=== PATIENT | female | born 1970 | race Caucasian/White ===

== ENCOUNTER 2023-05-14 11:10 | Outpatient (OUT) | payer OTHER, SELFPAY | END 2023-05-14 11:11 | disposition home or self-care (01) | LOC: MN 11:15 | PROVIDERS: PCP Family Medicine | DX: R73.03 Prediabetes (principal) | CPT/HCPCS: G0108 ==

== ENCOUNTER 2023-10-09 07:08 | Outpatient (OUT) | payer OTHER, SELFPAY ==
[2023-10-09 08:24] LABS: Albumin Level 3.2 g/dL (3.4-5.0); Anion Gap 13.3; BUN Creatinine Ratio 11.9; Calcium 8.8 mg/dL (8.5-10.1); Carbon Dioxide 26.7 mmol/L (21.0-32.0); Chloride 101 mmol/L (98-107); Estimated GFR (African America >60 (>=60); Estimated GFR (Non-African Ame 58 (>=60); Glucose 132 mg/dL (74-106); Phosphorus 2.9 mg/dL (2.6-4.7); Sodium 137 mmol/L (136-145)
[2023-10-09 12:52] LABS: Hematocrit 42.4 % (36.0-48.0); Hemoglobin 13.7 g/dL (12.0-16.0); Mean Corpuscular HGB Conc 32.3 g/dL (29.9-35.2); Mean Corpuscular Hemoglobin 31.2 pg (26.7-34.0); Mean Corpuscular Volume 96.6 fL (81.0-99.0); Mean Platelet Volume 9.2 fL (9.5-13.5); Platelet Count 250 10^3/uL (150-450); Red Blood Count 4.39 10^6/uL (4.20-5.40); Red Cell Distribution Width 13.4 % (11.0-15.0); White Blood Count 5.1 10^3/uL (4.0-11.0)
== END 2023-10-09 07:09 | disposition home or self-care (01) ==
LOC: LAB 07:10
PROVIDERS: PCP Family Medicine; Visit Provider Internal Medicine
DX: K21.9 Gastro-esophageal reflux disease without esophagitis (principal); N28.1 Cyst of kidney, acquired; E87.3 Alkalosis; E87.6 Hypokalemia; E61.1 Iron deficiency
CPT/HCPCS: 36415; 80069; 81001; 83735; 85027

== ENCOUNTER 2023-10-10 09:12 | Outpatient (REF) | payer OTHER, SELFPAY ==
--- OUTSIDE RECORDS SUMMARY | 2023-10-10 09:15 | XMS_ITS | CCD ---
Author Organization [facility] Care Team Providers Care Home Care Consultant Name Role Phone Ledy Swartz Unavailable RAFAEL, DR REYES Admitting Unavailable HOY, DR REYES Primary Care Unavailable HOY, DR REYES Consulting Unavailable HOY, DR REYES Attending Unavailable WEST, DR ANNALISA Zayas Consulting Unavailable JOSE LUISY, DR REYES Primary Care Unavailable HOY, DR REYES Consulting Unavailable JOSE LUISY, DR REYES Attending Unavailable HOY, DR REYES Admitting Unavailable WEST, DR ANNALISA Zayas Consulting Unavailable JOSE LUISY, DR REYES Primary Care Unavailable HOY, DR REYES Consulting Unavailable HOY, DR REYES Attending Unavailable HOY, DR REYES Admitting Unavailable HOY, DR REYES Primary Care Unavailable HOY, DR REYES Consulting Unavailable HOY, DR REYES Attending Unavailable HOY, DR REYES Admitting Unavailable BROWNANNALISA Unavailable NATAPRAWIRA, CLAYTON Referring Unavailable ERIC JOHNSTON Primary Care Unavailable LEDY SWARTZ Referring Unavailable ERIC JOHNSTON Primary Care Unavailable ERIC JOHNSTON Referring Unavailable ERIC JOHNSTON Primary Care Unavailable Medications Current Medications Medication Drug Class(es) Dates Sig (Normalized) Sig (Original) aMILoride hydrochloride 5 mg oral tablet (10 sources) Potassium-sparin g Diuretic Start: 04-01-2023 End: 04-01-2023 take 5 mg by mouth once daily Amiloride Active 5 MG PO Daily April 01, 2023 9:44am take 1 tablet by elva th every twenty-four hours aMILoride HCl 5 mg 1 tablet Orally Once a day for 90 day(s) Active diclofenac sodium 75 mg delayed release oral tablet (2 sources) Nonsteroidal Anti-inflammatory Drug take 1 tablet by mouth every twelve hours Diclofenac Sodium 75 MG 1 tablet Orally Twice a day Active estradiol 0.5 mg oral tablet (3 sources) Estrogen Start: 04-01-19 take 1 tablet by mouth once daily Estradiol Active 0.5 MG PO Daily April 01, 2023 12:00am FreeTextSi tablet Orally Once a day; Note: Source Status: Taking; Provider: Sheridan Villafana ( ) take 1 tablet by elva th every twenty-four hours Estradiol 0.5 MG 1 tablet Orally Once a day Active etodolac 500 mg oral tablet (3 sources) Nonsteroidal Anti-inflammatory Drug Start: 04-01-2023 take 1 tablet by mouth twice daily at mealtime Etodolac Active 500 MG PO Once April 01, 2023 12:00am FreeTextSi tablet with food Orally Twice a day; Note: Source Status: Taking; Provider: Sheridan Villafana ( ) take 1 tablet by mouth every twe lve hours Etodolac 500 MG 1 tablet with food Orally Twice a day Active ferrous sulfate 325 mg oral tablet (4 sources) Start: 04-01-2023 End: 04-01-2023 take 1 tablet by mouth once daily Ferrous Sulfate Active 325 MG PO Daily April 01, 2023 9:43am FreeTextSi tablet Orally Once a day; Note: Source Status: Taking; Provider: Sheridan Villafana ( ) take 1 tablet by mouth once bryce y Ferrous Sulfate 325 (65 Fe) MG 1 tablet Orally Once a day Active pantoprazole 40 mg delayed release oral tablet (5 sources) Proton Pump Inhibitor Start: 04-01-2023 take 2 tablets by mouth once daily Pantoprazole Active 80 MG PO Daily April 01, 2023 12:00am FreeTextSi TABLETS Orally Once a day; Note: Source Status: Taking; Provider: Sheridan Villafana ( ) take 2 tablets by mo ut every twenty-four hours Pantoprazole Sodium 40 MG 2 TABLETS Oral ly Once a day Active take 1 tablet by elva th every twenty-four hours Pantoprazole Sodium 40 MG 1 tablet Orall y Once a day Active potassium chloride 20 meq extended release oral tablet (6 sources) Start: 04-01-2023 End: 04-01-2023 take 1 tablet by mouth twice daily Potassium Chloride Active 20 MEQ PO Twice daily 180 April 01, 2023 9:44am FreeTextSi Tablet Orally bid; Note: Source Status: Taking; Refills: 1; Qty: 180 Tablet; Provider: Sheridan Villafana ( ) take 1 tablet by elva th every twelve hours Potassium Chloride ER 20 mEq 1 Tablet Orally bid for 90 day(s) Active Problems Active Problems Problem Classification Problem Date Documented Da te Episodic/Chronic Abdominal pain (4 sources) Right upper quadrant pain; Translations: [RIGHT UPPER QUADRANT PAIN] Onset: 3 Episodic Deficiency and other anemia (1 source) Anemia, unspecified Episodic Diabetes mellitus without complication (2 sources) Hyperglycemia, unspecified; Translations: [Other abnormal glucose] Onset: 4 Episodic Esophageal disorders (5 sources) Gastroesophageal reflux disease; Translations: [Gastro-esophageal reflux disease without esophagitis] Chronic Fluid and electrolyte disorders (20 sources) Metabolic alkalosis; Translations: [Alkalosis] Onset: 2 Resolved: 2 Episodic Genitourinary congenital anomalies (8 sources) Cyst of kidney; Translations: [Congenital renal cyst, unspecified] Onset: 2 Resolved: 2 Chronic Malaise and fatigue (1 source) Other fatigue; Translations: [OTHER FATIGUE] Onset: 3 Episodic Nutritional deficiencies (4 sources) Iron deficiency; Translations: [Iron deficiency] Onset: 4 Episodic Other diseases of kidney and ureters (1 source) Cyst of kidney; Translations: [Cyst of kidney, acquired] 03-30-2023 Episodic Other diseases of kidney and ureters (1 source) Cyst of kidney, acquired; Translations: [Cystic kidney disease, unspecified] 04-01-2023 Episodic Other gastrointestinal disorders (1 source) Abdominal distension (gaseous); Translations: [ABDOMINAL DISTENSION GASEOUS] Onset: 3 Episodic Other liver diseases (1 source) Fatty (change of) liver, not elsewhere classified; Translations: [FATTY CHANGE LIVER NEC] Onset: 3 Chronic Other screening for suspected conditions (not mental disorders or infectious disease) (1 source) Encounter for screening mammogram for malignant neoplasm of breast; Translations: [Encounter for screening mammogram for malignant neoplasm of breast] Onset: 4 Episodic Past or Other Problems Problem Classification Problem Date Documented Da te Episodic/Chronic Nonspecific chest pain (4 sources) Chest pain, unspecified; Translations: [CHEST PAIN UNSPECIFIED] Onset: 11-03-2021 Episodic Results Test Name Value Interpretation Reference Range 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 COMPARISON: Mammograms dating back to 07/30/2018 TECHNIQUE: Bilateral digital tomosynthesis MLO and CC views of the breasts were obtained, with creation of synthetic 2D views. Computer aided detection was utilized. FINDINGS: The breasts are almost entirely fatty. There are no suspicious masses, calcifications, or areas of architectural distortions. IMPRESSION: No mammographic evidence of malignancy. BI-RADS: BI-RADS 1 - Negative Recommendation: Routine screening mammogram in 1 year. 1 Finalized by Kimi Del Rosario MD on 04/29/2023 2:39 PM 1 a MAMM 1 YR Normal [facility] COMPREHENSIVE METABOLIC PANE Rl 04-06-2023 Albumin [Mass/Vol] 3.7 g/dL Normal 3.2-5.3 [facility] Comment on above: Performed By: #### C ABUNDIO, 23912-3, THYR, 3051-0 #### [facility] ([id number]) [address], [facility] [address] [place] [address] ALP [Catalytic activity/Vol] 62 U/L Normal 39-130 [facility] Comment on above: Performed By: #### C ABUNDIO, 11975-8, THYR, 3051-0 #### [facility] ([id number]) [address], [facility] [address] [place] [address] ALT [Catalytic activity/Vol] 20 U/L Normal 0-31 [facility] Comment on above: Performed By: #### C ABUNDIO, 33876-5, THYR, 3051-0 #### [facility] ([id number]) [address], [address] [place] [address] Anion gap [Moles/Vol] 6 mmol/L Normal 5-15 [facility] Comment on above: Performed By: #### C ABUNDIO, 77081-2, THYR, 3051-0 #### [facility] ([id number]) [address], [address] [place] [address] AST [Catalytic activity/Vol] 15 U/L Normal 0-41 [facility] Comment on above: Performed By: #### C ABUNDIO, 08569-0, THYR, 305-0 #### [facility] ([id number]) [address], [address] [place] [address] Bilirubin [Mass/Vol] 0.6 mg/dL Normal 0.3-1.2 [facility] Comment on above: Performed By: #### C ABUNDIO, 17718-7, THYR, 305-0 #### [facility] ([id number]) [address], [address] [place] [address] Calcium [Mass/Vol] 8.9 mg/dL Normal 8.5-10.5 [facility] Comment on above: Performed By: #### C ABUNDIO, 47073-1, THYR, 305-0 #### [facility] ([id number]) [address], [address] [place] [address] Chloride [Moles/Vol] 105 mmol/L Normal 98-109 [facility] Comment on above: Performed By: #### C ABUNDIO, 17028-2, THYR, 305-0 #### [facility] ([id number]) [address], [address] [place] [address] CO2 [Moles/Vol] 29 mmol/L Normal 22-32 [facility] Comment on above: Performed By: #### C ABUNDIO, 36863-1, THYR, 3051-0 #### [facility] ([id number]) [address] [place] [address] Creatinine [Mass/Vol] 0.91 mg/dL Normal 0.40-1.00 [facility] Comment on above: Result Comment: METH OD TRACEABLE TO IDMS STANDARD Performed By: #### C ABUNDIO, 72261-2, THYR, 305-0 #### [facility] ([id number]) [address] [facility] [address] [place] [address] GFR/1.73 sq M.predicted among non-blacks MDRD (S/P/Bld) [Vol rate/Area] 76 mL/min/{1.73_m2} Normal >59 [facility] Comment on above: Result Comment: Reported eGFR is based on the CKD-EPI 2020 equation that does not use a race coefficient. Performed By: #### C ABUNDIO, 84199-9, THYR, 305-0 #### [facility] ([id number]) [address] [facility] [address] [place] [address] Glucose [Mass/Vol] 120 mg/dL High 65-99 [facility] Comment on above: Performed By: #### C ABUNDIO, 33191-2, THYR, 3050-0 #### [facility] ([id number]) [address] [facility] [address] [place] [address] Potassium [Moles/Vol] 4.2 mmol/L Normal 3.5-5.0 [facility] Comment on above: Performed By: #### C ABUNDIO, 09344-6, THYR, 305-0 #### [facility] ([id number]) [address] [facility] [address] [place] [address] Protein [Mass/Vol] 6.4 g/dL Normal 6.0-8.0 [facility] Comment on above: Performed By: #### C ABUNDIO, 78857-9, THYR, 305-0 #### [facility] ([id number]) [address] [facility] [address] [place] [address] Sodium [Moles/Vol] 140 mmol/L Normal 134-146 [facility] Comment on above: Performed By: #### C ABUNDIO, 71211-0, THYR, 305-0 #### [facility] ([id number]) [address], [address] [place] [address] Urea nitrogen [Mass/Vol] 18 mg/dL Normal 5-23 [facility] Comment on above: Performed By: #### C ABUNDIO, 41784-1, THYR, 305-0 #### [facility] ([id number]) [address], [facility] [address] [place] [address] FREE T3on 04-06-2023 Free T3 [Mass/Vol] 3.00 pg/mL Normal 2.50-3.90 [facility] Comment on above: Performed By: #### C BC, FEPR, 34233-4, RENAL, UPCR, 2276-4 #### [facility] ([id number]) [address], [address] [place] [address] HGB A1C (GLYCO-HGB)on 2023 Glucose [Mass/Vol] 146 mg/dL Normal [facility] Comment on above: Performed By: #### C ABUNDIO, 74637-1, THYR, 305-0 #### [facility] ([id number]) [address], [facility] [address] [place] [address] HbA1c (Bld) [Mass fraction] 6.7 % High 4.4-5.6 [facility] Comment on above: Result Comment: NOTE ADA Guidelines Result HgbA1c Normal : less than 5.7 % Prediabetes : 5.7 % to 6.4 % Diabetes : > 6.4 % Use with caution in patients with abnormal hemoglobin variants as the half-life of red blood cells and in vivo glycation rates are affected. Performed By: #### C ABUNDIO, 24557-4, THYR, 305-0 #### [facility] ([id number]) [address], [address] [place] [address] Insulin Qnon 04-06-2023 INSULIN 9.51 uIU/mL Normal 1.00-23.00 [facility] Comment on above: Result Comment: Ref. range is for FASTING NON-DIABETIC POPULATION. Performed By: #### C BC, FEPR, 81777-5, RENAL, UPCR, 2276-4 #### [facility] ([id number]) [address], [address] [place] [address] Lipid 1996 panelon Cholesterol [Mass/Vol] 103 mg/dL Low 150-200 [facility] Comment on above: Performed By: #### Jeannette DEL CASTILLO, 26970-9, THYR, 3051-0 #### [facility] ([id number]) [address], [address] [place] [address] Cholesterol in HDL [Mass/Vol] 32 mg/dL Low >39 [facility] Comment on above: Result Comment: HDL <40 mg/dL - High Risk HDL > or = 40mg/dL- Desirable HDL >60 mg/dL - Negative Risk Performed By: #### Jeannette DEL CASTILLO, 98791-8, THYR, 3051-0 #### [facility] ([id number]) [address], [address] [place] [address] Cholesterol in LDL [Mass/Vol] 52 mg/dL Normal <130 [facility] Comment on above: Result Comment: LDL <100 mg/dL - Desirable LDL >160 mg/dL - High Risk Performed By: #### Jeannette DEL CASTILLO, 78240-7, THYR, 3051-0 #### [facility] ([id number]) [address], [address] [place] [address] Cholesterol in VLDL [Mass/Vol] 19 mg/dL Normal 0-30 [facility] Comment on above: Performed By: #### C MP, 66300-8, THYR, 3051-0 #### [facility] ([id number]) [address], [address] [place] [address] CHOLESTEROL:HDL 3.2 Normal 1.0-5.0 [facility] Comment on above: Performed By: #### C MP, 95277-1, THYR, 3051-0 #### [facility] ([id number]) [address], [address] [place] [address] Triglyceride [Mass/Vol] 95 mg/dL Normal 27-150 [facility] Comment on above: Performed By: #### C MP, 44643-1, THYR, 3051-0 #### [facility] ([id number]) [address], [address] [place] [address] THYROID PROFILEon 04-06-2023 Free T4 [Mass/Vol] 0.82 ng/dL Normal 0.61-1.60 [facility] Comment on above: Performed By: #### C BC, FEPR, 44859-7, RENAL, UPCR, 6-4 #### [facility] ([id number]) [address], [address] [place] [address] TSH 1.95 uIU/mL Normal 0.49-4.67 [facility] Comment on above: Performed By: #### C BC, FEPR, 36139-9, RENAL, UPCR, 2276-4 #### [facility] ([id number]) [address], [address] [place] [address] COMPLETE BLOOD COUNTon 03-22 Erythrocyte distribution width (RBC) [Ratio] 12.1 % Normal 11.5-15.0 [facility] Comment on above: Performed By: #### C BC, FEPR, , RENAL, UPCR, 4 #### [facility] ([id number]) [address], [address] [place] [address] Hematocrit (Bld) [Volume fraction] 40.3 % Normal 35-47 [facility] Comment on above: Performed By: #### C BC, FEPR, 43619-9, RENAL, UPCR, 2275- #### [facility] ([id number]) [address], [facility] [address] [place] [address] Hemoglobin (Bld) [Mass/Vol] 13.6 g/dL Normal 11.7-15.5 [facility] Comment on above: Performed By: #### C BC, FEPR, , RENAL, UPCR, 2275- #### [facility] ([id number]) [address], [address] [place] [address] MCH (RBC) [Entitic mass] 31.1 pg Normal 27-34 [facility] Comment on above: Performed By: #### C BC, FEPR, , RENAL, UPCR, 2275- #### [facility] ([id number]) [address], [address] [place] [address] MCHC (RBC) [Mass/Vol] 33.7 g/dL Normal 32-36 [facility] Comment on above: Performed By: #### C BC, FEPR, 74977-6, RENAL, UPCR, 2275- #### [facility] ([id number]) [address], [address] [place] [address] MCV (RBC) [Entitic vol] 93 fL Normal 80-100 [facility] Comment on above: Performed By: #### C BC, FEPR, 77669-8, RENAL, UPCR, 2275-05 #### [facility] ([id number]) [address], [address] [place] [address] Platelet mean volume (Bld) [Entitic vol] 7.4 fL Normal 7-12 [facility] Comment on above: Performed By: #### C BC, FEPR, 86380-1, RENAL, UPCR, 6-4 #### [facility] ([id number]) [address], [address] [place] [address] Platelets (Bld) [#/Vol] 318 10*3/uL Normal 150-450 [facility] Comment on above: Performed By: #### C BC, FEPR, 42871-4, RENAL, UPCR, 2275- #### [facility] ([id number]) [address] [facility] [facility] [address] [place] [address] RBC COUNT 4.35 X10E12/L Normal 3.80-5.20 [facility] Comment on above: Performed By: #### C BC, FEPR, 90124-1, RENAL, UPCR, 2275-4 #### [facility] ([id number]) [address] [facility] [facility] [address] [place] [address] WBC (Bld) [#/Vol] 8.8 10*3/uL Normal 4.0-11.0 [facility] Comment on above: Performed By: #### C BC, FEPR, 62321-1, RENAL, UPCR, 2275- #### [facility] ([id number]) [address] [facility] [address] [place] [address] FERRITINon 03-22-2023 Ferritin [Mass/Vol] 40 ng/mL Normal 11-307 [facility] Comment on above: Performed By: #### C BC, FEPR, 85005-9, RENAL, UPCR, 6-4 #### [facility] ([id number]) [address] [place] [address] IRON PROFILEon 03-22-2023 Iron [Mass/Vol] 147 ug/dL Normal 50-170 [facility] Comment on above: Performed By: #### C BC, FEPR, 90607-1, RENAL, UPCR, 2276-4 #### [facility] ([id number]) [address], [facility] [address] [place] [address] IRON BINDING 402 ug/dL Normal 250-425 [facility] Comment on above: Performed By: #### C BC, FEPR, 03070-8, RENAL, UPCR, 2276-4 #### [facility] ([id number]) [address], [facility] [address] [place] [address] IRON SATURATION 37 % SATURATION Normal 15-50 [facility] Comment on above: Performed By: #### C BC, FEPR, , RENAL, UPCR, 2276-4 #### [facility] ([id number]) [address], [address] [place] [address] MAGNESIUMon 03-22-2023 Magnesium [Mass/Vol] 2.1 mg/dL Normal 1.8-2.6 [facility] Comment on above: Performed By: #### C BC, FEPR, , RENAL, UPCR, 2276-4 #### [facility] ([id number]) [address], [address] [place] [address] PROTEIN CREAT RATIOon 2023 RANDOM URINE PROTEIN 200 mg/L High <120 [facility] Comment on above: Performed By: #### C BC, FEPR, 71290-3, RENAL, UPCR, 2276-4 #### [facility] ([id number]) [address] [place] [address] U/PRO/INTERIOR DECORATOR RATIO CALC 0.07 Normal <0.2 [facility] Comment on above: Result Comment: Neph rotic Syndrome is associated with ratios >3.5 Performed By: #### C BC, FEPR, 04323-3, RENAL, UPCR, 2276-4 #### [facility] ([id number]) [address] [place] [address] URINE CREATININE,RDM 295.21 mg/dL Normal Pr [facility] [place] [place] Comment on above: Performed By: #### C BC, FEPR, 92765-3, RENAL, UPCR, 2276-4 #### [facility] ([id number]) [address], [address] [place] [address] RENAL PANELon 03-22-2023 Albumin [Mass/Vol] 3.8 g/dL Normal 3.2-5.3 [facility] Comment on above: Performed By: #### C BC, FEPR, 48744-1, RENAL, UPCR, 2276-4 #### [facility] ([id number]) [address], [address] [place] [address] Anion gap [Moles/Vol] 9 mmol/L Normal 5-15 [facility] Comment on above: Performed By: #### C BC, FEPR, 96252-3, RENAL, UPCR, 2276-4 #### [facility] ([id number]) [address], [address] [place] [address] Calcium [Mass/Vol] 9.1 mg/dL Normal 8.5-10.5 [facility] Comment on above: Performed By: #### C BC, FEPR, 80930-1, RENAL, UPCR, 2276-4 #### [facility] ([id number]) [address] [place] [address] Chloride [Moles/Vol] 104 mmol/L Normal 98-109 [facility] Comment on above: Performed By: #### C BC, FEPR, 04806-2, RENAL, UPCR, 2276-4 #### [facility] ([id number]) [address], [address] [place] [address] CO2 [Moles/Vol] 26 mmol/L Normal 22-32 [facility] Comment on above: Performed By: #### C BC, FEPR, 77870-7, RENAL, UPCR, 6-4 #### [facility] ([id number]) [address], [address] [place] [address] Creatinine [Mass/Vol] 0.98 mg/dL Normal 0.40-1.00 [facility] Comment on above: Result Comment: METH OD TRACEABLE TO IDMS STANDARD Performed By: #### C BC, FEPR, 87684-3, RENAL, UPCR, 6-4 #### [facility] ([id number]) [address], [facility] [address] [place] [address] GFR/1.73 sq M.predicted among non-blacks MDRD (S/P/Bld) [Vol rate/Area] 69 mL/min/{1.73_m2} Normal >59 [facility] Comment on above: Result Comment: Reported eGFR is based on the CKD-EPI 2020 equation that does not use a race coefficient. Performed By: #### C BC, FEPR, 83469-0, RENAL, UPCR, 6-4 #### [facility] ([id number]) [address] [place] [address] Glucose [Mass/Vol] 143 mg/dL High 65-99 [facility] Comment on above: Performed By: #### C BC, FEPR, 36034-3, RENAL, UPCR, 6-4 #### [facility] ([id number]) [address] [facility] [address] [place] [address] Phosphate [Mass/Vol] 3.8 mg/dL Normal 2.4-4.9 [facility] Comment on above: Performed By: #### C BC, FEPR, 06565-0, RENAL, UPCR, 2276-4 #### [facility] ([id number]) [address] [place] [address] Potassium [Moles/Vol] 4.1 mmol/L Normal 3.5-5.0 [facility] Comment on above: Performed By: #### C BC, FEPR, 50694-9, RENAL, UPCR, 2276-4 #### [facility] ([id number]) [address] [place] [address] Sodium [Moles/Vol] 139 mmol/L Normal 134-146 [facility] Comment on above: Performed By: #### C BC, FEPR, 14590-3, RENAL, UPCR, 2276-4 #### [facility] ([id number]) [address] [place] [address] Urea nitrogen [Mass/Vol] 16 mg/dL Normal 5-23 [facility] Comment on above: Performed By: #### C BC, FEPR, 89308-0, RENAL, UPCR, 2276-4 #### [facility] ([id number]) [address], [address] [place] [address] URINALYSISon 03-22-2023 Bilirubin Ql (U) Large Abnormal NEG [place] Comment on above: Result Comment: Not confirmed, interpret positive results with caution. BLOOD/HGB Negative Normal NEG [facility] Color (U) YELLOW Normal YELLOW [facility] Glucose Ql (U) Negative Normal NEG [facility] Hyaline casts LM Ql (Urine sed) 2 /lpf Normal 0-2 [facility] Ketones Ql (U) Negative Normal NEG [facility] Leukocyte esterase Test strip Ql (U) Negative Normal NEG [facility] MUCOUS PRESENT Abnormal NONE [facility] Nitrite Ql (U) Negative Normal NEG [facility] pH (U) 6.5 [pH] Normal 5.0-8.5 [facility] Protein Ql (U) 70 mg/dL Abnormal NEG [facility] R.B.CELLS 0 /hpf Normal 0-5 [facility] Specific gravity (U) [Rel density] 1.025 Normal 1.003-1.035 [facility] [place] SQUAMOUS EPITHELIUM 11 /hpf High 0-5 [facility] TURBIDITY HAZY Abnormal CLEAR [facility] Urobilinogen Qn (U) 4 {Earnest'U}/dL High <1.1 [facility] W.B.CELLS 2 /hpf Normal 0-5 [facility] Hemogram CBC Without Diffon 04-21-2022 Erythrocyte distribution width (RBC) [Ratio] 13.1 % [facility] [place] Other Hematocrit (Bld) [Volume fraction] 39.6 % [facility] [place] [place] Other Hemoglobin (Bld) [Mass/Vol] 13.5 g/dL [facility] [place] [place] Other MCH (RBC) [Entitic mass] 31.4 pg [facility] [place] Other MCH (RBC) [Entitic mass] 34.1 pg [facility] [place] Other MCV (RBC) [Entitic vol] 92 fL [facility] [place] [place] Other Platelet mean volume (Bld) [Entitic vol] 7.4 fL [facility] [place] Other Platelets (Bld) [#/Vol] 324 10*3/uL [facility] [place] Other RBC (Bld) [#/Vol] 4.30 10*6/uL [facility] [place] Other WBC (Bld) [#/Vol] 7.9 10*3/uL [facility] [place] [place] Other Hemogram CBC Without Diff [facility] [place] [place] Other Iron and TIBC Profileon Iron [Mass/Vol] 61 ug/dL [facility] [place] Other Iron and TIBC Profile [address] [employer] [facility] [employer] Other Iron and TIBC Profile 16 [facility] [place] Other Magnesiumon 04-21-2022 Magnesium 2,2 [facility] [place] [place] Other Protein Creat Ratio Ur Rando mon 04-21-2022 Albumin Test strip detection limit <= 20 mg/L (U) [Mass/Vol] 80 [facility] [place] [place] Other Protein Creat Ratio Ur Random 101.82 [facility] [place] [place] Other Protein Creat Ratio Ur Random 0.08 [facility] [place] Other Ferritinon 04-17-2022 Ferritin [Mass/Vol] 26 ng/mL [facility] [place] [place] Other Renal Function Panelon 04-17 Albumin [Mass/Vol] 4.0 g/dL [facility] [place] [place] Other Calcium [Mass/Vol] 8.9 mg/dL [facility] [place] [place] Other Chloride [Moles/Vol] 108 mmol/L [facility] [place] Other CO2 [Moles/Vol] 26 mmol/L [facility] [place] Other Creatinine [Mass/Vol] 0.93 mg/dL [facility] [place] Other Glucose [Mass/Vol] 115 mg/dL [facility] [place] [place] Other Potassium [Moles/Vol] 4.2 mmol/L [facility] [place] Other Sodium [Moles/Vol] 143 mmol/L [facility] [place] Other Urea nitrogen [Mass/Vol] 11 mg/dL [facility] [place] [place] Other Renal Function Panel [facility] [place] [place] Other Renal Function Panel 74 [facility] [place] Other CT ABD/PELV W CONon 03-24-[address] ABD/PELV W CON EXAMINATION: CT ABD/PELV W CON, 03/24/2022 6:48 AM EST HISTORY: Right upper quadrant pain , elevated liver phalanx, epigastric pain COMPARISON: 03/13/2022 ultrasound TECHNIQUE: CT scan of the abdomen and pelvis was performed with IV contrast. CT dose reduction technique was used, including Automated Exposure Control. FINDINGS: LUNG BASES: No visible pulmonary or pleural disease. LIVER: Diffuse hypoattenuation of the liver BILIARY: No dilatation or calcification. PANCREAS: No lesion, fluid collection, ductal dilatation, or atrophy. SPLEEN: No enlargement or focal lesion. ADRENALS: No mass or enlargement. KIDNEYS: No mass, obstruction, or calcification. BOWEL/MESENTERY: Mild sliding hiatal hernia. Nonobstructive bowel gas pattern. Mild to moderate stranding in the central mesenteric fat with associated increased number of normal sized lymph nodes AORTA/VASCULAR: No aneurysm or dissection. RETROPERITONEUM: No mass or adenopathy. LYMPH NODES: No adenopathy. URINARY BLADDER: No visible focal wall thickening, lesion, or calculus. PELVIC ORGANS: Hysterectomy ABDOMINAL WALL: No mass or hernia. BONES: No bony lesion or fracture. OTHER: Negative. IMPRESSION: Diffuse hepatic steatosis Stranding of the central mesenteric fat with increased number of lymph nodes. Consider mesenteric adenitis or mesenteritis Electronically authenticated by: ANNALISA MASTERS Date: 2022-03-24 08:27 Normal [facility] AMYLASEon 03-19-2022 Amylase [Catalytic activity/Vol] 48 U/L Normal 25-115 [facility] Comment on above: Performed By: #### L IPA, BEBA, CMP #### [facility] [address] [place] [address] Dr. Cecilio Guerrero CBC AUTO DIFFon 03-19-2022 BASO # 0.0 103/ul Normal 0.0-0.1 [facility] Comment on above: Performed By: #### C BC #### [facility] [address] [place] [address] Dr. Cecilio Guerrero Basophils/100 WBC (Bld) 0.5 % Normal 0.2-2.0 [facility] Comment on above: Performed By: #### C BC #### [facility] [address] [place] [address] Dr. Cecilio Guerrero EO # 0.3 103/ul Normal 0.0-0.7 [facility] Comment on above: Performed By: #### C BC #### [facility] [address] [place] [address] Dr. Cecilio Guerrero Eosinophils/100 WBC (Bld) 2.9 % Normal 0.9-7.0 [facility] Comment on above: Performed By: #### C BC #### [facility] [address] [place] [address] Dr. Cecilio Guerrero Erythrocyte distribution width (RBC) [Ratio] 12.0 % Normal 11.0-15.0 [facility] Comment on above: Performed By: #### C BC #### [facility] [address] [place] [address] Dr. Cecilio Guerrero Hematocrit (Bld) [Volume fraction] 45.8 % Normal 36.0-48.0 [facility] Comment on above: Performed By: #### C BC #### [facility] [address] [place] [address] Dr. Cecilio Guerrero Hemoglobin (Bld) [Mass/Vol] 14.3 g/dL Normal 12.0-16.0 [facility] Comment on above: Performed By: #### C BC #### [facility] [address] [place] [address] Dr. Cecilio Guerrero IG # 0.03 10e3/ul Normal 0.00-0.03 [facility] Comment on above: Performed By: #### C BC #### [facility] [address] [place] [address] Dr. Cecilio Guerrero IG % 0.3 % Normal 0.0-0.5 [facility] Comment on above: Performed By: #### C BC #### [facility] [address] [place] [address] Dr. Cecilio Guerrero LYMPH # 3.4 103/ul Normal 1.2-3.8 [facility] Comment on above: Performed By: #### C BC #### [facility] [address] [place] [address] Dr. Cecilio Guerrero Lymphocytes/100 WBC (Bld) 37.9 % Normal 20.5-60.0 [facility] Comment on above: Performed By: #### C BC #### [facility] [address] [place] [address] Dr. Cecilio Guerrero MANUAL DIFF REQ NO Normal [facility] Comment on above: Performed By: #### C BC #### [facility] [address] [place] [address] Dr. Cecilio Guerrero MCH (RBC) [Entitic mass] 30.1 pg Normal 26.7-34.0 [facility] Comment on above: Performed By: #### C BC #### [facility] [address] [place] [address] Dr. Cecilio Guerrero MCHC (RBC) [Mass/Vol] 31.2 g/dL Normal 29.9-35.2 [facility] Comment on above: Performed By: #### C BC #### [facility] [address] [place] [address] Dr. Cecilio Guerrero MCV (RBC) [Entitic vol] 96.4 fL Normal 81.0-99.0 [facility] Comment on above: Performed By: #### C BC #### [facility] [address] [place] [address] Dr. Cecilio Guerrero MONO # 0.9 103/ul Critically high 0.3-0.8 [facility] Comment on above: Performed By: #### C BC #### [facility] [address] [place] [address] Dr. Cecilio Guerrero Monocytes/100 WBC (Bld) 10.0 % Normal 1.7-12.0 [facility] Comment on above: Performed By: #### C BC #### [facility] [address] [place] [address] Dr. Cecilio Guerrero NEUT # 4.3 103/ul Normal 1.4-6.5 [facility] Comment on above: Performed By: #### C BC #### [facility] [address] [place] [address] Dr. Cecilio Guerrero Neutrophils/100 WBC (Bld) 48.4 % Normal 43.0-75.0 [facility] Comment on above: Performed By: #### C BC #### [facility] [address] [place] [address] Dr. Cecilio Guerrero Platelet mean volume (Bld) [Entitic vol] 9.2 fL Critically low 9.5-13.5 [facility] Comment on above: Performed By: #### C BC #### [facility] [address] [place] [address] Dr. Cecilio Guerrero PLT 319 103/ul Normal 150-450 [facility] Comment on above: Performed By: #### C BC #### [facility] [address] [place] [address] Dr. Cecilio Guerrero RBC 4.75 106/ul Normal 4.20-5.40 [facility] Comment on above: Performed By: #### C BC #### [facility] [address] [place] [address] Dr. Cecilio Guerrero WBC 8.9 103/ul Normal 4.0-11.0 [facility] Comment on above: Performed By: #### C BC #### [facility] [address] [place] [address] Dr. Cecilio Guerrero LIPASEon 03-19-2022 Lipase [Catalytic activity/Vol] 379.0 U/L Normal 73.0-393.0 [facility] Comment on above: Performed By: #### L BEBA RUSH CMP #### [facility] [address] [place] [address] Dr. Cecilio Guerrero PROF 14(COMP METB)on 023 Albumin [Mass/Vol] 3.3 g/dL Critically low 3.4-5.0 [facility] Comment on above: Performed By: #### L BEBA RUSH CMP #### [facility] [address] [place] [address] Dr. Cecilio Guerrero Albumin/Globulin [Mass ratio] 0.8 {ratio} Normal [facility] Comment on above: Performed By: #### L BEBA RUSH CMP #### [facility] [address] [place] [address] Dr. Cecilio Guerrero ALP [Catalytic activity/Vol] 85 U/L Normal 46-116 [facility] Comment on above: Performed By: #### L BEBA RUSH, CMP #### [facility] [address] [address] [address] Cecilio Guerrero ALT [Catalytic activity/Vol] 103 U/L Critically high 14-59 [facility] Comment on above: Performed By: #### L BEBA RUSH, CMP #### [facility] [address] [address] [address] Cecilio Guerrero Anion gap [Moles/Vol] 10.8 mmol/L Normal [facility] Comment on above: Performed By: #### L BEBA RUSH, CMP #### [facility] [address] [place] [address] Dr. Cecilio Guerrero AST [Catalytic activity/Vol] 30 U/L Normal 15-37 [facility] Comment on above: Performed By: #### L BEBA RUSH, CMP #### [facility] [address] [place] [address] Dr. Cecilio Guerrero Bilirubin [Mass/Vol] 0.6 mg/dL Normal 0.2-1.0 [facility] Comment on above: Performed By: #### L BEBA RUSH, CMP #### [facility] [address] [place] [address] Dr. Cecilio Guerrero Calcium [Mass/Vol] 9.5 mg/dL Normal 8.5-10.1 [facility] Comment on above: Performed By: #### L BEBA RUSH, CMP #### [facility] [address] [place] [address] Dr. Cecilio Guerrero Chloride [Moles/Vol] 104 mmol/L Normal 98-107 [facility] Comment on above: Performed By: #### L BBEA RUSH, CMP #### [facility] [address] [place] [address] Dr. Cecilio Guerrero CO2 [Moles/Vol] 30.5 mmol/L Normal 21.0-32.0 [facility] Comment on above: Performed By: #### L BEBA RUSH, CMP #### [facility] [address] [address] [address] Cecilio Guerrero Creatinine [Mass/Vol] 0.99 mg/dL Normal 0.55-1.02 [facility] Comment on above: Performed By: #### L VICTOR MANUEL BEBA, CMP #### [facility] [address] [address] [address] Cecilio Guerrero EGFR-AF FAROESE >60 Normal >=60 [facility] Comment on above: Performed By: #### L VICTOR MANUEL BEBA, CMP #### [facility] [address] [address] [address] Cecilio Guerrero EGFR-NON AF FAROESE 59 mL/min/1.73m2 Critically low >=60 [facility] Comment on above: Performed By: #### L BEBA RUSH, CMP #### [facility] [address] [address] [address] Cecilio Guerrero Globulin (S) [Mass/Vol] 4.0 g/dL Normal [facility] Comment on above: Performed By: #### L BEBA RUSH, CMP #### [facility] [address] [address] [address] Cecilio Guerrero Glucose [Mass/Vol] 130 mg/dL Critically high 74-106 [facility] Comment on above: Performed By: #### L BEBA RUSH, CMP #### [facility] [address] [address] [address] Cecilio Guerrero Potassium [Moles/Vol] 4.3 mmol/L Normal 3.5-5.1 [facility] Comment on above: Performed By: #### L BEBA RSUH, CMP #### [facility] [address] [address] [address] Cecilio Guerrero Protein [Mass/Vol] 7.3 g/dL Normal 6.4-8.2 [facility] Comment on above: Performed By: #### L VICTOR MANUEL BEBA, CMP #### [facility] [address] [address] [address] Cecilio Guerrero Sodium [Moles/Vol] 141 mmol/L Normal 136-145 [facility] Comment on above: Performed By: #### L IPA, BEBA, CMP #### [facility] [address] [place], [place] [address] Dr. Cecilio Guerrero Urea nitrogen [Mass/Vol] 12.0 mg/dL Normal 7.0-18.0 [facility] Comment on above: Performed By: #### L IPA, BEBA, CMP #### [facility] [address] [place], [place] [address] Dr. Cecilio Guerrero Urea nitrogen/Creatinine [Mass ratio] 12.1 mg/mg Normal [facility] Comment on above: Performed By: #### L IPA, BEBA, CMP #### [facility] [address] [place], [place] [address] Dr. Cecilio Guerrero US SINGLE QUAD RT UPPERon US SINGLE QUAD RT UPPER EXAM: US SINGLE QUAD RT UPPER HISTORY: . Right upper quadrant pain . COMPARISON: 11/26/2018 TECHNIQUE: Grayscale and color imaging was performed FINDINGS: The pancreas appears normal. Scanning of the liver demonstrates diffuse increased echogenicity of liver consistent with fatty infiltration of liver. Color-flow is noted in the portal and hepatic veins. Liver is normal in size. The gallbladder appears normal with no stones or sludge identified. No gallbladder wall thickening is noted. Common bile duct measures 4 mm. Right kidney measures 10.3 x 5.6 x 4.9 cm. No solid renal cortical masses or hydronephrosis is noted. No fluid is noted in the right upper quadrant. IMPRESSION: 1. Increased echogenicity of liver consistent with fatty infiltration of liver. This is unchanged. 2. The remainder the right upper quadrant is unremarkable. Electronically authenticated by: ANNALISA DE Date: 2022-03-13 12:13 Normal [facility] NM STRESS/REST MULTIon 11-03 NM STRESS/REST MULTI Patient: NORMA LOUGage Exam Date: 11/03/2021 : 1970 Gender:F Ordering : DR ERIC JOHNSTON . Admission #: [id number] Family : Order #: [id number] CLICK HERE TO VIEW EXAM RADIOLOGY REPORT PROCEDURE: RADIONUCLIDE IMAGING STRESS/REST MULTI COMPARISON: None. INDICATIONS: Chest pain TECHNIQUE: Exam Description: Stress/Rest one day protocol gated SPECT Rest Imagin.7 mCi Tc-99m Cardiolite IV on 11/03/2021 Stress Imaging 31.2 mCi Tc-99m Cardiolite IV on 11/03/2021 Exercise Protocol: [place] Heart Rate (bpm): Rest: 88 Max: 162 PMHR: 95 Blood Pressure: Rest: 130/84 Max: 180/92 Exercise Time: Minutes: 6 Seconds: 00 Stage Reached: Stage: 2 Mets 7.0 Symptoms: Rest and peak stress ECG findings were normal and the exercise portion of the study was normal per attending physician Dr. Penn . For more details please see separate cardiac stress test report. FINDINGS: QUALITY OF STUDY: Good. PERFUSION DEFECT: None. LOCATION: N/A SIZE: N/A. SEVERITY: N/A. TYPE: N/A. WALL MOTION: Normal. LV SIZE: Normal. 47 mL. TID / TCD: None; 0.6 LVEF: Normal. Calculated EF 83%. SUMMARY: Myocardial perfusion imaging study is NORMAL. CONCLUSION: 1. No reversible ischemia 2. Normal exercise test Dictated by: Annalisa Masters MD on 11/04/2021 at 07:31 Approved by: Annalisa Masters MD on 11/04/2021 at 07:34 Normal [facility] Antithyroglobulin Abon 07-08 Antithyroglobulin Ab <1.0 Normal 0.0-0.9 [facility] Comment on above: Result Comment: Thyr oglobulin Antibody measured by [employer] Performed at: [facility] [employer] [id number] Coal Passer: Fabrizio Herrera PhD, Phone: [phone] Performed By: #### C HROMATIN, TPO, THYGLOB AB #### [facility] , #### ADDONUAPLUS #### [facility] [address] Chromatin Antibodyon 022 Chromatin Antibody <0.2 Normal 0.0-0.9 [facility] Comment on above: Result Comment: Perf ormed at: [facility] [id number] Coal Passer: Fabrizio Herrera PhD, Phone: [phone] PERFORMED BY: [place] [address] PATHOLOGIST TIE INSPECTOR PAULA WILL M.D. Performed By: #### C HROMATIN, TPO, THYGLOB AB #### [facility] , #### ADDONUAPLUS #### [facility] [address] [place] [address] [place] Dipstick and Microscopicon 0 07-08-2021 Appearance (U) Clear Normal Clear [facility] Comment on above: Order Comment: Name Collection Type:: Clean-Voided Midstream Performed By: #### C HROMATIN, TPO, THYGLOB AB #### [facility] , #### ADDONUAPLUS #### [address] Bacteria,Urine None Seen Normal None Seen [facility] Comment on above: Order Comment: Name Collection Type:: Clean-Voided Midstream Performed By: #### C HROMATIN, TPO, THYGLOB AB #### [facility] , #### ADDONUAPLUS #### [facility] [address] [place] [address] Bilirubin,Urine Negative Normal Negative [facility] Comment on above: Order Comment: Name Collection Type:: Clean-Voided Midstream Performed By: #### C HROMATIN, TPO, THYGLOB AB #### [facility] , #### ADDONUAPLUS #### [facility] [address] [place] [address] Color (U) Yellow Normal Yellow [facility] Comment on above: Order Comment: Name Collection Type:: Clean-Voided Midstream Performed By: #### C HROMATIN, TPO, THYGLOB AB #### [facility] , #### ADDONUAPLUS #### [facility] [address] [place] [address] Glucose Ql (U) Normal Normal Normal [facility] Comment on above: Order Comment: Name Collection Type:: Clean-Voided Midstream Performed By: #### C HROMATIN, TPO, THYGLOB AB #### [facility] , #### ADDONUAPLUS #### [facility] [address] [place] [address] [place] Hyaline Casts,Urine 0-8 Normal 0-8 [facility] Comment on above: Order Comment: Name Collection Type:: Clean-Voided Midstream Result Comment: PERF ORMED BY: [place] [address] PATHOLOGIST TIE INSPECTOR PAULA WILL M.D. Performed By: #### C HROMATIN, TPO, THYGLOB AB #### [facility] , #### ADDONUAPLUS #### [address] Ketones Ql (U) Trace High Negative [facility] Comment on above: Order Comment: Name Collection Type:: Clean-Voided Midstream Performed By: #### C HROMATIN, TPO, THYGLOB AB #### [facility] , #### ADDONUAPLUS #### [facility] [address] [place] [address] Leukocyte esterase Test strip Ql (U) Negative Normal Negative [facility] Comment on above: Order Comment: Name Collection Type:: Clean-Voided Midstream Performed By: #### C HROMATIN, TPO, THYGLOB AB #### [facility] , #### ADDONUAPLUS #### [facility] [address] [place] [address] [place] Nitrite,Urine Negative Normal Negative [facility] Comment on above: Order Comment: Name Collection Type:: Clean-Voided Midstream Performed By: #### C HROMATIN, TPO, THYGLOB AB #### [facility] , #### ADDONUAPLUS #### [facility] [address] [place] [address] Occult Blood,Urine Negative Normal Negative [facility] Comment on above: Order Comment: Name Collection Type:: Clean-Voided Midstream Performed By: #### C HROMATIN, TPO, THYGLOB AB #### [facility] , #### ADDONUAPLUS #### [address] pH (U) 6.5 [pH] Normal 5.0-9.0 [facility] Comment on above: Order Comment: Name Collection Type:: Clean-Voided Midstream Performed By: #### C HROMATIN, TPO, THYGLOB AB #### [facility] , #### ADDONUAPLUS #### [address] Protein,Urine Negative Normal Negative [facility] Comment on above: Order Comment: Name Collection Type:: Clean-Voided Midstream Performed By: #### C HROMATIN, TPO, THYGLOB AB #### [facility] , #### ADDONUAPLUS #### [address] RBC LM.HPF (Urine sed) [#/Area] 0 /[HPF] Normal 0-4 [facility] Comment on above: Order Comment: Name Collection Type:: Clean-Voided Midstream Performed By: #### C HROMATIN, TPO, THYGLOB AB #### [facility] , #### ADDONUAPLUS #### [address] Specificy [place],Urine 1.026 Normal 1.001-1.030 [facility] Comment on above: Order Comment: Name Collection Type:: Clean-Voided Midstream Performed By: #### C HROMATIN, TPO, THYGLOB AB #### [facility] , #### ADDONUAPLUS #### [address] Squamous Epithelial Cell,Urine 0-1 Normal 0-2 [facility] Comment on above: Order Comment: Name Collection Type:: Clean-Voided Midstream Performed By: #### C HROMATIN, TPO, THYGLOB AB #### [facility] , #### ADDONUAPLUS #### [facility] [address] [place] [address] Urobilinogen,Urine Normal Normal Normal [facility] Comment on above: Order Comment: Name Collection Type:: Clean-Voided Midstream Performed By: #### C HROMATIN, TPO, THYGLOB AB #### [facility] , #### ADDONUAPLUS #### [address] WBC LM.HPF (Urine sed) [#/Area] 0 /[HPF] Normal 0-4 [facility] Comment on above: Order Comment: Name Collection Type:: Clean-Voided Midstream Performed By: #### C HROMATIN, TPO, THYGLOB AB #### [facility] , #### ADDONUAPLUS #### [address] Thyroid Peroxidase Antibodie son 07-08-2021 Thyroid Peroxidase Antibodies <8 Normal 0-34 [facility] Comment on above: Result Comment: Perf ormed at: CB - [facility] [address] [id number] Coal Passer: Fabrizio Herrera PhD, Phone: [phone] Performed By: #### C HROMATIN, TPO, THYGLOB AB #### [facility] , #### ADDONUAPLUS #### [address] SHIV Antinuclear Antibodieson 05-27-2021 Antinuclear Abs, IFA Positive Critically abnormal . [facility] Comment on above: Result Comment: Nega tive <1:80 Borderline 1:80 Positive >1:80 Performed By: #### C HROMATIN, TPO, THYGLOB AB #### [facility] , #### ADDONUAPLUS #### [place] [address] Homogeneous Pattern 1:160 High . [facility] Comment on above: Result Comment: ICAP nomenclature: [id number] Performed By: #### C HROMATIN, TPO, THYGLOB AB #### [facility] , #### ADDONUAPLUS #### [facility] [address] Note 1 Normal . [facility] Comment on above: Result Comment: For more information about Hep-2 cell patterns use ANApatterns.org, the official website for the International Consensus on Antinuclear Antibody (SHIV) Patterns (ICAP). A positive SHIV result may occur in healthy individuals (low titer) or be associated with a variety of diseases. See interpretation chart which is not all inclusive: Pattern Antigen Detected Suggested Disease Association Homogeneous DNA(ds,ss), SLE - High titers Nucleosomes, Histones Drug-induced SLE Speckled Sm, MOTION PICTURE DIRECTOR, SCL-70, SLE,MCTD,PSS (diffuse form), SS-A/SS-B Sjogrens Nucleolar SCL-70, PM-1/SCL High titers Scleroderma, PM/DM Centromere Centromere PSS (limited form) w/Crest syndrome variable Nuclear Dot [id number] Primary Biliary Cirrhosis Nuclear GP210, Primary Biliary Cirrhosis Membrane souleymane A,B,C Performed at: - [facility] [address] [id number] Coal Passer: Fabrizio Herrera PhD, Phone: [phone] Performed By: #### C HROMATIN, TPO, THYGLOB AB #### [facility] , #### ADDONUAPLUS #### [facility] [address] [place] [address] [place] C-Reactive Proteinon 022 C-Reactive Protein 0.7 mg/dL Normal 0.0-1.0 [facility] Comment on above: Performed By: #### R OH W RFX, SADE,URINE, SPE, UPE RAND, SADE SERUM, SHIV #### [facility] , #### CMP, TSH3, CRP, T4F, CK, ADDONUAPLUS #### [facility] [address] Complement C3on 05-27-2021 Complement C3 147 mg/dL Normal 82-167 [facility] Comment on above: Result Comment: Perf ormed at: - [facility] [address] [id number] Coal Passer: Fabrizio Herrera PhD, Phone: [phone] Performed By: #### C HROMATIN, TPO, THYGLOB AB #### [facility] , #### ADDONUAPLUS #### [address] Complement C4on 05-27-2021 Complement C4 25 mg/dL Normal 12-38 [facility] Comment on above: Performed By: #### C HROMATIN, TPO, THYGLOB AB #### [facility] , #### ADDONUAPLUS #### [address] Complement Total (CH50)on Complement Total (CH50) >60 Normal >41 [facility] Comment on above: Result Comment: Age Male Female 1 - 30 days Not Estab. Not Estab. 31 days - 6 months >32 >20 7 months - 17 years >39 >39 >17 years >41 >41 NOTE: The adult ( >17 years ) reference interval range is used to flag abnormals on this report. If the patient is 17 years old or younger, use the table above to determine out of range values. Performed at: - [facility] [address] [id number] Coal Passer: Fabrizio Herrera PhD, Phone: [phone] PERFORMED BY: [place] [address] PATHOLOGIST TIE INSPECTOR PAULA WILL M.D. Performed By: #### C HROMATIN, TPO, THYGLOB AB #### [facility] , #### ADDONUAPLUS #### [address] Complete Blood Count Auto Di ffon 05-27-2021 Basophils (Bld) [#/Vol] 0.1 10*3/uL Normal 0.0-0.2 [facility] Comment on above: Performed By: #### C HROMATIN, TPO, THYGLOB AB #### [facility] , #### ADDONUAPLUS #### [place] [address] [place] Basophils/100 WBC (Bld) 1.1 % Normal . [facility] Comment on above: Performed By: #### C HROMATIN, TPO, THYGLOB AB #### [facility] , #### ADDONUAPLUS #### [address] Eosinophils (Bld) [#/Vol] 0.3 10*3/uL Normal 0.0-0.45 [facility] Comment on above: Performed By: #### C HROMATIN, TPO, THYGLOB AB #### [facility] , #### ADDONUAPLUS #### [address] Eosinophils/100 WBC (Bld) 3.7 % Normal . [facility] Comment on above: Performed By: #### C HROMATIN, TPO, THYGLOB AB #### [facility] , #### ADDONUAPLUS #### [address] Erythrocyte distribution width (RBC) [Ratio] 12.5 % Normal 11.9-15.3 [facility] Comment on above: Performed By: #### C HROMATIN, TPO, THYGLOB AB #### [facility] , #### ADDONUAPLUS #### [address] Hematocrit (Bld) [Volume fraction] 40.3 % Normal 34.0-46.4 [facility] Comment on above: Performed By: #### C HROMATIN, TPO, THYGLOB AB #### [facility] , #### ADDONUAPLUS #### [address] Hemoglobin (Bld) [Mass/Vol] 13.5 g/dL Normal 11.8-15.4 [facility] Comment on above: Performed By: #### C HROMATIN, TPO, THYGLOB AB #### [facility] , #### ADDONUAPLUS #### [address] Lymphocytes (Bld) [#/Vol] 2.4 10*3/uL Normal 1.00-4.8 [facility] Comment on above: Performed By: #### C HROMATIN, TPO, THYGLOB AB #### [facility] , #### ADDONUAPLUS #### [address] Lymphocytes/100 WBC (Bld) 33.7 % Normal . [facility] Comment on above: Performed By: #### C HROMATIN, TPO, THYGLOB AB #### [facility] , #### ADDONUAPLUS #### [address] MCH (RBC) [Entitic mass] 31.3 pg Normal 24.7-34.3 [facility] Comment on above: Performed By: #### C HROMATIN, TPO, THYGLOB AB #### [facility] , #### ADDONUAPLUS #### [address] MCV (RBC) [Entitic vol] 93.6 fL Normal 80-100 [facility] Comment on above: Performed By: #### C HROMATIN, TPO, THYGLOB AB #### [facility] , #### ADDONUAPLUS #### [address] Mean Corpuscular HGB Conc 33.5 g/dL Normal 32.0-35.0 [facility] Comment on above: Performed By: #### C HROMATIN, TPO, THYGLOB AB #### [facility] , #### ADDONUAPLUS #### [address] Monocytes (Bld) [#/Vol] 0.5 10*3/uL Normal 0.0-0.8 [facility] Comment on above: Performed By: #### C HROMATIN, TPO, THYGLOB AB #### [facility] , #### ADDONUAPLUS #### [place] [address] [place] Monocytes/100 WBC (Bld) 7.1 % Normal . [facility] Comment on above: Performed By: #### C HROMATIN, TPO, THYGLOB AB #### [facility] , #### ADDONUAPLUS #### [place] [address] [place] Neutrophils (Bld) [#/Vol] 3.9 10*3/uL Normal 1.8-7.7 [facility] Comment on above: Performed By: #### C HROMATIN, TPO, THYGLOB AB #### [facility] , #### ADDONUAPLUS #### [place] [address] [place] Neutrophils/100 WBC (Bld) 54.4 % Normal . [facility] Comment on above: Performed By: #### C HROMATIN, TPO, THYGLOB AB #### [facility] , #### ADDONUAPLUS #### [place] [address] [place] Nucleated RBC/100 WBC (Bld) [Ratio] 0.1 % Normal 0-0.5 [facility] Comment on above: Performed By: #### C HROMATIN, TPO, THYGLOB AB #### [facility] , #### ADDONUAPLUS #### [address] Platelet mean volume (Bld) [Entitic vol] 7.3 fL Normal 6.3-10.7 [facility] Comment on above: Performed By: #### C HROMATIN, TPO, THYGLOB AB #### [facility] , #### ADDONUAPLUS #### [address] Platelets (Bld) [#/Vol] 397 10*3/uL Normal 150-450 [facility] Comment on above: Performed By: #### C HROMATIN, TPO, THYGLOB AB #### [facility] , #### ADDONUAPLUS #### [address] RBC (Bld) [#/Vol] 4.31 10*6/uL Normal 3.60-5.00 [facility] Comment on above: Performed By: #### C HROMATIN, TPO, THYGLOB AB #### [facility] , #### ADDONUAPLUS #### [address] WBC (Bld) [#/Vol] 7.1 10*3/uL Normal 4.5-11.0 [facility] Comment on above: Performed By: #### C HROMATIN, TPO, THYGLOB AB #### [facility] , #### ADDONUAPLUS #### [address] Comprehensive Metabolic Pane rl 05-27-2021 Albumin [Mass/Vol] 3.7 g/dL Normal 3.2-5.5 [facility] Comment on above: Performed By: #### R OH W RFX, SADE,URINE, SPE, UPE RAND, SADE SERUM, SHIV #### [facility] , #### CMP, TSH3, CRP, T4F, CK, ADDONUAPLUS #### [address] Albumin/Globulin [Mass ratio] 1.1 {ratio} Normal [facility] Comment on above: Performed By: #### R OH W RFX, SADE,URINE, SPE, UPE RAND, SADE SERUM, SHIV #### [facility] , #### CMP, TSH3, CRP, T4F, CK, ADDONUAPLUS #### [address] ALP [Catalytic activity/Vol] 73 U/L Normal 32-92 [facility] Comment on above: Performed By: #### R OH W RFX, SADE,URINE, SPE, UPE RAND, SADE SERUM, SHIV #### [facility] , #### CMP, TSH3, CRP, T4F, CK, ADDONUAPLUS #### [address] ALT [Catalytic activity/Vol] 38 U/L Normal 10-60 [facility] Comment on above: Performed By: #### R OH W RFX, SADE,URINE, SPE, UPE RAND, SADE SERUM, SHIV #### [facility] , #### CMP, TSH3, CRP, T4F, CK, ADDONUAPLUS #### [address] AST [Catalytic activity/Vol] 26 U/L Normal 10-42 [facility] Comment on above: Performed By: #### R OH W RFX, SADE,URINE, SPE, UPE RAND, SADE SERUM, SHIV #### [facility] , #### CMP, TSH3, CRP, T4F, CK, ADDONUAPLUS #### [address] Bilirubin [Mass/Vol] 0.5 mg/dL Normal 0.3-1.2 [facility] Comment on above: Performed By: #### R OH W RFX, SADE,URINE, SPE, UPE RAND, SADE SERUM, SHIV #### [facility] , #### CMP, TSH3, CRP, T4F, CK, ADDONUAPLUS #### [facility] [address] Calcium [Mass/Vol] 10.1 mg/dL Normal 8.2-10.2 [facility] Comment on above: Performed By: #### R OH W RFX, SADE,URINE, SPE, UPE RAND, SADE SERUM, SHIV #### [facility] , #### CMP, TSH3, CRP, T4F, CK, ADDONUAPLUS #### [facility] [address] Chloride [Moles/Vol] 101 mmol/L Normal 95-114 [facility] Comment on above: Performed By: #### R OH W RFX, SADE,URINE, SPE, UPE RAND, SADE SERUM, SHIV #### [facility] , #### CMP, TSH3, CRP, T4F, CK, ADDONUAPLUS #### [facility] [address] [place] [address] CO2 [Moles/Vol] 29.4 mmol/L Normal 22.0-30.[address] [facility] Comment on above: Performed By: #### R OH W RFX, SADE,URINE, SPE, UPE RAND, SADE SERUM, SHIV #### [facility] , #### CMP, TSH3, CRP, T4F, CK, ADDONUAPLUS #### [facility] [address] Creatinine [Mass/Vol] 0.99 mg/dL Normal 0.44-1.03 [facility] Comment on above: Performed By: #### R OH W RFX, SADE,URINE, SPE, UPE RAND, SADE SERUM, SHIV #### [facility] , #### CMP, TSH3, CRP, T4F, CK, ADDONUAPLUS #### [address] Estimated GFR ( Patricia > 60 [facility] Comment on above: Result Comment: GFR estimated reference range: According to KDOQI guidelines, <60 ml/min/1.73m2 is sufficient to diagnose a patient with chronic kidney disease. Performed By: #### R OH W RFX, SADE,URINE, SPE, UPE RAND, SADE SERUM, SHIV #### [facility] , #### CMP, TSH3, CRP, T4F, CK, ADDONUAPLUS #### [address] Estimated GFR (Non- Am 59 [facility] Comment on above: Performed By: #### R OH W RFX, SADE,URINE, SPE, UPE RAND, SADE SERUM, SHIV #### [facility] , #### CMP, TSH3, CRP, T4F, CK, ADDONUAPLUS #### [address] Globulin (S) [Mass/Vol] 3.3 g/dL [facility] Comment on above: Performed By: #### R OH W RFX, SADE,URINE, SPE, UPE RAND, SADE SERUM, SHIV #### [facility] , #### CMP, TSH3, CRP, T4F, CK, ADDONUAPLUS #### [address] Glucose [Mass/Vol] 111 mg/dL High 70-100 [facility] Comment on above: Result Comment: [place] om Glucose Reference Range is dependent on time and content of last meal. Glucose of more than 200 mg/dL in a nonstressed, ambulatory subject supports the diagnosis of Diabetes Mellitus. ADA recommended reference range Performed By: #### R OH W RFX, SADE,URINE, SPE, UPE RAND, SADE SERUM, SHIV #### [facility] , #### CMP, TSH3, CRP, T4F, CK, ADDONUAPLUS #### [address] Potassium [Moles/Vol] 4.7 mmol/L Normal 3.5-5.1 [facility] Comment on above: Performed By: #### R OH W RFX, SADE,URINE, SPE, UPE RAND, SADE SERUM, SHIV #### [facility] , #### CMP, TSH3, CRP, T4F, CK, ADDONUAPLUS #### [address] Protein [Mass/Vol] 7.0 g/dL Normal 6.1-7.9 [facility] Comment on above: Performed By: #### R OH W RFX, SADE,URINE, SPE, UPE RAND, SADE SERUM, SHIV #### [facility] , #### CMP, TSH3, CRP, T4F, CK, ADDONUAPLUS #### [address] Sodium [Moles/Vol] 140 mmol/L Normal 136-146 [facility] Comment on above: Performed By: #### R OH W RFX, SADE,URINE, SPE, UPE RAND, SADE SERUM, SHIV #### [facility] , #### CMP, TSH3, CRP, T4F, CK, ADDONUAPLUS #### [address] Urea nitrogen [Mass/Vol] 10 mg/dL Normal 9-23 [facility] Comment on above: Performed By: #### R OH W RFX, SADE,URINE, SPE, UPE RAND, SADE SERUM, SHIV #### [facility] , #### CMP, TSH3, CRP, T4F, CK, ADDONUAPLUS #### [address] Creatine Kinaseon 05-27-2021 CK [Catalytic activity/Vol] 47 U/L Normal 22-269 [facility] Comment on above: Result Comment: PERF ORMED BY: [place] [address] PATHOLOGIST TIE INSPECTOR PAULA WILL M.D. Performed By: #### R OH W RFX, SADE,URINE, SPE, UPE RAND, SADE SERUM, SHIV #### [facility] , #### CMP, TSH3, CRP, T4F, CK, ADDONUAPLUS #### [facility] [address] [place] [address] [place] Dipstick and Microscopicon 0 05-27-2021 Appearance (U) Cloudy Critically abnormal Clear [facility] Comment on above: Order Comment: Name Collection Type:: Clean-Voided Midstream Performed By: #### R OH W RFX, SADE,URINE, SPE, UPE RAND, SADE SERUM, SHIV #### [facility] , #### CMP, TSH3, CRP, T4F, CK, ADDONUAPLUS #### [facility] [address] [place] [address] Bacteria,Urine None Seen Normal None Seen [facility] Comment on above: Order Comment: Name Collection Type:: Clean-Voided Midstream Performed By: #### R OH W RFX, SADE,URINE, SPE, UPE RAND, SADE SERUM, SHIV #### [facility] , #### CMP, TSH3, CRP, T4F, CK, ADDONUAPLUS #### [facility] [address] [place] [address] [place] Bilirubin,Urine Negative Normal Negative [facility] Comment on above: Order Comment: Name Collection Type:: Clean-Voided Midstream Performed By: #### R OH W RFX, SADE,URINE, SPE, UPE RAND, SADE SERUM, SHIV #### [facility] , #### CMP, TSH3, CRP, T4F, CK, ADDONUAPLUS #### [facility] [address] [place] [address] Color (U) Dark Yellow Critically abnormal Yellow [facility] Comment on above: Order Comment: Name Collection Type:: Clean-Voided Midstream Performed By: #### R OH W RFX, SADE,URINE, SPE, UPE RAND, SADE SERUM, SHIV #### [facility] , #### CMP, TSH3, CRP, T4F, CK, ADDONUAPLUS #### [address] Glucose Ql (U) Normal Normal Normal [facility] Comment on above: Order Comment: Name Collection Type:: Clean-Voided Midstream Performed By: #### R OH W RFX, SADE,URINE, SPE, UPE RAND, SADE SERUM, SHIV #### [facility] , #### CMP, TSH3, CRP, T4F, CK, ADDONUAPLUS #### [address] Hyaline Casts,Urine 0-8 Normal 0-8 [facility] Comment on above: Order Comment: Name Collection Type:: Clean-Voided Midstream Result Comment: PERF ORMED BY: [place] [address] PATHOLOGIST TIE INSPECTOR PAULA WILL M.D. Performed By: #### R OH W RFX, SADE,URINE, SPE, UPE RAND, SADE SERUM, SHIV #### [facility] , #### CMP, TSH3, CRP, T4F, CK, ADDONUAPLUS #### [address] Ketones Ql (U) Trace High Negative [facility] Comment on above: Order Comment: Name Collection Type:: Clean-Voided Midstream Performed By: #### R OH W RFX, SADE,URINE, SPE, UPE RAND, SADE SERUM, SHIV #### [facility] , #### CMP, TSH3, CRP, T4F, CK, ADDONUAPLUS #### [address] Leukocyte esterase Test strip Ql (U) 1+ High Negative [facility] Comment on above: Order Comment: Name Collection Type:: Clean-Voided Midstream Performed By: #### R OH W RFX, SADE,URINE, SPE, UPE RAND, SADE SERUM, SHIV #### [facility] , #### CMP, TSH3, CRP, T4F, CK, ADDONUAPLUS #### [address] Nitrite,Urine Negative Normal Negative [facility] Comment on above: Order Comment: Name Collection Type:: Clean-Voided Midstream Performed By: #### R OH W RFX, SADE,URINE, SPE, UPE RAND, SADE SERUM, SHIV #### [facility] , #### CMP, TSH3, CRP, T4F, CK, ADDONUAPLUS #### [address] Occult Blood,Urine Negative Normal Negative [facility] Comment on above: Order Comment: Name Collection Type:: Clean-Voided Midstream Performed By: #### R OH W RFX, SADE,URINE, SPE, UPE RAND, SADE SERUM, SHIV #### [facility] , #### CMP, TSH3, CRP, T4F, CK, ADDONUAPLUS #### [address] pH (U) 8.5 [pH] Normal 5.0-9.0 [facility] Comment on above: Order Comment: Name Collection Type:: Clean-Voided Midstream Performed By: #### R OH W RFX, SADE,URINE, SPE, UPE RAND, SADE SERUM, SHIV #### [facility] , #### CMP, TSH3, CRP, T4F, CK, ADDONUAPLUS #### [address] Protein,Urine Trace High Negative [facility] Comment on above: Order Comment: Name Collection Type:: Clean-Voided Midstream Performed By: #### R OH W RFX, SADE,URINE, SPE, UPE RAND, SADE SERUM, SHIV #### [facility] , #### CMP, TSH3, CRP, T4F, CK, ADDONUAPLUS #### [facility] [address] [place] [address] RBC,Urine 3-4 Normal 0-4 [facility] Comment on above: Order Comment: Name Collection Type:: Clean-Voided Midstream Performed By: #### R OH W RFX, SADE,URINE, SPE, UPE RAND, SADE SERUM, SHIV #### [facility] , #### CMP, TSH3, CRP, T4F, CK, ADDONUAPLUS #### [address] Specificy [place],Urine 1.020 Normal 1.001-1.030 [facility] Comment on above: Order Comment: Name Collection Type:: Clean-Voided Midstream Performed By: #### R OH W RFX, SADE,URINE, SPE, UPE RAND, SADE SERUM, SHIV #### [facility] , #### CMP, TSH3, CRP, T4F, CK, ADDONUAPLUS #### [address] Squamous Epithelial Cell,Urine 1-2 Normal 0-2 [facility] Comment on above: Order Comment: Name Collection Type:: Clean-Voided Midstream Performed By: #### R OH W RFX, SADE,URINE, SPE, UPE RAND, SADE SERUM, SHIV #### [facility] , #### CMP, TSH3, CRP, T4F, CK, ADDONUAPLUS #### [facility] [address] [place] [address] Urobilinogen,Urine Normal Normal Normal [facility] Comment on above: Order Comment: Name Collection Type:: Clean-Voided Midstream Performed By: #### R OH W RFX, SADE,URINE, SPE, UPE RAND, SADE SERUM, SHIV #### [facility] , #### CMP, TSH3, CRP, T4F, CK, ADDONUAPLUS #### [address] WBC,Urine 1-2 Normal 0-4 [facility] Comment on above: Order Comment: Name Collection Type:: Clean-Voided Midstream Performed By: #### R OH W RFX, SADE,URINE, SPE, UPE RAND, SADE SERUM, SHIV #### [facility] , #### CMP, TSH3, CRP, T4F, CK, ADDONUAPLUS #### [address] Erythrocyte Sedimentation Ra madeleine 05-27-2021 ESR (Bld) [Velocity] 27 mm/h Normal 0-29 [facility] Comment on above: Result Comment: PERF ORMED BY: [place] [address] PATHOLOGIST TIE INSPECTOR PAULA WILL M.D. Performed By: #### C HROMATIN, TPO, THYGLOB AB #### [facility] , #### ADDONUAPLUS #### [address] Free T4 (Free Thyroxine)on 0 05-27-2021 Free T4 [Mass/Vol] 0.95 ng/dL Normal 0.61-1.12 [facility] Comment on above: Performed By: #### R OH W RFX, SADE,URINE, SPE, UPE RAND, SADE SERUM, SHIV #### [facility] , #### CMP, TSH3, CRP, T4F, CK, ADDONUAPLUS #### [address] Immunofixation, (SADE), Urine on 05-27-2021 Immunofixation, (SADE), Urine Normal . [facility] Comment on above: Result Comment: No m onoclonality detected. Performed at: [facility] [address] [id number] Coal Passer: Fabrizio Herrera PhD, Phone: [phone] Performed By: #### C HROMATIN, TPO, THYGLOB AB #### [facility] , #### ADDONUAPLUS #### [place] [address] [place] Immunofixation,Serumon 05-27 Immunofixation, Serum Normal . [facility] Comment on above: Result Comment: No m onoclonality detected. Performed By: #### C HROMATIN, TPO, THYGLOB AB #### [facility] , #### ADDONUAPLUS #### [address] Immunoglobulin A, Serum 460 mg/dL High 87-352 [facility] Comment on above: Performed By: #### C HROMATIN, TPO, THYGLOB AB #### [facility] , #### ADDONUAPLUS #### [address] Immunoglobulin G 1486 mg/dL Normal 586-[address] [facility] Comment on above: Performed By: #### C HROMATIN, TPO, THYGLOB AB #### [facility] , #### ADDONUAPLUS #### [place] [address] [place] Immunoglobulin M, Serum 66 mg/dL Normal 26-217 [facility] Comment on above: Result Comment: Perf ormed at: [facility] [address] [id number] Coal Passer: Fabrizio Herrera PhD, Phone: [phone] Performed By: #### C HROMATIN, TPO, THYGLOB AB #### [facility] , #### ADDONUAPLUS #### [address] Lupus Anticoagulant Compon 0 - Dilute Prothrombin Time (dPt) 37.4 Normal 0.0-47.6 [facility] Comment on above: Performed By: #### C HROMATIN, TPO, THYGLOB AB #### [facility] , #### ADDONUAPLUS #### [facility] [address] [place] [address] dPT Confirm Ratio 1.04 Normal 0.00-1.34 [facility] Comment on above: Performed By: #### C HROMATIN, TPO, THYGLOB AB #### [facility] , #### ADDONUAPLUS #### [address] DRVVT Lupus 35.3 Normal 0.0-47.0 [facility] Comment on above: Performed By: #### C HROMATIN, TPO, THYGLOB AB #### [facility] , #### ADDONUAPLUS #### [address] Interpretation Comment: Normal . [facility] Comment on above: Result Comment: No l upus anticoagulant was detected. Performed at: - [address] [id number] Coal Passer: Rainer Bennett MD, Phone: [phone] PERFORMED BY: [place] [address] PATHOLOGIST TIE INSPECTOR PAULA WILL M.D. Performed By: #### C HROMATIN, TPO, THYGLOB AB #### [facility] , #### ADDONUAPLUS #### [facility] [address] [place] [address] PTT-LA 29.7 Normal 0.0-51.9 [facility] Comment on above: Performed By: #### C HROMATIN, TPO, THYGLOB AB #### [facility] , #### ADDONUAPLUS #### [address] Thrombin Time 17.5 Normal 0.0-23.0 [facility] Comment on above: Performed By: #### C HROMATIN, TPO, THYGLOB AB #### [facility] , #### ADDONUAPLUS #### [address] Partial Thromboplastin Timeo n 05-27-2021 aPTT Coag (Bld) [Time] 33.6 s Normal 25.1-36.5 [facility] Comment on above: Order Comment: List the anticoagulant: NONE Result Comment: PERF ORMED BY: [place] [address] PATHOLOGIST TIE INSPECTOR PAULA WILL M.D. Performed By: #### C HROMATIN, TPO, THYGLOB AB #### [facility] , #### ADDONUAPLUS #### [address] Protein Electro, Random Urin ryan 05-27-2021 Albumin, Urine 30.6 % Normal . [facility] Comment on above: Performed By: #### C HROMATIN, TPO, THYGLOB AB #### [facility] , #### ADDONUAPLUS #### [address] Tpmrz-5-Xeinutdo, Urine 7.3 % Normal . [facility] Comment on above: Performed By: #### C HROMATIN, TPO, THYGLOB AB #### [facility] , #### ADDONUAPLUS #### [place] [address] [place] Wunst-5-Dgzrdaoq, Urine 25.1 % Normal . [facility] Comment on above: Performed By: #### C HROMATIN, TPO, THYGLOB AB #### [facility] , #### ADDONUAPLUS #### [facility] [address] Beta Globulin, Urine 29.0 % Normal . [facility] Comment on above: Performed By: #### C HROMATIN, TPO, THYGLOB AB #### [facility] , #### ADDONUAPLUS #### [facility] [address] Gamma Globulin, Urine 8.0 % Normal . [facility] Comment on above: Performed By: #### C HROMATIN, TPO, THYGLOB AB #### [facility] , #### ADDONUAPLUS #### [facility] [address] M-Ahsan % Not Observed Normal Not Observed [facility] Comment on above: Performed By: #### C HROMATIN, TPO, THYGLOB AB #### [facility] , #### ADDONUAPLUS #### [facility] [address] [place] [address] Please Note: Normal . [facility] Comment on above: Result Comment: Prot ein electrophoresis scan will follow via computer, mail, or animal damage control agent delivery. Protein electrophoresis scan will follow via computer, mail, or animal damage control agent delivery. Performed at: [address] [id number] Coal Passer: Fabrizio Herrera PhD, Phone: [phone] --- 05/29/21 1308 --- Please Note: previously reported as: Protein electrophoresis scan will follow via computer, mail, or animal damage control agent delivery. Protein electrophoresis scan will follow via computer, mail, or animal damage control agent delivery. Performed at: [employer] [id number] Coal Passer: Fabrizio Herrera PhD, Phone: [phone] --- 06/04/21 1109 --- Please Note: previously reported as: Protein electrophoresis scan will follow via computer, mail, or animal damage control agent delivery. Protein electrophoresis scan will follow via computer, mail, or animal damage control agent delivery. Performed at: - [facility] [address] [place], [place] [id number] Coal Passer: Fabrizio Herrera PhD, Phone: [phone] --- 05/29/21 3654 --- Please Note: previously reported as: Protein electrophoresis scan will follow via computer, mail, or animal damage control agent delivery. PERFORMED BY: [place] [address] PATHOLOGIST TIE INSPECTOR PAULA WILL M.D. Performed By: #### C HROMATIN, TPO, THYGLOB AB #### [facility] , #### ADDONUAPLUS #### [address] Protein (U) [Mass/Vol] 18.9 mg/dL Normal Not Estab. [facility] Comment on above: Performed By: #### C HROMATIN, TPO, THYGLOB AB #### [facility] , #### ADDONUAPLUS #### [address] Protein Electrophoresis, Ser umon 05-27-2021 Albumin [Mass/Vol] 3.6 g/dL Normal 2.9-4.4 [facility] Comment on above: Performed By: #### C HROMATIN, TPO, THYGLOB AB #### [facility] , #### ADDONUAPLUS #### [address] Albumin/Globulin [Mass ratio] 1.0 {ratio} Normal 0.7-1.7 [facility] Comment on above: Performed By: #### C HROMATIN, TPO, THYGLOB AB #### [facility] , #### ADDONUAPLUS #### [address] Tqyjp-1-Yyzuqfai 0.2 g/dL Normal 0.0-0.[address] [facility] Comment on above: Performed By: #### C HROMATIN, TPO, THYGLOB AB #### [facility] , #### ADDONUAPLUS #### [address] Vqgvb-4-Wlokaufg 0.8 g/dL Normal 0.4-1.[address] [facility] Comment on above: Performed By: #### C HROMATIN, TPO, THYGLOB AB #### [facility] , #### ADDONUAPLUS #### [address] Beta Globulin 1.4 g/dL High 0.7-1.3 [facility] Comment on above: Performed By: #### C HROMATIN, TPO, THYGLOB AB #### [facility] , #### ADDONUAPLUS #### [address] Gamma Globulin 1.3 g/dL Normal 0.4-1.8 [facility] Comment on above: Performed By: #### C HROMATIN, TPO, THYGLOB AB #### [facility] , #### ADDONUAPLUS #### [address] Globulin (S) [Mass/Vol] 3.7 g/dL Normal 2.2-3.9 [facility] Comment on above: Performed By: #### C HROMATIN, TPO, THYGLOB AB #### [facility] , #### ADDONUAPLUS #### [address] M-Ahsan Not Observed Normal Not Observed [facility] Comment on above: Performed By: #### C HROMATIN, TPO, THYGLOB AB #### [facility] , #### ADDONUAPLUS #### [address] Protein [Mass/Vol] 7.3 g/dL Normal 6.0-8.5 [facility] Comment on above: Performed By: #### C HROMATIN, TPO, THYGLOB AB #### [facility] , #### ADDONUAPLUS #### [facility] [address] [place] [address] SPE-Note Normal . [facility] Comment on above: Result Comment: Prot ein electrophoresis scan will follow via computer, mail, or animal damage control agent delivery. Performed By: #### C HROMATIN, TPO, THYGLOB AB #### [facility] , #### ADDONUAPLUS #### [address] Prothrombin Time INRon 05-27 INR Coag (PPP) [Relative time] 1.1 {INR} Normal [facility] Comment on above: Order Comment: List the anticoagulant: NONE Result Comment: INR Therapeutic Range A) Pre- and Peroperative OAT started two weeks before surgery. NOT HIP SURGERY: 1.5 - 2.5 HIP SURGERY: 2 - 3 B) Primary and secondary prevention of venous THROMBOSIS: 2 - 3 C) Active venous thrombosis, pulmonary embolism and prevention of recurrent venous thrombosis: 2 - 3 D) Prevention of arterial thromboembolism including patients with mechanical heart valves: 3 - 4.5 Performed By: #### C HROMATIN, TPO, THYGLOB AB #### [facility] , #### ADDONUAPLUS #### [address] PT Coag (PPP) [Time] 11.8 s Normal 9.0-12.9 [facility] Comment on above: Order Comment: List the anticoagulant: NONE Performed By: #### C HROMATIN, TPO, THYGLOB AB #### [facility] , #### ADDONUAPLUS #### [address] RPR w/rfx to Quant TP Abson 05-27-2021 RPR, Rfx Quant RPR Non-Reactive Normal Non Reactive [facility] Comment on above: Result Comment: Perf ormed at: CB - [facility] [address] [id number] Coal Passer: Fabrizio Herrera PhD, Phone: [phone] PERFORMED BY: [place] [address] PATHOLOGIST TIE INSPECTOR PAULA WILL M.D. Performed By: #### C HROMATIN, TPO, THYGLOB AB #### [facility] , #### ADDONUAPLUS #### [address] Thyroid Stimulating Hormoneo n 05-27-2021 TSH Qn 1.14 m[IU]/L Normal 0.45-5.33 [facility] Comment on above: Result Comment: PERF ORMED BY: [place] [address] PATHOLOGIST TIE INSPECTOR PAULA WILL M.D. Performed By: #### R OH W RFX, SADE,URINE, SPE, UPE RAND, SADE SERUM, SHIV #### [facility] , #### CMP, TSH3, CRP, T4F, CK, ADDONUAPLUS #### [address] Consent Formson 04-14-2019 Consent Forms [id number] [facility] 12-02-2018 Provider Orders [id number] [facility] Coding Summaryon 11-28-2018 Coding Summary CODING DATE: 11/28/2018 [facility] STATUS: Home PAYOR: Commercial Insurance APC DESCRIPTION 5522 Level 2 Imaging without Contrast ADMIT DX: REASON FOR VISIT DX: R10.11 Right upper quadrant pain FINAL DX: PRINCIPAL: R10.11 Right upper quadrant pain SECONDARY: PYMT PROC APC STAT DESCRIPTION DOCTOR NAME DATE NOTE: The code number assigned matches the documented diagnosis and / or procedure in the patient's chart. However, the narrative phrase printed from the coding software may appear abbreviated, or result in slightly different terminology. Coded By: Lorrie Bunn Date Saved: 11/28/2018 12:31 pm [facility] US Gallbladderon 11-26-2018 US Gallbladder ULTRASOUND RIGHT UPPER QUADRANT HISTORY: Right upper quadrant pain. COMPARISON: None. FINDINGS: The liver is diffusely echogenic which limits the sensitivity for intrahepatic masses. There is no intrahepatic biliary ductal dilatation. The gallbladder appears unremarkable with no evidence for gallbladder wall thickening or pericholecystic fluid. The common bile duct measures 6 mm. Negative Bunn's sign. The visualized portions of the pancreas appear unremarkable. The right kidney is normal appearing with no evidence of hydronephrosis or masses. IMPRESSION: Echogenic liver consistent with hepatocellular disease such as fatty infiltration. Final Dictated by: Alan Da Silva Dictated DT/TM: 11/26/18 12:50 Signed (Electronic Signature): Alan Da Silva 11/26/18 12:51 p Technologist: [facility] Standardon 11-09-2018 eGFR Non AA >60 [facility] Comment on above: Performed By: #### 2 [id number], [id number] #### [facility] (DEFAULT) [address] [place] [address] eGFR AA >60 [facility] Comment on above: Result Comment: Employee Relations Director abiodun Kidney disease could be indicated at eGFRs of less than 60 ml/min/1.73m2. Kidney Failure is indicated at less than 15 ml/min/1.73m2 Performed By: #### 2 033490, [id number] #### [facility] (DEFAULT) [address] [place] [address]5427 Albumin [Mass/Vol] 3.8 g/dL Normal 3.5-5.0 [facility] Comment on above: Performed By: #### 2 303668, [id number] #### [facility] (DEFAULT) [address] [place] [address] 52915 Albumin/Globulin [Mass ratio] 1.1 {ratio} Low 1.4-2.6 [facility] Comment on above: Performed By: #### 2 923866, [id number] #### [facility] (DEFAULT) [address] [place] [address] 90359 Alk Phos 60 IU/L Normal 32-91 [facility] Comment on above: Performed By: #### 2 976700, [id number] #### [facility] (DEFAULT) [address] [place] [address] 68901 ALT/SGPT 36.0 IU/L Normal 14.0-54.0 [facility] Comment on above: Performed By: #### 2 550717, [id number] #### [facility] (DEFAULT) [address] [place] [address] 65562 Anion gap [Moles/Vol] 16.0 mmol/L Normal 5.0-19.0 [facility] Comment on above: Performed By: #### 2 560911, [id number] #### [facility] (DEFAULT) [address] [place] [address] 97434 AST/SGOT 27 IU/L Normal 15-41 [facility] Comment on above: Performed By: #### 2 687510, [id number] #### [facility] (DEFAULT) [address] [place] [address] 97670 Bili Total 0.6 mg/dL Normal 0.3-1.2 [facility] Comment on above: Performed By: #### 2 757356, [id number] #### [facility] (DEFAULT) [address] [place] [address] 23577 Calcium [Mass/Vol] 9.1 mg/dL Normal 8.9-10.3 [facility] Comment on above: Performed By: #### 2 552437, [id number] #### [facility] (DEFAULT) [address] [place] [address] 67279 Chloride [Moles/Vol] 98 mmol/L Low 101-111 [facility] Comment on above: Performed By: #### 2 875928, [id number] #### [facility] (DEFAULT) [address] [place] [address] 71941 CO2 [Moles/Vol] 31 mmol/L Normal 21-32 [facility] Comment on above: Performed By: #### 2 314277, [id number] #### [facility] (DEFAULT) [address] [place] [address] 43018 Creatinine [Mass/Vol] 0.90 mg/dL Normal 0.60-1.30 [facility] Comment on above: Performed By: #### 2 971610, [id number] #### [facility] (DEFAULT) [address] [place] [address] 72921 Globulin (S) [Mass/Vol] 3.6 g/dL Normal 1.5-4.3 [facility] Comment on above: Performed By: #### 2 469985, [id number] #### [facility] (DEFAULT) [address] [place] [address] 01238 Glucose [Mass/Vol] 111.0 mg/dL Normal 74.0-118.0 [facility] Comment on above: Performed By: #### 2 729795, [id number] #### [facility] (DEFAULT) [address] [place] [address] 05457 Osmolality [Osmolality] 284 mOsm/L [facility] Comment on above: Performed By: #### 2 750556, [id number] #### [facility] (DEFAULT) [address] [place] [address] 96448 Potassium [Moles/Vol] 3.5 mmol/L Low 3.6-5.1 [facility] Comment on above: Performed By: #### 2 219936, [id number] #### [facility] (DEFAULT) [address] [place] [address] 83646 Protein [Mass/Vol] 7.4 g/dL Normal 6.5-8.1 [facility] Comment on above: Performed By: #### 2 248550, [id number] #### [facility] (DEFAULT) [address] [place] [address] 81596 Sodium [Moles/Vol] 141.0 mmol/L Normal 136.0-144.0 [facility] Comment on above: Performed By: #### 2 035905, [id number] #### [facility] (DEFAULT) [address] [place] [address] 07137 Urea nitrogen [Mass/Vol] 18 mg/dL Normal 8-26 [facility] Comment on above: Performed By: #### 2 825224, [id number] #### [facility] (DEFAULT) [address] [place] [address] 85646 Urea nitrogen/Creatinine [Mass ratio] 20.0 mg/mg High 4.6-16.2 [facility] Comment on above: Performed By: #### 2 967294, [id number] #### [facility] (DEFAULT) [address] [place] [address] 30267 GGTon 11-09-2018 Gamma glutamyl transferase [Catalytic activity/Vol] 27.0 U/L Normal 7.0-50.0 [facility] Comment on above: Performed By: #### 2 782569, 4347448, 5343037, [id number], 6790702, 3775569, [id number] #### [facility] (DEFAULT) [address] [place] [address] 99917 Iron Levelon 11-09-2018 Iron [Mass/Vol] 68.0 ug/dL Normal 28.0-170.0 [facility] Comment on above: Performed By: #### 2 078194, [id number] #### [facility] (DEFAULT) [address] [place] [address] 13522 LDHon 11-09-2018 LDH 171.0 IU/L Normal 98.0-192.0 [facility] Comment on above: Performed By: #### 2 372537, 0170930, 2664236, [id number], 9775972, 7884608, [id number] #### [facility] (DEFAULT) [address] [place] [address] 24303 Lipid Panel Standardon 11-09 Cholesterol [Mass/Vol] 136.0 mg/dL Normal 66.0-200.0 [facility] Comment on above: Result Comment: Juani rable - Less than 200 mg/dL Borderline high risk - 200-239 mg/dL High risk - 240 mg/dL and over. Performed By: #### 2 108356, [id number] #### [facility] (DEFAULT) [address] [place] [address] 49061 Cholesterol in HDL [Mass/Vol] 32 mg/dL Low 40-71 [facility] Comment on above: Result Comment: High risk - <40 mg/dL. Performed By: #### 2 321295, [id number] #### [facility] (DEFAULT) [address] [place] [address] 84442 Cholesterol in LDL [Mass/Vol] 68 mg/dL Normal 1-100 [facility] Comment on above: Result Comment: Opti mal - Less than 100 mg/dL Borderline high risk - 130-159 mg/dL High risk - 160-189 mg/dL. Performed By: #### 2 552629, [id number] #### [facility] (DEFAULT) [address] [place] [address] 24561 Cholesterol.total/Cho lesterol in HDL [Mass ratio] 4.3 {ratio} Normal 0.0-4.5 [facility] Comment on above: Performed By: #### 2 418138, [id number] #### [facility] (DEFAULT) [address] [place] [address] 88482 Triglyceride [Mass/Vol] 179.0 mg/dL High 0.0-150.0 [facility] Comment on above: Performed By: #### 2 066009, [id number] #### [facility] (DEFAULT) [address] [place] [address] 43335 VLDL. 36 mg/dL Normal 5-40 [facility] Comment on above: Performed By: #### 2 414919, [id number] #### [facility] (DEFAULT) [address] [place] [address] 44794 Phoson 11-09-2018 Phosphate [Mass/Vol] 2.7 mg/dL Normal 2.5-4.6 [facility] Comment on above: Performed By: #### 2 418241, [id number] #### [facility] (DEFAULT) [address] [place] [address] 02077 Uric Acidon 11-09-2018 Urate [Mass/Vol] 5.5 mg/dL Normal 2.6-8.0 [facility] Comment on above: Performed By: #### 2 296409, [id number] #### [facility] (DEFAULT) [address] [place] [address] 63101 Coding Summaryon 06-23-2018 Coding Summary CODING DATE: 06/23/2018 [facility] STATUS: Home PAYOR: Commercial Insurance ADMIT DX: REASON FOR VISIT DX: E87.6 Hypokalemia E87.1 Hypo-osmolality and hyponatremia 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 However, the narrative phrase printed from the coding software may appear abbreviated, or result in slightly different terminology. Coded By: Purnima Felix Date Saved: 06/23/2018 12:21 pm Normal [facility] Provider Orderson 06-23-2018 Provider Orders [id number] 0#1.00OTGTIFF [facility] Renal Function Panel Standar don 06-22-2018 eGFR Non AA >60 [facility] Comment on above: Performed By: #### 1 [id number] #### [facility] (DEFAULT) [address] [place] [address] 72964 eGFR AA >60 [facility] Comment on above: Result Comment: Employee Relations Director abiodun Kidney disease could be indicated at eGFRs of less than 60 ml/min/1.73m2. Kidney Failure is indicated at less than 15 ml/min/1.73m2 Performed By: #### 1 [id number] #### [facility] (DEFAULT) [address] [place] [address] 73589 Albumin [Mass/Vol] 3.7 g/dL Normal 3.5-5.0 [facility] Comment on above: Performed By: #### 1 [id number] #### [facility] (DEFAULT) [address] [place] [address] 78703 Anion gap [Moles/Vol] 12.0 mmol/L Normal 5.0-19.0 [facility] Comment on above: Performed By: #### 1 [id number] #### [facility] (DEFAULT) [address] [place] [address] 23534 Calcium [Mass/Vol] 8.9 mg/dL Normal 8.9-10.3 [facility] Comment on above: Performed By: #### 1 [id number] #### [facility] (DEFAULT) [address] [place] [address] 22128 Chloride [Moles/Vol] 100 mmol/L Low 101-111 [facility] Comment on above: Performed By: #### 1 [id number] #### [facility] (DEFAULT) [address] [place] [address] 17761 CO2 [Moles/Vol] 30 mmol/L Normal 21-32 [facility] Comment on above: Performed By: #### 1 [id number] #### [facility] (DEFAULT) [address] [place] [address] 00334 Creatinine [Mass/Vol] 0.92 mg/dL Normal 0.60-1.30 [facility] Comment on above: Performed By: #### 1 [id number] #### [facility] (DEFAULT) [address] [place] [address] 71167 Glucose [Mass/Vol] 115.0 mg/dL Normal 74.0-118.0 [facility] Comment on above: Performed By: #### 1 [id number] #### [facility] (DEFAULT) [address] [place] [address] 77502 Osmolality [Osmolality] 277 mOsm/L [facility] Comment on above: Performed By: #### 1 [id number] #### [facility] (DEFAULT) [address] [place] [address] 30934 Phosphate [Mass/Vol] 3.8 mg/dL Normal 2.5-4.6 [facility] Comment on above: Performed By: #### 1 [id number] #### [facility] (DEFAULT) [address] [place] [address] 31981 Potassium [Moles/Vol] 3.7 mmol/L Normal 3.6-5.1 [facility] Comment on above: Performed By: #### 1 [id number] #### [facility] (DEFAULT) [address] [place] [address] 09992 Sodium [Moles/Vol] 138.0 mmol/L Normal 136.0-144.0 [facility] Comment on above: Performed By: #### 1 [id number] #### [facility] (DEFAULT) [address] [place] [address] 99368 Urea nitrogen [Mass/Vol] 14 mg/dL Normal 8-26 [facility] Comment on above: Performed By: #### 1 [id number] #### [facility] (DEFAULT) [address] [place] [address] 54282 Urea nitrogen/Creatinine [Mass ratio] 15.0 mg/mg Normal 4.6-16.2 [facility] Comment on above: Performed By: #### 1 [id number] #### [facility] (DEFAULT) [address] [place] [address] 57822 Coding Summaryon 06-15-2018 Coding Summary CODING DATE: 06/15/2018 [facility] STATUS: Home PAYOR: Commercial Insurance ADMIT DX: REASON FOR VISIT DX: E87.6 Hypokalemia FINAL DX: PRINCIPAL: E87.6 Hypokalemia SECONDARY: PROCEDURES DOCTOR NAME DATE NOTE: The code number assigned matches the documented diagnosis and / or procedure in the patient's chart. However, the narrative phrase printed from the coding software may appear abbreviated, or result in slightly different terminology. Coded By: Purnima Felix Date Saved: 06/15/2018 02:13 pm [facility] Provider Orderson 06-15-2018 Provider Orders [id number] 8#1.00OTGTIFF Normal [facility] Extra [place] 06-14-2018 Tube Collected Yes [facility] Comment on above: Performed By: #### 1 [id number] #### [facility] (DEFAULT) [address] [place] [address] 58248 Magnesiumon 06-14-2018 Magnesium [Mass/Vol] 2.06 mg/dL Normal 1.80-2.50 [facility] Comment on above: Result Comment: The reference range for magnesium has changed from 0.40-2.10 mg/dl to 1.80-2.50 mg/dl as of 06/03/15. Performed By: #### 2 286951, [id number] #### [facility] (DEFAULT) [address] [place] [address] 08959 Renal Function Panel Standar don 06-14-2018 eGFR Non AA >60 [facility] Comment on above: Performed By: #### 2 773147, [id number] #### [facility] (DEFAULT) [address] [place] [address] 95439 eGFR AA >60 [facility] Comment on above: Result Comment: Employee Relations Director abiodun Kidney disease could be indicated at eGFRs of less than 60 ml/min/1.73m2. Kidney Failure is indicated at less than 15 ml/min/1.73m2 Performed By: #### 2 423890, [id number] #### [facility] (DEFAULT) [address] [place] [address] 63408 Albumin [Mass/Vol] 3.5 g/dL Normal 3.5-5.0 [facility] Comment on above: Performed By: #### 2 908947, [id number] #### [facility] (DEFAULT) [address] [place] [address] 17143 Anion gap [Moles/Vol] 14.0 mmol/L Normal 5.0-19.0 [facility] Comment on above: Performed By: #### 2 880729, [id number] #### [facility] (DEFAULT) [address] [place] [address] 44510 Calcium [Mass/Vol] 8.7 mg/dL Low 8.9-10.3 [facility] Comment on above: Performed By: #### 2 547103, [id number] #### [facility] (DEFAULT) [address] [place] [address] 99499 Chloride [Moles/Vol] 97 mmol/L Low 101-111 [facility] Comment on above: Performed By: #### 2 861114, [id number] #### [facility] (DEFAULT) [address] [place] [address] 25841 CO2 [Moles/Vol] 31 mmol/L Normal 21-32 [facility] Comment on above: Performed By: #### 2 661845, [id number] #### [facility] (DEFAULT) [address] [place] [address] 04934 Creatinine [Mass/Vol] 0.92 mg/dL Normal 0.60-1.30 [facility] Comment on above: Performed By: #### 2 950048, [id number] #### [facility] (DEFAULT) [address] [place] [address] 30834 Glucose [Mass/Vol] 121.0 mg/dL High 74.0-118.0 [facility] Comment on above: Performed By: #### 2 470591, [id number] #### [facility] (DEFAULT) [address] [place] [address] 40370 Osmolality [Osmolality] 280 mOsm/L [facility] Comment on above: Performed By: #### 2 090363, [id number] #### [facility] (DEFAULT) [address] [place] [address] 26678 Phosphate [Mass/Vol] 2.8 mg/dL Normal 2.5-4.6 [facility] Comment on above: Performed By: #### 2 426773, [id number] #### [facility] (DEFAULT) [address] [place] [address] 15566 Potassium [Moles/Vol] 3.0 mmol/L Low 3.6-5.1 [facility] Comment on above: Performed By: #### [id number], [id number] #### [facility] (DEFAULT) [address] [place] [address] [id number] Sodium [Moles/Vol] 139.0 mmol/L Normal 136.0-144.0 [facility] Comment on above: Performed By: #### [id number], [id number] #### [facility] (DEFAULT) [address] [place] [address] [id number] Urea nitrogen [Mass/Vol] 17 mg/dL Normal 8-26 [facility] Comment on above: Performed By: #### [id number], [id number] #### [facility] (DEFAULT) [address] [place] [address] 07190 Urea nitrogen/Creatinine [Mass ratio] 18.0 mg/mg High 4.6-16.2 [facility] Comment on above: Performed By: #### 2 [id number], [id number] #### [facility] (DEFAULT) [address] [place] [address] [id number] Vital Signs Date Time Vital Sign Value Performing Clinician Facility 04-01-2023 09:14-0500 Body height 167.64 cm [facility] 04-01-2023 09:14-0500 Body mass index (BMI) [Ratio] 27.2 kg/m2 [facility] 04-01-2023 09:14-0500 Body temperature 98.5 [degF] [facility] 04-01-2023 09:14-0500 Body weight 76.65 kg [facility] 04-01-2023 09:14-0500 Diastolic blood pressure 74 mm[Hg] [facility] 04-01-2023 09:14-0500 Heart rate 74 /min [facility] 04-01-2023 09:14-0500 Respiratory rate 16 /min [facility] 04-01-2023 09:14-0500 SaO2% (BldA) [Mass fraction] 93 % [facility] 04-01-2023 09:14-0500 Systolic blood pressure 122 mm[Hg] [facility] 04-30-2022 10:00-0400 Body height 167.64 cm Ledy Sheridan Other [facility] Other 04-30-2022 10:00-0400 Body mass index (BMI) [Ratio] 27.15 kg/m2 Ledy Sheridan Other [facility] Other 04-30-2022 10:00-0400 Body temperature 96.7 [degF] Ledy Sheridan Other [facility] Other 04-30-2022 10:00-0400 Body weight 76.3 kg Ledy Sheridan Other [facility] Other 04-30-2022 10:00-0400 Diastolic blood pressure 70 mm[Hg] Ledy Sheridan Other [facility] Other 04-30-2022 10:00-0400 Respiratory rate 18 /min Ledy Sheridan Other [facility] Other 04-30-2022 10:00-0400 SaO2% (BldA) [Mass fraction] 99 % Ledy Sheridan Other [facility] Other 04-30-2022 10:00-0400 Systolic blood pressure 120 mm[Hg] Ledy Sheridan Other [facility] Other 04-17-2021 10:00-0500 Body height Ledy Sheridan Other [facility] Other 04-17-2021 10:00-0500 Body mass index (BMI) [Ratio] 27.11 kg/m2 Ledy Sheridan Other [facility] Other 04-17-2021 10:00-0500 Body weight 76.2 kg Ledy Sheridan Other [facility] Other 04-17-2021 10:00-0500 Diastolic blood pressure 66 mm[Hg] Ledy Sheridan Other [facility] Other 04-17-2021 10:00-0500 Respiratory rate 18 /min Ledy Sheridan Other [facility] Other 04-17-2021 10:00-0500 SaO2% (BldA) [Mass fraction] 97 % Ledy Sheridan Other [facility] Other 04-17-2021 10:00-0500 Systolic blood pressure 104 mm[Hg] Ledy Sheridan Other [facility] Other Encounters Encounter Date Encounter Type Care Provider Facility Start: 04-29-2023 End: 04-30-2023 ambulatory C[facility]TON [facility] Start: 04-06-2023 End: 04-07-2023 ambulatory ERIC Cleary Alee [facility] Start: 04-01-2023 End: 04-01-2023 ambulatory [facility] Work Phone: Start: 04-01-2023 End: 04-01-2023 Patient encounter procedure [facility] Work Phone: Start: 03-22-2023 End: 03-23-2023 ambulatory LEDY SHERIDAN [facility] Start: 04-30-2022 End: 04-30-2022 ambulatory Ledy Sheridan Other [facility] Other Start: 04-30-2022 Office outpatient visit 15 minutes Ledy Sheridan [facility] Start: 04-20-2022 End: 04-20-2022 ambulatory Ledy Sheridan Other [facility] Other Start: 04-20-2022 Telephone encounter Ledy Sheridan [facility] Start: 03-24-2022 End: 03-25-[address] ERIC JOHNSTON Facility:[facility] Start: 03-19-2022 End: 03-20-[address] ERIC JOHNSTON Facility:[facility] Start: 03-13-2022 End: 03-14-[address] ERIC JOHNSTON Facility:[facility] Start: 11-03-2021 End: 11-04-[address] ERIC JOHNSTON Facility:[facility] Start: 04-17-2021 End: 04-17-2021 ambulatory Ledy Sheridan Other [facility] Other Start: 04-17-2021 Office outpatient visit 15 minutes Ledy Swartz [facility] Start: 04-17-2021 Telephone encounter Ledy Swartz [facility] Plan of Treatment Date Care Activity Detail Author Renal function 2000 panel - Serum or Plasma [facility] enter [facility] Immunizations Immunization Date Immunization Notes Care Provider Fa dollyty NEGATED: Highlighted row has not occurred!05-28-2015 influenza, seasonal, injectable Ledy Sheridan Other [facility] Other NEGATED: Highlighted row has not occurred!05-28-2015 pneumococcal polysaccharide vaccine, 23 valent Ledy Sheridan Other [facility] Other Payers Date Payer Category Payer Unknown [id number] 2.16.84 [id number] 1970 Unknown [id number] 2.16.84 [id number] 1971 Unknown [id number] 2.16.84 [id number] 1971 Unknown [id number] 2.16.84 [id number] 1971 Unknown [id number] 2.16.8 [id number] 1971 Unknown [id number] 2.16.8 [id number] 1971 Unknown [id number] 2.16.8 [id number] 1959 Unknown [id number] Self-pay Self Pay [id number] [place] [facility] [id number] Social History Date Type Detail Facility Unknown if ever smoked [facility] Other Sex Assigned At Sex Assigned At Bir th [facility] Other Start: 04-01-2023 Tobacco smoking status NHIS Never smoked tobacco (finding) [facility] Start: 1970 Sex Assigned At Female F [facility] Evaluation note 04-30-2022 Note Date & Type Note Facility 04-30-2022 Evaluation note Encounter Date Diagnosis Assessment Notes Apr, Hypokalemia (ICD-10 - E87.6) 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 She has negative w/u for Hyperaldosteronism and Piper. Her potassium is within the normal limit. Continue current dose of the potassium chloride and amiloride. Apr, Metabolic alkalosis (ICD-10 - E87.3) Her bicarbonate is within the acceptable range. No need for any intervention Apr, Renal cyst (ICD-10 - Q61.00) She has likely simple cyst on renal US. No more w/u needed Apr, Iron deficiency (ICD-10 - E61.1) She has iron deficiency but hemoglobin within normal. Continue oral iron. Apr, GERD (gastroesopha geal reflux disease) (ICD-10 - K21.9) Continue pantoprazole. Explained to her potential risk of worsening renal function due to its prolonged use. She she understood and verbalized information and would like to continue with close monitoring of renal function. 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 She has negative w/u for Hyperaldosteronism and Piper. Her potassium is within the normal limit. Continue current dose of the potassium chloride and amiloride. Apr, Metabolic alkalosis (ICD-10 - E87.3) Her bicarbonate is within the acceptable range. No need for any intervention Apr, Renal cyst (ICD-10 - Q61.00) She has likely simple cyst on renal US. No more w/u needed [facility] Other History general Narrative - Reported 08-15-2014 Note Date & Type Note Facility 08-15-2014 History general N arrative - Reported Type Medical History low potassium Surgical History hysterectomy 08/2014 Surgical History appendectomy Surgical History Right hand 5 th finger cyst [place] 04/2017 Hospitalization History see above Hospitalization History 4 child births [facility] Other History general Narrative - Reported 08-15-2014 Note Date & Type Note Facility 08-15-2014 History general N arrative - Reported Type Medical History low potassium Medical History METABOLIC ALKALOSIS Medical History HYPOKALEMIA DUE TO LOSS OF POTAS [facility] Medical History RENAL CYST Surgical History hysterectomy 08/2014 Surgical History appendectomy Surgical History Right hand 5 th finger cyst [place] 04/2017 Hospitalization History see above Hospitalization History 4 child births [facility] Other Evaluation note Note Date & Type Note Facility Evaluation note No Information [facility] Other Evaluation note Note Date & Type Note Facility Evaluation note Diagnosis Onset Date GERD (gastroesophageal reflux disease) acute Hypokalemia acute Iron deficiency acute Metabolic alkalosis acute Renal cyst acute [place] Work Phone: Summary Purpose Family History No Family History Records Found Relationship Condition Age at Onset Recorded Date/T taz brother Unknown Malignant neoplasm Unknown father Heart disease Unknown Diabetes mellitus Unknown family member Unknown sister Diabetes mellitus Unknown Advance Directives No Advanced Directives Records Found Advance Directive Response Recorded Date/ Time Advance Directives No May 29 12:41pm Chief Complaint and Reason for Visit Chief Complaint renal 1 year f/u Reason for Visit GERD (gastroesophage al reflux disease) Hypokalemia Iron deficiency Metabolic alkalosis Renal cyst Additional Source Comments INFORMATION SOURCE (unrecogn ized section and content) DATE CREATED AUTHOR 04/14/2019 [facility] DATE CREATED AUTHOR AUTHOR'S ORGANIZ ATION 07/23/2021 [facility] DATE CREATED AUTHOR AUTHOR'S ORGANIZ ATION 04/03/2022 [facility] DATE CREATED AUTHOR AUTHOR'S ORGANIZ ATION 05/01/2023 [facility] REASON FOR VISIT (unrecogniz ed section and content) HypokalemiaREFERRAL TO RHEUM ATOLOGYLAB ORDERSHypokalemia and Hypomagnesemia Care Teams (unrecognized sec tion and content) Team Status: Active Member Role Status Dates Eric Johnston MD Primary Care Provider Active Team Status: Inactive Member Role Status Dates Eric Johnston MD Primary Care Provider Active Start: April 01, 2023 End: April 01, 2023 Ledy Swartz MD Attending Provider Active Start : April 01, 2023 End: April 01, 2023 Goals (unrecognized section and content) Goals may be documented in a n alternate section FOR RECORDS PERTAINING TO PATIENTS WHO ARE OR HAVE BEEN ENROLLED IN A CHEMICAL DEPENDENCY/SUBSTANCEABUSE PROGRAM, SOME INFORMATION MAY BE OMITTED. This clinical summary was aggregated from multiple sources. Caution should be exercised in using it in the provision of clinical care. This summary normalizes information from multiple sources, and as a consequence, information in this document may materially change the coding, format and clinical context of patient data. In addition, data may be omitted in some cases. CLINICAL DECISIONS SHOULD BE BASED ON THE PRIMARY CLINICAL RECORDS. [facility] provides no warranty or guarantee of the accuracy or completeness of information in this document.
[2023-10-10 09:28] LABS: Bilirubin Urine NEGATIVE (NEGATIVE); Blood Urine NEGATIVE (NEGATIVE); Clarity Urine CLEAR (CLEAR); Color Urine YELLOW (YELLOW); Glucose Urine UA NEGATIVE (NEGATIVE); Ketones Urine TRACE mg/dL (NEGATIVE); Leukocyte Esterase Urine NEGATIVE (NEGATIVE); Nitrite Urine NEGATIVE (NEGATIVE); Protein Urine NEGATIVE (NEG/TRACE); Specific Gravity Urine >=1.030 (1.005-1.025)
[2023-10-10 11:08] LABS: Bacteria Urine MODERATE #/HPF (NONE SEEN); Crystals Seen? Seen #/HPF (None Seen); Mucus Urine NONE SEEN (NONE SEEN); RBC Urine NONE SEEN #/HPF (0-2); Squamous Epithelial Cell Urine MANY #/LPF (NONE/RARE); WBC Urine 0-2 #/HPF (NONE SEEN)
[2023-10-10 11:09] LABS: Calcium Oxalate Crystals Urine RARE; Cast Seen? NONE SEEN #/LPF (NONE SEEN)
== END 2023-10-10 09:13 | disposition home or self-care (01) ==
LOC: LAB 09:12
PROVIDERS: PCP Family Medicine; Visit Provider Family Medicine
DX: K21.9 Gastro-esophageal reflux disease without esophagitis (principal); E61.1 Iron deficiency; N28.1 Cyst of kidney, acquired; E87.3 Alkalosis; E87.6 Hypokalemia
CPT/HCPCS: 81001

== ENCOUNTER 2024-04-01 07:02 | Outpatient (OUT) | payer OTHER, SELFPAY ==
--- OUTSIDE RECORDS SUMMARY | 2024-04-01 07:04 | XMS_ITS | CCD ---
Author Organization [facility] Care Team Providers Care Business Unit Manager Name Role Phone Ledy Rivero Unavailable RAFAEL, DR REYES Admitting Unavailable RAFAEL, DR REYES Primary Care Unavailable RAFAEL, DR REYES Consulting Unavailable RAFAEL, DR REYES Attending Unavailable WEST, DR ANNALISA Zayas Consulting Unavailable RAFAEL, DR REYES Primary Care Unavailable RAFAEL, DR REYES Consulting Unavailable RAFAEL, DR REYES Attending Unavailable RAFAEL, DR REYES Admitting Unavailable GUERRERO, DR ANNALISA Zayas Consulting Unavailable RAFAEL, DR REYES Primary Care Unavailable RAFAEL, DR REYES Consulting Unavailable RAFAEL, DR REYES Attending Unavailable RAFAEL, DR REYES Admitting Unavailable RAFAEL, DR REYES Primary Care Unavailable RAFAEL, DR REYES Consulting Unavailable ARFAEL, DR REYES Attending Unavailable RAFAEL, DR REYES Admitting Unavailable ANNALISA DE Consulting Unavailable Eric Johnston MD Primary Care Provider [phone] Eric Johnston Primary Care Physician [phone] DO Sherry Velasquez. Admitting Unavaila DO Sherry Merino. Attending Unavaila ble DO Sherry Velasquez. Referring Unavaila ble SHERRY VELASQUEZ Attending Unavailable SHERRY VELASQUEZ Attending Unavailable Sherry Velasquez. Referring Unavailable Sherry Velasquez. Admitting Unavailable Sherry Velasquez. Attending Unavailable Sherry Velasquez. Referring Unavailable Sherry Velasquez. Admitting Unavailable Sherry Velasquez. Attending Unavailable Sherry Velasquez. Admitting Unavailable Sherry Velasquez. Attending Unavailable Sherry Velasquez. Referring Unavailable SHERRY VELASQUEZ Referring Unavailable ERIC JOHNSTON Primary Care Unavailable DAVIDSHERRY Referring Unavailable ERIC JOHNSTON Primary Care Unavailable ERIC JOHNSTON Referring Unavailable ERIC JOHNSTON Primary Care Unavailable ERIC JOHNSTON Primary Care Unavailable BAM BRIGHT Attending Unavailable Medications Current Medications Medication Drug Class(es) Dates Sig (Normalized) Sig (Original) acetaminophen 500 mg oral tablet (3 sources) Start: 03-09-2024 take 2 tablets by mouth every six hours acetaminophen 500 mg Tab 1,000 mg = 2 tab(s), Oral, q6hr, # 50 tab(s), Refills(s) 1, Pharmacy: [facility]/pharmacy #[id number], 171.2, cm, 02/29/24 12:35:00 EST, Height/Length Dosing, 73.6, kg, 02/29/24 12:35:00 EST, Weight Dosing Start Date: 03/09/24 Status: Ordered take 1 tablet by elva th every eight hours as needed for pain acetaminophen (Tylenol 8 Hour) 650 MG ER tablet Take 650 mg by mouth every 8 (eight) hours if needed for mild pain Do not crush, chew, or split. Active aMILoride hydrochloride 5 mg oral tablet (20 sources) Potassium-sparing Diuretic Start: 02-21-2024 aMILoride (Midamor) 5 MG tablet 02/21/2024 Active Start: 04-01-2023 End: 12-29-2023 take 5 mg by mouth once daily Amiloride Active 5 MG PO Daily September 08, 2023 7:39am amoxicillin 875 mg / clavulanate 125 mg oral tablet (1 source) Penicillin-class Antibacterial Start: 10-13-2023 take 1 tablet by mouth twice daily Amoxicillin-Pot Clavulanate Active 1 TAB PO Twice daily October 13, 2023 12:00am diclofenac sodium 75 mg delayed release oral tablet (2 sources) Nonsteroidal Anti-inflammatory Drug take 1 tablet by mouth every twelve hours Diclofenac Sodium 75 MG 1 tablet Orally Twice a day Active docusate sodium 100 mg oral capsule (3 sources) Start: 03-09-2024 take 1 capsule by mouth twice daily as needed for constipation Doculase 100 mg oral capsule 100 mg = 1 cap(s), Oral, BID, PRN for constipation, # 20 cap(s), Refills(s) 1, Pharmacy: [facility]/pharmacy #[id number], 171.2, cm, 02/29/24 12:35:00 EST, Height/Length Dosing, 73.6, kg, 02/29/24 12:35:00 EST, Weight Dosing Start Date: 03/09/24 Status: Ordered take 1 capsule by mouth in the m orning docusate sodium (Colace) 50 MG capsule Take 50 mg by mouth in the morning and 50 mg before bedtime. Active estradiol 0.5 mg oral tablet (16 sources) Estrogen Start: 11-16-2022 End: 12-28-2024 take 1 tablet by mouth once daily estradiol (Estrace) 0.5 MG tablet Indications: Postmenopausal HRT (hormone replacement therapy) , Hot flashes Take 1 tablet (0.5 mg) by mouth Daily 90 tablet 3 12/29/2023 12/28/2024 Active take 1 tablet by elva th every twenty-four hours Estradiol 0.5 MG 1 tablet Orally Once a day Active etodolac 500 mg oral tablet (12 sources) Nonsteroidal Anti-inflammatory Drug Start: 04-01-2023 take 1 tablet by mouth twice daily at mealtime Etodolac Active 500 MG PO Once April 01, 2023 1:00am FreeTextSi tablet with food Orally Twice a day; Note: Source Status: Taking; Provider: Mat Villafana ( ) ferrous sulfate 325 mg oral tablet (17 sources) Start: 02-29-2024 take 1 tablet by mouth twice daily ferrous sulfate 325 mg Tab 325 mg = 1 tab(s), Oral, BID Start Date: 02/29/24 Status: Ordered Start: 09-07-2023 Ferrous Sulfat e Active 0 .ROUTE .COMPLEX September 07, 2023 6:00pm TAKE 1 TABLET ONCE A DAY Start: 04-01-2023 End: 09-07-2023 take 1 tablet by mouth once daily Ferrous Sulfate Discontinued 325 MG PO Daily April 01, 2023 10:43am September 07, 2023 6:01pm FreeTextSi tablet Orally Once a day; Note: Source Status: Taking; Provider: Mat Villafana ( ) take 1 tablet by elva th once daily Ferrous Sulfate 325 (65 Fe) MG 1 tablet Orally Once a day Active ibuprofen 600 mg oral tablet (1 source) Nonsteroidal Anti-inflammatory Drug Start: 03-09-2024 take 1 tablet by mouth every six hours ibuprofen 600 mg Tab 600 mg = 1 tab(s), Oral, q6hr, # 60 tab(s), Refills(s) 1, Pharmacy: [facility]/pharmacy #[id number], 171.2, cm, 02/29/24 12:35:00 EST, Height/Length Dosing, 73.6, kg, 02/29/24 12:35:00 EST, Weight Dosing Start Date: 03/09/24 Status: Ordered 24 hr oxybutynin chloride 5 mg extended release oral tablet (9 sources) Cholinergic Muscarinic Antagonist Start: 12-30-2023 End: 01-23-2025 take 1 tablet by mouth once daily oxybutynin XL (Ditropan-XL) 5 MG 24 hr tablet Indications: Urge incontinence TAKE 1 TABLET (5 MG) BY MOUTH DAILY DO NOT CRUSH, CHEW, OR SPLIT. 90 tablet 01/24/2024 01/23/2025 Active pantoprazole 40 mg delayed release oral tablet (16 sources) Proton Pump Inhibitor Start: 02-29-2024 take 1 tablet by mouth twice daily Pantoprazole [address] Tab 40 mg = 1 tab(s), Oral, BID Start Date: 02/29/24 Status: Ordered Start: 04-01-2023 take 2 tablets by [facility] once daily Pantoprazole Active 80 MG PO Daily April 01, 2023 1:00am FreeTextSi TABLETS Orally Once a day; Note: Source Status: Taking; Provider: Mat Villafana ( ) take 1 tablet by elva in the morning pantoprazole (ProtoNix) 40 MG EC tablet Take 40 mg by mouth in the morning and 40 mg before bedtime. Active take 2 tablets by mo [facility] every twenty-four hours Pantoprazole Sodium 40 MG 2 TABLETS Orally Once a day Active triamcinolone acetonide 1 mg/ml topical cream (8 sources) Corticosteroid Start: 10-19-2023 triamcinolone (Kenalog) 0.1 % cream APPLY TO AFFECTED AREA EXTERNALLY TWICE DAILY FOR 30 DAYS 10/19/2023 Active Completed/Discontinued Medications Medication Drug Class(es) Dates Sig (Normalized) Sig (Original) 24 hr mirabegron 25 mg extended release oral tablet (2 sources) beta3-Adrenergic Agonist Start: 12-29-2023 End: 12-30-2023 take 1 tablet by mouth every twenty-four hours at bedtime mirabegron ER (Myrbetriq) 25 MG 24 hr tablet Indications: Urge incontinence Take 1 tablet (25 mg) by mouth at bedtime Do not crush, chew, or split. 30 tablet 2 12/29/2023 12/30/2023 Discontinued (Cost of medication) potassium chloride 20 meq oral tablet (19 sources) Start: 02-29-2024 take 2 tablets by mouth once daily Potassium Chloride (Eqv-K-Tab) 20 mEq oral tablet, extended release 40 mEq = 2 tab(s), Oral, Daily Start Date: 02/29/24 Status: Ordered Start: 09-07-2023 take 1 tablet by elva twice daily Potassium Chloride Active 0 .ROUTE .COMPLEX 180 September 07, 2023 6:00pm TAKE 1 TABLET BY MOUTH TWICE DAILY Start: 04-01-2023 End: 09-07-2023 take 1 tablet by mouth twice daily Potassium Chloride Discontinued 20 MEQ PO Twice daily 180 April 01, 2023 10:44am September 07, 2023 6:01pm FreeTextSi Tablet Orally bid; Note: Source Status: Taking; Refills: 1; Qty: 180 Tablet; Provider: Mat Villafana ( ) take 2 tablets by mo [facility] in the morning KLOR-CON 20 MEQ ER tablet Take 40 mEq by mouth in the morning and 40 mEq before bedtime. Active take 1 tablet by elva th every twelve hours Potassium Chloride ER 20 mEq 1 Tablet Orally bid for 90 day(s) Active Problems Active Problems Problem Classification Problem Date Documented Da te Episodic/Chronic Abdominal pain (4 sources) Right upper quadrant pain; Translations: [RIGHT UPPER QUADRANT PAIN] Onset: 3 Episodic Deficiency and other anemia (1 source) Anemia, unspecified Episodic Esophageal disorders (6 sources) Gastroesophageal reflux disease; Translations: [Gastro-esophageal reflux disease without esophagitis] Chronic Fluid and electrolyte disorders (20 sources) Metabolic alkalosis; Translations: [Alkalosis] Onset: 2 Resolved: 2 Episodic Genitourinary congenital anomalies (7 sources) Cyst of kidney; Translations: [Congenital renal cyst, unspecified] Onset: 2 Resolved: 2 Chronic Genitourinary symptoms and ill-defined conditions (6 sources) Urge incontinence of urine; Translations: [Urge incontinence] Onset: 5 12-29-2023 Chronic Malaise and fatigue (1 source) Other fatigue; Translations: [OTHER FATIGUE] Onset: 3 Episodic Menopausal disorders (4 sources) Postmenopausal state; Translations: [Hormone replacement therapy] 12-28-2023 Episodic Mood disorders (3 sources) Mood swings; Translations: [Emotional lability] Onset: 4 12-29-2023 Episodic Nonspecific chest pain (7 sources) Chest pain, unspecified; Translations: [Chest pain] Onset: 2 Episodic Nutritional deficiencies (4 sources) Iron deficiency; Translations: [Iron deficiency] Episodic Osteoarthritis (2 sources) Arthritis 02-29-2024 Chronic Other aftercare (2 sources) Patient encounter status; Translations: [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] 02-25-2024 Episodic Other aftercare (2 sources) Surgical follow-up; Translations: [Encounter for follow-up examination after completed treatment for conditions other than malignant neoplasm] 03-28-2024 Episodic Other circulatory disease (2 sources) Raynaud's disease 02-29-2024 Chronic Other diseases of kidney and ureters (2 sources) Cyst of kidney; Translations: [Cyst of kidney, [...] conditions (not mental disorders or infectious disease) (6 sources) Breast neoplasm screening status; Translations: [Encounter for screening mammogram for malignant neoplasm of breast] Onset: 4 12-28-2023 Episodic Prolapse of female genital organs (7 sources) Midline cystocele; Translations: [Cystocele, midline] Onset: 5 12-28-2023 Chronic Residual codes; unclassified (2 sources) Flushing; Translations: [Flushing] 12-29-2023 Episodic Residual codes; unclassified (2 sources) History of hysterectomy for benign disease; Translations: [Acquired absence of both cervix and uterus] 12-28-2023 Episodic Residual codes; unclassified (2 sources) Menopause present 02-29-2024 Episodic Residual codes; unclassified (1 source) Pelvic organ finding; Translations: [Acquired absence of both cervix and uterus] Onset: 5 Episodic Residual codes; unclassified (1 source) Flushing; Translations: [Flushing] Onset: 4 Episodic Past or Other Problems Problem Classification Problem Date Documented Da te Episodic/Chronic Diabetes mellitus without complication (2 sources) Hyperglycemia, unspecified; Translations: [Other abnormal glucose] Onset: 04-06-2023 Episodic Results Test Name Value Interpretation Reference Range Facility BASIC METABOLIC PANLon 03-28 Anion gap [Moles/Vol] 7 mmol/L Normal 5-15 [facility] Comment on above: Performed By: #### C ABUNDIO, 28464-8, THYR, 305-0 #### [facility] ([id number]) [address], [address] [place] [address] Calcium [Mass/Vol] 9.1 mg/dL Normal 8.5-10.5 [facility] Comment on above: Performed By: #### C ABUNDIO, 62624-1, THYR, 305-0 #### [facility] ([id number]) [address], [address] [place] [address] Chloride [Moles/Vol] 106 mmol/L Normal 98-109 [facility] Comment on above: Performed By: #### C ABUNDIO, 15114-4, THYR, 305-0 #### [facility] ([id number]) [address], [address] [place] [address] CO2 [Moles/Vol] 26 mmol/L Normal 22-32 [facility] Comment on above: Performed By: #### C ABUNDIO, 59588-0, THYR, 305-0 #### [facility] ([id number]) [address], [address] [place] [address] Creatinine [Mass/Vol] 0.88 mg/dL Normal 0.40-1.00 [facility] Comment on above: Result Comment: METH OD TRACEABLE TO IDMS STANDARD Performed By: #### C ABUNDIO, 25405-9, THYR, 3050-0 #### [facility] ([id number]) [address], [email or web address] [address] [place] [address] GFR/1.73 sq M.predicted among non-blacks MDRD (S/P/Bld) [Vol rate/Area] 79 mL/min/{1.73_m2} Normal >59 [facility] Comment on above: Result Comment: Reported eGFR is based on the CKD-EPI 2020 equation that does not use a race coefficient. Performed By: #### C ABUNDIO, 65781-9, THYR, 3050-0 #### [facility] ([id number]) [address], [address] [place] [address] Glucose [Mass/Vol] 103 mg/dL High 65-99 [facility] Comment on above: Performed By: #### C ABUNDIO, 70845-2, THYR, 3050-0 #### [facility] ([id number]) [address], [address] [place] [address] Potassium [Moles/Vol] 4.0 mmol/L Normal 3.5-5.0 [facility] Comment on above: Performed By: #### C ABUNDIO, 21519-9, THYR, 305-0 #### [facility] ([id number]) [address], [address] [place] [address] Sodium [Moles/Vol] 139 mmol/L Normal 134-146 [facility] Comment on above: Performed By: #### C ABUNDIO, 39466-9, THYR, 305-0 #### [facility] ([id number]) [address] [address] [place] [address] Urea nitrogen [Mass/Vol] 15 mg/dL Normal 5-23 [facility] Comment on above: Performed By: #### C ABUNDIO, 50143-9, THYR, 305-0 #### [facility] ([id number]) [address] [address] [place] [address] CBC AND AUTO DIFFon 03-28-19 25 ABSOLUTE BASOPHIL 0.1 X10E9/L Normal 0.0-0.2 [facility] Comment on above: Performed By: #### C ABUNDIO, 69168-4, THYR, 3050-0 #### [facility] ([id number]) [address] [address] [place] [address] ABSOLUTE NEUTROPHIL 4.0 X10E9/L Normal 1.5-6.6 [facility] Comment on above: Performed By: #### C ABUNDIO, 94901-2, THYR, 3050-0 #### [facility] ([id number]) [address] [address] [place] [address] Basophils/100 WBC (Bld) 0.7 % Normal [facility] Comment on above: Performed By: #### C ABUNDIO, 93727-4, THYR, 3050-0 #### [facility] ([id number]) [address] [address] [place] [address] Eosinophils (Bld) [#/Vol] 0.3 10*3/uL Normal 0.0-0.4 [facility] Comment on above: Performed By: #### C ABUNDIO, 50744-0, THYR, 305-0 #### [facility] ([id number]) [address] [address] [place] [address] Eosinophils/100 WBC (Bld) 3.5 % Normal [facility] Comment on above: Performed By: #### C ABUNDIO, 80874-1, THYR, 305-0 #### [facility] ([id number]) [address] [address] [place] [address] Erythrocyte distribution width (RBC) [Ratio] 13.2 % Normal 11.5-15.0 [facility] Comment on above: Performed By: #### C ABUNDIO, 72658-7, THYR, 305-0 #### [facility] ([id number]) [address] [address] [place] [address] Hematocrit (Bld) [Volume fraction] 40.3 % Normal 35-47 [facility] Comment on above: Performed By: #### C ABUNDIO, 32959-6, THYR, 305-0 #### [facility] ([id number]) [address] [address] [place] [address] Hemoglobin (Bld) [Mass/Vol] 13.8 g/dL Normal 11.7-15.5 [facility] Comment on above: Performed By: #### C ABUNDIO, 09157-9, THYR, 305-0 #### [facility] ([id number]) [address] [address] [place] [address] Lymphocytes (Bld) [#/Vol] 2.9 10*3/uL Normal 1.0-3.5 [facility] Comment on above: Performed By: #### C MP, 55433-6, THYR, 305-0 #### [facility] ([id number]) [address] [address] [place] [address] Lymphocytes/100 WBC (Bld) 37.3 % Normal [facility] Comment on above: Performed By: #### C MP, 23438-5, THYR, 3051-0 #### [facility] ([id number]) [address] [address] [place] [address] MCH (RBC) [Entitic mass] 31.2 pg Normal 27-34 [facility] Comment on above: Performed By: #### C ABUNDIO, 85211-3, THYR, 3051-0 #### [facility] ([id number]) [address], [facility] [[email or web address]] [address] [place] [address] MCHC (RBC) [Mass/Vol] 34.2 g/dL Normal 32-36 [facility] Comment on above: Performed By: #### C ABUNDIO, 28509-6, THYR, 3051-0 #### [facility] ([id number]) [address], [facility] [[email or web address]] [address] [place] [address] MCV (RBC) [Entitic vol] 91 fL Normal 80-100 [facility] Comment on above: Performed By: #### Jeannette DEL CASTILLO, 24529-8, THYR, 305-0 #### [facility] ([id number]) [address], [address] [place] [address] Monocytes (Bld) [#/Vol] 0.6 10*3/uL Normal 0-0.9 [facility] Comment on above: Performed By: #### C MP, 78923-2, THYR, 305-0 #### [facility] ([id number]) [address], [address] [place] [address] Monocytes/100 WBC (Bld) 7.2 % Normal [facility] Comment on above: Performed By: #### C MP, 37659-5, THYR, 3051-0 #### [facility] ([id number]) [address] [address] [place] [address] Neutrophils/100 WBC (Bld) 51.3 % Normal [facility] Comment on above: Performed By: #### C ABUNDIO, 72700-7, THYR, 3051-0 #### [facility] ([id number]) [address], [address] [place] [address] Platelet mean volume (Bld) [Entitic vol] 7.2 fL Normal 7-12 [facility] Comment on above: Performed By: #### C ABUNDIO, 87009-7, THYR, 3051-0 #### [facility] ([id number]) [address], [facility] [[email or web address]] [address] [place] [address] Platelets (Bld) [#/Vol] 337 10*3/uL Normal 150-450 [facility] Comment on above: Performed By: #### C ABUNDIO, 26539-4, THYR, 3051-0 #### [facility] ([id number]) [address], [facility] [[email or web address]] [address] [place] [address] RBC COUNT 4.42 X10E12/L Normal 3.80-5.20 [facility] Comment on above: Performed By: #### C ABUNDIO, 86723-3, THYR, 3051-0 #### [facility] ([id number]) [address], [facility] [[email or web address]] [address] [place] [address] WBC (Bld) [#/Vol] 7.8 10*3/uL Normal 4.0-11.0 [facility] Comment on above: Performed By: #### C ABUNDIO, 95974-3, THYR, 3051-0 #### [facility] ([id number]) [address], [email or web address]] [address] [place] [address] Fibrin D-dimer DDU (PPP) [Ma ss/Vol]on 03-28-2024 D DIMER <150 Normal <255 [facility] Comment on above: Result Comment: Results <255 ng/mL DDU: The presence of a VTE can safely be excluded with a negative D-Dimer result and Wells score. A negative result doesn't exclude the possibility of DIC. The test be repeated along with other diagnostic tests if the patient's symptoms persist or worsen. [email or web address] Performed By: #### C , 09515-5, THYR, 3051-0 #### [facility] ([id number]) [address], [address] [place] [address] Troponin I.cardiac High sens itivity method [Mass/Vol]on 03-28-2024 1 HOUR TROP I, HIGH SENSITIVITY <2 Normal <16 [facility] Comment on above: Performed By: #### C MP, 30192-0, THYR, 3051-0 #### [facility] ([id number]) [address], [address] [place] [address] TROPONIN I, HIGH SENSITIVITY <2 Normal <16 [facility] Comment on above: Performed By: #### C , 17382-3, THYR, 3051-0 #### [facility] ([id number]) [address], [address] [place] [address] XR CHEST 1 VWon 03-28-2024 XR CHEST 1 VW XR CHEST 1 VW Single view chest History:chest pain Difficulty breathing, shortness of breath Comparison: 04/14/2013 Findings: Single portable view of the chest. Stable cardiac mediastinal silhouette. No focal opacity, effusion or pneumothorax. Impression: No evidence of acute cardiopulmonary process. Finalized by Luis Antonio Caldwell MD on 03/28/2024 10:56 AM Normal [facility] Surgical Pathology Reporton 03-13-2024 Surgical Pathology Report [address] [address]- Surgical Pathology Report Collected Date/Time: 03/09/2024 11:33 EST Pathologist: Cesar DELGADO PhD, Cecilio Swann Received Date/Time: 03/09/2024 12:51 EST Sherry Velasquez DO, DO, Mona J. 07 Surgical Pathology Report - 03/13/2024 11:04 EST - Auth (Verified) Final Diagnosis VAGINAL MUCOSA, EXCISION: - VAGINAL SKIN WITH HYPERKERATOSIS, COMPATIBLE WITH CYSTOCELE. (Electronic Signature) Cecilio Guerrero MD PhD 03/13/2024 11:04 Clinical Information Urge incontinence, cystocele Pre-Op Diagnosis: Urge incontinence, cystocele Procedure: Anterior vaginal repair Post-Op Diagnosis: Urge incontinence, cystocele Specimen(s) Received Vaginal mucosa Gross Description Received in formalin labeled with patient name, number, and vaginal mucosa are three irregularly shaped fragments of simms/pink wrinkled rubbery tissue measuring in aggregate 5 x 3.3 x 1.3 cm. One surface has a simms/pink wrinkled slightly glistening appearance. The opposite surface has a simms/red/pink rough dull-shined appearance. No discrete lesions are grossly identified. A labor representative portion is submitted in 2 cassettes. (DC) DC:[facility] Microscopic Description Microscopic examination performed unless gross only specified. This report was transcribed using voice recognition technology and might contain unintended computerized weigher and crusher errors. Normal [facility] Comment on above: Performed By: #### [id number] #### [facility] [address] [place] [address] Main OR Intraoperative Recor don 03-10-2024 Main OR Intraoperative Record Main OR Intraoperative Record IntraOp Document Type FT Summary Primary Physician: Sherry Velasquez DO Finalized Date/Time: 03/10/24 10:52:58 Pt. Name: TAMY SAL/Sex: 1970 Female Med Rec #: [id number] Physician: Sherry Velasquez DO Financial #: [id number] Pt. Type: A Room/Bed: 06/15 Admit/Disch: 03/09/24 09:22:26 - 03/09/24 13:30:00 Institution: Case Times FT Entry 1 Patient Times In Room 03/09/24 10:43:00 Out Room 03/09/24 11:53:00 Procedure Times Start 03/09/24 11:01:00 Stop 03/09/24 11:49:00 Anesthesia Times Start 03/09/24 10:43:00 Stop 03/09/24 11:53:00 Last Modified By: Lit STONE, Va Sprague 03/09/24 11:53:32 General Comments: 03/10/24 Chart opened to review and send charges [facility] Case Attendance FT Entry 1 Entry 2 Entry 3 Case Attendee Foreign DIXON, PRE KINDERGARTEN TEACHER, [facility] DO, Sherry Murrieta RN, Va Luz Role Performed PRE KINDERGARTEN TEACHER Surgeon - Primary Branch Banker - Primary Time In 03/09/24 10:43:00 03/09/24 10:56:00 03/09/24 10:43:00 Time Out 03/09/24 11:53:00 03/09/24 11:48:00 03/09/24 11:53:00 Procedure ANTERIOR/POSTERIOR ANTERIOR/POSTERIOR ANTERIOR/POSTERIOR COLPORRHAPHY(.) COLPORRHAPHY(.) COLPORRHAPHY(.) Comments DR. TALBERT SUPERVISING Last Modified By: Lit RN, Va Murrieta RN, Va Murrieta RN, Va Sprague 03/09/24 11:53:34 03/09/24 11:53:34 03/09/24 11:53:34 Entry 4 Entry 5 Entry 6 Case Attendee Velma Francois RIVERBOAT MASTER, Anneliese Ann RN, Joseph Swann Role Performed SUPERVISOR PROPERTIES Scrub - Primary Branch Banker - Primary Time In 03/09/24 10:43:00 03/09/24 10:43:00 03/09/24 10:43:00 Time Out 03/09/24 11:53:00 03/09/24 11:53:00 03/09/24 11:53:00 Procedure ANTERIOR/POSTERIOR ANTERIOR/POSTERIOR ANTERIOR/POSTERIOR COLPORRHAPHY(.) COLPORRHAPHY(.) COLPORRHAPHY(.) Comments ROOM ASSIST, OUT OF ROOM FOR LUNCH 7109-0024 Last Modified By: Lit RN, Va Murrieta RN, Va Murrieta RN, Va Sprague 03/09/24 11:53:34 03/09/24 11:53:34 03/09/24 11:53:34 General Comments: [facility] 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 BERTHA ARRIAGA911 telecommunicator Protocols FT Pre-Care Text: Implements protective measures prior to operative or invasive procedure, confirms identity before the operative or invasive procedure, verifies operative procedure, surgical site, and laterality Entry 1 Procedure(s) ANTERIOR/POSTERIOR Patient Identity Birthday, ID Band COLPORRHAPHY(.) Verified (select at Check, Patient least 2): Participation Consents / H and P Anesthesia Consent, Operative Site N/A Verified H&P, Surgery/Procedure Marking Verified Consent, Transfusion Consent Surgical Site Yes Laterality Verified n/a Verified Procedure Verified Yes Correct Patient Yes Position Verified Availability Equipment, Medication Prep Dry n/a Verified (If Applicable) PreOp Antibiotic No Time Out Foreign DIXON, SHAKIR, Queen Siva Luz, Sherry Velasquez DO, Lit STONE, Alessandro Sahni Amber M, Roth CST, Marissa Ramirez RN, Joseph Swann Time Out Complete 03/09/24 11:00:00 Outcomes Met? Yes Last Modified By: Va Murreita RN 03/09/24 11:06:43 Post-Care Text: The patient is free from signs and symptoms of injury caused by extraneous objects Allergy Information FT Pre-Care Text: Verifies allergies Entry 1 Allergies Reviewed? Yes Allergies Reviewed Self/Patient With Outcomes Met? Yes Last Modified By: Va Murrieta RN 03/09/24 11:06:54 Post-Care Text: The patient received appropriate medication(s) safely administered during the perioperative period Surgical Procedures FT Entry 1 Procedure Description Procedure ANTERIOR/POSTERIOR Modifiers . COLPORRHAPHY Surgeon Description ANTERIOR VAGINAL REPAIR Primary Procedure Yes Primary Surgeon Sherry Velasquez DO Start 03/09/24 11:01:00 Stop 03/09/24 11:49:00 Anesthesia Type General Surgical Service Obstetric Gynecology Wound Class 2 - Clean-Contaminated Last Modified By: Va Murrieta RN 03/09/24 11:49:10 General Case Data FT Pre-Care Text: Classifies surgical wound, implements aseptic technique, initiates traffic control Entry 1 Case Information OR OR 5 FT Case Level Level 4 Wound Class 2 - Clean-Contaminated Specialty Obstetric Gynecology ASA Class 2 Preop Diagnosis URGE INCONTINENCE, Postop Same As Preop Yes CYSTOCELE Postop Diagnosis URGE INCONTINENCE, Outcomes Met? Yes CYSTOCELE Last Modified By: Va Murrieta RN 03/09/24 11:07:13 Post-Care Text: The patient is free from signs and symptoms of infection Skin Assessment (Pre Procedure) FT Pre-Care Text: Implements protective measures to prevent skin/ tissue injury due to thermal or mechanical sources Evaluates for signs and symptoms of physical injury to skin and tissue Entry 1 Skin Integrity Intact, [place], Warm, & Skin Abnormality No Dry Outcomes Met? Yes Last Modified By: Va Murrieta RN 03/09/24 11:07:23 Post-Care Text: The patient is free from signs and symptoms of injury caused by extraneous objec (more content not included)... [facility] Discharge Instructionson Discharge Instructions Discharge Instructions TAMY SAL :1970 Visit Date:03/09/2024 Inpatient Discharge Instructions Your Care Team Admitting Physician - Sherry Velasquez DO Referring Physician - Sherry Velasquze DO Reason for Your Visit URGE INCONTINENCE, CYSTOCELE Your Diagnosis Cystocele, midline History of hysterectomy for benign disease Urge incontinence Procedure History Appendectomy, Endometrial ablation, Partial hysterectomy. What to do next Instructions From Your Doctor Event Name Event Result Discharge Instructions Freetext No strenuous activities and pelvic rest until your post-op follow up appointment Discharge Activity Expect minimal amount of drainage and/or bleeding, Activity as tolerated Discharge Diet(s) Regular Call Your Doctor For Persistent or heavy bleeding, Temperature above 101.5 degrees, Persistent vomiting Discharge Instructions Discharge Instructions New Follow Up Appointments after Discharge Follow Up with Sherry Velasquez When: Where: [facility] [place] [address] [address]- Business (1) Medications What How Much When Instructions Next Dose New acetaminophen (acetaminophen 500 mg Tab) 2 Tablets By Mouth Every 6 hours Refills: 1 Pickup at [facility]/pharmacy #[id number] New docusate (Doculase 100 mg oral capsule) 1 Capsules By Mouth 2 times a day as needed for for constipation Refills: 1 Pickup at [facility]/pharmacy #[id number] New ibuprofen (ibuprofen 600 mg Tab) 1 Tablets By Mouth Every 6 hours Refills: 1 Pickup at [facility]/pharmacy #[id number] Unchanged amiloride (amiloride 5 mg oral tablet) 1 Tablets By Mouth Every day Unchanged estradiol (estradiol 0.5 mg Tab) 1 Tablets By Mouth Every day Unchanged ferrous sulfate (ferrous sulfate 325 mg Tab) 1 Tablets By Mouth 2 times a day Unchanged oxybutynin (oxybutynin 5 mg ER Tab) 1 Tablets By Mouth Every day Unchanged pantoprazole (Pantoprazole [address] Tab) 1 Tablets By Mouth 2 times a day Unchanged potassium chloride (Potassium Chloride (Eqv-K-Tab) 20 mEq oral tablet, extended release) 2 Tablets By Mouth Every day Pharmacy Information [facility]/pharmacy #[id number]: [address] [place], [place] [phone] Education Materials Anterior and Posterior Colporrhaphy, Care After The following information offers guidance on how to care for yourself after your procedure. Your health care provider may also give you more specific instructions. If you have problems or questions, contact your health care provider. What can I expect after the procedure? After the procedure, it is common to have: ??? Pain in the surgical area. ??? Vaginal spotting and discharge. You will need to use a sanitary pad during this time. ??? Tiredness (fatigue). Follow these instructions at home: Medicines ??? Take oakr-kta-slhjwoc and prescription medicines only as told by your health care provider. ??? Ask your health care provider if the medicine prescribed to you: ? Requires you to avoid driving or using machinery. ? Can cause constipation. You may need to take these actions to prevent or treat constipation: ? Drink enough fluid to keep your urine pale yellow. ? Take ocub-cgj-qhorwnu or prescription medicines. ? Eat foods that are high in fiber, such as beans, whole grains, and fresh fruits and vegetables. ? Limit foods that are high in fat and processed sugars, such as fried or sweet foods. Incision care ??? Check your incision area every day for signs of infection. Check for: ? More fluid or blood coming from your vagina. ? Pus or a bad-smelling discharge from your vagina. ??? Do not take baths, swim, or use a hot tub until your health care provider approves. You may take showers. ??? Keep the area between your vagina and rectum (perineal area) clean and dry. Make sure you clean the area after every bowel movement and each time you urinate. ??? Ask your health care provider if you can take a sitz bath or sit in a tub of clean, warm water. Activity ??? Rest as told by your health care provider. ??? Avoid sitting for a long time without moving. Get up to take short walks every 1???2 hours. This is important to improve blood flow and breathing. Ask for help if you feel weak or unsteady. ??? Avoid activities that take a lot of effort. ??? Limit stair climbing to once or twice a day in the first week, then slowly increase this activity. ??? Do not lift anything that is heavier than 5 lb (2.3 kg), or the limit that you are told, until your health care provider says that it is safe. Avoid pushing or pulling motions. ??? Avoid standing for long periods of time. ??? Do not drive until your health care provider says that it is safe. ??? Return to your normal activities as told by your health care provider. Ask your health care provider what activities are safe for you. General (more content not included)... [facility] Comment on above: Result Comment: Elec tronically Signed By: Domi STONE, Dami Irwin\.br\Date and Time Signed: 03/09/24 13:23 EST Inpatient Patient Summaryon 03-09-2024 Inpatient Patient Summary Inpatient Patient Summary [place] [id number] [facility] Clinical Discharge Instructions PERSON INFORMATION Name: TAMY SAL [facility] Admitting Physician: Sherry Velasquez DO Attending Physician: Sherry Velasquez DO PCP: Rafael DELGADO, Eric Discharge Diagnosis: Cystocele, midline; History of hysterectomy for benign disease; Urge incontinence Comment: PATIENT EDUCATION INFORMATION Instructions: Anterior and Posterior Colporrhaphy, Care After Medication Leaflets: Follow up: With: Address: When: Sherry Velasquez [address] [place] [address] Business (1) MEDICATION LIST New Medications [facility]/pharmacy #[id number], [address] [place], [place] [phone], [phone] acetaminophen (acetaminophen 500 mg Tab) 2 Tablets By Mouth every 6 hours. Refills: 1. docusate (Doculase 100 mg oral capsule) 1 Capsules By Mouth 2 times a day as needed for constipation. Refills: 1. ibuprofen (ibuprofen 600 mg Tab) 1 Tablets By Mouth every 6 hours. Refills: 1. Medications to Continue with No Changes Other Medications amiloride (amiloride 5 mg oral tablet) 1 Tablets By Mouth every day. estradiol (estradiol 0.5 mg Tab) 1 Tablets By Mouth every day. ferrous sulfate (ferrous sulfate 325 mg Tab) 1 Tablets By Mouth 2 times a day. oxybutynin (oxybutynin 5 mg ER Tab) 1 Tablets By Mouth every day. pantoprazole (Pantoprazole [address] Tab) 1 Tablets By Mouth 2 times a day. potassium chloride (Potassium Chloride (Eqv-K-Tab) 20 mEq oral tablet, extended release) 2 Tablets By Mouth every day. Comment: [facility] Main OR Intraoperative Recor don 03-09-2024 Main OR Intraoperative Record Main OR Intraoperative Record IntraOp Document Type FT Summary Primary Physician: Sherry Velasquez DO Finalized Date/Time: 03/09/24 11:53:41 Pt. Name: TAMY SAL/Sex: 1970 Female Med Rec #: [id number] Physician: Sherry Velasquez DO Financial #: [id number] Pt. Type: A Room/Bed: [facility] Admit/Disch: 03/09/24 09:22:26 - Institution: Case Times FT Entry 1 Patient Times In Room 03/09/24 10:43:00 Out Room 03/09/24 11:53:00 Procedure Times Start 03/09/24 11:01:00 Stop 03/09/24 11:49:00 Anesthesia Times Start 03/09/24 10:43:00 Stop 03/09/24 11:53:00 Last Modified By: Va Murrieta RN 03/09/24 11:53:32 Case Attendance FT Entry 1 Entry 2 Entry 3 Case Attendee Foreign DIXON, SHAKIR, Fernandes Sherry Velasquez DO, RN, Leann E N. Role Performed PRE KINDERGARTEN TEACHER Surgeon - Primary Branch Banker - Primary Time In 03/09/24 10:43:00 03/09/24 10:56:00 03/09/24 10:43:00 Time Out 03/09/24 11:53:00 03/09/24 11:48:00 03/09/24 11:53:00 Procedure ANTERIOR/POSTERIOR ANTERIOR/POSTERIOR ANTERIOR/POSTERIOR COLPORRHAPHY(.) COLPORRHAPHY(.) COLPORRHAPHY(.) Comments DR. TALBERT SUPERVISING Last Modified By: Lit RN, Va Murrieta RN, Va Murrieta RN, Va Sprague 03/09/24 11:53:34 03/09/24 11:53:34 03/09/24 11:53:34 Entry 4 Entry 5 Entry 6 Case Attendee Velma Francois RIVERBOAT MASTER, Anneliese Ann RN, Joseph Swann Role Performed SUPERVISOR PROPERTIES Scrub - Primary Branch Banker - Primary Time In 03/09/24 10:43:00 03/09/24 10:43:00 03/09/24 10:43:00 Time Out 03/09/24 11:53:00 03/09/24 11:53:00 03/09/24 11:53:00 Procedure ANTERIOR/POSTERIOR ANTERIOR/POSTERIOR ANTERIOR/POSTERIOR COLPORRHAPHY(.) COLPORRHAPHY(.) COLPORRHAPHY(.) Comments ROOM ASSIST, OUT OF ROOM FOR LUNCH [id number] Last Modified By: Lit RN, Va Murrieta RN, Va Murrieta RN, Va Sprague 03/09/24 11:53:34 03/09/24 11:53:34 03/09/24 11:53:34 General Comments: [facility] [employer] 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 BERTHA ARRIAGA911 telecommunicator Protocols FT Pre-Care Text: Implements protective measures prior to operative or invasive procedure, confirms identity before the operative or invasive procedure, verifies operative procedure, surgical site, and laterality Entry 1 Procedure(s) ANTERIOR/POSTERIOR Patient Identity Birthday, ID Band COLPORRHAPHY(.) Verified (select at Check, Patient least 2): Participation Consents / H and P Anesthesia Consent, Operative Site N/A Verified H&P, Surgery/Procedure Marking Verified Consent, Transfusion Consent Surgical Site Yes Laterality Verified n/a Verified Procedure Verified Yes Correct Patient Yes Position Verified Availability Equipment, Medication Prep Dry n/a Verified (If Applicable) PreOp Antibiotic No Time Out Foreign DIXON, SHAKIR, Given Participants N., Sherry Velasquez DO, Lit STONE, Alessandro Sahni Amber M, Levon GAN, Marisas Ramirez RN, Joseph Swann Time Out Complete 03/09/24 11:00:00 Outcomes Met? Yes Last Modified By: Va Murrieta RN 03/09/24 11:06:43 Post-Care Text: The patient is free from signs and symptoms of injury caused by extraneous objects Allergy Information FT Pre-Care Text: Verifies allergies Entry 1 Allergies Reviewed? Yes Allergies Reviewed Self/Patient With Outcomes Met? Yes Last Modified By: Va Murrieta RN 03/09/24 11:06:54 Post-Care Text: The patient received appropriate medication(s) safely administered during the perioperative period Surgical Procedures FT Entry 1 Procedure Description Procedure ANTERIOR/POSTERIOR Modifiers . COLPORRHAPHY Surgeon Description ANTERIOR VAGINAL REPAIR Primary Procedure Yes Primary Surgeon Sherry Velasquez DO Start 03/09/24 11:01:00 Stop 03/09/24 11:49:00 Anesthesia Type General Surgical Service Obstetric Gynecology Wound Class 2 - Clean-Contaminated Last Modified By: Va Murrieta RN 03/09/24 11:49:10 General Case Data FT Pre-Care Text: Classifies surgical wound, implements aseptic technique, initiates traffic control Entry 1 Case Information OR OR 5 FT Case Level Level 4 Wound Class 2 - Clean-Contaminated Specialty Obstetric Gynecology ASA Class 2 Preop Diagnosis URGE INCONTINENCE, Postop Same As Preop Yes CYSTOCELE Postop Diagnosis URGE INCONTINENCE, Outcomes Met? Yes CYSTOCELE Last Modified By: Va Murrieta RN 03/09/24 11:07:13 Post-Care Text: The patient is free from signs and symptoms of infection Skin Assessment (Pre Procedure) FT Pre-Care Text: Implements protective measures to prevent skin/ tissue injury due to thermal or mechanical sources Evaluates for signs and symptoms of physical injury to skin and tissue Entry 1 Skin Integrity Intact, [place], Warm, & Skin Abnormality No Dry Outcomes Met? Yes Last Modified By: Va Murrieta RN 03/09/24 11:07:23 Post-Care Text: The patient is free from signs and symptoms of injury caused by extraneous objects Patient Positioning FT Pre-Care Text: Identifies physical alterations that require additiona (more content not included)... [facility] Main OR PACU I Recordon 02-16 Main OR PACU I Record Main OR PACU I Record PACU Phase I Document Type FT Summary Primary Physician: Sherry Velasquez DO Finalized Date/Time: 03/09/24 12:58:45 Pt. Name: TAMY SAL Maribell/Sex: 1970 Female Med Rec #: [id number] Physician: Sherry Velasquez DO Financial #: [id number] Pt. Type: A Room/Bed: Admit/Disch: 03/09/24 09:22:26 - Institution: Case Times PACU I FT Pre-Care Text: Identifies barriers to communication and implements measures to provide psychological support Develops individualized plan of care, and ensures continuity of care Maintains patient's dignity and privacy, and maintains patient confidentiality Identifies and reports philosophical, cultural, and spiritual beliefs and values Identifies individual values and wishes concerning care Implements aseptic technique, and administers prescribed antibiotic therapy and immunizing agents as ordered Evaluates postoperative tissue perfusion Implements thermoregulation measures, and monitors body temperature Evaluates postoperative respiratory status Evaluates postoperative cardiac status Evaluates postoperative neurological status Assesses pain control, collaborated in initiating patient-controlled analgesia and implements alternative methods of pain control Verifies allergies, administers prescribed medications and solutions, evaluates response to medications Entry 1 In PACU I 03/09/24 11:55:00 Discharge from PACU 03/09/24 12:25:00 I Outcomes Met? Yes Last Modified By: Purnima Henriquez RN 03/09/24 12:46:24 Post-Care Text: The patient demonstrates knowledge of the expected response to the operative or invasive procedure The patient's care is consistent with the individualized perioperative plan of care The patient's right to privacy is maintained The patient's value system, lifestyle, ethnicity, and culture are considered, respected, and incorporated into the perioperative plan of care The patient participates in decisions affecting his or her perioperative plan of care The patient is free from signs and symptoms of infection The patient has wound/tissue perfusion consistent with or improved from baseline levels established preoperatively The patient is at or returning to normothermia at the conclusion of the immediate postoperative period The patient's respiratory function is consistent with or improved from baseline levels established preoperatively The patient's cardiovascular status is consistent with or improved from baseline levels established preoperatively The patient's cardiovascular status is consistent with or improved from baseline levels established preoperatively The patient demonstrates and/or reports adequate pain control throughout the perioperative period The patient received appropriate medication(s), safely administered during the perioperative period Acuity Level PACU I FT Entry 1 Start Time 03/09/24 11:55:00 Stop Time 03/09/24 12:25:00 Acuity Level Acuity Level I Last Modified By: Purnima Henriquez RN 03/09/24 12:46:37 Finalized By: Purnima Henriquez RN Document Signatures Signed By: Purnima Henriquez RN 03/09/24 12:46 Purnima Henriquez RN 03/09/24 12:58 [facility] Main OR PACU II Recordon Main OR PACU II Record Main OR PACU II Record PACU Phase II Document Type FT Summary Primary Physician: Sherry Velasquez DO Finalized Date/Time: 03/09/24 13:42:04 Pt. Name: TAMY SAL/Sex: 1970 Female Med Rec #: [id number] Physician: Sherry Velasquez DO Financial #: [id number] Pt. Type: A Room/Bed: Admit/Disch: 03/09/24 09:22:26 - Institution: Case Times PACU II FT Pre-Care Text: Identifies barriers to communication and implements measures to provide psychological support and determines knowledge level Develops individualized plan of care, and ensures continuity of care Maintains patient's dignity and privacy, and maintains patient confidentiality Identifies and reports philosophical, cultural, and spiritual beliefs and values Identifies individual values and wishes concerning care administers prescribed antibiotic therapy and immunizing agents as ordered, Evaluates postoperative tissue perfusion Implements thermoregulation measures, and monitors body temperature Evaluates postoperative respiratory status Evaluates postoperative cardiac status Evaluates postoperative neurological status Assesses pain control, collaborated in initiating patient-controlled analgesia and implements alternative methods of pain control Verifies allergies, administers prescribed medications and solutions, evaluates response to medications Entry 1 In PACU II 03/09/24 12:30:00 Discharge from PACU 03/09/24 13:30:00 II Outcomes Met? Yes Last Modified By: Dami Duron RN 03/09/24 13:42:03 Post-Care Text: The patient demonstrates knowledge of the expected response to the operative or invasive procedure The patient's care is consistent with the individualized perioperative plan of care The patient's right to privacy is maintained The patient's value system, lifestyle, ethnicity, and culture are considered, respected, and incorporated into the perioperative plan of care The patient participates in decisions affecting his or her perioperative plan of care. The patient is free from signs and symptoms of infection The patient has wound/tissue perfusion consistent with or improved from baseline levels established preoperatively The patient is at or returning to normothermia at the conclusion of the immediate postoperative period The patient's respiratory function is consistent with or improved from baseline levels established preoperatively The patient's cardiovascular status is consistent with or improved from baseline levels established preoperatively The patient's neurological status is consistent with or improved from baseline levels established preoperatively The patient demonstrates and/or reports adequate pain control throughout the perioperative period The patient received appropriate medication(s), safely administered during the perioperative period Finalized By: Dami Duron RN Document Signatures Signed By: Dami Duron RN 03/09/24 13:42 [facility] Main OR Preoperative Recordo n 03-09-2024 Main OR Preoperative Record Main OR Preoperative Record PreOp Document Type FT Summary Primary Physician: Sherry Velasquez DO Finalized Date/Time: 03/09/24 11:14:43 Pt. Name: TAMY SAL/Sex: 1970 Female Med Rec #: [id number] Physician: Sherry Velasquez DO Financial #: [id number] Pt. Type: A Room/Bed: Admit/Disch: 03/09/24 09:22:26 - Institution: Case Times PreOp FT Pre-Care Text: Verifies consent for planned procedure, identifies individual values and wishes concerning care, includes family members in perioperative teaching Entry 1 Patient Times. In Pre Surgery 03/09/24 09:25:00 Out Pre Surgery 03/09/24 10:41:00 Outcomes Met? Yes Last Modified By: Va Murrieta RN 03/09/24 11:14:41 Post-Care Text: The patient participates in decisions affecting his or her perioperative plan of care Finalized By: Va Murrieta RN Document Signatures Signed By: Va Murrieta RN 03/09/24 11:14 [facility] Operative Reporton Operative Report Operative Report Indication for Surgery Patient is a 53-year-old female with history of laparoscopic-assiste d vaginal hysterectomy with bilateral salpingectomy reports of worsening vaginal bulge. Patient diagnosed with stage II-III cystocele. Patient also report of urge incontinence which is improving with anticholinergic treatment. Patient voiced interest in proceeding with surgical management of her worsening cystocele. Anterior vaginal repair procedure were discussed. Risks of but not limited to pain, bleeding, infection, and injury to surrounding structures (bowel, bladder, urethra, etc.) discussed. Patient voiced understanding and informed consent was signed in the office Preoperative Diagnosis URGE INCONTINENCE, CYSTOCELE Postoperative Diagnosis URGE INCONTINENCE, CYSTOCELE Operation ANTERIOR/POSTERIOR COLPORRHAPHY, ANTERIOR VAGINAL REPAIR, . Surgeon(s) Sherry Velasquez DO (Surgeon - Primary) Crystal Evaluator Yenny Francois Anesthesia General Fish Brigido DELGADO (Fluid Dynamicist) Foreign DIXON CRNA, Queen N. (Other) Estimated Blood Loss 25mL Urine Output 350mL of clear yellow urine in the lucio at the end of the procedure Findings Stage II-III cystocele noted Specimen(s) Pathology Tissue Exam (Vaginal mucosa,AP Specimen) Complications None Technique Patient was seen in the preoperative area all questions were asked and answered. Patient was brought to the operating room with IV fluid running and placed on the operating table without difficulty. Patient was placed under general anesthesia and placed into a dorsal lithotomy position with Yousuf type stirrups with the knees bent to 30 degree angles. At this time, timeout was called for the correct patient and the correct procedure. Patient was prepped and draped in a normal sterile fashion after Lucio catheter was inserted and drained to gravity. Attention was brought to the patient's vagina and right angle was inserted to the posterior aspect of vagina to better visualize the vaginal apex. Allis clamps was used to grasp the right than the left corner of the vaginal apex. 1% lidocaine with epinephrine was administered under the anterior vaginal mucosa to aid in [place]-dissection. A small incision was made in the vaginal mucosa horizontally and the Metzenbaum scissors were used to dissect the mucosa off the cystocele and cut the vaginal mucosa in the midline. The cut edges were held and splayed laterally with a series of Allis clamps. Bladder was dissected away along the lateral edges with combination of sharp and blunt dissection, exposing the vesicovaginal space. A series of 0 Vicryl suture was placed in the interrupted fashion sequentially along the lateral folds of the vesicovaginal space and brought together to tack the bladder back while simultaneously bringing the lateral vaginal tissues together. The excess vaginal mucosa was then trimmed. The vaginal mucosa was then reapproximated with a running lock 2-0 Vicryl suture without difficulty. Good hemostasis was noted at the end of the procedure. Sponge count correct x 2. Lucio catheter was removed without difficulty with clear yellow urine in the lucio bag at the end of the procedure. Patient tolerated the procedure well. Patient was returned to dorsal supine position and awakened from anesthesia without difficulty. Patient was transferred to a stretcher and transported to the recovery room in a stable condition. Normal [facility] Comment on above: Result Comment: Elec tronically Signed By: Sherry Velasquez DO\.br\Date and Time Signed: 03/09/24 12:10 EST Outpatient Surgery Discharge Instructionon 03-09-2024 Outpatient Surgery Discharge Instruction Outpatient Surgery Discharge Instruction [place] [id number] Patient Discharge Instructions PERSON INFORMATION Name: TAMY SAL Date of : 1970 Current Date: 03/09/2024 12:04:45 PHYSICIANS Admitting Physician: Sherry Velasquez DO Discharge Diagnosis: Cystocele, midline; History of hysterectomy for benign disease; Urge incontinence TAMY SAL has been given the following list of follow-up instructions, prescriptions, and patient education materials: PATIENT FOLLOW-UP INFORMATION Diet: Regular Discharge Activity: Expect minimal amount of drainage and/or bleeding, Activity as tolerated Call Your Doctor For: Persistent or heavy bleeding, Temperature above 101.5 degrees, Persistent vomiting Additional Instructions: No strenuous activities and pelvic rest until your post-op follow up appointment IF UNABLE TO CONTACT YOUR PHYSICIAN AND YOU FEEL IT IS AN EMERGENCY, GO TO THE NEAREST EMERGENCY ROOM OR CALL 911 I, TAMY SAL, have received the attached patient education materials/instructio ns and have verbalized understanding: May we do a follow up call? Yes No I was present when discharge instructions were given Patient Signature Date Clinican/Nurse Signature Date Follow up: With: Address: When: Sherry Velasquez [facility] Ashok Quintanilla, [address] [address] Business (1) Pharmacy Information: You may receive a survey from Bibiana Clemons asking you to rate your care experience. Your feedback is important and will help us understand what we do well and how we can improve the quality of care we provide to you, your loved ones and our community. It???s an honor to serve you. Thank you for choosing [facility] HERE ARE THE MEDICATION CHANGES THAT OCCURRED DURING YOUR HOSPITAL STAY New Medications [id number], [address] [place] [id number], [phone] acetaminophen (acetaminophen 500 mg Tab) 2 Tablets By Mouth every 6 hours. Refills: 1. docusate (Doculase 100 mg oral capsule) 1 Capsules By Mouth 2 times a day as needed for constipation. Refills: 1. ibuprofen (ibuprofen 600 mg Tab) 1 Tablets By Mouth every 6 hours. Refills: 1. Medications to Continue with No Changes Other Medications amiloride (amiloride 5 mg oral tablet) 1 Tablets By Mouth every day. estradiol (estradiol 0.5 mg Tab) 1 Tablets By Mouth every day. ferrous sulfate (ferrous sulfate 325 mg Tab) 1 Tablets By Mouth 2 times a day. oxybutynin (oxybutynin 5 mg ER Tab) 1 Tablets By Mouth every day. pantoprazole (Pantoprazole [address] Tab) 1 Tablets By Mouth 2 times a day. potassium chloride (Potassium Chloride (Eqv-K-Tab) 20 mEq oral tablet, extended release) 2 Tablets By Mouth every day. PATIENT EDUCATION INFORMATION Instructions: Anterior and Posterior Colporrhaphy, Care After The following information offers guidance on how to care for yourself after your procedure. Your health care provider may also give you more specific instructions. If you have problems or questions, contact your health care provider. What can I expect after the procedure? After the procedure, it is common to have: ??? Pain in the surgical area. ??? Vaginal spotting and discharge. You will need to use a sanitary pad during this time. ??? Tiredness (fatigue). Follow these instructions at home: Medicines ??? Take csms-xmu-nyaxspr and prescription medicines only as told by your health care provider. ??? Ask your health care provider if the medicine prescribed to you: ? Requires you to avoid driving or using machinery. ? Can cause constipation. You may need to take these actions to prevent or treat constipation: ? Drink enough fluid to keep your urine pale yellow. ? Take raca-wit-amoswxq or prescription medicines. ? Eat foods that are high in fiber, such as beans, whole grains, and fresh fruits and vegetables. ? Limit foods that are high in fat and processed sugars, such as fried or sweet foods. Incision care ??? Check your incision area every day for signs of infection. Check for: ? More fluid or blood coming from your vagina. ? Pus or a bad-smelling discharge from your vagina. ??? Do not take baths, swim, or use a hot tub until your health care provider approves. You may take showers. ??? Keep the area between your vagina and rectum (perineal area) clean and dry. Make sure you clean the area after every bowel movement and each time you urinate. ??? Ask your health care provider if you can take a sitz bath or sit in a tub of clean, warm water. Activity (Inserted Image. Unable to displ (more content not included)... Normal [facility] URINALYSISOrdered By: SYSTEM SYSTEM on 03-09-2024 Bilirubin Ql (U) Negative Normal Negativemg/ d L [facility] [place] UA Auto SS Clarity (U) Clear (03/09/24 10:58 AM) Normal Clear [facility] [place] UA Auto SS Color (U) Colorless 1 *ABN* (03/09/24 10:58 AM) Invalid Interpretation Code Yellow [facility] [place] UA Auto SS Comment on above: Interpretive Data: M icroscopic readings are only performed on those samples that meet specific criteria set forth by [facility]. Glucose Ql (U) Negative Normal Negativemg/d L [facility] [place] UA Auto SS Hemoglobin Auto test strip (U) [Mass/Vol] Negative Normal Negativemg/d L [facility]A Auto SS Ketones Auto test strip Ql (U) Negative Normal Negativemg/d L [facility] UA Auto SS Leukocyte esterase Auto test strip Ql (U) Negative Normal NegativeLeu/ uL [facility] [place] UA Auto SS Nitrite Auto test strip Ql (U) Negative Normal Negativemg/d L [facility] [place] UA Auto SS pH (U) 6.5 *NA* (03/09/24 10:58 AM) Invalid Interpretation Code 5.0 - 9.0 [facility] [place] UA Auto SS Protein Ql (U) Negative Normal Negativemg/d L [facility] [place] UA Auto SS Specific gravity (U) [Rel density] 1.010 *NA* (03/09/24 10:58 AM) Invalid Interpretation Code 1.005 - 1.030 [facility] [place] UA Auto SS Urobilinogen (U) [Mass/Vol] Negative Normal Negativemg/d L [facility] [place] UA Auto SS URINALYSISOrdered By: Va Murrieta on 03-09-2024 UA Spec Desc Lucio (03/09/24 10:58 AM) Normal [facility] [place] UA Auto SS URINALYSIS WITH MICROon 02-16 BILIRUBIN:PRTHR:PT:UR INE:ORD:TEST STRIP.AUTOMATED Negative Negative mg/dL [facility] CLARITY:TYPE:PT:URINE :NOM: Clear Clear [facility] CLASS:TYPE:PT:URINE COLLECTION METHOD:NOM:* Lucio [facility] COLOR:TYPE:PT:URINE:N OM:AUTO Colorless Abnormal Yellow [facility] Comment on above: Microscopic readings are only performed on those samples that meet specific criteria set forth by [facility]. [facility] [place] PH:LSCNC:PT:URINE:QN: TEST STRIP 6.5 5.0 - 9.0 [facility] SPECIFIC GRAVITY:RDEN:PT:URINE :QN:TEST STRIP 1.010 1.005 - 1.030 [facility] GLUCOSE:PRTHR:PT:URIN E:ORD:TEST STRIP Negative Negative mg/dL [facility] HEMOGLOBIN:MCNC:PT:UR INE:SEMIQN:TEST STRIP.AUTOMATED Negative Negative mg/dL [facility] Interpretation and review of laboratory results Abnormal [facility] KETONES:PRTHR:PT:URIN E:ORD:TEST STRIP.AUTOMATED Negative Negative mg/dL [facility] LEUKOCYTE ESTERASE:PRTHR:PT:URI NE:ORD:TEST STRIP.AUTOMATED Negative Negative CD:[id number] [facility] NITRITE:PRTHR:PT:URIN E:ORD:TEST STRIP.AUTOMATED Negative Negative mg/dL [facility] PROTEIN:PRTHR:PT:URIN E:ORD:TEST STRIP Negative Negative mg/dL [facility] UROBILINOGEN:MCNC:PT: URINE:SEMIQN:TEST STRIP Negative Negative mg/dL [facility] Original Ordering Provider: DO Sher[facility] Velasquez [facility]-16 Bilirubin Ql (U) Negative Normal Negative [facility] Comment on above: Performed By: #### 4 [id number] #### [facility] [address] [place] [address] Clarity (U) Clear Normal Clear [facility] Comment on above: Performed By: #### 4 [id number] #### [facility] [address] [place] [address] Color (U) Colorless Abnormal Yellow [facility] Comment on above: Result Comment: Micr oscopic readings are only performed on those samples that meet specific criteria set forth by [facility]. Performed By: #### 4 [id number] #### [facility] [address] [place] [address] Glucose Ql (U) Negative Normal Negative [facility] Comment on above: Performed By: #### 4 [id number] #### [facility] [address] [place] [address] Hemoglobin Auto test strip (U) [Mass/Vol] Negative Normal Negative [facility] Comment on above: Performed By: #### 4 [id number] #### [facility] [address] [place] [address] Ketones Auto test strip Ql (U) Negative Normal Negative [facility] Comment on above: Performed By: #### 4 [id number] #### [facility] [address] [place] [address] Leukocyte esterase Auto test strip Ql (U) Negative Normal Negative [facility] Comment on above: Performed By: #### 4 [id number] #### [facility] [address] [place] [address] Nitrite Auto test strip Ql (U) Negative Normal Negative [facility] Comment on above: Performed By: #### 4 [id number] #### [facility] [address] [place] [address] pH (U) 6.5 [pH] Invalid Interpretation Code 5.0-9.0 [facility] Comment on above: Performed By: #### 4 [id number] #### [facility] [address] [place] [address] Protein Ql (U) Negative Normal Negative [facility] Comment on above: Performed By: #### 4 [id number] #### [facility] [address] [place] [address] Specific gravity (U) [Rel density] 1.010 Invalid Interpretation Code 1.005-1.030 [facility] Comment on above: Performed By: #### 4 [id number] #### [facility] [address] [place] [address] Urobilinogen (U) [Mass/Vol] Negative Normal Negative [facility] Comment on above: Performed By: #### 4 [id number] #### [facility] [address] [place] [address] Type of Urine collection method Lucio Normal [facility] Comment on above: Performed By: #### 4 [id number] #### [facility] [address] [place] [address] BMPon 02-29-2024 Anion gap [Moles/Vol] 10 mmol/L Normal 6-16 [facility] Comment on above: Performed By: #### 2 [id number] #### [facility] [address] [place] [address] Calcium [Mass/Vol] 9.3 mg/dL Normal 8.9-11.1 [facility] Comment on above: Performed By: #### 2 [id number] #### [facility] [address] [place] [address] Chloride [Moles/Vol] 105 mmol/L Normal 101-111 [facility] Comment on above: Performed By: #### 2 [id number] #### [facility] [address] [place] [address] CO2 [Moles/Vol] 29 mmol/L Normal 21-31 [facility] Comment on above: Performed By: #### 2 [id number] #### [facility] [address] [place] [address] Creatinine [Mass/Vol] 0.8 mg/dL Normal 0.5-1.3 [facility] Comment on above: Performed By: #### 2 [id number] #### [facility] [address] [place] [address] Glucose [Mass/Vol] 109 mg/dL Normal 55-199 [facility] Comment on above: Performed By: #### 2 [id number] #### [facility] [address] [place] [address] Potassium [Moles/Vol] 4.9 mmol/L Normal 3.5-5.3 [facility] Comment on above: Performed By: #### 2 [id number] #### [facility] [address] [place] [address] Sodium [Moles/Vol] 139 mmol/L Normal 135-145 [facility] Comment on above: Performed By: #### 2 [id number] #### [facility] [address] [place] [address] Urea nitrogen [Mass/Vol] 14 mg/dL Normal 5-21 [facility] Comment on above: Performed By: #### 2 [id number] #### [facility] [address] [place] [address] Urea nitrogen/Creatinine [Mass ratio] 18 No Units Normal 10-20 [facility] Comment on above: Performed By: #### 2 [id number] #### [facility] [address] [place] [address] CBC w/ Auto Diffon 5 Basophils/100 WBC (Bld) 0.6 % Normal 0.0-2.0 [facility] Comment on above: Performed By: #### 2 [id number] #### [facility] [address] [place] [address] Basophils/Leukocytes Auto (Bld) [Pure # fraction] 0.1 E9/L Normal 0.0-0.2 [facility] Comment on above: Performed By: #### 2 [id number] #### [facility] [address] [place] [address] Eosinophils (Bld) [#/Vol] 0.4 E9/L Normal 0.0-0.5 [facility] Comment on above: Performed By: #### 2 [id number] #### [facility] [address] [place] [address] Eosinophils/100 WBC (Bld) 4.3 % Normal 0.0-8.0 [facility] Comment on above: Performed By: #### 2 [id number] #### [facility] [address] [place] [address] Erythrocyte distribution width (RBC) [Ratio] 12.7 % Normal 10.9-14.2 [facility] Comment on above: Performed By: #### 2 [id number] #### [facility] [address] [place] [address] Hematocrit (Bld) [Volume fraction] 37.6 % Normal 34.0-46.0 [facility] Comment on above: Performed By: #### 2 [id number] #### [facility] [address] [place] [address] Hemoglobin (Bld) [Mass/Vol] 12.7 g/dL Normal 12.0-16.0 [facility] Comment on above: Performed By: #### 2 [id number] #### [facility] [address] [place] [address] Lymphocytes (Bld) [#/Vol] 3.1 E9/L Normal 1.0-4.0 [facility] Comment on above: Performed By: #### 2 [id number] #### [facility] [address] [place] [address] Lymphocytes/100 WBC (Bld) 34.3 % Normal 14.0-50.0 [facility] Comment on above: Performed By: #### 2 [id number] #### [facility] [address] [place] [address] MCH (RBC) [Entitic mass] 30.8 pg Normal 27.0-34.0 [facility] Comment on above: Performed By: #### 2 [id number] #### [facility] [address] [place] [address] MCHC (RBC) [Mass/Vol] 33.8 g/dL Normal 31.4-36.0 [facility] Comment on above: Performed By: #### 2 135617 #### [facility] [address] [place] [address] MCV (RBC) [Entitic vol] 90.9 fL Normal 80.0-100.0 [facility] Comment on above: Performed By: #### 2 [id number] #### [facility] [address] [place] [address] Monocytes (Bld) [#/Vol] 0.5 E9/L Normal 0.2-1.0 [facility] Comment on above: Performed By: #### 2 [id number] #### [facility] [address] [place] [address] Neutrophils (Bld) [#/Vol] 4.9 E9/L Normal 2.0-7.5 [facility] Comment on above: Performed By: #### 2 641466 #### [facility] [address] [place] [address] Neutrophils/100 WBC (Bld) 54.8 % Normal 36.0-75.0 [facility] Comment on above: Performed By: #### 2 456978 #### [facility] [address] [place] [address] Platelet 318.0 E9/L Normal 150.0-500.0 [facility] Comment on above: Performed By: #### 2 [id number] #### [facility] [address] [place] [address] Platelet mean volume (Bld) [Entitic vol] 7.3 fL Normal 6.4-10.8 [facility] Comment on above: Performed By: #### 2 [id number] #### [facility] [address] [place] [address] RBC (Bld) [#/Vol] 4.1 E12/L Low 4.3-5.9 [facility] Comment on above: Performed By: #### 2 603809 #### [facility] [address] [place] [address] WBC corrected for nucl RBC Auto (Bld) [#/Vol] 8.9 E9/L Normal 4.0-11.0 [facility] Comment on above: Performed By: #### 2 [id number] #### [facility] [address] [place] [address] CHEMISTRYOrdered By: SYSTEM SYSTEM on 02-29-2024 Anion gap [Moles/Vol] 10 mmol/L Normal 6 - 16 mEq/L R emisol Chem Calcium [Mass/Vol] 9.3 mg/dL Normal 8.9 - 11. 1 mg/dL [facility] Chloride [Moles/Vol] 105 mmol/L Normal 101 - 1 11 mmol/L [facility] CO2 [Moles/Vol] 29 mmol/L Normal 21 - 31 mmol/L [facility] Creatinine [Mass/Vol] 0.8 mg/dL Normal 0.5 - 1.3 mg/dL [facility] eGFR 88 mL/min/1.73 m2 Normal >=59mL/min /1 .73 m2 [facility] Glucose [Mass/Vol] 109 mg/dL Normal 55 - 199 mg/dL [facility] Potassium [Moles/Vol] 4.9 mmol/L Normal 3.5 - 5.3 mmol/L [facility] Sodium [Moles/Vol] 139 mmol/L Normal 135 - 145 mmol/L [facility] Urea nitrogen [Mass/Vol] 14 mg/dL Normal 5 - 21 mg/dL [facility] Urea nitrogen/Creatinine [Mass ratio] 18 mg/mg Normal 10 - 20 [facility] HEMATOLOGYOrdered By: SYSTEM SYSTEM on 02-29-2024 Basophils/100 WBC (Bld) 0.6 % Normal 0.0 - 2.0 % Remisol Heme Basophils/Leukocytes Auto (Bld) [Pure # fraction] 0.1 E9/L Normal 0.0 - 0.2 E9/L [facility] Eosinophils (Bld) [#/Vol] 0.4 E9/L Normal 0.0 - 0.5 E9/L [facility]e Eosinophils/100 WBC (Bld) 4.3 % Normal 0.0 - 8.0 % [facility]e Erythrocyte distribution width (RBC) [Ratio] 12.7 % Normal 10.9 - 14.2 % [facility] Hematocrit (Bld) [Volume fraction] 37.6 % Normal 34.0 - 46.0 % [facility]e Hemoglobin (Bld) [Mass/Vol] 12.7 g/dL Normal 12.0 - 16.0 gm/dL [facility] Lymphocytes (Bld) [#/Vol] 3.1 E9/L Normal 1.0 - 4.0 E9/L [facility] Lymphocytes/100 WBC (Bld) 34.3 % Normal 14.0 - 50.0 % [facility]e MCH (RBC) [Entitic mass] 30.8 pg Normal 27.0 - 34.0 pg [facility]e MCHC (RBC) [Mass/Vol] 33.8 g/dL Normal 31.4 - 36.0 gm/dL [facility] MCV (RBC) [Entitic vol] 90.9 fL Normal 80.0 - 100.0 fL [facility] Monocytes (Bld) [#/Vol] 0.5 E9/L Normal 0.2 - 1.0 E9/L [facility] Monocytes/100 WBC (Bld) 6.0 % Normal 4.0 - 14.0 % [facility] Neutrophils (Bld) [#/Vol] 4.9 E9/L Normal 2.0 - 7.5 E9/L [facility] Neutrophils/100 WBC (Bld) 54.8 % Normal 36.0 - 75.0 % [facility] Platelet 318.0 E9/L Normal 150.0 - 500.0 E9/L [facility] Platelet mean volume (Bld) [Entitic vol] 7.3 fL Normal 6.4 - 10.8 fL [facility]e RBC (Bld) [#/Vol] 4.1 E12/L Low 4.3 - 5.9 E12/L [facility] WBC corrected for nucl RBC Auto (Bld) [#/Vol] 8.9 E9/L Normal 4.0 - 11.0 E9/L [facility] XR Chest 2 Viewson XR Chest 2 Views Exam Date/Time: 02/29/2024 09:00 EST Reason for Exam: P.A.T. Report IMPRESSION: NO RADIOGRAPHIC EVIDENCE OF ACTIVE DISEASE IN THE CHEST. CLINICAL INFORMATION: P.A.T. COMPARISON: None available. FINDINGS: Two views of the chest were obtained. Heart and mediastinum appear normal. The lungs appear clear. Visualized bony thorax and remainder of the chest appears unremarkable. Ordering Provider: Brigido Sal FINAL REPORT Dictated: 02/29/2024 6:15 pm Romel Bowman MD Signed (Electronic Signature): 02/29/2024 6:15 pm Signed by: Romel Bowman MD Transcribed by: TO Technologist: SRF Technical Comments Radiation Dose: Ka,r in mGy = na DAP = na Normal [facility] eGFRon 02-29-2024 eGFR 88 mL/min/1.73 m2 Normal >=59 [facility] Comment on above: Performed By: #### 1 [id number] #### [facility] [address] [place] [address] Cortisol [Mass/Vol]on 2023 CORTISOL 4.8 ug/dL Normal [facility] Comment on above: Result Comment: Due to the diurnal variation of cortisol levels in normal subjects, all cortisol measurements should be referenced to the time of day of sample collection. AM Cortisol Age>=6 6.7-22.4 ug/dL PM Cortisol Age>=6 <10 ug/dL Performed By: #### 2 143-6 #### [facility] ([id number]) [address] [place] [address] DHEA-S [Mass/Vol]on 01-06-20 24 DHEA S 34 ug/dL Normal 8-188 [facility] Comment on above: Performed By: #### 2 191-5 #### [facility] ([id number]) [address] [place] [address] E1 [Mass/Vol]on 01-06-2024 Estrone, S 248 pg/mL Normal [facility] Comment on above: Result Comment: NOTE REFERENCE VALUE Premenopausal :17-200 Postmenopausal : 7-40 ADDITIONAL INFORMATION This test was developed and its performance characteristics determined by [facility] in a manner consistent with CLIA requirements. This test has not been cleared or approved by the U.S. Food and Drug Administration. Test Performed by: [facility] [address] [place] [address] [employer] El[employer] Attacher: Zak Cortez Ph.D.; CLIA# [id number] Performed By: #### Jeannette DEL CASTILLO, 08026-2, THYR, 0 #### [facility] ([id number]) [address], [address] [place] [address] E2 [Mass/Vol]on 01-06-2024 ESTRADIOL 50.7 pg/mL Normal [facility] Comment on above: Result Comment: NON- FEMALES Mid follicular: 25-115 pg/mL Ovulatory Peak: 32.1-517 pg/mL Mid Luteal: 36.5-246 pg/mL Post-Menopausal Females: <15.0-25.1 pg/mL (Not on hormone therapy) The Access Sensitive Estradiol assay results are not intended to be used to measure the effectiveness of exogeneous Estradiol supplementation, for example, when the patient is on hormone replacement therapy. The presence of estradiol drug analogues and their metabolites could have an impact on estradiol recovery when using this assay. Performed By: #### Jeannette DEL CASTILLO, 98304-6, THYR, 0 #### [facility] ([id number]) [address], [address] [place] [address] Follitropin Qnon 01-06-2024 FOLLICLE STIM HORMONE 48.3 mIU/mL Normal Pr [facility] Comment on above: Result Comment: NORMAL FEMALE Luteal 1.8-5.1 mIU/mL Follicular 3.8-8.8 mIU/mL Mid Cycle 4.5-22.5 mIU/mL [place] 16.7-113.6 mIU/mL Performed By: #### [place], [address]-9, THYR, 3051-0 #### [facility] ([id number]) [address] [place] [address] [facility] ORDERon 024 TEST NAME FV125, SST SERUM Normal [facility] Comment on above: Performed By: #### C MP, 03686-9, THYR, 3051-0 #### [facility] ([id number]) [address], [address] [place] [address] TEST RESULT SEE COMMENTS 01/12/2024 10:26 PM Normal [facility] Comment on above: Result Comment: NOTE Test Result Flag Unit RefValue -- CALCITRIOL 1,25 diOH VitD Vitamin D,1,25 (OH) 2, Total 42 pg/mL 18-72 Reference Ranges for Vitamin D, 1,25 (OH)2, Total pg/mL < 1 Year Not established 1-9 Years 10-13 Years 3083 14-17 Years 19-83 > or = 18 Years 18-72 Vitamin D3, 1,25(OH)2 indicates both endogenous production and supplementation. Vitamin D2, 1,25(OH)2 is an indicator of exogenous sources, such as diet or supplementation. Interpretation and therapy are based on measurement of Vitamin D, 1,25 (OH)2, Total. Vitamin D3, 1,25 (OH) 2 42 pg/mL -- REFERENCE VALUE -- NO REFERENCE RANGE Vitamin D2, 1,25 (OH) 2 <8 pg/mL -- REFERENCE VALUE -- NO REFERENCE RANGE This test was developed and its analytical performance characteristics have been determined by [employer]. It has not been cleared or approved by FDA. This assay has been validated pursuant to the CLIA regulations and is used for clinical purposes. For additional information, please refer to http://education.[employer]/faq/XMD563 (This link is being provided for informational/educational purposes only.) Test Performed by: [employer]/[facility] [address] [place] [address] Performed By: #### C ABUNDIO, 89895-7, THYR, 3051-0 #### [facility] ([id number]) [address], [address] [place] [address] Progesterone [Mass/Vol]on PROGESTERONE 0.2 ng/mL Normal [facility] Comment on above: Result Comment: FEMALES: 1st Tri: 4.7-50.7 ng/ml 2nd Tri: 19.4-45.3 ng/ml MENSTRUATING FEMALES: Follicular: 0.3-1.5 ng/ml Mid Luteal: 5.2-18.6 ng/ml [place]: <0.1-0.8 ng/ml Performed By: #### 2 839-9, TSHR, 2243-4, 54317-0 #### [facility] ([id number]) [address], [address] [place] [address] #### 51468-9, 2258-2, GO #### [facility] ([id number]) [address] [place] [address], [place] [address] TSH WITH REFLEXon 01-06-2024 TSH 1.76 uIU/mL Normal 0.49-4.67 [facility] Comment on above: Performed By: #### C ABUNDIO, 61405-9, THYR, 3051-0 #### [facility] ([id number]) [address] [place] [address], [email or web address] [address] [place] [address] Testosterone free and total panel [Mass/Vol]on 01-06-2024 Testosterone [Mass/Vol] 8.5 ng/dL Normal 8-60 [facility] Comment on above: Result Comment: NOTE ADDITIONAL INFORMATION Testing performed by Liquid Chromatography-Tandem Mass Spectrometry (LC-MS/MS). This test was developed and its performance characteristics determined by [facility] in a manner consistent with CLIA requirements. This test has not been cleared or approved by the U.S. Food and Drug Administration. Test Performed by: [address] [address] [employer]: Zka Cortez Ph.D.; CLIA# [id number] Performed By: ###[place], [address]-0, THYR, 3051-0 #### [facility] ([id number]) [address] [place] [address] TESTOSTERONE FREE 0.22 ng/dL Normal <0.13-0.92 [facility] Comment on above: Result Comment: NOTE ADDITIONAL INFORMATION This test was developed and its performance characteristics determined by [facility] in a manner consistent with CLIA requirements. This test has not been cleared or approved by the U.S. Food and Drug Administration. Performed By: #### Jeannette DEL CASTILLO, 04591-7, THYR, 305-0 #### [facility] ([id number]) [address] [place] [address] Erythrocyte distribution wid th Auto (RBC) [Ratio]on 10-09-2023 Erythrocyte distribution width (RBC) [Ratio] 13.4 % 11.0-15.0 [facility] Estimated glomerular filtrat ion rate (GFR) non- Americanon 10-09-2023 GFR/1.73 sq M.predicted among non-blacks MDRD (S/P/Bld) [Vol rate/Area] 58 mL/min/{1.73_m2} Low >=60 [facility] Hematocrit Auto (Bld) [Volum e fraction]on 10-09-2023 Hematocrit (Bld) [Volume fraction] 42.4 % 36.0-48.0 [facility] Hemoglobin [Mass/volume] in Bloodon 10-09-2023 Hemoglobin (Bld) [Mass/Vol] 13.7 g/dL 12.0-16.0 [facility] Laboratory - Chemistry and C hemistry - challengeon 10-09-2023 Albumin [Mass/Vol] 3.2 g/dL Low 3.4-5.0 [facility] Calcium [Mass/Vol] 8.8 mg/dL 8.5-10.1 [facility] Chloride [Moles/Vol] 101 mmol/L 98-107 [facility] CO2 [Moles/Vol] 26.7 mmol/L 21.0-32.0 [facility] Creatinine [Mass/Vol] 1.01 mg/dL 0.55-1.02 [facility] GFR/1.73 sq M.predicted MDRD (S/P/Bld) [Vol rate/Area] mL/min/{1.73_m2} >=60 [facility] Glucose [Mass/Vol] 132 mg/dL High 74-106 [facility] Magnesium [Mass/Vol] 2.0 mg/dL 1.8-2.4 [facility] Potassium [Moles/Vol] 4.0 mmol/L 3.5-5.1 [facility] Sodium [Moles/Vol] 137 mmol/L 136-145 [facility] Urea nitrogen [Mass/Vol] 12.0 mg/dL 7.0-18.0 [facility] Urea nitrogen/Creatinine [Mass ratio] 11.9 mg/mg [facility] Leukocytes [#/volume] correc bj for nucleated erythrocytes in Blood by Automated counon 10-09-2023 WBC corrected for nucl RBC Auto (Bld) [#/Vol] 5.1 10 3/uL 4.0-11.0 [facility] MCH Auto (RBC) [Entitic mass ]on 10-09-2023 MCH (RBC) [Entitic mass] 31.2 pg 26.7-34.0 [facility] MCHC Auto (RBC) [Mass/Vol]on 10-09-2023 MCHC (RBC) [Mass/Vol] 32.3 g/dL 29.9-35.2 [facility] MCV Auto (RBC) [Entitic vol] on 10-09-2023 MCV (RBC) [Entitic vol] 96.6 fL 81.0-99.0 [facility] No Panel Informationon 10-08 Phosphorus Level 2.9 mg/dL 2.6-4.7 [facility] Platelet mean volume Auto (B ld) [Entitic vol]on 10-09-2023 Platelet mean volume (Bld) [Entitic vol] 9.2 fL Low 9.5-13.5 [facility] Platelets Auto (Bld) [#/Vol] on 10-09-2023 Platelets (Bld) [#/Vol] 250 10 3/uL 150-450 [facility] RBC Auto (Bld) [#/Vol]on RBC (Bld) [#/Vol] 4.39 10 6/uL 4.20-5.40 [facility] Serum or plasma anion gap de terminationon 10-09-2023 Anion gap [Moles/Vol] 13.3 mmol/L [facility] MAMM SCREENING BILATERAL W C clinical dietician 04-29-2023 MAMM SCREENING BILATERAL W CAD MAMM [...] Recommendation: Routine screening mammogram in 1 year. Finalized by Kimi Del Rosario MD on 04/29/2023 2:39 PM 1 a MAMM 1 YR Normal [facility] COMPREHENSIVE METABOLIC PANE Rl 04-06-2023 Albumin [Mass/Vol] 3.7 g/dL Normal 3.2-5.3 [facility] Comment on above: Performed By: #### C ABUNDIO, 38002-5, THYR, 305-0 #### [facility] ([id number]) [address], [address] [place] [address] ALP [Catalytic activity/Vol] 62 U/L Normal 39-130 [facility] Comment on above: Performed By: #### C ABUNDIO, 37366-8, THYR, 305-0 #### [facility] ([id number]) [address], [address] [place] [address] ALT [Catalytic activity/Vol] 20 U/L Normal 0-31 [facility] Comment on above: Performed By: #### C ABUNDIO, 38941-9, THYR, 305-0 #### [facility] ([id number]) [address], [address] [place] [address] Anion gap [Moles/Vol] 6 mmol/L Normal 5-15 [facility] Comment on above: Performed By: #### C ABUNDIO, 96649-9, THYR, 305-0 #### [facility] ([id number]) [address], [address] [place] [address] AST [Catalytic activity/Vol] 15 U/L Normal 0-41 [facility] Comment on above: Performed By: #### C ABUNDIO, 15664-9, THYR, 305-0 #### [facility] ([id number]) [address], [address] [place] [address] Bilirubin [Mass/Vol] 0.6 mg/dL Normal 0.3-1.2 [facility] Comment on above: Performed By: #### C ABUNDIO, 59822-7, THYR, 305-0 #### [facility] ([id number]) [address] [place] [address] Calcium [Mass/Vol] 8.9 mg/dL Normal 8.5-10.5 [facility] Comment on above: Performed By: #### C ABUNDIO, 16039-7, THYR, 305-0 #### [facility] ([id number]) [address] [place] [address] Chloride [Moles/Vol] 105 mmol/L Normal 98-109 [facility] Comment on above: Performed By: #### C ABUNDIO, 72286-8, THYR, 3050-0 #### [facility] ([id number]) [address] [place] [address] CO2 [Moles/Vol] 29 mmol/L Normal 22-32 [facility] Comment on above: Performed By: #### C ABUNDIO, 91605-7, THYR, 305-0 #### [facility] ([id number]) [address] [place] [address] Creatinine [Mass/Vol] 0.91 mg/dL Normal 0.40-1.00 [facility] Comment on above: Result Comment: METH OD TRACEABLE TO IDMS STANDARD Performed By: #### C ABUNDIO, 60264-9, THYR, 305-0 #### [facility] ([id number]) [address] [place] [address] GFR/1.73 sq M.predicted among non-blacks MDRD (S/P/Bld) [Vol rate/Area] 76 mL/min/{1.73_m2} Normal >59 [facility] Comment on above: Result Comment: Reported eGFR is based on the CKD-EPI 2020 equation that does not use a race coefficient. Performed By: #### C ABUNDIO, 83715-6, THYR, 305-0 #### [facility] ([id number]) [address] [place] [address] Glucose [Mass/Vol] 120 mg/dL High 65-99 [facility] Comment on above: Performed By: #### C ABUNDIO, 80258-4, THYR, 305-0 #### [facility] ([id number]) [address], [address] [place] [address] Potassium [Moles/Vol] 4.2 mmol/L Normal 3.5-5.0 [facility] Comment on above: Performed By: #### C ABUNDIO, 49779-4, THYR, 305-0 #### [facility] ([id number]) [address], [address] [place] [address] Protein [Mass/Vol] 6.4 g/dL Normal 6.0-8.0 [facility] Comment on above: Performed By: #### C ABUNDIO, 60096-1, THYR, 305-0 #### [facility] ([id number]) [address] [place] [address] Sodium [Moles/Vol] 140 mmol/L Normal 134-146 [facility] Comment on above: Performed By: #### C ABUNDIO, 75542-9, THYR, 305-0 #### [facility] ([id number]) [address] [place] [address] Urea nitrogen [Mass/Vol] 18 mg/dL Normal 5-23 [facility] Comment on above: Performed By: #### C ABUNDIO, 69719-8, THYR, 305-0 #### [facility] ([id number]) [address] [place] [address] FREE T3on 04-06-2023 Free T3 [Mass/Vol] 3.00 pg/mL Normal 2.50-3.90 [facility] Comment on above: Performed By: #### Jeannette DEL CASTILLO, 11152-5, THYR, 305-0 #### [facility] ([id number]) [address] [address] HGB A1C (GLYCO-HGB)on 2023 Glucose [Mass/Vol] 146 mg/dL Normal [facility] Comment on above: Performed By: #### Jeannette DEL CASTILLO, 79173-9, THYR, 305-0 #### [facility] ([id number]) [address] [address] HbA1c (Bld) [Mass fraction] 6.7 % High 4.4-5.6 [facility] Comment on above: Result Comment: NOTE ADA Guidelines Result HgbA1c Normal : less than 5.7 % Prediabetes : 5.7 % to 6.4 % Diabetes : > 6.4 % Use with caution in patients with abnormal hemoglobin variants as the half-life of red blood cells and in vivo glycation rates are affected. Performed By: #### Jeannette DEL CASTILLO, 88280-4, THYR, 3050-0 #### [facility] ([id number]) [address] [address] Insulin Qnon 04-06-2023 INSULIN 9.51 uIU/mL Normal 1.00-23.00 [facility] Comment on above: Result Comment: Ref. range is for FASTING NON-DIABETIC POPULATION. Performed By: #### 2 0448-7 #### [facility] ([id number]) [address] [address] Lipid 1996 panelon 4 Cholesterol [Mass/Vol] 103 mg/dL Low 150-200 [facility] Comment on above: Performed By: #### Jeannette DEL CASTILLO, 88369-7, THYR, 305-0 #### [facility] ([id number]) [address] [place] [address] Cholesterol in HDL [Mass/Vol] 32 mg/dL Low >39 [facility] Comment on above: Result Comment: HDL <40 mg/dL - High Risk HDL > or = 40mg/dL- Desirable HDL >60 mg/dL - Negative Risk Performed By: #### Jeannette DEL CASTILLO, 66584-0, THYR, 305-0 #### [facility] ([id number]) [address] [place] [address] Cholesterol in LDL [Mass/Vol] 52 mg/dL Normal <130 [facility] Comment on above: Result Comment: LDL <100 mg/dL - Desirable LDL >160 mg/dL - High Risk Performed By: #### Jeannette DEL CASTILLO, 47900-4, THYR, 305-0 #### [facility] ([id number]) [address] [place] [address] Cholesterol in VLDL [Mass/Vol] 19 mg/dL Normal 0-30 [facility] Comment on above: Performed By: #### Jeannette DEL CASTILLO, 11544-1, THYR, 305-0 #### [facility] ([id number]) [address] [place] [address] CHOLESTEROL:HDL 3.2 Normal 1.0-5.0 [facility] Comment on above: Performed By: #### Jeannette DEL CASTILLO, 82708-3, THYR, 3051-0 #### [facility] ([id number]) [address] [place] [address] Triglyceride [Mass/Vol] 95 mg/dL Normal 27-150 [facility] Comment on above: Performed By: #### [place], 49[address]-0, THYR, 3051-0 #### [facility] ([id number]) [address] [place] [address] THYROID PROFILEon 04-06-2023 Free T4 [Mass/Vol] 0.82 ng/dL Normal 0.61-1.60 [facility] Comment on above: Performed By: #### C MP, 69844-5, THYR, 3051-0 #### [facility] ([id number]) [address], [address] [place] [address] TSH 1.95 uIU/mL Normal 0.49-4.67 [facility] Comment on above: Performed By: #### [place], 28195-8, THYR, 3051-0 #### [facility] ([id number]) [address], [address] [place] [address] Hemogram CBC Without Diffon 04-21-2022 Erythrocyte distribution width (RBC) [Ratio] 13.1 % e994 Other Hematocrit (Bld) [Volume fraction] 39.6 % e994 Other Hemoglobin (Bld) [Mass/Vol] 13.5 g/dL e994 Other MCH (RBC) [Entitic mass] 31.4 pg e994 Other MCH (RBC) [Entitic mass] 34.1 pg e994 Other MCV (RBC) [Entitic vol] 92 fL e994 Other Platelet mean volume (Bld) [Entitic vol] 7.4 fL e994 Other Platelets (Bld) [#/Vol] 324 10*3/uL e994 Other RBC (Bld) [#/Vol] 4.30 10*6/uL e994 Other WBC (Bld) [#/Vol] 7.9 10*3/uL [facility] Other Hemogram CBC Without Diff [facility] Other Iron and TIBC Profileon 0 Iron [Mass/Vol] 61 ug/dL [employer] Other Iron and TIBC Profile 377 [facility] Other Iron and TIBC Profile 16 [facility] Other Magnesiumon 04-21-2022 Magnesium 2,2 e994 Other Protein Creat Ratio Ur Rando mon 04-21-2022 Albumin Test strip detection limit <= 20 mg/L (U) [Mass/Vol] 80 [facility] Other Protein Creat Ratio Ur Random 101.82 e994 Other Protein Creat Ratio Ur Random 0.08 e994 Other Ferritinon 04-17-2022 Ferritin [Mass/Vol] 26 ng/mL [facility] Other Renal Function Panelon 04-17 Albumin [Mass/Vol] 4.0 g/dL [facility] Other Calcium [Mass/Vol] 8.9 mg/dL [facility] Other Chloride [Moles/Vol] 108 mmol/L [facility] Other CO2 [Moles/Vol] 26 mmol/L [employer] Other Creatinine [Mass/Vol] 0.93 mg/dL [facility] Other Glucose [Mass/Vol] 115 mg/dL [facility] Other Potassium [Moles/Vol] 4.2 mmol/L [facility] Other Sodium [Moles/Vol] 143 mmol/L [facility] Other Urea nitrogen [Mass/Vol] 11 mg/dL [facility] Other Renal Function Panel [facility] Other Renal Function Panel 74 [facility] Other CT ABD/PELV W CONon 03-24-19 CT ABD/PELV W CON EXAMINATION: CT ABD/PELV [...] ANNALISA MASTERS Date: 2022-03-24 08:27 Normal [facility] AMYLASEon 03-19-2022 Amylase [Catalytic activity/Vol] 48 U/L Normal 25-115 [facility] Comment on above: Performed By: #### L IPA, BEBA, CMP #### [facility] [address] [place] [address] Dr. Cecilio Guerrero CBC AUTO DIFFon 03-19-2022 BASO # 0.0 103/ul Normal 0.0-0.1 [facility] Comment on above: Performed By: #### C BC #### [facility] [address] [place] [address] Dr. Cecilio Guerrero Basophils/100 WBC (Bld) 0.5 % Normal 0.2-2.0 [facility] Comment on above: Performed By: #### C BC #### [facility] [address] [place] [address] Dr. Cecilio Guerrero EO # 0.3 103/ul Normal 0.0-0.7 [facility] Comment on above: Performed By: #### C BC #### [facility] [address] [place] [address] Dr. Cecilio Guerrero Eosinophils/100 WBC (Bld) 2.9 % Normal 0.9-7.0 [facility] Comment on above: Performed By: #### C BC #### [facility] [address] [place] [address] Dr. Cecilio Guerrero Erythrocyte distribution width (RBC) [Ratio] 12.0 % Normal 11.0-15.0 [facility] Comment on above: Performed By: #### C BC #### [facility] [address] [place] [address] Dr. Cecilio Guerrero Hematocrit (Bld) [Volume fraction] 45.8 % Normal 36.0-48.0 [facility] Comment on above: Performed By: #### C BC #### [facility] [address] [place] [address] Dr. Cecilio Guerrero Hemoglobin (Bld) [Mass/Vol] 14.3 g/dL Normal 12.0-16.0 [facility] Comment on above: Performed By: #### C BC #### [facility] [address] [place] [address] Dr. Cecilio Guerrero IG # 0.03 10e3/ul Normal 0.00-0.03 [facility] Comment on above: Performed By: #### C BC #### [facility] [address] [place] [address] Dr. Cecilio Guerrero IG % 0.3 % Normal 0.0-0.5 [facility] Comment on above: Performed By: #### C BC #### [facility] [address] [place] [address] Dr. Cecilio Guerrero LYMPH # 3.4 103/ul Normal 1.2-3.8 [facility] Comment on above: Performed By: #### C BC #### [facility] [address] [place] [address] Dr. Cecilio Guerrero Lymphocytes/100 WBC (Bld) 37.9 % Normal 20.5-60.0 [facility] Comment on above: Performed By: #### C BC #### [facility] [address] [place] [address] Dr. Cecilio Guerrero MANUAL DIFF REQ NO Normal [facility] Comment on above: Performed By: #### C BC #### [facility] [address] [place] [address] Dr. Cecilio Guerrero MCH (RBC) [Entitic mass] 30.1 pg Normal 26.7-34.0 [facility] Comment on above: Performed By: #### C BC #### [facility] [address] [place] [address] Dr. Cecilio Guerrero MCHC (RBC) [Mass/Vol] 31.2 g/dL Normal 29.9-35.2 [facility] Comment on above: Performed By: #### C BC #### [facility] [address] [place] [address] Dr. Cecilio Guerrero MCV (RBC) [Entitic vol] 96.4 fL Normal 81.0-99.0 [facility] Comment on above: Performed By: #### C BC #### [facility] [address] [place] [address] Dr. Cecilio Guerrero MONO # 0.9 103/ul Critically high 0.3-0.8 [facility] Comment on above: Performed By: #### C BC #### [facility] [address] [place] [address] Dr. Cecilio Guerrero Monocytes/100 WBC (Bld) 10.0 % Normal 1.7-12.0 [facility] Comment on above: Performed By: #### C BC #### [facility] [address] [place] [address] Dr. Cecilio Guerrero NEUT # 4.3 103/ul Normal 1.4-6.5 [facility] Comment on above: Performed By: #### C BC #### [facility] [address] [place] [address] Dr. Cecilio Guerrero Neutrophils/100 WBC (Bld) 48.4 % Normal 43.0-75.0 [facility] Comment on above: Performed By: #### C BC #### [facility] [address] [place] [address] Dr. Cecilio Guerrero Platelet mean volume (Bld) [Entitic vol] 9.2 fL Critically low 9.5-13.5 [facility] Comment on above: Performed By: #### C BC #### [facility] [address] [place] [address] Dr. Cecilio Guerrero PLT 319 103/ul Normal 150-450 [facility] Comment on above: Performed By: #### C BC #### [facility] [address] [place] [address] Dr. Cecilio Guerrero RBC 4.75 106/ul Normal 4.20-5.40 [facility] Comment on above: Performed By: #### C BC #### [facility] [address] [place] [address] Dr. Cecilio Guerrero WBC 8.9 103/ul Normal 4.0-11.0 [facility] Comment on above: Performed By: #### C BC #### [facility] [address] [place] [address] Dr. Cecilio Guerrero LIPASEon 03-19-2022 Lipase [Catalytic activity/Vol] 379.0 U/L Normal 73.0-393.0 [facility] Comment on above: Performed By: #### L IPA, BEBA, CMP #### [facility] [address] [place] [address] Dr. Cecilio Guerrero PROF 14(COMP METB)on 023 Albumin [Mass/Vol] 3.3 g/dL Critically low 3.4-5.0 [facility] Comment on above: Performed By: #### L BEBA RUSH, CMP #### [facility] [address] [address] [address] Cecilio Guerrero Albumin/Globulin [Mass ratio] 0.8 {ratio} Normal [facility] Comment on above: Performed By: #### L BEBA RUSH, CMP #### [facility] [address] [address] [address] Cecilio Guerrero ALP [Catalytic activity/Vol] 85 U/L Normal 46-116 [facility] Comment on above: Performed By: #### L BEBA RUSH, CMP #### [facility] [address] [address] [address] Cecilio Guerrero ALT [Catalytic activity/Vol] 103 U/L Critically high 14-59 [facility] Comment on above: Performed By: #### L BEBA RUSH, CMP #### [facility] [address] [address] [address] Cecilio Guerrero Anion gap [Moles/Vol] 10.8 mmol/L Normal [facility] Comment on above: Performed By: #### L BEBA RUSH, CMP #### [facility] [address] [place] [address] Dr. Cecilio Guerrero AST [Catalytic activity/Vol] 30 U/L Normal 15-37 [facility] Comment on above: Performed By: #### L BEBA RUSH, CMP #### [facility] [address] [address] [address] Cecilio Guerrero Bilirubin [Mass/Vol] 0.6 mg/dL Normal 0.2-1.0 [facility] Comment on above: Performed By: #### L BEBA RUSH, CMP #### [facility] [address] [address] [address] Cecilio Guerrero Calcium [Mass/Vol] 9.5 mg/dL Normal 8.5-10.1 [facility] Comment on above: Performed By: #### L BEBA RUSH, CMP #### [facility] [address] [address] [address] Cecilio Guerrero Chloride [Moles/Vol] 104 mmol/L Normal 98-107 [facility] Comment on above: Performed By: #### L BEBA RUSH, CMP #### [facility] [address] [address] [address] Cecilio Guerrero CO2 [Moles/Vol] 30.5 mmol/L Normal 21.0-32.0 [facility] Comment on above: Performed By: #### L BEBA RUSH, CMP #### [facility] [address] [address] [address] Cecilio Guerrero Creatinine [Mass/Vol] 0.99 mg/dL Normal 0.55-1.02 [facility] Comment on above: Performed By: #### L BEBA RUSH, CMP #### [facility] [address] [place] [address] Dr. Cecilio Guerrero EGFR-AF VENEZUELAN >60 Normal >=60 [facility] Comment on above: Performed By: #### L BEBA RUSH, CMP #### [facility] [address] [place] [address] Dr. Cecilio Guerrero EGFR-NON AF VENEZUELAN 59 mL/min/1.73m2 Critically low >=60 [facility] Comment on above: Performed By: #### L BEBA RUSH, CMP #### [facility] [address] [place] [address] Dr. Cecilio Guerrero Globulin (S) [Mass/Vol] 4.0 g/dL Normal [facility] Comment on above: Performed By: #### L BEBA RUSH, CMP #### [facility] [address] [place] [address] Dr. Cecilio Guerrero Glucose [Mass/Vol] 130 mg/dL Critically high 74-106 [facility] Comment on above: Performed By: #### L BEBA RUSH, CMP #### [facility] [address] [place] [address] Dr. Cecilio Guerrero Potassium [Moles/Vol] 4.3 mmol/L Normal 3.5-5.1 [facility] Comment on above: Performed By: #### L VICTOR MANUEL BEBA, CMP #### [facility] [address] [address] [address] Cecilio Guerrero Protein [Mass/Vol] 7.3 g/dL Normal 6.4-8.2 [facility] Comment on above: Performed By: #### L IPA BEBA, CMP #### [facility] [address] [address] [address] Cecilio Guerrero Sodium [Moles/Vol] 141 mmol/L Normal 136-145 [facility] Comment on above: Performed By: #### L VICTOR MANUEL BEBA, CMP #### [facility] [address] [address] [address] Cecilio Guerrero Urea nitrogen [Mass/Vol] 12.0 mg/dL Normal 7.0-18.0 [facility] Comment on above: Performed By: #### L VICTOR MANUEL BEBA, CMP #### [facility] [address] [address] [address] Cecilio Guerrero Urea nitrogen/Creatinine [Mass ratio] 12.1 mg/mg Normal [facility] Comment on above: Performed By: #### L VICTOR MANUEL BEBA, CMP #### [facility] [address] [address] [address] Cecilio Guerrero US SINGLE QUAD RT [...] by: ANNALISA DE Date: 2022-03-13 12:13 Normal [facility] NM STRESS/REST MULTIon 11-03 NM STRESS/REST MULTI Patient: TAMY SAL Exam Date: 11/03/2021 : 1970 Gender:F Ordering : DR ERIC JOHNSTON . Admission #: [id number] Family : Order #: [id number] CLICK HERE TO VIEW EXAM RADIOLOGY REPORT [...] Masters MD on 11/04/2021 at 07:34 Normal [facility] Antithyroglobulin Abon 07-08 Antithyroglobulin Ab <1.0 Normal 0.0-0.9 [facility] Comment on above: Result Comment: Thyr oglobulin Antibody measured by [email or web address] Methodology Performed at: - [facility] [address] [id number] [employer] Attacher: Fabrizio Herrera PhD, Phone: [phone] Performed By: #### C HROMATIN, TPO, THYGLOB AB #### [facility] , #### ADDONUAPLUS #### [facility] [address] [place] [address] Chromatin Antibodyon 022 Chromatin Antibody <0.2 Normal 0.0-0.9 [facility] Comment on above: Result Comment: Perf ormed at: CB - [facility] [address] [id number] [employer] Attacher: Fabrizio Herrera PhD, Phone: [phone] PERFORMED BY: [place] [address] PATHOLOGIST SPECIAL SERVICE OFFICER PALUA WILL M.D. Performed By: #### C HROMATIN, TPO, THYGLOB AB #### [facility] , #### ADDONUAPLUS #### [address] Dipstick and Microscopicon 0 07-08-2021 Appearance (U) Clear Normal Clear [facility] Comment on above: Order Comment: Name Collection Type:: Clean-Voided Midstream Performed By: #### C HROMATIN, TPO, THYGLOB AB #### [facility] , #### ADDONUAPLUS #### [address] Bacteria,Urine None Seen Normal None Seen [facility] Comment on above: Order Comment: Name Collection Type:: Clean-Voided Midstream Performed By: #### C HROMATIN, TPO, THYGLOB AB #### [facility] , #### ADDONUAPLUS #### [facility] [address] [place] [address] [place] Bilirubin,Urine Negative Normal Negative [facility] Comment on above: Order Comment: Name Collection Type:: Clean-Voided Midstream Performed By: #### C HROMATIN, TPO, THYGLOB AB #### [facility] , #### ADDONUAPLUS #### [facility] [address] [place] [address] Color (U) Yellow Normal Yellow [facility] Comment on above: Order Comment: Name Collection Type:: Clean-Voided Midstream Performed By: #### C HROMATIN, TPO, THYGLOB AB #### [facility] , #### ADDONUAPLUS #### [facility] [address] [place] [address] Glucose Ql (U) Normal Normal Normal [facility] Comment on above: Order Comment: Name Collection Type:: Clean-Voided Midstream Performed By: #### C HROMATIN, TPO, THYGLOB AB #### [facility] , #### ADDONUAPLUS #### [facility] [address] [place] [address] Hyaline Casts,Urine 0-8 Normal 0-8 [facility] Comment on above: Order Comment: Name Collection Type:: Clean-Voided Midstream Result Comment: PERF ORMED BY: [place] [address] PATHOLOGIST SPECIAL SERVICE OFFICER PAULA WILL M.D. Performed By: #### C HROMATIN, TPO, THYGLOB AB #### [facility] , #### ADDONUAPLUS #### [facility] [address] [place] [address] Ketones Ql (U) Trace High Negative [facility] Comment on above: Order Comment: Name Collection Type:: Clean-Voided Midstream Performed By: #### C HROMATIN, TPO, THYGLOB AB #### [facility] , #### ADDONUAPLUS #### [facility] [address] [place] [address] Leukocyte esterase Test strip Ql (U) Negative Normal Negative [facility] Comment on above: Order Comment: Name Collection Type:: Clean-Voided Midstream Performed By: #### C HROMATIN, TPO, THYGLOB AB #### [facility] , #### ADDONUAPLUS #### [address] Nitrite,Urine Negative Normal Negative [facility] Comment on above: Order Comment: Name Collection Type:: Clean-Voided Midstream Performed By: #### C HROMATIN, TPO, THYGLOB AB #### [facility] , #### ADDONUAPLUS #### [address] Occult Blood,Urine Negative Normal Negative [facility] Comment on above: Order Comment: Name Collection Type:: Clean-Voided Midstream Performed By: #### C HROMATIN, TPO, THYGLOB AB #### [facility] , #### ADDONUAPLUS #### [address] pH (U) 6.5 [pH] Normal 5.0-9.0 [facility] Comment on above: Order Comment: Name Collection Type:: Clean-Voided Midstream Performed By: #### C HROMATIN, TPO, THYGLOB AB #### [facility] , #### ADDONUAPLUS #### [address] Protein,Urine Negative Normal Negative [facility] Comment on above: Order Comment: Name Collection Type:: Clean-Voided Midstream Performed By: #### C HROMATIN, TPO, THYGLOB AB #### [facility] , #### ADDONUAPLUS #### [address] RBC LM.HPF (Urine sed) [#/Area] 0 /[HPF] Normal 0-4 [facility] Comment on above: Order Comment: Name Collection Type:: Clean-Voided Midstream Performed By: #### C HROMATIN, TPO, THYGLOB AB #### [facility] , #### ADDONUAPLUS #### [address] Specificy [place],Urine 1.026 Normal 1.001-1.030 [facility] Comment on above: Order Comment: Name Collection Type:: Clean-Voided Midstream Performed By: #### C HROMATIN, TPO, THYGLOB AB #### [facility] , #### ADDONUAPLUS #### [address] Squamous Epithelial Cell,Urine 0-1 Normal 0-2 [facility] Comment on above: Order Comment: Name Collection Type:: Clean-Voided Midstream Performed By: #### C HROMATIN, TPO, THYGLOB AB #### [facility] , #### ADDONUAPLUS #### [address] Urobilinogen,Urine Normal Normal Normal [facility] Comment on above: Order Comment: Name Collection Type:: Clean-Voided Midstream Performed By: #### C HROMATIN, TPO, THYGLOB AB #### [facility] , #### ADDONUAPLUS #### [address] WBC LM.HPF (Urine sed) [#/Area] 0 /[HPF] Normal 0-4 [facility] Comment on above: Order Comment: Name Collection Type:: Clean-Voided Midstream Performed By: #### C HROMATIN, TPO, THYGLOB AB #### [facility] , #### ADDONUAPLUS #### [facility] [address] [place] [address] Thyroid Peroxidase Antibodie son 07-08-2021 Thyroid Peroxidase Antibodies <8 Normal 0-34 [facility] Comment on above: Result Comment: Perf ormed at: CB - [facility] [place] [address] [place], [place] [id number] [employer] Attacher: Fabrizio Herrera PhD, Phone: [phone] Performed By: #### C HROMATIN, TPO, THYGLOB AB #### [facility] , #### ADDONUAPLUS #### [facility] [address] SHIV Antinuclear Antibodieson 05-27-2021 Antinuclear Abs, IFA Positive Critically abnormal . [facility] Comment on above: Result Comment: Nega tive <1:80 Borderline 1:80 Positive >1:80 Performed By: #### C HROMATIN, TPO, THYGLOB AB #### [facility] , #### ADDONUAPLUS #### [facility] [address] Homogeneous Pattern 1:160 High . [facility] Comment on above: Result Comment: ICAP nomenclature: AC-1 Performed By: #### C HROMATIN, TPO, THYGLOB AB #### [facility] , #### ADDONUAPLUS #### [facility] [address] Note 1 Normal . 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 Nuclear Dot Sp100,[id number] Primary Biliary Cirrhosis Nuclear GP210, Primary Biliary Cirrhosis Membrane souleymane A,B,C Performed at: - [facility] [place] [address] [place], [place] [id number] [employer] Attacher: Fabrizio Herrera PhD, Phone: [phone] Performed By: #### C HROMATIN, TPO, THYGLOB AB #### [facility] , #### ADDONUAPLUS #### [address] C-Reactive Proteinon 022 C-Reactive Protein 0.7 mg/dL Normal 0.0-1.0 [facility] Comment on above: Performed By: #### R MT W RFX, SADE,URINE, SPE, UPE RAND, SADE SERUM, SHIV #### [facility] , #### CMP, TSH3, CRP, T4F, CK, ADDONUAPLUS #### [facility] [address] [place] [address] Complement C3on 05-27-2021 Complement C3 147 mg/dL Normal 82-167 [facility] Comment on above: Result Comment: Perf ormed at: [address] [id number] [employer] Attacher: Fabrizio Herrera PhD, Phone: [phone] Performed By: #### C HROMATIN, TPO, THYGLOB AB #### [facility] , #### ADDONUAPLUS #### [facility] [address] [place] [address] Complement C4on 05-27-2021 Complement C4 25 mg/dL Normal 12-38 [facility] Comment on above: Performed By: #### C HROMATIN, TPO, THYGLOB AB #### [facility] , #### ADDONUAPLUS #### [facility] [address] [place] [address] Complement Total (CH50)on Complement Total (CH50) >60 Normal >41 [facility] Comment on above: Result Comment: Age Male [...] determine out of range values. Performed at: [facility] [id number] [employer] Attacher: Fabrizio Herrera PhD, Phone: [phone] PERFORMED BY: [place] [address] PATHOLOGIST SPECIAL SERVICE OFFICER PAULA WILL M.D. Performed By: #### C HROMATIN, TPO, THYGLOB AB #### [facility] , #### ADDONUAPLUS #### [address] Complete Blood Count Auto Di ffon 05-27-2021 Basophils (Bld) [#/Vol] 0.1 10*3/uL Normal 0.0-0.2 [facility] Comment on above: Performed By: #### C HROMATIN, TPO, THYGLOB AB #### [facility] , #### ADDONUAPLUS #### [address] Basophils/100 WBC (Bld) 1.1 % Normal . [facility] Comment on above: Performed By: #### C HROMATIN, TPO, THYGLOB AB #### [facility] , #### ADDONUAPLUS #### [address] Eosinophils (Bld) [#/Vol] 0.3 10*3/uL Normal 0.0-0.45 [facility] Comment on above: Performed By: #### C HROMATIN, TPO, THYGLOB AB #### [facility] , #### ADDONUAPLUS #### [address] Eosinophils/100 WBC (Bld) 3.7 % Normal . [facility] Comment on above: Performed By: #### C HROMATIN, TPO, THYGLOB AB #### [facility] , #### ADDONUAPLUS #### [address] Erythrocyte distribution width (RBC) [Ratio] 12.5 % Normal 11.9-15.3 [facility] Comment on above: Performed By: #### C HROMATIN, TPO, THYGLOB AB #### [facility] , #### ADDONUAPLUS #### [address] Hematocrit (Bld) [Volume fraction] 40.3 % Normal 34.0-46.4 [facility] Comment on above: Performed By: #### C HROMATIN, TPO, THYGLOB AB #### [facility] , #### ADDONUAPLUS #### [address] Hemoglobin (Bld) [Mass/Vol] 13.5 g/dL Normal 11.8-15.4 [facility] Comment on above: Performed By: #### C HROMATIN, TPO, THYGLOB AB #### [facility] , #### ADDONUAPLUS #### [address] Lymphocytes (Bld) [#/Vol] 2.4 10*3/uL Normal 1.00-4.8 [facility] Comment on above: Performed By: #### C HROMATIN, TPO, THYGLOB AB #### [facility] , #### ADDONUAPLUS #### [address] Lymphocytes/100 WBC (Bld) 33.7 % Normal . [facility] Comment on above: Performed By: #### C HROMATIN, TPO, THYGLOB AB #### [facility] , #### ADDONUAPLUS #### [address] MCH (RBC) [Entitic mass] 31.3 pg Normal 24.7-34.3 [facility] Comment on above: Performed By: #### C HROMATIN, TPO, THYGLOB AB #### [facility] , #### ADDONUAPLUS #### [address] MCV (RBC) [Entitic vol] 93.6 fL Normal 80-100 [facility] Comment on above: Performed By: #### C HROMATIN, TPO, THYGLOB AB #### [facility] , #### ADDONUAPLUS #### [address] Mean Corpuscular HGB Conc 33.5 g/dL Normal 32.0-35.0 [facility] Comment on above: Performed By: #### C HROMATIN, TPO, THYGLOB AB #### [facility] , #### ADDONUAPLUS #### [address] Monocytes (Bld) [#/Vol] 0.5 10*3/uL Normal 0.0-0.8 [facility] Comment on above: Performed By: #### C HROMATIN, TPO, THYGLOB AB #### [facility] , #### ADDONUAPLUS #### [address] Monocytes/100 WBC (Bld) 7.1 % Normal . [facility] Comment on above: Performed By: #### C HROMATIN, TPO, THYGLOB AB #### [facility] , #### ADDONUAPLUS #### [address] Neutrophils (Bld) [#/Vol] 3.9 10*3/uL Normal 1.8-7.7 [facility] Comment on above: Performed By: #### C HROMATIN, TPO, THYGLOB AB #### [facility] , #### ADDONUAPLUS #### [address] Neutrophils/100 WBC (Bld) 54.4 % Normal . [facility] Comment on above: Performed By: #### C HROMATIN, TPO, THYGLOB AB #### [facility] , #### ADDONUAPLUS #### [address] Nucleated RBC/100 WBC (Bld) [Ratio] 0.1 % Normal 0-0.5 [facility] Comment on above: Performed By: #### C HROMATIN, TPO, THYGLOB AB #### [facility] , #### ADDONUAPLUS #### [address] Platelet mean volume (Bld) [Entitic vol] 7.3 fL Normal 6.3-10.7 [facility] Comment on above: Performed By: #### C HROMATIN, TPO, THYGLOB AB #### [facility] , #### ADDONUAPLUS #### [address] Platelets (Bld) [#/Vol] 397 10*3/uL Normal 150-450 [facility] Comment on above: Performed By: #### C HROMATIN, TPO, THYGLOB AB #### [facility] , #### ADDONUAPLUS #### [address] RBC (Bld) [#/Vol] 4.31 10*6/uL Normal 3.60-5.00 [facility] Comment on above: Performed By: #### C HROMATIN, TPO, THYGLOB AB #### [facility] , #### ADDONUAPLUS #### [address] WBC (Bld) [#/Vol] 7.1 10*3/uL Normal 4.5-11.0 [facility] Comment on above: Performed By: #### C HROMATIN, TPO, THYGLOB AB #### [facility] , #### ADDONUAPLUS #### [address] Comprehensive Metabolic Pane rl 05-27-2021 Albumin [Mass/Vol] 3.7 g/dL Normal 3.2-5.5 [facility] Comment on above: Performed By: #### R MT W RFX, SADE,URINE, SPE, UPE RAND, SADE SERUM, SHIV #### [facility] , #### CMP, TSH3, CRP, T4F, CK, ADDONUAPLUS #### [address] Albumin/Globulin [Mass ratio] 1.1 {ratio} Normal [facility] Comment on above: Performed By: #### R MT W RFX, SADE,URINE, SPE, UPE RAND, SADE SERUM, SHIV #### [facility] , #### CMP, TSH3, CRP, T4F, CK, ADDONUAPLUS #### [address] ALP [Catalytic activity/Vol] 73 U/L Normal 32-92 [facility] Comment on above: Performed By: #### R MT W RFX, SADE,URINE, SPE, UPE RAND, SADE SERUM, SHIV #### [facility] , #### CMP, TSH3, CRP, T4F, CK, ADDONUAPLUS #### [facility] [address] [place] [address] ALT [Catalytic activity/Vol] 38 U/L Normal 10-60 [facility] Comment on above: Performed By: #### R MT W RFX, SADE,URINE, SPE, UPE RAND, SADE SERUM, SHIV #### [facility] , #### CMP, TSH3, CRP, T4F, CK, ADDONUAPLUS #### [facility] [address] [place] [address] AST [Catalytic activity/Vol] 26 U/L Normal 10-42 [facility] Comment on above: Performed By: #### R MT W RFX, SADE,URINE, SPE, UPE RAND, SADE SERUM, SHIV #### [facility] , #### CMP, TSH3, CRP, T4F, CK, ADDONUAPLUS #### [address] Bilirubin [Mass/Vol] 0.5 mg/dL Normal 0.3-1.2 [facility] Comment on above: Performed By: #### R MT W RFX, SADE,URINE, SPE, UPE RAND, SADE SERUM, SHIV #### [facility] , #### CMP, TSH3, CRP, T4F, CK, ADDONUAPLUS #### [address] Calcium [Mass/Vol] 10.1 mg/dL Normal 8.2-10.2 [facility] Comment on above: Performed By: #### R MT W RFX, SADE,URINE, SPE, UPE RAND, SADE SERUM, SHIV #### [facility] , #### CMP, TSH3, CRP, T4F, CK, ADDONUAPLUS #### [address] Chloride [Moles/Vol] 101 mmol/L Normal 95-114 [facility] Comment on above: Performed By: #### R MT W RFX, SADE,URINE, SPE, UPE RAND, SADE SERUM, SHIV #### [facility] , #### CMP, TSH3, CRP, T4F, CK, ADDONUAPLUS #### [facility] [address] [place] [address] [place] CO2 [Moles/Vol] 29.4 mmol/L Normal 22.0-30.0 [facility] Comment on above: Performed By: #### R MT W RFX, SADE,URINE, SPE, UPE RAND, SADE SERUM, SHIV #### [facility] , #### CMP, TSH3, CRP, T4F, CK, ADDONUAPLUS #### [address] Creatinine [Mass/Vol] 0.99 mg/dL Normal 0.44-1.03 [facility] Comment on above: Performed By: #### R MT W RFX, SADE,URINE, SPE, UPE RAND, SADE SERUM, SHIV #### [facility] , #### CMP, TSH3, CRP, T4F, CK, ADDONUAPLUS #### [address] Estimated GFR ( Patricia > 60 [facility] Comment on above: Result Comment: GFR estimated reference range: According to KDOQI guidelines, <60 ml/min/1.73m2 is sufficient to diagnose a patient with chronic kidney disease. Performed By: #### R MT W RFX, SADE,URINE, SPE, UPE RAND, SADE SERUM, SHIV #### [facility] , #### CMP, TSH3, CRP, T4F, CK, ADDONUAPLUS #### [address] Estimated GFR (Non- Am 59 [facility] Comment on above: Performed By: #### R MT W RFX, SADE,URINE, SPE, UPE RAND, SADE SERUM, SHIV #### [facility] , #### CMP, TSH3, CRP, T4F, CK, ADDONUAPLUS #### [address] Globulin (S) [Mass/Vol] 3.3 g/dL [facility] Comment on above: Performed By: #### R MT W RFX, SADE,URINE, SPE, UPE RAND, SADE SERUM, SHIV #### [facility] , #### CMP, TSH3, CRP, T4F, CK, ADDONUAPLUS #### [address] Glucose [Mass/Vol] 111 mg/dL High 70-100 [facility] Comment on above: Result Comment: [facility] Glucose Reference Range is dependent on time and content of last meal. Glucose of more than 200 mg/dL in a nonstressed, ambulatory subject supports the diagnosis of Diabetes Mellitus. ADA recommended reference range Performed By: #### R MT W RFX, SADE,URINE, SPE, UPE RAND, SADE SERUM, SHIV #### [facility] , #### CMP, TSH3, CRP, T4F, CK, ADDONUAPLUS #### [address] Potassium [Moles/Vol] 4.7 mmol/L Normal 3.5-5.1 [facility] Comment on above: Performed By: #### R MT W RFX, SADE,URINE, SPE, UPE RAND, SADE SERUM, SHIV #### [facility] , #### CMP, TSH3, CRP, T4F, CK, ADDONUAPLUS #### [address] Protein [Mass/Vol] 7.0 g/dL Normal 6.1-7.9 [facility] Comment on above: Performed By: #### R MT W RFX, SADE,URINE, SPE, UPE RAND, SADE SERUM, SHIV #### [facility] , #### CMP, TSH3, CRP, T4F, CK, ADDONUAPLUS #### [address] Sodium [Moles/Vol] 140 mmol/L Normal 136-146 [facility] Comment on above: Performed By: #### R MT W RFX, SADE,URINE, SPE, UPE RAND, SADE SERUM, SHIV #### [facility] , #### CMP, TSH3, CRP, T4F, CK, ADDONUAPLUS #### [address] Urea nitrogen [Mass/Vol] 10 mg/dL Normal 9-23 [facility] Comment on above: Performed By: #### R MT W RFX, SADE,URINE, SPE, UPE RAND, SADE SERUM, SHIV #### [facility] , #### CMP, TSH3, CRP, T4F, CK, ADDONUAPLUS #### [address] Creatine Kinaseon 05-27-2021 CK [Catalytic activity/Vol] 47 U/L Normal 22-269 [facility] Comment on above: Result Comment: PERF ORMED BY: [place] [address] PATHOLOGIST SPECIAL SERVICE OFFICER PAULA WILL M.D. Performed By: #### R MT W RFX, SADE,URINE, SPE, UPE RAND, SADE SERUM, SHIV #### [facility] , #### CMP, TSH3, CRP, T4F, CK, ADDONUAPLUS #### [address] Dipstick and Microscopicon 0 05-27-2021 Appearance (U) Cloudy Critically abnormal Clear [facility] Comment on above: Order Comment: Name Collection Type:: Clean-Voided Midstream Performed By: #### R MT W RFX, SADE,URINE, SPE, UPE RAND, SADE SERUM, SHIV #### [facility] , #### CMP, TSH3, CRP, T4F, CK, ADDONUAPLUS #### [address] Bacteria,Urine None Seen Normal None Seen [facility] Comment on above: Order Comment: Name Collection Type:: Clean-Voided Midstream Performed By: #### R MT W RFX, SADE,URINE, SPE, UPE RAND, SADE SERUM, SHIV #### [facility] , #### CMP, TSH3, CRP, T4F, CK, ADDONUAPLUS #### [address] Bilirubin,Urine Negative Normal Negative [facility] Comment on above: Order Comment: Name Collection Type:: Clean-Voided Midstream Performed By: #### R MT W RFX, SADE,URINE, SPE, UPE RAND, SADE SERUM, SHIV #### [facility] , #### CMP, TSH3, CRP, T4F, CK, ADDONUAPLUS #### [address] Color (U) Dark Yellow Critically abnormal Yellow [facility] Comment on above: Order Comment: Name Collection Type:: Clean-Voided Midstream Performed By: #### R MT W RFX, SADE,URINE, SPE, UPE RAND, SADE SERUM, SHIV #### [facility] , #### CMP, TSH3, CRP, T4F, CK, ADDONUAPLUS #### [address] Glucose Ql (U) Normal Normal Normal [facility] Comment on above: Order Comment: Name Collection Type:: Clean-Voided Midstream Performed By: #### R MT W RFX, SADE,URINE, SPE, UPE RAND, SADE SERUM, SHIV #### [facility] , #### CMP, TSH3, CRP, T4F, CK, ADDONUAPLUS #### [address] Hyaline Casts,Urine 0-8 Normal 0-8 [facility] Comment on above: Order Comment: Name Collection Type:: Clean-Voided Midstream Result Comment: PERF ORMED BY: [place] [address] PATHOLOGIST SPECIAL SERVICE OFFICER PAULA WILL M.D. Performed By: #### R MT W RFX, SADE,URINE, SPE, UPE RAND, SADE SERUM, SHIV #### [facility] , #### CMP, TSH3, CRP, T4F, CK, ADDONUAPLUS #### [address] Ketones Ql (U) Trace High Negative [facility] Comment on above: Order Comment: Name Collection Type:: Clean-Voided Midstream Performed By: #### R MT W RFX, SADE,URINE, SPE, UPE RAND, SADE SERUM, SHIV #### [facility] , #### CMP, TSH3, CRP, T4F, CK, ADDONUAPLUS #### [address] Leukocyte esterase Test strip Ql (U) 1+ High Negative [facility] Comment on above: Order Comment: Name Collection Type:: Clean-Voided Midstream Performed By: #### R MT W RFX, SADE,URINE, SPE, UPE RAND, SADE SERUM, SHIV #### [facility] , #### CMP, TSH3, CRP, T4F, CK, ADDONUAPLUS #### [address] Nitrite,Urine Negative Normal Negative [facility] Comment on above: Order Comment: Name Collection Type:: Clean-Voided Midstream Performed By: #### R MT W RFX, SADE,URINE, SPE, UPE RAND, SADE SERUM, SHIV #### [facility] , #### CMP, TSH3, CRP, T4F, CK, ADDONUAPLUS #### [address] Occult Blood,Urine Negative Normal Negative [facility] Comment on above: Order Comment: Name Collection Type:: Clean-Voided Midstream Performed By: #### R MT W RFX, SADE,URINE, SPE, UPE RAND, SADE SERUM, SHIV #### [facility] , #### CMP, TSH3, CRP, T4F, CK, ADDONUAPLUS #### [address] pH (U) 8.5 [pH] Normal 5.0-9.0 [facility] Comment on above: Order Comment: Name Collection Type:: Clean-Voided Midstream Performed By: #### R MT W RFX, SADE,URINE, SPE, UPE RAND, SADE SERUM, SHIV #### [facility] , #### CMP, TSH3, CRP, T4F, CK, ADDONUAPLUS #### [address] Protein,Urine Trace High Negative [facility] Comment on above: Order Comment: Name Collection Type:: Clean-Voided Midstream Performed By: #### R MT W RFX, SADE,URINE, SPE, UPE RAND, SADE SERUM, SHIV #### [facility] , #### CMP, TSH3, CRP, T4F, CK, ADDONUAPLUS #### [address] RBC,Urine 3-4 Normal 0-4 [facility] Comment on above: Order Comment: Name Collection Type:: Clean-Voided Midstream Performed By: #### R MT W RFX, SADE,URINE, SPE, UPE RAND, SADE SERUM, SHIV #### [facility] , #### CMP, TSH3, CRP, T4F, CK, ADDONUAPLUS #### [address] Specificy [place],Urine 1.020 Normal 1.001-1.030 [facility] Comment on above: Order Comment: Name Collection Type:: Clean-Voided Midstream Performed By: #### R MT W RFX, SADE,URINE, SPE, UPE RAND, SADE SERUM, SHIV #### [facility] , #### CMP, TSH3, CRP, T4F, CK, ADDONUAPLUS #### [address] Squamous Epithelial Cell,Urine 1-2 Normal 0-2 [facility] Comment on above: Order Comment: Name Collection Type:: Clean-Voided Midstream Performed By: #### R MT W RFX, SADE,URINE, SPE, UPE RAND, SADE SERUM, SHIV #### [facility] , #### CMP, TSH3, CRP, T4F, CK, ADDONUAPLUS #### [address] Urobilinogen,Urine Normal Normal Normal [facility] Comment on above: Order Comment: Name Collection Type:: Clean-Voided Midstream Performed By: #### R MT W RFX, SADE,URINE, SPE, UPE RAND, SADE SERUM, SHIV #### [facility] , #### CMP, TSH3, CRP, T4F, CK, ADDONUAPLUS #### [address] WBC,Urine 1-2 Normal 0-4 [facility] Comment on above: Order Comment: Name Collection Type:: Clean-Voided Midstream Performed By: #### R MT W RFX, SADE,URINE, SPE, UPE RAND, SADE SERUM, SHIV #### [facility] , #### CMP, TSH3, CRP, T4F, CK, ADDONUAPLUS #### [address] Erythrocyte Sedimentation Ra madeleine 05-27-2021 ESR (Bld) [Velocity] 27 mm/h Normal 0-29 [facility] Comment on above: Result Comment: PERF ORMED BY: [place] [address] PATHOLOGIST SPECIAL SERVICE OFFICER PAULA WILL M.D. Performed By: #### C HROMATIN, TPO, THYGLOB AB #### [facility] , #### ADDONUAPLUS #### [address] Free T4 (Free Thyroxine)on 0 05-27-2021 Free T4 [Mass/Vol] 0.95 ng/dL Normal 0.61-1.12 [facility] Comment on above: Performed By: #### R MT W RFX, SADE,URINE, SPE, UPE RAND, SADE SERUM, SHIV #### [facility] , #### CMP, TSH3, CRP, T4F, CK, ADDONUAPLUS #### [place] [address] [place] Immunofixation, (SADE), Urine on 05-27-2021 Immunofixation, (SADE), Urine Normal . [facility] Comment on above: Result Comment: No m onoclonality detected. Performed at: - [facility] [id number] [employer] Attacher: Fabrizio Herrera PhD, Phone: [phone] Performed By: #### C HROMATIN, TPO, THYGLOB AB #### [facility] , #### ADDONUAPLUS #### [place] [address] [place] Immunofixation,Serumon 05-27 Immunofixation, Serum Normal . [facility] Comment on above: Result Comment: No m onoclonality detected. Performed By: #### C HROMATIN, TPO, THYGLOB AB #### [facility] , #### ADDONUAPLUS #### [facility] [address] [place] [address] [place] Immunoglobulin A, Serum 460 mg/dL High 87-352 [facility] Comment on above: Performed By: #### C HROMATIN, TPO, THYGLOB AB #### [facility] , #### ADDONUAPLUS #### [facility] [address] [place] [address] [place] Immunoglobulin G 1486 mg/dL Normal 586-1602 [facility] Comment on above: Performed By: #### C HROMATIN, TPO, THYGLOB AB #### [facility] , #### ADDONUAPLUS #### [facility] [address] [place] [address] [place] Immunoglobulin M, Serum 66 mg/dL Normal 26-217 [facility] Comment on above: Result Comment: Perf ormed at: CB - [facility] [address] [id number] [employer] Attacher: Fabrizio Herrera PhD, Phone: [phone] Performed By: #### C HROMATIN, TPO, THYGLOB AB #### [facility] , #### ADDONUAPLUS #### [facility] [address] [place] [address] Lupus Anticoagulant Compon 0 - Dilute Prothrombin Time (dPt) 37.4 Normal 0.0-47.6 [facility] Comment on above: Performed By: #### C HROMATIN, TPO, THYGLOB AB #### [facility] , #### ADDONUAPLUS #### [facility] [address] [place] [address] dPT Confirm Ratio 1.04 Normal 0.00-1.34 [facility] Comment on above: Performed By: #### C HROMATIN, TPO, THYGLOB AB #### [facility] , #### ADDONUAPLUS #### [facility] [address] [place] [address] DRVVT Lupus 35.3 Normal 0.0-47.0 [facility] Comment on above: Performed By: #### C HROMATIN, TPO, THYGLOB AB #### [facility] , #### ADDONUAPLUS #### [facility] [address] [place] [address] Interpretation Comment: Normal . [facility] Comment on above: Result Comment: No l upus anticoagulant was detected. Performed at: - [facility] [id number] [employer] Attacher: Rainer Bennett MD, Phone: [phone] PERFORMED BY: [place] [address] PATHOLOGIST SPECIAL SERVICE OFFICER PAULA WILL M.D. Performed By: #### C HROMATIN, TPO, THYGLOB AB #### [facility] , #### ADDONUAPLUS #### [address] PTT-LA 29.7 Normal 0.0-51.9 [facility] Comment on above: Performed By: #### C HROMATIN, TPO, THYGLOB AB #### [facility] , #### ADDONUAPLUS #### [address] Thrombin Time 17.5 Normal 0.0-23.0 [facility] Comment on above: Performed By: #### C HROMATIN, TPO, THYGLOB AB #### [facility] , #### ADDONUAPLUS #### [address] Partial Thromboplastin Timeo n 05-27-2021 aPTT Coag (Bld) [Time] 33.6 s Normal 25.1-36.5 [facility] Comment on above: Order Comment: List the anticoagulant: NONE Result Comment: PERF ORMED BY: [place] [address] PATHOLOGIST SPECIAL SERVICE OFFICER PAULA WILL M.D. Performed By: #### C HROMATIN, TPO, THYGLOB AB #### [facility] , #### ADDONUAPLUS #### [address] Protein Electro, Random Urin ryan 05-27-2021 Albumin, Urine 30.6 % Normal . [facility] Comment on above: Performed By: #### C HROMATIN, TPO, THYGLOB AB #### [facility] , #### ADDONUAPLUS #### [address] Jjopw-5-Chvmvgfc, Urine 7.3 % Normal . [facility] Comment on above: Performed By: #### C HROMATIN, TPO, THYGLOB AB #### [facility] , #### ADDONUAPLUS #### [facility] [address] Ssyfo-6-Ztrvyxtt, Urine 25.1 % Normal . [facility] Comment on above: Performed By: #### C HROMATIN, TPO, THYGLOB AB #### [facility] , #### ADDONUAPLUS #### [address] Beta Globulin, Urine 29.0 % Normal . [facility] Comment on above: Performed By: #### C HROMATIN, TPO, THYGLOB AB #### [facility] , #### ADDONUAPLUS #### [address] Gamma Globulin, Urine 8.0 % Normal . [facility] Comment on above: Performed By: #### C HROMATIN, TPO, THYGLOB AB #### [facility] , #### ADDONUAPLUS #### [facility] [address] [place] [address] M-Ahsan % Not Observed Normal Not Observed [facility] Comment on above: Performed By: #### C HROMATIN, TPO, THYGLOB AB #### [facility] , #### ADDONUAPLUS #### [facility] [address] [place] [address] Please Note: Normal . [facility] Comment on above: Result Comment: Prot ein electrophoresis scan will follow via computer, mail, or manager intermediate delivery. Protein electrophoresis scan will follow via computer, mail, or manager intermediate delivery. Performed at: [facility] [address] [id number] [employer] Attacher: Fabrizio Herrera PhD, Phone: [phone] --- 05/29/21 1628 --- Please Note: previously reported as: Protein electrophoresis scan will follow via computer, mail, or manager intermediate delivery. Protein electrophoresis scan will follow via computer, mail, or manager intermediate delivery. Performed at: [address] [id number] [employer] Attacher: Fabrizio Herrera PhD, Phone: [phone] --- 06/04/21 1109 --- Please Note: previously reported as: Protein electrophoresis scan will follow via computer, mail, or manager intermediate delivery. Protein electrophoresis scan will follow via computer, mail, or manager intermediate delivery. Performed at: [address] [id number] [employer] Attacher: Fabrizio Herrera PhD, Phone: [phone] --- 05/29/21 1308 --- Please Note: previously reported as: Protein electrophoresis scan will follow via computer, mail, or manager intermediate delivery. PERFORMED BY: [place] [address] PATHOLOGIST SPECIAL SERVICE OFFICER PAULA WILL M.D. Performed By: #### C HROMATIN, TPO, THYGLOB AB #### [facility] , #### ADDONUAPLUS #### [address] Protein (U) [Mass/Vol] 18.9 mg/dL Normal Not Estab. [facility] Comment on above: Performed By: #### C HROMATIN, TPO, THYGLOB AB #### [facility] , #### ADDONUAPLUS #### [address] Protein Electrophoresis, Ser umon 05-27-2021 Albumin [Mass/Vol] 3.6 g/dL Normal 2.9-4.4 [facility] Comment on above: Performed By: #### C HROMATIN, TPO, THYGLOB AB #### [facility] , #### ADDONUAPLUS #### [address] Albumin/Globulin [Mass ratio] 1.0 {ratio} Normal 0.7-1.7 [facility] Comment on above: Performed By: #### C HROMATIN, TPO, THYGLOB AB #### [facility] , #### ADDONUAPLUS #### [address] Ujmpm-5-Qnxxfixc 0.2 g/dL Normal 0.0-0.4 [facility] Comment on above: Performed By: #### C HROMATIN, TPO, THYGLOB AB #### [facility] , #### ADDONUAPLUS #### [address] Qcuwe-3-Hhuhduql 0.8 g/dL Normal 0.4-1.0 [facility] Comment on above: Performed By: #### C HROMATIN, TPO, THYGLOB AB #### [facility] , #### ADDONUAPLUS #### [address] Beta Globulin 1.4 g/dL High 0.7-1.3 [facility] Comment on above: Performed By: #### C HROMATIN, TPO, THYGLOB AB #### [facility] , #### ADDONUAPLUS #### [address] Gamma Globulin 1.3 g/dL Normal 0.4-1.8 [facility] Comment on above: Performed By: #### C HROMATIN, TPO, THYGLOB AB #### [facility] , #### ADDONUAPLUS #### [facility] [address] [place] [address] [place] Globulin (S) [Mass/Vol] 3.7 g/dL Normal 2.2-3.9 [facility] Comment on above: Performed By: #### C HROMATIN, TPO, THYGLOB AB #### [facility] , #### ADDONUAPLUS #### [facility] [address] M-Ahsan Not Observed Normal Not Observed [facility] Comment on above: Performed By: #### C HROMATIN, TPO, THYGLOB AB #### [facility] , #### ADDONUAPLUS #### [address] Protein [Mass/Vol] 7.3 g/dL Normal 6.0-8.5 [facility] Comment on above: Performed By: #### C HROMATIN, TPO, THYGLOB AB #### [facility] , #### ADDONUAPLUS #### [address] SPE-Note Normal . [facility] Comment on above: Result Comment: Prot ein electrophoresis scan will follow via computer, mail, or manager intermediate delivery. Performed By: #### C HROMATIN, TPO, THYGLOB AB #### [facility] , #### ADDONUAPLUS #### [address] Prothrombin Time INRon 05-27 INR Coag (PPP) [Relative time] 1.1 {INR} Normal [facility] Comment on above: Order Comment: List [...] AB #### [facility] , #### ADDONUAPLUS #### [address] PT Coag (PPP) [Time] 11.8 s Normal 9.0-12.9 [facility] Comment on above: Order Comment: List the anticoagulant: NONE Performed By: #### C HROMATIN, TPO, THYGLOB AB #### [facility] , #### ADDONUAPLUS #### [address] RPR w/rfx to Quant TP Abson 05-27-2021 RPR, Rfx Quant RPR Non-Reactive Normal Non Reactive [facility] Comment on above: Result Comment: Perf ormed at: - [facility] [address] [id number] [employer] Attacher: Fabrizio Herrera PhD, Phone: [phone] PERFORMED BY: [place] [address] PATHOLOGIST SPECIAL SERVICE OFFICER PAULA WILL M.D. Performed By: #### C HROMATIN, TPO, THYGLOB AB #### [facility] , #### ADDONUAPLUS #### [address] Thyroid Stimulating Hormoneo n 05-27-2021 TSH Qn 1.14 m[IU]/L Normal 0.45-5.33 [facility] Comment on above: Result Comment: PERF ORMED BY: [place] [address] PATHOLOGIST SPECIAL SERVICE OFFICER PAULA WILL M.D. Performed By: #### R MT W RFX, SADE,URINE, SPE, UPE RAND, SADE SERUM, SHIV #### [facility] , #### CMP, TSH3, CRP, T4F, CK, ADDONUAPLUS #### [facility] [address] [place] [address] Consent Formson 04-14-2019 Consent Forms [id number] #1.00OTGTIFF [facility] Provider Orderson 12-02-2018 Provider Orders [id number] #1.00OTGTIFF [facility] Coding Summaryon 11-28-2018 Coding Summary CODING DATE: 11/28/2018 [facility] STATUS: Home PAYOR: Commercial Insurance [...] Lorrie Bunn Date Saved: 11/28/2018 12:31 pm [facility] US Gallbladderon 11-26-2018 US Gallbladder ULTRASOUND [...] Alan Da Silva 11/26/18 12:51 p Technologist: [facility] CMP Standardon 11-09-2018 eGFR Non AA >60 [facility] Comment on above: Performed By: #### 2 [id number], [id number] #### [facility] (DEFAULT) [address] [place] [address]805 eGFR AA >60 [facility] Comment on above: Result Comment: Long Distance Operator abiodun Kidney disease could be indicated at eGFRs of less than 60 ml/min/1.73m2. Kidney Failure is indicated at less than 15 ml/min/1.73m2 Performed By: #### 2 487144, [id number] #### [facility] (DEFAULT) [address] [place] [address]122 Albumin [Mass/Vol] 3.8 g/dL Normal 3.5-5.0 [facility] Comment on above: Performed By: #### 2 081780, [id number] #### [facility] (DEFAULT) [address] [place] [address]288 Albumin/Globulin [Mass ratio] 1.1 {ratio} Low 1.4-2.6 [facility] Comment on above: Performed By: #### 2 394351, [id number] #### [facility] (DEFAULT) [address] [place] [address] 13824 Alk Phos 60 IU/L Normal 32-91 [facility] Comment on above: Performed By: #### 2 230030, [id number] #### [facility] (DEFAULT) [address] [place] [address] 48044 ALT/SGPT 36.0 IU/L Normal 14.0-54.0 [facility] Comment on above: Performed By: #### 2 876210, [id number] #### [facility] (DEFAULT) [address] [place] [address] 15829 Anion gap [Moles/Vol] 16.0 mmol/L Normal 5.0-19.0 [facility] Comment on above: Performed By: #### 2 413490, [id number] #### [facility] (DEFAULT) [address] [place] [address] 31541 AST/SGOT 27 IU/L Normal 15-41 [facility] Comment on above: Performed By: #### 2 237888, [id number] #### [facility] (DEFAULT) [address] [place] [address] 98071 Bili Total 0.6 mg/dL Normal 0.3-1.2 [facility] Comment on above: Performed By: #### 2 116340, [id number] #### [facility] (DEFAULT) [address] [place] [address] 23049 Calcium [Mass/Vol] 9.1 mg/dL Normal 8.9-10.3 [facility] Comment on above: Performed By: #### 2 931972, [id number] #### [facility] (DEFAULT) [address] [place] [address] 30037 Chloride [Moles/Vol] 98 mmol/L Low 101-111 [facility] Comment on above: Performed By: #### 2 340376, [id number] #### [facility] (DEFAULT) [address] [place] [address] 58913 CO2 [Moles/Vol] 31 mmol/L Normal 21-32 [facility] Comment on above: Performed By: #### 2 580705, [id number] #### [facility] (DEFAULT) [address] [place] [address] 71138 Creatinine [Mass/Vol] 0.90 mg/dL Normal 0.60-1.30 [facility] Comment on above: Performed By: #### 2 056070, [id number] #### [facility] (DEFAULT) [address] [place] [address] 15100 Globulin (S) [Mass/Vol] 3.6 g/dL Normal 1.5-4.3 [facility] Comment on above: Performed By: #### 2 838011, [id number] #### [facility] (DEFAULT) [address] [place] [address] 94102 Glucose [Mass/Vol] 111.0 mg/dL Normal 74.0-118.0 [facility] Comment on above: Performed By: #### 2 294062, [id number] #### [facility] (DEFAULT) [address] [place] [address] 98238 Osmolality [Osmolality] 284 mOsm/L [facility] Comment on above: Performed By: #### 2 042300, [id number] #### [facility] (DEFAULT) [address] [place] [address] 19017 Potassium [Moles/Vol] 3.5 mmol/L Low 3.6-5.1 [facility] Comment on above: Performed By: #### 2 947988, [id number] #### [facility] (DEFAULT) [address] [place] [address] 47804 Protein [Mass/Vol] 7.4 g/dL Normal 6.5-8.1 [facility] Comment on above: Performed By: #### 2 407974, [id number] #### [facility] (DEFAULT) [address] [place] [address] Sodium [Moles/Vol] 141.0 mmol/L Normal 136.0-144.0 [facility] Comment on above: Performed By: #### 2 829744, [id number] #### [facility] (DEFAULT) [address] [place] [address] 76844 Urea nitrogen [Mass/Vol] 18 mg/dL Normal 8-26 [facility] Comment on above: Performed By: #### 2 060660, [id number] #### [facility] (DEFAULT) [address] [place] [address] Urea nitrogen/Creatinine [Mass ratio] 20.0 mg/mg High 4.6-16.2 [facility] Comment on above: Performed By: #### 2 697004, [id number] #### [facility] (DEFAULT) [address] [place] [address] 66212 GGTon 11-09-2018 Gamma glutamyl transferase [Catalytic activity/Vol] 27.0 U/L Normal 7.0-50.0 [facility] Comment on above: Performed By: #### 2 726207, 1179628, 9787021, [id number], 6477799, 3284841, [id number] #### [facility] (DEFAULT) [address] [place] [address] 39441 Iron Levelon 11-09-2018 Iron [Mass/Vol] 68.0 ug/dL Normal 28.0-170.0 [facility] Comment on above: Performed By: #### 2 881251, [id number] #### [facility] (DEFAULT) [address] [place] [address] 11515 LDHon 11-09-2018 LDH 171.0 IU/L Normal 98.0-192.0 [facility] Comment on above: Performed By: #### 2 027953, 1253743, 8644668, [id number], 1626690, 0788681, [id number] #### [facility] (DEFAULT) [address] [place] [address] 90369 Lipid Panel Standardon 11-09 Cholesterol [Mass/Vol] 136.0 mg/dL Normal 66.0-200.0 [facility] Comment on above: Result Comment: Juani rable - Less than 200 mg/dL Borderline high risk - 200-239 mg/dL High risk - 240 mg/dL and over. Performed By: #### 2 296083, [id number] #### [facility] (DEFAULT) [address] [place] [address] 40236 Cholesterol in HDL [Mass/Vol] 32 mg/dL Low 40-71 [facility] Comment on above: Result Comment: High risk - <40 mg/dL. Performed By: #### 2 586234, [id number] #### [facility] (DEFAULT) [address] [place] [address] 62229 Cholesterol in LDL [Mass/Vol] 68 mg/dL Normal 1-100 [facility] Comment on above: Result Comment: Opti mal - Less than 100 mg/dL Borderline high risk - 130-159 mg/dL High risk - 160-189 mg/dL. Performed By: #### 2 413239, [id number] #### [facility] (DEFAULT) [address] [place] [address] 92032 Cholesterol.total/Cho lesterol in HDL [Mass ratio] 4.3 {ratio} Normal 0.0-4.5 [facility] Comment on above: Performed By: #### 2 798785, [id number] #### [facility] (DEFAULT) [address] [place] [address] 25952 Triglyceride [Mass/Vol] 179.0 mg/dL High 0.0-150.0 [facility] Comment on above: Performed By: #### 2 415610, [id number] #### [facility] (DEFAULT) [address] [place] [address] 18266 VLDL. 36 mg/dL Normal 5-40 [facility] Comment on above: Performed By: #### 2 378513, [id number] #### [facility] (DEFAULT) [address] [place] [address] Phoson 11-09-2018 Phosphate [Mass/Vol] 2.7 mg/dL Normal 2.5-4.6 [facility] Comment on above: Performed By: #### 2 363542, [id number] #### [facility] (DEFAULT) [address] [place] [address] 39696 Uric Acidon 11-09-2018 Urate [Mass/Vol] 5.5 mg/dL Normal 2.6-8.0 [facility] Comment on above: Performed By: #### 2 558324, [id number] #### [facility] (DEFAULT) [address] [place] [address] 14265 Coding Summaryon 06-23-2018 Coding Summary CODING DATE: 06/23/2018 [facility] STATUS: Home PAYOR: Commercial Insurance [...] Purnima Felix Date Saved: 06/23/2018 12:21 pm [facility] Provider Orderson 06-23-2018 Provider Orders [id number] 1.00OTGTIFF [facility] Renal Function Panel Standar don 06-22-2018 eGFR Non AA >60 [facility] Comment on above: Performed By: #### 1 [id number] #### [facility] (DEFAULT) [address] [place] [address] 93122 eGFR AA >60 [facility] Comment on above: Result Comment: Long Distance Operator abiodun Kidney disease could be indicated at eGFRs of less than 60 ml/min/1.73m2. Kidney Failure is indicated at less than 15 ml/min/1.73m2 Performed By: #### 1 [id number] #### [facility] (DEFAULT) [address] [place] [address] 71274 Albumin [Mass/Vol] 3.7 g/dL Normal 3.5-5.0 [facility] Comment on above: Performed By: #### 1 [id number] #### [facility] (DEFAULT) [address] [place] [address] 38711 Anion gap [Moles/Vol] 12.0 mmol/L Normal 5.0-19.0 [facility] Comment on above: Performed By: #### 1 [id number] #### [facility] (DEFAULT) [address] [place] [address] 48347 Calcium [Mass/Vol] 8.9 mg/dL Normal 8.9-10.3 [facility] Comment on above: Performed By: #### 1 [id number] #### [facility] (DEFAULT) [address] [place] [address] 96397 Chloride [Moles/Vol] 100 mmol/L Low 101-111 [facility] Comment on above: Performed By: #### 1 [id number] #### [facility] (DEFAULT) [address] [place] [address] 30235 CO2 [Moles/Vol] 30 mmol/L Normal 21-32 [facility] Comment on above: Performed By: #### 1 [id number] #### [facility] (DEFAULT) [address] [place] [address] 55727 Creatinine [Mass/Vol] 0.92 mg/dL Normal 0.60-1.30 [facility] Comment on above: Performed By: #### 1 [id number] #### [facility] (DEFAULT) [address] [place] [address] 68632 Glucose [Mass/Vol] 115.0 mg/dL Normal 74.0-118.0 [facility] Comment on above: Performed By: #### 1 [id number] #### [facility] (DEFAULT) [address] [place] [address] 21189 Osmolality [Osmolality] 277 mOsm/L [facility] Comment on above: Performed By: #### 1 [id number] #### [facility] (DEFAULT) [address] [place] [address] 51236 Phosphate [Mass/Vol] 3.8 mg/dL Normal 2.5-4.6 [facility] Comment on above: Performed By: #### 1 [id number] #### [facility] (DEFAULT) [address] [place] [address] 97612 Potassium [Moles/Vol] 3.7 mmol/L Normal 3.6-5.1 [facility] Comment on above: Performed By: #### 1 [id number] #### [facility] (DEFAULT) [address] [place] [address] 92988 Sodium [Moles/Vol] 138.0 mmol/L Normal 136.0-144.0 [facility] Comment on above: Performed By: #### 1 [id number] #### [facility] (DEFAULT) [address] [place] [address] 24023 Urea nitrogen [Mass/Vol] 14 mg/dL Normal 8-26 [facility] Comment on above: Performed By: #### 1 [id number] #### [facility] (DEFAULT) [address] [place] [address] 21553 Urea nitrogen/Creatinine [Mass ratio] 15.0 mg/mg Normal 4.6-16.2 [facility] Comment on above: Performed By: #### 1 [id number] #### [facility] (DEFAULT) [address] [place] [address] 16781 Coding Summaryon 06-15-2018 Coding Summary CODING DATE: 06/15/2018 [facility] STATUS: Home PAYOR: Commercial Insurance [...] Purnima Felix Date Saved: 06/15/2018 02:13 pm Normal [facility] Provider Orderson 06-15-2018 Provider Orders [id number] 1.00OTGTIFF Normal [facility] Extra Hodgen 06-14-2018 Tube Collected Yes [facility] Comment on above: Performed By: #### 1 [id number] #### [facility] (DEFAULT) [address] [place] [address] 97307 Magnesiumon 06-14-2018 Magnesium [Mass/Vol] 2.06 mg/dL Normal 1.80-2.50 [facility] Comment on above: Result Comment: The reference range for magnesium has changed from 0.40-2.10 mg/dl to 1.80-2.50 mg/dl as of 06/03/15. Performed By: #### 2 [id number], [id number] #### [facility] (DEFAULT) [address] [place] [address] 88324 Renal Function Panel Standar don 06-14-2018 eGFR Non AA >60 [facility] Comment on above: Performed By: #### 2 [id number], [id number] #### [facility] (DEFAULT) [address] [place] [address] 05875 eGFR AA >60 [facility] Comment on above: Result Comment: Long Distance Operator abiodun Kidney disease could be indicated at eGFRs of less than 60 ml/min/1.73m2. Kidney Failure is indicated at less than 15 ml/min/1.73m2 Performed By: #### 2 [id number], [id number] #### [facility] (DEFAULT) [address] [place] [address] 82790 Albumin [Mass/Vol] 3.5 g/dL Normal 3.5-5.0 [facility] Comment on above: Performed By: #### 2 [id number], [id number] #### [facility] (DEFAULT) [address] [place] [address] 41572 Anion gap [Moles/Vol] 14.0 mmol/L Normal 5.0-19.0 [facility] Comment on above: Performed By: #### 2 [id number], [id number] #### [facility] (DEFAULT) [address] [place] [address] 94894 Calcium [Mass/Vol] 8.7 mg/dL Low 8.9-10.3 [facility] Comment on above: Performed By: #### 2 [id number], [id number] #### [facility] (DEFAULT) [address] [place] [address] 43328 Chloride [Moles/Vol] 97 mmol/L Low 101-111 [facility] Comment on above: Performed By: #### 2 [id number], [id number] #### [facility] (DEFAULT) [address] [place] [address] 42609 CO2 [Moles/Vol] 31 mmol/L Normal 21-32 [facility] Comment on above: Performed By: #### 2 [id number], [id number] #### [facility] (DEFAULT) [address] [place] [address] 34011 Creatinine [Mass/Vol] 0.92 mg/dL Normal 0.60-1.30 [facility] Comment on above: Performed By: #### 2 [id number], [id number] #### [facility] (DEFAULT) [address] [place] [address] 46572 Glucose [Mass/Vol] 121.0 mg/dL High 74.0-118.0 [facility] Comment on above: Performed By: #### 2 [id number], [id number] #### [facility] (DEFAULT) [address] [place] [address] 07834 Osmolality [Osmolality] 280 mOsm/L [facility] Comment on above: Performed By: #### 2 [id number], [id number] #### [facility] (DEFAULT) [address] [place] [address] 61286 Phosphate [Mass/Vol] 2.8 mg/dL Normal 2.5-4.6 [facility] Comment on above: Performed By: #### 2 [id number], [id number] #### [facility] (DEFAULT) [address] [place] [address] 27324 Potassium [Moles/Vol] 3.0 mmol/L Low 3.6-5.1 [facility] Comment on above: Performed By: #### 2 [id number], [id number] #### [facility] (DEFAULT) [address] [place] [address] 59651 Sodium [Moles/Vol] 139.0 mmol/L Normal 136.0-144.0 [facility] Comment on above: Performed By: #### 2 [id number], [id number] #### [facility] (DEFAULT) [address] [place] [address] 50896 Urea nitrogen [Mass/Vol] 17 mg/dL Normal 8-26 [facility] Comment on above: Performed By: #### 2 [id number], [id number] #### [facility] (DEFAULT) [address] [place] [address] 12739 Urea nitrogen/Creatinine [Mass ratio] 18.0 mg/mg High 4.6-16.2 [facility] Comment on above: Performed By: #### 2 [id number], [id number] #### [facility] (DEFAULT) [address] [place] [address] 68448 Vital Signs Date Time Vital Sign Value Performing Clinician Facility 03-30-2024 08:13-0500 Body mass index (BMI) [Ratio] 24.6 kg/m2 Sherry Nataprawira DO Work Phone: [facility] 03-30-2024 08:13-0500 Body weight 72.3 kg Sherry Nataprawira DO Work Phone: [facility] 03-30-2024 08:13-0500 Diastolic blood pressure 70 mm[Hg] Sherry Nataprawira DO Work Phone: [facility] 03-30-2024 08:13-0500 Systolic blood pressure 108 mm[Hg] Sherry Nataprawira DO Work Phone: [facility] 03-09-2024 13:29-0500 Heart rate 61 /min Sherry Nataprawira [facility] 03-09-2024 13:29-0500 SaO2% (BldA) [Mass fraction] 100 % Sherry Bridgettaprawira [facility] 03-09-2024 13:29-0500 Diastolic blood pressure 79 mm[Hg] Sherry Natjeffreyra [facility] 03-09-2024 13:29-0500 Mean blood pressure 93 mm[Hg] Sherry Nataprawira [facility] 03-09-2024 13:29-0500 Systolic blood pressure 120 mm[Hg] Sherry Nataprawira [facility] 03-09-2024 12:29-0500 Heart rate 70 /min Sherry Nataprawira [facility] 03-09-2024 12:29-0500 SaO2% (BldA) [Mass fraction] 100 % Sherry Nataprawira [facility] 03-09-2024 12:28-0500 Blood Pressure Location Sherry Nataprawira [facility] 03-09-2024 12:28-0500 Diastolic blood pressure 79 mm[Hg] Sherry Nataprawira [facility] 03-09-2024 12:28-0500 Mean blood pressure 95 mm[Hg] Sherry Nataprawira [facility] 03-09-2024 12:28-0500 Systolic blood pressure 125 mm[Hg] Sherry Nataprawira [facility] 03-09-2024 12:28-0500 Respiratory rate 18 /min Sherry Nataprawira [facility] 03-09-2024 12:28-0500 SaO2% (BldA) [Mass fraction] 98 % Sherry Nataprawira [facility] 03-09-2024 12:20-0500 Blood Pressure Location Sherry Nataprawira [facility] 03-09-2024 12:20-0500 Body temperature 97.34 [degF] Sherry Nataprawira [facility] 03-09-2024 12:20-0500 Diastolic blood pressure 72 mm[Hg] Sherry Nataprawira [facility] 03-09-2024 12:20-0500 Heart rate 77 /min Sherry Nataprawira [facility] 03-09-2024 12:20-0500 Mean blood pressure 86 mm[Hg] Sherry Nataprawira [facility] 03-09-2024 12:20-0500 Respiratory rate 17 /min Sherry Nataprawira [facility] 03-09-2024 12:20-0500 Systolic blood pressure 114 mm[Hg] Sherry Nataprawira [facility] 03-09-2024 12:10-0500 Blood Pressure Location Sherry Nataprawira [facility] 03-09-2024 12:10-0500 Mean blood pressure 88 mm[Hg] Sherry Nataprawira [facility] 03-09-2024 12:10-0500 Respiratory rate 17 /min Sherry Nataprawira [facility] 03-09-2024 12:05-0500 Mean blood pressure 82 mm[Hg] Sherry Nataprawira [facility] 03-09-2024 12:05-0500 Respiratory rate 15 /min Sherry Nataprawira [facility] 03-09-2024 11:55-0500 Body temperature 97.16 [degF] Sherry Nataprawira [facility] 03-09-2024 11:55-0500 FIO2 100 1 Sherry Nataprawira [facility] 03-09-2024 11:55-0500 Respiratory rate 2 /min Sherry Nataprawira [facility] 03-09-2024 11:50-0500 FIO2 100 1 Sherry Nataprawira [facility] 03-09-2024 11:50-0500 Respiratory rate 17 /min Sherry Nataprawira [facility] 03-09-2024 11:45-0500 FIO2 100 1 Sherry Nataprawira [facility] 03-09-2024 09:45-0500 Mean blood pressure 89 mm[Hg] Sherry Nataprawira [facility] 03-09-2024 09:45-0500 Heart rate 60 /min Sherry Nataprawira [facility] 03-09-2024 09:43-0500 Body temperature 97.88 [degF] Sherry Nataprawira [facility] 02-29-2024 09:12-0500 Body mass index (BMI) [Ratio] 25.15 kg/m2 Sherry Nataprawira DO Work Phone: [facility] 02-29-2024 09:12-0500 Body weight 73.94 kg Sherry Nataprawira DO Work Phone: [facility] 02-29-2024 09:12-0500 Diastolic blood pressure 78 mm[Hg] Sherry Nataprawira DO Work Phone: [facility] 02-29-2024 09:12-0500 Systolic blood pressure 124 mm[Hg] Sherry Nataprawira DO Work Phone: [facility] 02-29-2024 08:38-0500 Diastolic blood pressure 72 mm[Hg] Sherry Nataprawira [facility] 02-29-2024 08:38-0500 Heart rate 64 /min Sheryr Nataprawira [facility] 02-29-2024 08:38-0500 Mean blood pressure 83 mm[Hg] Sherry Nataprawira [facility] 02-29-2024 08:38-0500 Systolic blood pressure 104 mm[Hg] Sherry Nataprawira [facility] 02-29-2024 08:38-0500 Heart rate 66 /min Sherry Nataprawira [facility] 02-29-2024 08:38-0500 SaO2% (BldA) [Mass fraction] 100 % Sherry Nataprawira [facility] 02-29-2024 08:37-0500 Body temperature 98.24 [degF] Sherry Nataprawira [facility] 02-29-2024 08:37-0500 Blood Pressure Location Sherry Nataprawira [facility] 02-29-2024 08:37-0500 Diastolic blood pressure 72 mm[Hg] Sherry Nataprawira [facility] 02-29-2024 08:37-0500 Mean blood pressure 83 mm[Hg] Sherry Nataprawira [facility] 02-29-2024 08:37-0500 Systolic blood pressure 107 mm[Hg] Sherry Nataprawira [facility] 02-29-2024 08:37-0500 Respiratory rate 16 /min Sherry Nataprawira [facility] 12-29-2023 08:29-0500 Body mass index (BMI) [Ratio] 25.31 kg/m2 Sherry Nataprawira DO Work Phone: [facility] 12-29-2023 08:29-0500 Body weight 74.39 kg Sherry Velasquez DO Work Phone: [facility] 12-29-2023 08:29-0500 Diastolic blood pressure 74 mm[Hg] Sherry Velasquez DO Work Phone: [facility] 12-29-2023 08:29-0500 Systolic blood pressure 122 mm[Hg] Sherry Dera DO Work Phone: [facility] 10-13-2023 09:13-0400 Body height 167.[address] [facility] 10-13-2023 09:13-0400 Body mass index (BMI) [Ratio] 25.9 kg/m2 [facility] 10-13-2023 09:13-0400 Body temperature 97.8 [degF] [facility] 10-13-2023 09:13-0400 Body weight 72.[address] [facility] 10-13-2023 09:13-0400 Diastolic blood pressure 74 mm[Hg] [facility] 10-13-2023 09:13-0400 Heart rate 76 /min [facility] 10-13-2023 09:13-0400 Respiratory rate 16 /min [facility] 10-13-2023 09:13-0400 SaO2% (BldA) [Mass fraction] 98 % [facility] 10-13-2023 09:13-0400 Systolic blood pressure 137 mm[Hg] [facility] 04-01-2023 09:14-0500 Body height 167.[address] [facility] 04-01-2023 09:14-0500 Body mass index (BMI) [Ratio] 27.2 kg/m2 [facility] 04-01-2023 09:14-0500 Body temperature 98.5 [degF] [facility] 04-01-2023 09:14-0500 Body weight 76.[address] [facility] 04-01-2023 09:14-0500 Diastolic blood pressure 74 mm[Hg] [facility] 04-01-2023 09:14-0500 Heart rate 74 /min [facility] 04-01-2023 09:14-0500 Respiratory rate 16 /min [facility] 04-01-2023 09:14-0500 SaO2% (BldA) [Mass fraction] 93 % [facility] 04-01-2023 09:14-0500 Systolic blood pressure 122 mm[Hg] [facility] 04-30-2022 10:00-0400 Body height 167.64 cm [facility] Other [facility] Other 04-30-2022 10:00-0400 Body mass index (BMI) [Ratio] 27.15 kg/m2 [facility] Other [facility] Other 04-30-2022 10:00-0400 Body temperature 96.7 [degF] [facility] Other [facility] Other 04-30-2022 10:00-0400 Body weight 76.3 kg Ledy Mat Other [facility] Other 04-30-2022 10:00-0400 Diastolic blood pressure 70 mm[Hg] [facility] Other [facility] Other 04-30-2022 10:00-0400 Respiratory rate 18 /min [facility] Other [facility] Other 04-30-2022 10:00-0400 SaO2% (BldA) [Mass fraction] 99 % [facility] Other [facility] Other 04-30-2022 10:00-0400 Systolic blood pressure 120 mm[Hg] [facility] Other [facility] Other 04-17-2021 10:00-0500 Body height Ledy Mat Other [facility] Other 04-17-2021 10:00-0500 Body mass index (BMI) [Ratio] 27.11 kg/m2 [facility] Other [facility] Other 04-17-2021 10:00-0500 Body weight 76.2 kg Ledy Mat Other [facility] Other 04-17-2021 10:00-0500 Diastolic blood pressure 66 mm[Hg] [facility] Other [facility] Other 04-17-2021 10:00-0500 Respiratory rate 18 /min [facility] Other [facility] Other 04-17-2021 10:00-0500 SaO2% (BldA) [Mass fraction] 97 % [facility] Other [facility] Other 04-17-2021 10:00-0500 Systolic blood pressure 104 mm[Hg] [facility] Other [facility] Other Encounters Encounter Date Encounter Type Care Provider Facility Start: 03-30-2024 End: 03-30-2024 Postop follow up visit related to original px Sherry Velasquez DO Work Phone: [facility] Comment on above: Follow-up examinatio n after gynecological surgery (Primary Dx); Cystocele, midline Start: 03-28-2024 End: 03-28-2024 Emergency department patient visit [facility] Start: 03-09-2024 End: 03-09-2024 Clinisync Result Encounter Sherry Velasquze DO Work Phone: [facility] External Department Unsolicited Start: 03-09-2024 End: 03-09-2024 Clinisync Result Encounter Sherry Velasquez DO Work Phone: [facility] Unsolicited Start: 03-09-2024 End: 03-09-2024 Admission to same day surgery center Sherry Velasquez [facility] Start: 03-09-2024 End: 03-09-2024 ambulatory Sherry Velasquez Facility:[facility] Start: 02-29-2024 End: 02-29-2024 Admission to same day surgery center Sherry Velasquez DO Work Phone: [facility] Start: 02-29-2024 End: 02-29-2024 Office outpatient visit 25 minutes Sherry Velasquez DO Work Phone: [facility] Comment on above: Preoperative exam fo r gynecologic surgery (Primary Dx); Cystocele, midline; Urge incontinence; Postmenopausal HRT (hormone replacement therapy); Follow-up encounter involving medication Start: 02-29-2024 End: 02-29-2024 ambulatory DO Sherry Velasquez Facility:[facility] Start: 02-29-2024 End: 02-29-2024 Patient encounter procedure Sherry Velasquez [facility] Start: 01-23-2024 End: 01-24-2024 Refill Sherry Velasquez DO Work Phone: [facility] Comment on above: Urge incontinence Start: 01-06-2024 End: 01-06-2024 ambulatory SHERRYKrystin VELASQUEZ [facility] Start: 12-29-2023 End: 12-29-2023 Patient encounter status Sherry Velasquez DO Work Phone: [facility] Start: 12-29-2023 End: 12-29-2023 Periodic preventive med est patient 40-64yrs Sherry Velasquez DO Work Phone: [facility] Comment on above: Encounter for gyneco logical examination without abnormal finding (Primary Dx); Other screening mammogram; Cystocele, midline; Postmenopausal HRT (hormone replacement therapy); Hot flashes; Mood swings; Urge incontinence; Hx of hysterectomy for benign disease Start: 12-29-2023 End: 12-29-2023 ambulatory SHERRY Van KENISHA Not Available Start: 10-13-2023 End: 10-13-2023 ambulatory [facility] Work Phone: Start: 10-13-2023 End: 10-13-2023 Patient encounter procedure [facility] [place] Work Phone: Start: 10-09-2023 Non-patient / Non-visit [facility] [place] Work Phone: Start: 04-29-2023 End: 04-29-2023 [facility] Start: 04-06-2023 End: 04-06-2023 ambulatory [facility] Start: 04-01-2023 End: 04-01-2023 ambulatory [facility] Work Phone: Start: 04-01-2023 End: 04-01-2023 Patient encounter procedure [facility] [place] Work Phone: Start: 04-30-2022 End: 04-30-2022 ambulatory Ledy Mat Other [facility] Other Start: 04-30-2022 Office outpatient vi sit 15 minutes Ledy Mat [facility] Start: 04-20-2022 End: 04-20-2022 ambulatory Ledy Mat Other [facility] Other Start: 04-20-2022 Telephone encounter Ledy Mat [facility] Start: 03-24-2022 End: 03-25-[address] ERIC JOHNSTON Facility:[facility] Start: 03-19-2022 End: 03-20-[address] ERIC JOHNSTON Facility:[facility] Start: 03-13-2022 End: 03-14-[address] ERIC JOHNSTON Facility:[facility] Start: 11-03-2021 End: 11-04-[address] ERIC JOHNSTON Facility:[facility] Start: 04-17-2021 End: 04-17-2021 ambulatory Ledy Mat Other [facility] Other Start: 04-17-2021 Office outpatient vi sit 15 minutes Ledy Mat [facility] Start: 04-17-2021 Telephone encounter Ledy Mat [facility] Procedures Date Procedure Procedure Detail Performing Clinician Start: 03-09-2024 URINALYSIS WITH MICRO M sacha Velasquez DO Work Phone: Start: 03-09-2024 Anterior colporrhaphy M sacha Nataprawira Start: 04-29-2023 Mammography Sherry Natap rawira DO Work Phone: Appendectomy Sherry Kenishar a Partial hysterectomy Sherry Na taprawira Plan of Treatment Date Care Activity Detail Author Start: 01-01-2025 End: 01-01-2025 Patient encounter procedure 01/01/2025 10:45 AM EST Office Visit [facility] [address] [facility] [address] [address] Sherry Velasquez, DO [address] [address] [facility] Start: 09-18-2024 End: 09-18-2024 Patient encounter procedure 09/18/2024 8:30 AM EDT Office Visit [facility] [address] [facility] [address] [address] Sherry Velasquez DO [address] [address] [facility] Start: 05-01-2024 End: 05-01-2024 Professional / ancillary services management 05/01/2024 12:00 PM EDT Ancillary Procedure [facility] [address] [place] [id number] [facility] Start: 04-29-2024 End: 02-26-2025 DBT Breast - bilateral screening Bilateral screening mammogram with tomosynthesis Imaging Routine Other screening mammogram Expected: 04/29/2024, Expires: 02/26/2025 [facility] Work Phone: Comment on above: Expected: 04/29/2024 , Expires: 02/26/2025 Start: 04-28-2024 Screening for malign ant neoplasm of breast Mammogram [facility] Start: 03-30-2024 End: 03-30-2024 Patient encounter procedure 03/30/2024 8:30 AM EST Office Visit [facility] [address] [address] Sherry Velasquez DO [address] [id number] [facility] Start: 03-09-2024 End: 03-09-2024 Patient encounter procedure 03/09/2024 10:30 AM EST Procedure Visit [facility] [address] [address] Sherry Velasquez DO [address] [address] [facility] Start: 02-29-2024 End: 02-29-2024 Patient encounter procedure 02/29/2024 9:30 AM EST [facility] [address] [place] [address] [address] Sherry Velasquez DO [address] [address] [facility] Start: 10-17-2023 Influenza vaccination Influenza Vacc ine (#1) [facility] Start: 10-15-2022 Screening for malign ant neoplasm of colon [facility] Start: 2001 Screening for malign ant neoplasm of cervix [facility] Start: 1992 Screening for malign ant neoplasm of cervix Pap Smear [facility] Start: 1971 Screening for malign ant neoplasm of colon [facility] Renal function 1999 panel - Serum or Plasma [facility] Renal function 1999 panel - Serum or Plasma [facility] Immunizations Immunization Date Immunization Notes Care Provider Fa [facility] 11-15-2016 influenza virus vaccine, unspecified formulation Sherry Velasquez DO Work Phone: [facility] NEGATED: Highlighted row has not occurred!05-28-2015 influenza, seasonal, injectable Ledy Mat Other [facility] Other NEGATED: Highlighted row has not occurred!05-28-2015 pneumococcal polysaccharide vaccine, 23 valent Ledy Mat Other [facility] Other Payers Date Payer Category Payer Private Health Insurance [employer] [id number] 1971 Unknown [id number] 2.16.840.1.722596.3.579.2. 593 1971 Unknown [id number] 2.16.840.1.589475.3.579.2. 593 1971 Unknown [id number] 2.16.840.1.798710.3.579.2. 593 1971 Unknown [id number] 2.16.840.1.327627.3.579.2. 593 1971 Unknown [id number] 2.16.840.1.215025.3.579.2. 727 1971 Unknown [id number] 2.16.840.1.503520.3.579.2. 1259 1971 Unknown [id number] 2.16.840.1.986693.3.579.2. 1259 1971 Unknown [id number] 2.16.840.1.994258.3.579.2. 727 1971 Unknown [id number] 2.16.840.1.954586.3.579.2. 727 1971 Unknown [id number] 2.16.840.1.314120.3.579.2. 727 1971 Unknown [id number] 2.16.840.1.846426.3.579.2. 1286 1971 Unknown [id number] 2.16.840.1.624484.3.579.2. 1286 1971 Unknown [id number] 2.16.840.1.907824.3.579.2. 1286 1971 Unknown [id number] 2.16.840.1.082967.3.579.2. 1286 1959 Unknown [id number] 2.16.840.1.557044.19 Self-pay Self Pay [id number] Unknown O [id number] Social History Date Type Detail Facility Unknown if ever smoked [facility] Other Start: 12-29-2023 End: 03-30-2024 Sex Assigned At [facility] Start: 11-16-2022 End: 04-01-2023 Tobacco smoking status NHIS Never smoked tobacco (finding) [facility] Start: 1970 Sex Assigned At Female [facility] Start: 11-16-2022 Tobacco use and exposure Smokeless tobacco non-user [facility] Start: 12-29-2023 End: 03-30-2024 Alcoholic beverage intake Current drinker of alcohol (finding) [facility] Start: 12-29-2023 End: 03-30-2024 History of Social function [facility] Start: 11-16-2022 Gender identity Identifies as female gender (finding) [facility] Start: 11-16-2022 Sexual orientation Heterosexual (finding) [facility] Tobacco smoking status No Smokin g Status Entered [facility] How often to you hav e a drink containing alcohol? Never [facility] How many standard drinks containing alcohol do you have on a typical day? 1 or 2 [facility] Functional Status Date Assessment Result Facility 02-29-2024 Functional Status No [facility] Clinical Notes 08-15-2014 to 03-30-2024 Sherry Velasquez, DO - 03/30/2024 8:30 AM EST Note Date & Type Note Facility 03-30-2024 History of Presen t illness Narrative Images from the original note were not included. Subjective Tamy Sal is a 54 y.o. female HPI Chief Complaint Patient presents with Post-op Visit Patient is here for 3 week post op. She had anterior vaginal repair on 03/09/24 secondary to stage II-III cystocele. Patient states she did have some pain/discomfort on Wednesday which went away and one episode of bright red bleeding while wiping which subsided. Pt was seen in ED on Wednesday morning for chest/arm pain. Pt states no problems were found and she was discharged home the same day. Pt denies pain at this time denies further bleeding. Pt has follow up with PCP this day for ED follow up Past Medical History: Diagnosis Date Low serum potassium level Menopause ovarian failure 2023 Migraines (CMS/HCC) Miscarriage Past Surgical History: Procedure Laterality Date ANTERIOR VAGINAL REPAIR 03/09/2024 APPENDECTOMY COLONOSCOPY COLPORRHAPHY 03/09/2024 DILATION AND CURETTAGE OF UTERUS HYSTERECTOMY 2014 LAVH/BSO POSTERIOR REPAIR 03/09/2024 VAGINAL DELIVERY x4 Family History Problem Relation Name Age of Onset Asthma Mother Yessenia Sharma Cancer Mother Yessenia Sharma Dementia Mother Yessenia Sharma Rheum arthritis Father Wes Sharma Diabetes Father Wes Sharma Diabetes Sister Simran Lew Cancer Brother [place] Sharma Diabetes Brother [place] Sharma Social History Tobacco Use Smoking status: Never Smokeless tobacco: Never Vaping Use Vaping status: Never Used Substance Use Topics Alcohol use: Yes Alcohol/week: 2.0 standard drinks of alcohol Types: 2 Cans of beer per week Drug use: Never OB History Para Term AB Living 5 4 SAB IAB Ectopic Multiple Live Births # Outcome Date GA Lbr Berto/2nd Weight Sex Type Anes PTL Lv 5 4 3 2 1 No Known Allergies Current Outpatient Medications on File Prior to Visit Medication Sig Dispense Refill acetaminophen (Tylenol 8 Hour) 650 MG ER tablet Take 650 mg by mouth every 8 (eight) hours if needed for mild pain Do not crush, chew, or split. aMILoride (Midamor) 5 MG tablet docusate sodium (Colace) 50 MG capsule Take 50 mg by mouth in the morning and 50 mg before bedtime. estradiol (Estrace) 0.5 MG tablet Take 1 tablet (0.5 mg) by mouth Daily 90 tablet 3 etodolac (Lodine) 500 MG tablet TAKE 1 TABLET BY MOUTH TWICE A DAY Oral for 30 Days ferrous sulfate 325 (65 Fe) MG tablet Take 1 tablet by mouth in the morning and 1 tablet before bedtime. KLOR-CON 20 MEQ ER tablet Take 40 mEq by mouth in the morning and 40 mEq before bedtime. oxybutynin XL (Ditropan-XL) 5 MG 24 hr tablet TAKE 1 TABLET (5 MG) BY MOUTH DAILY DO NOT CRUSH, CHEW, OR SPLIT. 90 tablet 0 pantoprazole (ProtoNix) 40 MG EC tablet Take 40 mg by mouth in the morning and 40 mg before bedtime. triamcinolone (Kenalog) 0.1 % cream APPLY TO AFFECTED AREA EXTERNALLY TWICE DAILY FOR 30 DAYS No current facility-administered medications on file prior to visit. Review of Systems Constitutional: Negative for chills and fever. Respiratory: Negative for shortness of breath. Cardiovascular: Negative for chest pain. Gastrointestinal: Negative for nausea and vomiting. Genitourinary: Negative for dysuria, pelvic pain and vaginal discharge. Neurological: Negative for dizziness and headaches. Objective BP 108/70 Wt 159 lb 6.4 oz BMI 24.60 kg/m Physical Exam Constitutional: Appearance: Normal appearance. Genitourinary: No lesions in the vagina. Right Labia: No lesions. Left Labia: No lesions. Perineal sutures intact. No vaginal discharge. Vaginal exam comments: Suture cut. Vaginal incision healing well without erythema. Right Adnexa: not tender and no mass present. Left Adnexa: not tender and no mass present. Cervix is absent. Uterus is absent. Cardiovascular: Rate and Rhythm: Normal rate and regular rhythm. Pulmonary: Breath sounds: Normal breath sounds. Abdominal: General: Bowel sounds are normal. Palpations: Abdomen is soft. Tenderness: There is no abdominal tenderness. Neurological: Mental Status: She is alert. Skin: General: Skin is warm and dry. Psychiatric: Mood and Affect: Mood normal. Assessment/Plan 1. Follow-up examination after gynecological surgery (Primary) Doing well. Status post anterior vaginal repair. Vaginal incision healing well, without erythema, some suture cut and removed. Patient to wait 2 additional week until intercourse. May return to normal activities 2. Cystocele, midline documented in this encounter [facility] 03-09-2024 Hospital Discharg e instructions Patient Education 03/09/2024 13:20:54 Post Op Patient Instructions - FT (CUSTOM) 03/09/2024 12:04:40 Anterior and Posterior Colporrhaphy, Care After Anterior and Posterior Colporrhaphy, Care After The following information offers guidance on how to care for yourself after your procedure. Your health care provider may also give you more specific instructions. If you have problems or questions, contact your health care provider. What can I expect after the procedure? After the procedure, it is common to have: Pain in the surgical area. Vaginal spotting and discharge. You will need to use a sanitary pad during this time. Tiredness (fatigue). Follow these instructions at home: Medicines Take yviv-qor-nxehjvr and prescription medicines only as told by your health care provider. Ask your health care provider if the medicine prescribed to you: ?Requires you to avoid driving or using machinery. ?Can cause constipation. You may need to take these actions to prevent or treat constipation: ?Drink enough fluid to keep your urine pale yellow. ?Take bsks-rvc-cgmmnee or prescription medicines. ?Eat foods that are high in fiber, such as beans, whole grains, and fresh fruits and vegetables. ?Limit foods that are high in fat and processed sugars, such as fried or sweet foods. Incision care Check your incision area every day for signs of infection. Check for: ?More fluid or blood coming from your vagina. ?Pus or a bad-smelling discharge from your vagina. Do not take baths, swim, or use a hot tub until your health care provider approves. You may take showers. Keep the area between your vagina and rectum (perineal area) clean and dry. Make sure you clean the area after every bowel movement and each time you urinate. Ask your health care provider if you can take a sitz bath or sit in a tub of clean, warm water. Activity Rest as told by your health care provider. Avoid sitting for a long time without moving. Get up to take short walks every 1 2 hours. This is important to improve blood flow and breathing. Ask for help if you feel weak or unsteady. Avoid activities that take a lot of effort. Limit stair climbing to once or twice a day in the first week, then slowly increase this activity. Do not lift anything that is heavier than 5 lb (2.3 kg), or the limit that you are told, until your health care provider says that it is safe. Avoid pushing or pulling motions. Avoid standing for long periods of time. Do not drive until your health care provider says that it is safe. Return to your normal activities as told by your health care provider. Ask your health care provider what activities are safe for you. General instructions You may be instructed to do pelvic floor exercises (Kegel exercises). Do them as told by your health care provider. Avoid sex for several weeks after surgery. Do not douche or use tampons until your health care provider says it is okay. Wear compression stockings as told by your health care provider. These stockings help to prevent blood clots and reduce swelling in your legs. Keep all follow-up visits. This is important. Contact a health care provider if: Medicine does not help your pain. You have frequent or urgent urination, or you are unable to completely empty your bladder. You feel a burning sensation when urinating. You have more fluid or blood coming from your vaginal area. You have pus or a bad-smelling discharge coming from the vaginal area. Get help right away if: You cannot urinate. You have a fever or chills. You have trouble breathing. These symptoms may represent a serious problem that is an emergency. Do not wait to see if the symptoms will go away. Get medical help right away. Call your local emergency services (911 in the [place] Do not drive yourself to the hospital. Summary After the procedure, it is common to have pain, tiredness (fatigue), and vaginal spotting and discharge. Take medicines only as told by your health care provider. Ask your health care provider whether your medicines may cause constipation or require you to avoid driving or using machinery. Keep the area between your vagina and rectum (perineal area) area clean and dry. Clean the area after every bowel movement and each time you urinate. Rest after the procedure. Avoid activities that require a lot of effort, and do not lift heavy objects. Get help right away if you have trouble breathing, you have a fever or chills, or you cannot urinate. This information is not intended to replace advice given to you by your health care provider. Make sure you discuss any questions you have with your health care provider. Document Revised: 07/30/2020 Document Reviewed: 07/30/2020 [employer] Patient Education 2023 [employer]. Follow Up Care 02/17/2024 11:28:11 With:Sherry Velasquez Address: [address] [address]- Business (1) When: Unknown [facility] 03-09-2024 Note Progress Note-Physic concepcion Patient: TAMY SAL Age: 53 years Sex: Female : 1970 Associated Diagnoses: None Author: Brigido Talbert MD Postoperative Information Postoperative disposition: Postoperative disposition: To PACU. Optimetrix number: Optimetrix number [id number]. Anesthetic utilized: General. Health Status Allergies: Allergic Reactions (Selected) No Known Allergies Physical Examination Vital Signs 03/09/2024 13:29 EST Heart Rate Monitored 61 bpm SpO2 100 % 03/09/2024 13:29 EST Systolic Blood Pressure 120 mmHg Diastolic Blood Pressure 79 mmHg Mean Arterial Pressure, Monitered 93 mmHg 03/09/2024 12:29 EST Heart Rate Monitored 70 bpm SpO2 100 % 03/09/2024 12:28 EST Systolic Blood Pressure 125 mmHg Diastolic Blood Pressure 79 mmHg Blood Pressure Location Right arm Mean Arterial Pressure, Monitered 95 mmHg 03/09/2024 12:28 EST Respiratory Rate 18 br/min 03/09/2024 12:28 EST SpO2 98 % 03/09/2024 12:20 EST Temperature Temporal Artery 36.3 DegC Heart Rate Monitored 77 bpm Respiratory Rate Monitored 17 br/min Systolic Blood Pressure 114 mmHg Diastolic Blood Pressure 72 mmHg Blood Pressure Location Right arm Mean Arterial Pressure, Cuff 86 mmHg SpO2 99 % Pain Assessment: Controlled. General: Awake, Appropriate. Respiratory: Adequate air exchange. Cardiovascular: Stable. Neurological Assessment Anesthetic outcome No anesthetic complications noted. Adequate pain relief. Review / Management Condition: Stable. Plan Transfer/Discharge: Transfer/Discharge Discharge when meets criteria ( To home ). [facility] Comment on above: Result Comment: Elec tronically Signed By: Brigido Talbert MD\.br\Date and Time Signed: 03/09/24 14:18 EST 03-09-2024 Evaluation + Plan note Extrac bj from: Title:ANES Post-operative Note---General Author: Brigido Talbert MD Date:03/09/24 Plan Transfer/Discharge: Transfer/Discharge Discharge when meets criteria ( To home ). Extracted from: Title:ANES Pre-operative Note 2022 Author:Brigido Whyte Date:03/09/24 Plan [place] [employer] (ASA) physical status classification: Class II. Anesthetic Preoperative Plan: Anesthesia General. [facility] 01-23-2025 NotePatient Education - Text Obstetrics and Gynecology Anterior and Posterior Colporrhaphy, Care After The following information offers guidance on how to care for yourself after your procedure. Your health care provider may also give you more specific instructions. If you have problems or questions, contact your health care provider. What can I expect after the procedure? After the procedure, it is common to have: ??? Pain in the surgical area. ??? Vaginal spotting and discharge. You will need to use a sanitary pad during this time. ??? Tiredness (fatigue). Follow these instructions at home: Medicines ??? Take jjne-wdf-qymxrgb and prescription medicines only as told by your health care provider. ??? Ask your health care provider if the medicine prescribed to you: ? Requires you to avoid driving or using machinery. ? Can cause constipation. You may need to take these actions to prevent or treat constipation: ? Drink enough fluid to keep your urine pale yellow. ? Take vhzk-lhk-krqsyki or prescription medicines. ? Eat foods that are high in fiber, such as beans, whole grains, and fresh fruits and vegetables. ? Limit foods that are high in fat and processed sugars, such as fried or sweet foods. Incision care ??? Check your incision area every day for signs of infection. Check for: ? More fluid or blood coming from your vagina. ? Pus or a bad-smelling discharge from your vagina. ??? Do not take baths, swim, or use a hot tub until your health care provider approves. You may take showers. ??? Keep the area between your vagina and rectum (perineal area) clean and dry. Make sure you cleanthe area after every bowel movement and each time you urinate. ??? Ask your health care provider if you can take a sitz bath or sit in a tub of clean, warm water. Activity ??? Rest as told by your health care provider. ??? Avoid sitting for a long time without moving. Get up to take short walks every 1?2 hours. This is important to improve blood flow and breathing. Ask for help if you feel weak or unsteady. ??? Avoid activities that take a lot of effort. ??? Limit stair climbing to once or twice a day in the first week, then slowly increase this activity. ??? Do not lift anything that is heavier than 5 lb (2.3 kg), or the limit that you are told, until your health care provider says that it is safe. Avoid pushing or pulling motions. ??? Avoid standing for long periods of time. ??? Do not drive until your health care provider says that it is safe. ??? Return to your normal activities as told by your health care provider. Ask your health care provider what activities are safe for you. General instructions ??? You may be instructed to do pelvic floor exercises (Kegel exercises). Do them as told by your health care provider. ??? Avoid sex for several weeks after surgery. ??? Do not douche or use tampons until your health care provider says it is okay. ??? Wear compression stockings as told by your health care provider. These stockings help to prevent blood clots and reduce swelling in your legs. ??? Keep all follow-up visits. This is important. Contact a health care provider if: ??? Medicine does not help your pain. ??? You have frequent or urgent urination, or you are unable to completely empty your bladder. ??? You feel a burning sensation when urinating. ??? You have more fluid or blood coming from your vaginal area. ??? You have pus or a bad-smelling discharge coming from the vaginal area. Get help right away if: ??? You cannot urinate. ??? You have a fever or chills. ??? You have trouble breathing. These symptoms may represent a serious problem that is an emergency. Do not wait to see if the symptoms will go away. Get medical help right away. Call your local emergency services (911 in the [place] Do not drive yourself to the hospital. Summary ??? After the procedure, it is common to have pain, tiredness (fatigue), and vaginal spotting and discharge. ??? Take medicines only as told by your health care provider. Ask your health care provider whetheryour medicines may cause constipation or require you to avoid driving or using machinery. ??? Keep the area between your vagina and rectum (perineal area) area clean and dry. Clean the areaafter every bowel movement and each time you urinate. ??? Rest after the procedure. Avoid activities that require a lot of effort, and do not lift heavy objects. ??? Get help right away if you have trouble breathing, you have a fever or chills, or you cannot urinate. This information is not intended to replace advice given to you by your health care provider. Make sure you discuss any questions you have with your health care provider. Document Revised: 07/30/2020 Document Reviewed: 07/30/2020 [employer] Patient Education ? 2023 [employer].[facility] 03-09-2024 NotePatient Education - Text Obstetrics and Gynecology Anterior and Posterior Colporrhaphy, Care After The following information offers guidance on how to care for yourself after your procedure. Your health care provider may also give you more specific instructions. If you have problems or questions, contact your health care provider. What can I expect after the procedure? After the procedure, it is common to have: ??? Pain in the surgical area. ??? Vaginal spotting and discharge. You will need to use a sanitary pad during this time. ??? Tiredness (fatigue). Follow these instructions at home: Medicines ??? Take tgfn-rcn-lidhpok and prescription medicines only as told by your health care provider. ??? Ask your health care provider if the medicine prescribed to you: ? Requires you to avoid driving or using machinery. ? Can cause constipation. You may need to take these actions to prevent or treat constipation: ? Drink enough fluid to keep your urine pale yellow. ? Take qjbu-cgk-szdhmym or prescription medicines. ? Eat foods that are high in fiber, such as beans, whole grains, and fresh fruits and vegetables. ? Limit foods that are high in fat and processed sugars, such as fried or sweet foods. Incision care ??? Check your incision area every day for signs of infection. Check for: ? More fluid or blood coming from your vagina. ? Pus or a bad-smelling discharge from your vagina. ??? Do not take baths, swim, or use a hot tub until your health care provider approves. You may take showers. ??? Keep the area between your vagina and rectum (perineal area) clean and dry. Make sure you cleanthe area after every bowel movement and each time you urinate. ??? Ask your health care provider if you can take a sitz bath or sit in a tub of clean, warm water. Activity ??? Rest as told by your health care provider. ??? Avoid sitting for a long time without moving. Get up to take short walks every 1?2 hours. This is important to improve blood flow and breathing. Ask for help if you feel weak or unsteady. ??? Avoid activities that take a lot of effort. ??? Limit stair climbing to once or twice a day in the first week, then slowly increase this activity. ??? Do not lift anything that is heavier than 5 lb (2.3 kg), or the limit that you are told, until your health care provider says that it is safe. Avoid pushing or pulling motions. ??? Avoid standing for long periods of time. ??? Do not drive until your health care provider says that it is safe. ??? Return to your normal activities as told by your health care provider. Ask your health care provider what activities are safe for you. General instructions ??? You may be instructed to do pelvic floor exercises (Kegel exercises). Do them as told by your health care provider. ??? Avoid sex for several weeks after surgery. ??? Do not douche or use tampons until your health care provider says it is okay. ??? Wear compression stockings as told by your health care provider. These stockings help to prevent blood clots and reduce swelling in your legs. ??? Keep all follow-up visits. This is important. Contact a health care provider if: ??? Medicine does not help your pain. ??? You have frequent or urgent urination, or you are unable to completely empty your bladder. ??? You feel a burning sensation when urinating. ??? You have more fluid or blood coming from your vaginal area. ??? You have pus or a bad-smelling discharge coming from the vaginal area. Get help right away if: ??? You cannot urinate. ??? You have a fever or chills. ??? You have trouble breathing. These symptoms may represent a serious problem that is an emergency. Do not wait to see if the symptoms will go away. Get medical help right away. Call your local emergency services (911 in the [place] Do not drive yourself to the hospital. Summary ??? After the procedure, it is common to have pain, tiredness (fatigue), and vaginal spotting and discharge. ??? Take medicines only as told by your health care provider. Ask your health care provider whetheryour medicines may cause constipation or require you to avoid driving or using machinery. ??? Keep the area between your vagina and rectum (perineal area) area clean and dry. Clean the areaafter every bowel movement and each time you urinate. ??? Rest after the procedure. Avoid activities that require a lot of effort, and do not lift heavy objects. ??? Get help right away if you have trouble breathing, you have a fever or chills, or you cannot urinate. This information is not intended to replace advice given to you by your health care provider. Make sure you discuss any questions you have with your health care provider. Document Revised: 07/30/2020 Document Reviewed: 07/30/2020 [employer] Patient Education ? 2023 [employer].[facility] 03-09-2024 NoteProgress Note-Physician Patient: TAMY SAL Age: 53 years Sex: Female : 1970 Associated Diagnoses: None Author: Nitish DELGADO, Brigido Goldsmith Preoperative Information Anesthesia Preop Info: Time patient last ate or drank 03/09/2024 00:00:00. Anesthesia history: Patient history: None. Family history+: None. Informed consent: Signed by patient. Re-evaluation prior to induction: Initial evaluation reviewed: No significant change. Review of Systems Eye Ear/Nose/Mouth/Throat Respiratory: No shortness of breath, No cough. Cardiovascular: Negative. Gastrointestinal: No heartburn. Musculoskeletal Neurologic Health Status Allergies: Allergic Reactions (Selected) No Known Allergies, Allergies (1) Active Severity Reaction No Known Allergies None Documented Current medications: (Selected) Inpatient Medications Ordered HYDROmorphone 1 mg/mL injectable solution: 0.4 mg = 0.4 mL, Injection, IV Push, q4min PRN Pain for 5 dose(s), Stop date Limited # of times, Routine, Start date 03/09/24 10:20:00 EST, 03/09/24 10:20:00 EST Lactated Ringers IV Yanni 1000 mL 1,000 mL: 1,000 mL, IV, 100 mL/hr, Routine, Start date 03/09/24 10:20:00 EST, 10 hour(s), Total volume (mL): 1,000, 73.6 kg, 1.87, m2 Sodium Chloride 0.9% IV Yanni 1000 mL 1,000 mL: 1,000 mL, IV, 150 mL/hr, Routine, Start date 259:30:00 EST, 6.7 hour(s), Total volume (mL): 1,000, 73.6 kg, 1.87, m2 promethazine additive 12.5 mg + Sodium Chloride 0.9% IV Yanni 50 mL (INT) 50 mL: IV Piggyback, Once PRN Nausea/Vomiting, Routine, Start date 03/09/24 10:20:00 EST, 151.5 mL/hr, Infuse over 20 minute(s), 03/09/24 10:20:00 EST Documented Medications Documented Pantoprazole [address] Tab: 40 mg = 1 tab(s), Oral, BID Potassium Chloride (Eqv-K-Tab) 20 mEq oral tablet, extended release: 40 mEq = 2 tab(s), Oral, Daily amiloride 5 mg oral tablet: 5 mg = 1 tab(s), Oral, Daily estradiol 0.5 mg Tab: 0.5 mg = 1 tab(s), Oral, Daily ferrous sulfate 325 mg Tab: 325 mg = 1 tab(s), Oral, BID oxybutynin 5 mg ER Tab: 5 mg = 1 tab(s), Oral, Daily, Home Medications (6) Active amiloride 5 mg oral tablet 5 mg = 1 tab(s), Oral, Daily estradiol 0.5 mg Tab 0.5 mg = 1 tab(s), Oral, Daily ferrous sulfate 325 mg Tab 325 mg = 1 tab(s), Oral, BID oxybutynin 5 mg ER Tab 5 mg = 1 tab(s), Oral, Daily Pantoprazole [address] Tab 40 mg = 1 tab(s), Oral, BID Potassium Chloride (Eqv-K-Tab) 20 mEq oral tablet, extended release 40 mEq = 2 tab(s), Oral, Daily , Medications (4) Active Scheduled: (0) Continuous: (2) Lactated Ringers 1,000 mL 1,000 mL, IV, 100 mL/hr Sodium Chloride 0.9% 1,000 mL 1,000 mL, IV, 150 mL/hr PRN: (2) HYDROmorphone 1 mg/mL SOLN [F] 0.4 mg 0.4 mL, IV Push, q4min promethazine 12.5 mg + Sodium Chloride 0.9% 50 mL 12.5 mg 0.5 mL, IV Piggyback, Once Problem list: All Problems Abnormal kidney function / SNOMED CT 74108152 / Confirmed Arthritis / SNOMED CT 4148834 / Confirmed Menopause / SNOMED CT 190335621 / Confirmed Raynaud disease / SNOMED CT 279029914 / Confirmed, Active Problems (4) Abnormal kidney function Arthritis Menopause Raynaud disease Histories Past Medical History: No active or resolved past medical history items have been selected or recorded. Family History: No family history items have been selected or recorded. Procedure history: Appendectomy (821035689). Endometrial ablation (027179505). Partial hysterectomy (9678165768). Social History Social & Psychosocial Habits Alcohol 02/29/2024 Use: Current Frequency: 1-2 times per week Substance Abuse 02/29/2024 Risk Assessment: Denies Substance Abuse Tobacco 02/29/2024 Risk Assessment: Denies Tobacco Use . Physical Examination Vital Signs 03/09/2024 9:45 EST Heart Rate Monitored 59 bpm LOW Systolic Blood Pressure 120 mmHg Diastolic Blood Pressure 74 mmHg Blood Pressure Location Left arm Mean Arterial Pressure, Monitered 89 mmHg 03/09/2024 9:45 EST Apical Heart Rate 60 bpm 03/09/2024 9:44 EST Heart Rate Monitored 58 bpm LOW SpO2 99 % 03/09/2024 9:43 EST Respiratory Rate 16 br/min 03/09/2024 9:43 EST Temperature Axillary 36.6 DegC Systolic Blood Pressure 133 mmHg Diastolic Blood Pressure 77 mmHg Blood Pressure Location Right arm Mean Arterial Pressure, Monitered 96 mmHg Vital Signs (last 24 hrs) Last Charted Temp Axillary 36.6 DegC (MAR 09 09:43) Heart Rate Monitored L 59 bpm (MAR 09 09:45) SBP 120 mmHg (MAR 09 09:45) DBP 74 mmHg (MAR 09 09:45) Measurements from flowsheet : Measurements 03/09/2024 9:47 EST Height/Length Measured 171.2 cm Weight Measured 73.6 kg Airway: Mallampati classification: II (soft palate, fauces, uvula visible). Respiratory: Lungs are clear to auscultation, Respirations are non-labored, adequate air exchange. Cardiovascular: Regular rhythm, No murmur. Review / Management Results review: No qualifying data available . Plan [employer] (more content not included)...[facility] HospitalComment on above: Result Comment: Electronically Signed By: Nitish DELGADO, Brigido Goldsmith\.pearl\Date and Time Signed: 03/09/24 10:21 [id number] History of Present illness Narrative* Sherry Velasquez, - 02/29/2024 9:30 AM EST Images from the original note were not included. Subjective Tamy Sal is a 53 y.o. female HPI Chief Complaint Patient presents with Pre-op Visit Patient here for preop appt and follow up on Ditropan-XL for urge incontinence. Patient states thather symptoms are improving and is satisfied with current treatment. Patient states that she is not waking up as much anymore. Patient reports her cystocele has worsened, she can see the bulge now. Voiced interest in proceeding with surgical treatment of anterior vaginal repair Past Medical History: Diagnosis Date Low serum potassium level Menopause ovarian failure 2023 Migraines (CMS/HCC) Miscarriage Past Surgical History: Procedure Laterality Date APPENDECTOMY COLONOSCOPY DILATION AND CURETTAGE OF UTERUS HYSTERECTOMY 2015 LAVH/BSO VAGINAL DELIVERY x4 Family History Problem Relation Name Age of Onset Asthma Mother Yessenia Sharma Cancer Mother Yessenia Sharma Rheum arthritis Father Wesnallely Sharma Diabetes Father Wes Sharma Cancer Brother [place]kar[place] Sharma Diabetes Brother [place] Sharma Diabetes Sister Simran Lew Social History Tobacco Use Smoking status: Never Smokeless tobacco: Never Substance Use Topics Alcohol use: Yes Alcohol/week: 2.0 standard drinks of alcohol Types: 2 Cans of beer per week Drug use: Never OB History No obstetric history on file. No Known Allergies Current Outpatient Medications on File Prior to Visit Medication Sig Dispense Refill aMILoride (Midamor) 5 MG tablet estradiol (Estrace) 0.5 MG tablet Take 1 tablet (0.5 mg) by mouth Daily 90 tablet 3 etodolac (Lodine) 500 MG tablet TAKE 1 TABLET BY MOUTH TWICE A DAY Oral for 30 Days ferrous sulfate 325 (65 Fe) MG tablet Take 1 tablet by mouth in the morning and 1 tablet before bedtime. KLOR-CON 20 MEQ ER tablet Take 40 mEq by mouth in the morning and 40 mEq before bedtime. oxybutynin XL (Ditropan-XL) 5 MG 24 hr tablet TAKE 1 TABLET (5 MG) BY MOUTH DAILY DO NOT CRUSH, CHEW, OR SPLIT. 90 tablet 0 pantoprazole (ProtoNix) 40 MG EC tablet Take 40 mg by mouth in the morning and 40 mg before bedtime. triamcinolone (Kenalog) 0.1 % cream APPLY TO AFFECTED AREA EXTERNALLY TWICE DAILY FOR 30 DAYS No current facility-administered medications on file prior to visit. Review of Systems Constitutional: Negative for chills and fever. Respiratory: Negative for shortness of breath. Cardiovascular: Negative for chest pain. Gastrointestinal: Negative for nausea and vomiting. Genitourinary: Negative for dysuria, pelvic pain and vaginal discharge. Neurological: Negative for dizziness and headaches. Objective BP 124/78 Wt 163 lb BMI 25.15 kg/m Physical Exam Constitutional: Appearance: Normal appearance. She is well-developed. HENT: Head: Normocephalic and atraumatic. Cardiovascular: Rate and Rhythm: Normal rate and regular rhythm. Pulmonary: Effort: Pulmonary effort is normal. Breath sounds: Normal breath sounds. Musculoskeletal: Right lower leg: No edema. Left lower leg: No edema. Neurological: General: No focal deficit present. Mental Status: She is alert and oriented to person, place, and time. Skin: General: Skin is warm and dry. Psychiatric: Mood and Affect: Mood and affect normal. Assessment/Plan 1. Preoperative exam for gynecologic surgery (Primary) Anterior vaginal repair procedure discussed. Risks of but not limited to pain, bleeding, infections, and injury to surrounding structures (bladder, bowel, vagina, etc.) discussed. Patient voiced understanding and informed consent signed 2. Cystocele, midline 3. Urge incontinence Improving, continue current treatment. Patient to contact the office when refills needed 4. Postmenopausal HRT (hormone replacement therapy) Continue current treatment 5. Follow-up encounter involving medication documented in this encounterSaint [facility]'s [facility] Health [id number] History of Present illness Narrative* Sherry Velasquez DO - 12/29/2023 8:45 AM EST Images from the original note were not included. -[ Sherry Velasquez DO Obstetrics and Gynecology Name: Tamy Sal Date/Time of Service:12/29/2023 9:13 AM :1970 Age: 53 y.o. Subjective Tamy Sal is a 53 y.o. female who is here for a routine exam. Gynecologic Exam (Patient here for yearly. Patient reports that her bladder is dropping, she statesthat when she wipes she feels something there . She leaks urine when she cannot make it to the restroom in time and wakes up 1-2x per night. Does not wear a pad or liner. Mammogram order sent to [facility]. Colonoscopy 2019. Patient currently uses the Estradiol 0.5 MG tablet-needs refill. Would like to have her hormones checked. ) Control Contraception: status post hysterectomy. LMP: No LMP recorded. Patient is postmenopausal. Last Mammogram Results for orders placed in visit on 04/29/23 Bilateral screening mammogram with tomosynthesis Narrative THIS EXAM WAS PERFORMED AT [facility] EXAM: MAMM SCREENING BILATERAL W CAD, 04/29/2023 [...] masses, calcifications, or areas of architectural distortions. Impression No mammographic evidence of malignancy. BI-RADS: BI-RADS 1 - Negative Recommendation: Routine screening mammogram in 1 year. Finalized by Kimi Del Rosario MD on 04/29/2023 2:39 PM 1 a MAMM 1 YR Current Outpatient Medications on File Prior to Visit Medication Sig Dispense Refill triamcinolone (Kenalog) 0.1 % cream APPLY TO AFFECTED AREA EXTERNALLY TWICE DAILY FOR 30 DAYS etodolac (Lodine) 500 MG tablet TAKE 1 TABLET BY MOUTH TWICE A DAY Oral for 30 Days ferrous sulfate 325 (65 Fe) MG tablet Take 1 tablet by mouth in the morning and 1 tablet before bedtime. KLOR-CON 20 MEQ ER tablet Take 40 mEq by mouth in the morning and 40 mEq before bedtime. pantoprazole (ProtoNix) 40 MG EC tablet Take 40 mg by mouth in the morning and 40 mg before bedtime. [DISCONTINUED] aMILoride (Midamor) 5 MG tablet Take 5 mg by mouth in the morning. [DISCONTINUED] estradiol (Estrace) 0.5 MG tablet Take 1 tablet (0.5 mg) by mouth in the morning. 90tablet 3 No current facility-administered medications on file prior to visit. Past Medical History: Diagnosis Date Low serum potassium level Migraines (CMS/HCC) Miscarriage Past Surgical History: Procedure Laterality Date APPENDECTOMY COLONOSCOPY DILATION AND CURETTAGE OF UTERUS HYSTERECTOMY 2015 LAVH/BSO VAGINAL DELIVERY x4 No family history on file. Social History Tobacco Use Smoking status: Never Smokeless tobacco: Never Substance Use Topics Alcohol use: Yes Drug use: Never OB History No obstetric history on file. No Known Allergies Review of Systems Constitutional: Negative. Respiratory: Negative. Cardiovascular: Negative. Gastrointestinal: Negative. Musculoskeletal: Negative. Skin: Negative. Neurological: Negative. Endocrine: Negative. Objective BP 122/74 Wt 164 lb BMI 25.31 kg/m Body mass index is 25.31 kg/m . Physical Exam Genitourinary: Urethral meatus normal. No lesions in the vagina. Genitourinary Comments: Valsalva revealed stage II-III cystocele Right Labia: No lesions. Left Labia: No lesions. No vaginal discharge. Anterior vaginal prolapse present. Moderate vaginal atrophy present. Right Adnexa: not tender and no mass present. Left Adnexa: not tender and no mass present. Cervix is absent. Uterus is absent. No urethral stress urinary incontinence with cough stress test present. Bladder is not tender. Rectum: No rectovaginal septum nodularity. Breasts: Right: No mass, nipple discharge, skin change or tenderness. Left: No mass, nipple discharge, skin change or tenderness. HENT: Head: Normocephalic and atraumatic. Mouth/Throat: Mouth: Mucous membranes are moist. Cardiovascular: Rate and Rhythm: Normal rate and regular rhythm. Pulmonary: Effort: Pulmonary effort is normal. Breath sounds: Normal breath sounds. Abdominal: General: Bowel sounds are normal. Palpations: Abdomen is soft. Musculoskeletal: General: No tenderness. Cervical back: Neck supple. Neurological: Mental Status: She is alert and oriented to person, place, and time. Skin: General: Skin is warm and dry. Psychiatric: Mood and Affect: Mood normal. Vitals and nursing note reviewed. Assessment/Plan 1. Encounter for gynecological examination without abnormal finding (Primary) Breast and pelvic exam performed. Discussed findings. Patient to contact the office with any changes to her gynecological condition. 2. Other screening mammogram Mammogram order sent. Patient to schedule appointment - Bilateral screening mammogram with tomosynthesis; Future 3. Cystocele, midline Discussed findings, worsened compared to last yearly. Stressed the importance of complete bladder emptying and avoiding long periods between voiding. Treatment/management options discussed: continue observation vs. Surgical treatment of anterior vaginal repair. Patient voiced understanding 4. Postmenopausal HRT (hormone replacement therapy) Continue current treatment. Refill Rx sent - estradiol (Estrace) 0.5 MG tablet; Take 1 tablet (0.5 mg) by mouth Daily Dispense: 90 tablet; Refill: 3 5. Hot flashes Improving - estradiol (Estrace) 0.5 MG tablet; Take 1 tablet (0.5 mg) by mouth Daily Dispense: 90 tablet; Refill: 3 6. Mood swings Considering hormonal panel, will contact the office if she decides to proceed with the hormone panel blood work 7. Urge incontinence Myrbetriq Rx sent, will reassess symptoms at the next office visit - mirabegron ER (Myrbetriq) 25 MG 24 hr tablet; Take 1 tablet (25 mg) by mouth at bedtime Do not crush, chew, or split. Dispense: 30 tablet; Refill: 2 8. Hx of hysterectomy for benign disease ICD-10-CM 1. Encounter for gynecological examination without abnormal finding Z01.419 2. Other screening mammogram Z12.31 Bilateral screening mammogram with tomosynthesis 3. Cystocele, midline N81.11 4. Postmenopausal HRT (hormone replacement therapy) Z79.890 estradiol (Estrace) 0.5 MG tablet 5. Hot flashes R23.2 estradiol (Estrace) 0.5 MG tablet 6. Mood swings R45.86 7. Urge incontinence N39.41 mirabegron ER (Myrbetriq) 25 MG 24 hr tablet 8. Hx of hysterectomy for benign disease Z90.710 Follow up in about 2 months (around 02/28/2024) for med f/u. 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 She has negative w/u for Hyperaldosteronism and [place]. Her potassium is within the normal limit. [...] within normal. Continue oral iron. Apr, GERD (gastroesophageal reflux disease) (ICD-10 - K21.9) Continue pantoprazole. Explained to her potential risk of worsening renal function due to its prolonged use. She she understood and verbalized information and would like to continue with close monitoring of renal function. 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 She has negative w/u for Hyperaldosteronism and [place]. Her potassium is within the normal limit. Continue current dose of the potassium chloride and amiloride. Apr, Metabolic alkalosis (ICD-10 - E87.3) Her bicarbonate is within the acceptable range. No need for any intervention Apr, Renal cyst (ICD-10 - Q61.00) She has likely simple cyst on renal US. No more w/u needed e994 Other 07-01-2015 History general Narrative - Reported* Type Description Date Medical History low potassium Surgical History hysterectomy 08/2014 Surgical History appendectomy Surgical History Right hand 5 th finger cyst [place] 04/2017 Hospitalization History see above Hospitalization History 4 child births e994 Other 07-01-2015 History general Narrative - Reported* Type Description Date Medical History low potassium Medical History METABOLIC ALKALOSIS Medical History HYPOKALEMIA DUE TO LOSS OF POTAS [facility] Medical History RENAL CYST Surgical History hysterectomy 08/2014 Surgical History appendectomy Surgical History Right hand 5 th finger cyst rem [place] 04/2017 Hospitalization History see above Hospitalization History 4 child births e994 Other Evaluation + Plan note Future Appointments Appointment Date:03/09/2024 10:30:00 AM Scheduled Provider: Location:[facility] Services Appointment Type:Surgery FT [facility] Evaluation noteNo InformationNort SIRS-Lab Other Evaluation note* Diagnosis Onset Date Resolution Status GERD (gastroesophageal reflux disease) acute Hypokalemia acute Iron deficiency acute Metabolic alkalosis acute Renal cyst acute [facility] Work Phone: Evaluation note* Diagnosis Onset Date Resolution Status Hypokalemia acute Metabolic alkalosis acute [facility] Work Phone: Evaluation note* Diagnosis Encounter for gynecological examination without abnormal finding- Primary Other screening mammogram Cystocele, midline Postmenopausal HRT (hormone replacement therapy) Need for prophylactic hormone replacement therapy (postmenopausal) Hot flashes Mood swings Other specified episodic mood disorder Urge incontinence Hx of hysterectomy for benign disease documented in this encounter [facility]* Diagnosis Urge incontinence documented in this encounter [facility]* Diagnosis Preoperative exam for gynecologic surgery- Primary Cystocele, midline Urge incontinence Postmenopausal HRT (hormone replacement therapy) Need for prophylactic hormone replacement therapy (postmenopausal) Follow-up encounter involving medication documented in this encounter [facility]Evaluation [facility]* Diagnosis Follow-up examination after gynecological surgery- Primary Cystocele, midline documented in this encounter [facility] HealthcareHospital course Narrative No data available for this section [facility] Hospital Discharge instructions No data available for this section [facility] Progress note No data available for this section [facility] Summary Purpose Family History Relationship Condition Age at Onset Recorded Date/T taz brother Unknown Malignant neoplasm Unknown father Heart disease Unknown Diabetes mellitus Unknown family member Unknown sister Diabetes mellitus Unknown Advance Directives Advance Directive Response Recorded Date/ Time Advance Directives No May 29 12:41pm Advance Directive Response Recorded Date/ Time Advance Directives No May 29 1:41pm Chief Complaint and Reason for Visit Chief Complaint renal 1 year f/u Reason for Visit GERD (gastroesophage al reflux disease) Hypokalemia Iron deficiency Metabolic alkalosis Renal cyst Chief Complaint RENAL 6 MONTH F/U Reason for Visit Hypokalemia Metabolic alkalosis Additional Source Comments INFORMATION SOURCE (unrecogn ized section and content) DATE CREATED AUTHOR 04/14/2019 [facility] DATE CREATED AUTHOR AUTHOR'S ORGANIZ ATION 07/23/[address] [facility] DATE CREATED AUTHOR AUTHOR'S ORGANIZ ATION 04/03/2022 [facility] DATE CREATED AUTHOR AUTHOR'S ORGANIZ ATION 03/03/2024 [facility] DATE CREATED AUTHOR AUTHOR'S ORGANIZ ATION 03/03/2024 [facility] DATE CREATED AUTHOR AUTHOR'S ORGANIZ ATION 03/11/2024 Janes Gratiot [facility] DATE CREATED AUTHOR AUTHOR'S ORGANIZ ATION 03/14/2024 Janes Gratiot [facility] DATE CREATED AUTHOR AUTHOR'S ORGANIZ ATION 03/30/2024 [facility] REASON FOR VISIT (unrecogniz ed section and content) Reason Comments Gynecologic Exam Patient here for paula mendez. Patient reports that her bladder is dropping, she states that when she wipes she feels something there . She leaks urine when she cannot make it to the restroom in time and wakes up 1-2x per night. Does not wear a pad or liner. Mammogram order sent to [facility]. Colonoscopy 2019. Patient currently uses the Estradiol 0.5 MG tablet-needs refill. Would like to have her hormones checked. Reason Comments Med Change Request Reason Comments Pre-op Visit Patient here for pre op appt and follow up on Ditropan-XL for urge incontinence. Patient states that her symptoms are improving and is satisfied with current treatment. Patient states that she is not waking up as much anymore. Patient reports her cystocele has worsened, she can see the bulge now. Voiced interest in proceeding with surgical treatment of anterior vaginal repair Reason Comments Post-op Visit Patient is here for 3 week post op. She had anterior vaginal repair on 03/09/24 secondary to stage II-III cystocele. Patient states she did have some pain/discomfort on Wednesday which went away and one episode of bright red bleeding while wiping which subsided. Pt was seen in ED on Wednesday morning for chest/arm pain. Pt states no problems were found and she was discharged home the same day. Pt denies pain at this time denies further bleeding. Pt has follow up with PCP this day for ED follow up Care Teams (unrecognized sec tion and content) Team Status: Active Member Role Status Dates Eric Johnston MD Primary Care Provider Active Team Status: Active Member Role Status Dates Eric Johnston MD Primary Care Provider Active Start: October 09, 2023 Ledy Rivero MD Attending Provider Active Start : October 09, 2023 Team Status: Inactive Member Role Status Dates Eric Johnston MD Primary Care Provider Active Start: October 13, 2023 End: October 13, 2023 Ledy Rivero MD Attending Provider Active Start : October 13, 2023 End: October 13, 2023 Team Status: Inactive Member Role Status Dates Eric Johnston MD Primary Care Provider Active Start: April 01, 2023 End: April 01, 2023 Ledy Rivero MD Attending Provider Active Start : April 01, 2023 End: April 01, 2023 Business Unit Manager Relationship Specialty Start Date End Date Eric Johnston MD [address] [place] [address] PCP - General Family Medicine 11/16/22 Business Unit Manager Relationship Specialty Start Date End Date Eric Johnston MD [address] [place] [facility] [place] [address] PCP - General Family Medicine 11/16/22 Business Unit Manager Relationship Specialty Start Date End Date Eric Johnston MD [address] [place] [facility] [place] [address] PCP - General Family Medicine 11/16/22 Business Unit Manager Relationship Specialty Start Date End Date Eric Johnston MD [address] [place] [facility] [place] [address] PCP - General Family Medicine 11/16/22 Business Unit Manager Relationship Specialty Start Date End Date Eric Johnston MD [address] [place] [facility] [place] [address] PCP - General Family Medicine 11/16/22 Goals (unrecognized section and content) Goals may [...] BE BASED ON THE PRIMARY CLINICAL RECORDS. [employer] [facility]. provides no warranty or guarantee of the accuracy or completeness of information in this document.
[2024-04-01 07:37] LABS: Basophils Percent Auto 0.6 % (0.2-2.0); Eosinophils Absolute Auto 0.3 10^3/uL (0.0-0.7); Eosinophils Percent Auto 4.5 % (0.9-7.0); Hematocrit 40.7 % (36.0-48.0); Hemoglobin 13.8 g/dL (12.0-16.0); Immature Granulocytes Abs Auto 0.02 10^3/uL (0.00-0.03); Immature Granulocytes Pct Auto 0.3 % (0.0-0.5); Lymphocytes Absolute Auto 2.6 10^3/uL (1.2-3.8); Lymphocytes Percent Auto 36.5 % (20.5-60.0); Mean Corpuscular HGB Conc 33.9 g/dL (29.9-35.2); Mean Corpuscular Hemoglobin 31.6 pg (26.7-34.0); Mean Corpuscular Volume 93.1 fL (81.0-99.0); Mean Platelet Volume 8.8 fL (9.5-13.5); Monocytes Absolute Auto 0.5 10^3/uL (0.3-0.8); Monocytes Percent Auto 7.5 % (1.7-12.0); Neutrophils Absolute Auto 3.6 10^3/uL (1.4-6.5); Neutrophils Percent Auto 50.6 % (43.0-75.0); Platelet Count 336 10^3/uL (150-450); Red Blood Count 4.37 10^6/uL (4.20-5.40); Red Cell Distribution Width 12.6 % (11.0-15.0); White Blood Count 7.2 10^3/uL (4.0-11.0)
[2024-04-01 07:46] LABS: Estimated Average Glucose 126 mg/dL
[2024-04-01 08:32] LABS: Alanine Aminotransferase 47 U/L (14-59); Albumin Globulin Ratio 0.9; Albumin Level 3.4 g/dL (3.4-5.0); Alkaline Phosphatase 57 U/L (46-116); Anion Gap 8.9; Aspartate Amino Transferase 34 U/L (15-37); BUN Creatinine Ratio 13.9; Bilirubin Total 0.6 mg/dL (0.2-1.0); Calcium 9.2 mg/dL (8.5-10.1); Carbon Dioxide 30.3 mmol/L (21.0-32.0); Chloride 103 mmol/L (98-107); Chol HDL Ratio 3.2; Cholesterol 123 mg/dL (<=200); Estimated GFR (African America >60 (>=60 mL/min/1.73m^2); Estimated GFR (Non-African Ame 57 (>=60 mL/min/1.73m^2); Globulin 3.7 g/dL; Glucose 125 mg/dL (74-106); HDL Cholesterol 39 mg/dL (40-60); Magnesium 2.1 mg/dL (1.8-2.4); Potassium 4.2 mmol/L (3.5-5.1); Sodium 138 mmol/L (136-145); Thyroid Stimulating Hormone 1.342 uIU/mL (0.358-3.740); Total Protein 7.1 g/dL (6.4-8.2); Triglycerides 106 mg/dL (<=150); VLDL CHOLESTEROL 21.2 mg/dL
[2024-04-01 17:06] LABS: Internal Control Within Normal Limits; Occult Blood Positive
== END 2024-04-01 07:03 | disposition home or self-care (01) ==
LOC: LAB 07:02
PROVIDERS: PCP Family Medicine; Visit Provider Family Medicine
DX: Z00.00 Encounter for general adult medical examination without abnormal findings (principal); E87.6 Hypokalemia; E87.3 Alkalosis
CPT/HCPCS: 36415; 80053; 80061; 81001; 82306; 82570; 83036; 83540; 83735; 84100; 84156; 84436; 84443; 84481; 85025; G0328

== ENCOUNTER 2024-04-01 07:05 | Outpatient (OUT) | payer OTHER, SELFPAY ==
--- OUTSIDE RECORDS SUMMARY | 2024-04-01 07:08 | XMS_ITS | CCD ---
Author Organization [facility] Care Team Providers Care Key Person Name Role Phone Ledy Rivero Unavailable RAFAEL, [...] Unavailable Eric Johnston MD Primary Care Provider Eric Johnston Primary Care Physician [phone] DO Sherry Velasquez. Admitting Unavaila DO Sherry [...] q6hr, # 50 tab(s), Refills(s) 1, Pharmacy: [facility]/pharmacy #[id number], 171.2, cm, 02/29/24 12:35:00 EST, Height/Length [...] constipation, # 20 cap(s), Refills(s) 1, Pharmacy: [facility]/pharmacy #[id number], 171.2, cm, 02/29/24 12:35:00 EST, Height/Length Dosing, [...] q6hr, # 60 tab(s), Refills(s) 1, Pharmacy: [facility]/pharmacy #[id number], 171.2, cm, 02/29/24 12:35:00 EST, Height/Length [...] Ordered Start: 04-01-2023 take 2 tablets by [facility] once daily Pantoprazole Active 80 MG PO Daily April 01, 2023 1:00am FreeText[employer] TABLETS Orally Once a day; Note: Source Status: Taking; Provider: Mat Villafana ( ) take 1 tablet by elva in the morning pantoprazole (ProtoNix) 40 MG EC tablet Take 40 mg by mouth in the morning and 40 mg before bedtime. 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 ([id number]) [address], [address] [place] [address] Calcium [Mass/Vol] 9.1 mg/dL Normal 8.5-10.5 [facility] Comment on above: Performed By: #### C ABUNDIO, 70342-2, THYR, 305-0 #### [facility] ([id number]) [address], [address] [place] [address] Chloride [Moles/Vol] 106 mmol/L Normal 98-109 [facility] Comment on above: Performed By: #### C ABUNDIO, 76056-6, THYR, 305-0 #### [facility] ([id number]) [address], [address] [place] [address] CO2 [Moles/Vol] 26 mmol/L Normal 22-32 [facility] Comment on above: Performed By: #### C ABUNDIO, 19930-3, THYR, 305-0 #### [facility] ([id number]) [address], [address] [place] [address] Creatinine [Mass/Vol] 0.88 mg/dL Normal 0.40-1.00 [facility] Comment on above: Result Comment: METH OD TRACEABLE TO IDMS STANDARD Performed By: #### C ABUNDIO, 61083-7, THYR, 3050-0 #### [facility] ([id number]) [address], [facility] [address] [place] [address] GFR/1.73 sq M.predicted among non-blacks MDRD (S/P/Bld) [Vol rate/Area] 79 mL/min/{1.73_m2} Normal >59 [facility] Comment on above: Result Comment: Reported eGFR is based on the CKD-EPI 2020 equation that does not use a race coefficient. Performed By: #### C ABUNDIO, 28420-5, THYR, 3050-0 #### [facility] ([id number]) [address], [address] [place] [address] Glucose [Mass/Vol] 103 mg/dL High 65-99 [facility] Comment on above: Performed By: #### C ABUNDIO, 15698-8, THYR, 3050-0 #### [facility] ([id number]) [address], [address] [place] [address] Potassium [Moles/Vol] 4.0 mmol/L Normal 3.5-5.0 [facility] Comment on above: Performed By: #### C ABUNDIO, 63725-4, THYR, 305-0 #### [facility] ([id number]) [address], [address] [place] [address] Sodium [Moles/Vol] 139 mmol/L Normal 134-146 [facility] Comment on above: Performed By: #### C ABUNDIO, 42673-0, THYR, 305-0 #### [facility] ([id number]) [address] [address] [place] [address] Urea nitrogen [Mass/Vol] 15 mg/dL Normal 5-23 [facility] Comment on above: Performed By: #### C ABUNDIO, 00736-6, THYR, 305-0 #### [facility] ([id number]) [address] [address] [place] [address] CBC AND AUTO DIFFon 03-28-19 25 ABSOLUTE BASOPHIL 0.1 X10E9/L Normal 0.0-0.2 [facility] Comment on above: Performed By: #### C ABUNDIO, 99272-2, THYR, 3050-0 #### [facility] ([id number]) [address] [address] [place] [address] ABSOLUTE NEUTROPHIL 4.0 X10E9/L Normal 1.5-6.6 [facility] Comment on above: Performed By: #### C ABUNDIO, 20907-7, THYR, 3050-0 #### [facility] ([id number]) [address] [address] [place] [address] Basophils/100 WBC (Bld) 0.7 % Normal [facility] Comment on above: Performed By: #### C ABUNDIO, 41169-4, THYR, 3050-0 #### [facility] ([id number]) [address] [address] [place] [address] Eosinophils (Bld) [#/Vol] 0.3 10*3/uL Normal 0.0-0.4 [facility] Comment on above: Performed By: #### C ABUNDIO, 16637-7, THYR, 305-0 #### [facility] ([id number]) [address] [address] [place] [address] Eosinophils/100 WBC (Bld) 3.5 % Normal [facility] Comment on above: Performed By: #### C ABUNDIO, 38905-9, THYR, 305-0 #### [facility] ([id number]) [address] [address] [place] [address] Erythrocyte distribution width (RBC) [Ratio] 13.2 % Normal 11.5-15.0 [facility] Comment on above: Performed By: #### C ABUNDIO, 14872-6, THYR, 305-0 #### [facility] ([id number]) [address] [address] [place] [address] Hematocrit (Bld) [Volume fraction] 40.3 % Normal 35-47 [facility] Comment on above: Performed By: #### C ABUNDIO, 30220-1, THYR, 305-0 #### [facility] ([id number]) [address] [address] [place] [address] Hemoglobin (Bld) [Mass/Vol] 13.8 g/dL Normal 11.7-15.5 [facility] Comment on above: Performed By: #### C ABUNDIO, 98433-9, THYR, 305-0 #### [facility] ([id number]) [address] [address] [place] [address] Lymphocytes (Bld) [#/Vol] 2.9 10*3/uL Normal 1.0-3.5 [facility] Comment on above: Performed By: #### [place], 86507-7, THYR, 305-0 #### [facility] ([id number]) [address] [address] [place] [address] Lymphocytes/100 WBC (Bld) 37.3 % Normal [facility] Comment on above: Performed By: #### C MP, 15985-2, THYR, 3051-0 #### [facility] ([id number]) [address] [address] [place] [address] MCH (RBC) [Entitic mass] 31.2 pg Normal 27-34 [facility] Comment on above: Performed By: #### C ABUNDIO, 14576-1, THYR, 3051-0 #### [facility] ([id number]) [address], [facility] [address] [place] [address] MCHC (RBC) [Mass/Vol] 34.2 g/dL Normal 32-36 [facility] Comment on above: Performed By: #### C ABUNDIO, 06501-7, THYR, 3051-0 #### [facility] ([id number]) [address], [facility] [address] [place] [address] MCV (RBC) [Entitic vol] 91 fL Normal 80-100 [facility] Comment on above: Performed By: #### Jeannette DEL CASTILLO, 43112-5, THYR, 305-0 #### [facility] ([id number]) [address], [address] [place] [address] Monocytes (Bld) [#/Vol] 0.6 10*3/uL Normal 0-0.9 [facility] Comment on above: Performed By: #### C MP, 34211-5, THYR, 305-0 #### [facility] ([id number]) [address] [place] [address] Monocytes/100 WBC (Bld) 7.2 % Normal [facility] Comment on above: Performed By: #### C MP, 37154-5, THYR, 3051-0 #### [facility] ([id number]) [address] [address] [place] [address] Neutrophils/100 WBC (Bld) 51.3 % Normal [facility] Comment on above: Performed By: #### C ABUNDIO, 35542-9, THYR, 3051-0 #### [facility] ([id number]) [address], [address] [place] [address] Platelet mean volume (Bld) [Entitic vol] 7.2 fL Normal 7-12 [facility] Comment on above: Performed By: #### C ABUNDIO, 45985-9, THYR, 3051-0 #### [facility] ([id number]) [address], [facility] [address] [place] [address] Platelets (Bld) [#/Vol] 337 10*3/uL Normal 150-450 [facility] Comment on above: Performed By: #### C ABUNDIO, 59104-8, THYR, 3051-0 #### [facility] ([id number]) [address], [facility] [address] [place] [address] RBC COUNT 4.42 X10E12/L Normal 3.80-5.20 [facility] Comment on above: Performed By: #### C ABUNDIO, 61508-3, THYR, 3051-0 #### [facility] ([id number]) [address], [facility] [address] [place] [address] WBC (Bld) [#/Vol] 7.8 10*3/uL Normal 4.0-11.0 [facility] Comment on above: Performed By: #### C ABUNDIO, 35807-2, THYR, 3051-0 #### [facility] ([id number]) [address], [facility] [address] [place] [address] Fibrin D-dimer DDU (PPP) [Ma ss/Vol]on 03-28-2024 D DIMER <150 Normal <255 [facility] Comment on above: Result Comment: Results <255 ng/mL DDU: The presence of a VTE can safely be excluded with a negative D-Dimer result and Wells score. A negative result doesn't exclude the possibility of DIC. The test be repeated along with other diagnostic tests if the patient's symptoms persist or worsen. [email or web address] Performed By: #### C , 74442-2, THYR, 3051-0 #### [facility] ([id number]) [address] [place] [address] Troponin I.cardiac High sens itivity method [Mass/Vol]on 03-28-2024 1 HOUR TROP I, HIGH SENSITIVITY <2 Normal <16 [facility] Comment on above: Performed By: #### C MP, 49521-1, THYR, 3051-0 #### [facility] ([id number]) [address] [place] [address] TROPONIN I, HIGH SENSITIVITY <2 Normal <16 [facility] Comment on above: Performed By: #### C , 35305-6, THYR, 3051-0 #### [facility] ([id number]) [address] [place] [address] XR CHEST 1 VWon 03-28-2024 XR CHEST 1 VW XR CHEST 1 VW Single view chest History:chest pain Difficulty breathing, shortness of breath Comparison: 04/14/2013 Findings: Single portable view of the chest. Stable cardiac mediastinal silhouette. No focal opacity, effusion or pneumothorax. Impression: No evidence of acute cardiopulmonary process. Finalized by Luis Antonio Caldwell MD on 03/28/2024 10:56 AM Normal [facility] Surgical Pathology Reporton 03-13-2024 Surgical Pathology Report [address] [address]- Surgical Pathology Report Collected Date/Time: 03/09/2024 11:33 [...] No discrete lesions are grossly identified. A employer relations representative portion is submitted in 2 cassettes. (DC) DC:[facility] Microscopic Description Microscopic examination performed unless gross only specified. This report was transcribed using voice recognition technology and might contain unintended computerized executive officer special warfare team errors. Normal [facility] Comment on above: Performed By: #### [id number] #### [facility] [address] [place] [address] Main OR Intraoperative Recor don 03-10-2024 Main OR Intraoperative Record Main OR Intraoperative Record IntraOp Document Type FT Summary Primary Physician: Sherry Velasquez DO Finalized Date/Time: 03/10/24 10:52:58 Pt. Name: TAMY SAL/Sex: 1970 Female Med Rec #: [id number] Physician: Sherry Velasquez DO Financial #: [id number] Pt. Type: A Room/Bed: 06/15 Admit/Disch: 03/09/24 [...] 2 Entry 3 Case Attendee Foreign DIXON, WALLPAPER HANGER, [facility] DO, Sherry Murrieta RN, Va Luz Role Performed WALLPAPER HANGER Surgeon - Primary Cook Chief - Primary Time In 03/09/24 10:43:00 03/09/24 10:56:00 03/09/24 10:43:00 Time Out 03/09/24 11:53:00 03/09/24 11:48:00 03/09/24 11:53:00 Procedure ANTERIOR/POSTERIOR ANTERIOR/POSTERIOR ANTERIOR/POSTERIOR COLPORRHAPHY(.) COLPORRHAPHY(.) COLPORRHAPHY(.) Comments DR. TALBERT SUPERVISING Last Modified By: Lit RN, Va Murrieta RN, Va Murrieta RN, Va Sprague 03/09/24 11:53:34 03/09/24 11:53:34 03/09/24 11:53:34 Entry 4 Entry 5 Entry 6 Case Attendee Velma Francois INTERACTIVE PROJECT MANAGER, Anneliese Ann RN, Joseph Swann Role Performed WOODS SUPERINTENDENT Scrub - Primary Cook Chief - Primary Time In 03/09/24 10:43:00 03/09/24 10:43:00 03/09/24 10:43:00 Time Out 03/09/24 11:53:00 03/09/24 11:53:00 03/09/24 11:53:00 Procedure ANTERIOR/POSTERIOR ANTERIOR/POSTERIOR ANTERIOR/POSTERIOR COLPORRHAPHY(.) COLPORRHAPHY(.) COLPORRHAPHY(.) Comments ROOM ASSIST, OUT OF ROOM FOR LUNCH 6081-5982 Last Modified By: Lit RN, Va Murrieta RN, Va Murrieta RN, Va Sprague 03/09/24 11:53:34 03/09/24 11:53:34 03/09/24 11:53:34 General Comments: 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 BERTHA ARRIAGAlithographer helper Protocols FT Pre-Care Text: Implements protective measures [...] and tissue Entry 1 Skin Integrity Intact, [place], Warm, & Skin Abnormality No Dry Outcomes Met? Yes Last Modified By: Va Murrieta RN 03/09/24 11:07:23 Post-Care Text: The patient is free from signs and symptoms of injury caused by extraneous objec (more content not included)... Normal [facility] Discharge Instructionson Discharge Instructions Discharge Instructions TAMY SAL :1970 Visit Date:03/09/2024 Inpatient Discharge Instructions Your Care Team Admitting Physician - Sherry Velasquez DO Referring Physician - Sherry Velasquez DO Reason for Your Visit URGE INCONTINENCE, [...] Follow Up with Sherry Velasquez When: Where: [facility] Carlos Simmons [address] [address]- Business (1) Medications What How Much When Instructions Next Dose New acetaminophen (acetaminophen 500 mg Tab) 2 Tablets By Mouth Every 6 hours Refills: 1 Pickup at [facility]/pharmacy #3471 New docusate (Doculase 100 mg oral capsule) 1 Capsules By Mouth 2 times a day as needed for for constipation Refills: 1 Pickup at [facility]/pharmacy #3471 New ibuprofen (ibuprofen 600 mg Tab) 1 Tablets By Mouth Every 6 hours Refills: 1 Pickup at [facility]/pharmacy #3471 Unchanged amiloride (amiloride 5 mg oral [...] Tablets By Mouth Every day Pharmacy Information [facility]/pharmacy #[id number]: [address] [place], [place] [phone] Education Materials Anterior and Posterior Colporrhaphy, Care [...] these instructions at home: Medicines ??? Take tpep-etg-hhsvqpe and prescription medicines only as told by your health care provider. ??? Ask your health care provider if the medicine prescribed to you: ? Requires you to avoid driving or using machinery. ? Can cause constipation. You may need to take these actions to prevent or treat constipation: ? Drink enough fluid to keep your urine pale yellow. ? Take byry-isk-hvubqjp or prescription medicines. ? Eat foods that [...] you. General (more content not included)... Normal [facility] Comment on above: Result Comment: Elec tronically Signed By: Domi STONE, Dami Irwin\.br\Date and Time Signed: 03/09/24 13:23 EST Inpatient Patient Summaryon 03-09-2024 Inpatient Patient Summary Inpatient Patient Summary [place] [id number] [facility] Clinical Discharge Instructions PERSON INFORMATION Name: TAMY SAL PHYSICIANS Admitting Physician: Sherry Velasquez DO Attending Physician: Sherry Velasquez DO PCP: Rafael DELGADO, Eric Discharge Diagnosis: Cystocele, midline; History of hysterectomy for benign disease; Urge incontinence Comment: PATIENT EDUCATION INFORMATION Instructions: Anterior and Posterior Colporrhaphy, Care After Medication Leaflets: Follow up: With: Address: When: Sherry Velasquez [address] [place] [address] Business (1) MEDICATION LIST New Medications [facility]/pharmacy #[id number], [address] [place], [place] [phone], [phone] acetaminophen (acetaminophen 500 mg Tab) 2 Tablets [...] 2 Tablets By Mouth every day. Comment: [facility] Main OR Intraoperative Recor don 03-09-2024 Main OR Intraoperative Record Main OR Intraoperative Record IntraOp Document Type FT Summary Primary Physician: Sherry Velasquez DO Finalized Date/Time: 03/09/24 11:53:41 Pt. Name: TAMY SAL/Sex: 1970 Female Med Rec #: [id number] Physician: Sherry Velasquez DO Financial #: [id number] Pt. Type: A Room/Bed: [facility] Admit/Disch: 03/09/24 09:22:26 - Institution: Case [...] DO, RN, Leann E N. Role Performed WALLPAPER HANGER Surgeon - Primary Cook Chief - Primary Time In 03/09/24 10:43:00 03/09/24 10:56:00 03/09/24 10:43:00 Time Out 03/09/24 11:53:00 03/09/24 11:48:00 03/09/24 11:53:00 Procedure ANTERIOR/POSTERIOR ANTERIOR/POSTERIOR ANTERIOR/POSTERIOR COLPORRHAPHY(.) COLPORRHAPHY(.) COLPORRHAPHY(.) Comments DR. TALBERT SUPERVISING Last Modified By: Lit RN, Va Murrieta RN, Va Murrieta RN, Va Sprague 03/09/24 11:53:34 03/09/24 11:53:34 03/09/24 11:53:34 Entry 4 Entry 5 Entry 6 Case Attendee Velma Francois INTERACTIVE PROJECT MANAGER, Anneliese Ann RN, Joseph Swann Role Performed WOODS SUPERINTENDENT Scrub - Primary Cook Chief - Primary Time In 03/09/24 10:43:00 03/09/24 10:43:00 03/09/24 10:43:00 Time Out 03/09/24 11:53:00 03/09/24 11:53:00 03/09/24 11:53:00 Procedure ANTERIOR/POSTERIOR ANTERIOR/POSTERIOR ANTERIOR/POSTERIOR COLPORRHAPHY(.) COLPORRHAPHY(.) COLPORRHAPHY(.) Comments ROOM ASSIST, OUT OF ROOM FOR LUNCH 3596-1904 Last Modified By: Lit RN, Va Murrieta RN, Va Murrieta RN, Va Sprague 03/09/24 11:53:34 03/09/24 11:53:34 03/09/24 11:53:34 General Comments: [facility] 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 BERTHA ARRIAGAlithographer helper Protocols FT Pre-Care Text: Implements protective measures [...] DO, Lit STONE, Alessandro Sahni Amber M, Leovn GAN, Marissa Ramirez RN, Joseph Swann Time Out [...] and tissue Entry 1 Skin Integrity Intact, [place], Warm, & Skin Abnormality No Dry Outcomes Met? Yes Last Modified By: Va Murrieta RN 03/09/24 11:07:23 Post-Care Text: The patient is free from signs and symptoms of injury caused by extraneous objects Patient Positioning FT Pre-Care Text: Identifies physical alterations that require additiona (more content not included)... Normal [facility] Main OR PACU I Recordon 02-16 Main OR PACU I Record Main OR PACU I Record PACU Phase I Document Type FT Summary Primary Physician: Sherry Velasquez DO Finalized Date/Time: 03/09/24 12:58:45 Pt. Name: TAMY SAL Maribell/Sex: 1970 Female Med Rec #: [id number] Physician: Sherry Velasquez DO Financial #: [id number] Pt. Type: A Room/Bed: Admit/Disch: 03/09/24 09:22:26 [...] 12:46 Purnima Henriquez RN 03/09/24 12:58 Normal [facility] Main OR PACU II Recordon Main OR PACU II Record Main OR PACU II Record PACU Phase II Document Type FT Summary Primary Physician: Sherry Velasquez DO Finalized Date/Time: 03/09/24 13:42:04 Pt. Name: TAMY SAL/Sex: 1970 Female Med Rec #: [id number] Physician: Sherry Velasquez DO Financial #: [id number] Pt. Type: A Room/Bed: Admit/Disch: 03/09/24 09:22:26 [...] By: Dami Duron RN 03/09/24 13:42 Normal [facility] Main OR Preoperative Recordo n 03-09-2024 Main OR Preoperative Record Main OR Preoperative Record PreOp Document Type FT Summary Primary Physician: Sherry Velasquez DO Finalized Date/Time: 03/09/24 11:14:43 Pt. Name: TAMY SAL/Sex: 1970 Female Med Rec #: [id number] Physician: Sherry Velasquez DO Financial #: [id number] Pt. Type: A Room/Bed: Admit/Disch: 03/09/24 09:22:26 [...] By: Va Murrieta RN 03/09/24 11:14 Normal [facility] Operative Reporton Operative Report Operative Report Indication [...] Surgeon(s) Sherry Velasquez DO (Surgeon - Primary) Executive Vp Yenny Francois Anesthesia General Fish Brigido DELGADO (Casting Sorter) Foreign DIXON CRNA, Queen N. (Other) Estimated [...] the anterior vaginal mucosa to aid in [place]-dissection. A small incision was made in the [...] recovery room in a stable condition. Normal [facility] Comment on above: Result Comment: Elec tronically Signed By: Sherry Velasquez DO\.br\Date and Time Signed: 03/09/24 12:10 EST Outpatient Surgery Discharge Instructionon 03-09-2024 Outpatient Surgery Discharge Instruction Outpatient Surgery Discharge Instruction [place] [id number] Patient Discharge Instructions PERSON INFORMATION Name: TAMY [...] Follow up: With: Address: When: Sherry Velasquez [facility] Ashok Quintanilla, [address] [address] Business (1) Pharmacy Information: You may receive a survey from Bibiana Clemons asking you to rate your care experience. Your feedback is important and will help us understand what we do well and how we can improve the quality of care we provide to you, your loved ones and our community. It???s an honor to serve you. Thank you for choosing [facility] HERE ARE THE MEDICATION CHANGES THAT OCCURRED DURING YOUR HOSPITAL STAY New Medications [id number], [address] [place] [phone], [phone] acetaminophen (acetaminophen 500 mg Tab) 2 Tablets [...] these instructions at home: Medicines ??? Take jqmz-bwq-dnagfel and prescription medicines only as told by your health care provider. ??? Ask your health care provider if the medicine prescribed to you: ? Requires you to avoid driving or using machinery. ? Can cause constipation. You may need to take these actions to prevent or treat constipation: ? Drink enough fluid to keep your urine pale yellow. ? Take sdwb-czk-umaumof or prescription medicines. ? Eat foods that [...] to displ (more content not included)... Normal [facility] URINALYSISOrdered By: SYSTEM SYSTEM on 03-09-2024 Bilirubin Ql (U) Negative Normal Negativemg/ d L [facility] UA Auto SS Clarity (U) Clear (03/09/24 10:58 AM) Normal Clear [facility] UA Auto SS Color (U) Colorless 1 *ABN* (03/09/24 10:58 AM) Invalid Interpretation Code Yellow [facility] UA Auto SS Comment on above: Interpretive Data: M icroscopic readings are only performed on those samples that meet specific criteria set forth by [facility]. Glucose Ql (U) Negative Normal Negativemg/d L [facility] UA Auto SS Hemoglobin Auto test strip (U) [Mass/Vol] Negative Normal Negativemg/d L FT UA Auto SS Ketones Auto test strip Ql (U) Negative Normal Negativemg/d L FT UA Auto SS Leukocyte esterase Auto test strip Ql (U) Negative Normal NegativeLeu/ uL [facility] UA Auto SS Nitrite Auto test strip Ql (U) Negative Normal Negativemg/d L [facility] UA Auto SS pH (U) 6.5 *NA* (03/09/24 10:58 AM) Invalid Interpretation Code 5.0 - 9.0 [facility] UA Auto SS Protein Ql (U) Negative Normal Negativemg/d L [facility] UA Auto SS Specific gravity (U) [Rel density] 1.010 *NA* (03/09/24 10:58 AM) Invalid Interpretation Code 1.005 - 1.030 [facility] UA Auto SS Urobilinogen (U) [Mass/Vol] Negative Normal Negativemg/d L [facility] UA Auto SS URINALYSISOrdered By: Va Murrieta on 03-09-2024 UA Spec Desc Lucio (03/09/24 10:58 AM) Normal [facility] UA Auto SS URINALYSIS WITH MICROon 02-16 BILIRUBIN:PRTHR:PT:UR INE:ORD:TEST STRIP.AUTOMATED Negative Negative mg/dL [facility] CLARITY:TYPE:PT:URINE :NOM: Clear Clear [facility] CLASS:TYPE:PT:URINE COLLECTION METHOD:NOM:* Lucio [facility] COLOR:TYPE:PT:URINE:N OM:AUTO Colorless Abnormal Yellow [facility] Comment on above: Microscopic readings are only performed on those samples that meet specific criteria set forth by [facility]. [facility] PH:LSCNC:PT:URINE:QN: TEST STRIP 6.5 5.0 - 9.0 [facility] SPECIFIC GRAVITY:RDEN:PT:URINE :QN:TEST STRIP 1.010 1.005 - 1.030 [facility] GLUCOSE:PRTHR:PT:URIN E:ORD:TEST STRIP Negative Negative mg/dL [facility] HEMOGLOBIN:MCNC:PT:UR INE:SEMIQN:TEST STRIP.AUTOMATED Negative Negative mg/dL [facility] Interpretation and review of laboratory results Abnormal [facility] KETONES:PRTHR:PT:URIN E:ORD:TEST STRIP.AUTOMATED Negative Negative mg/dL [facility] LEUKOCYTE ESTERASE:PRTHR:PT:URI NE:ORD:TEST STRIP.AUTOMATED Negative Negative CD:[id number] [facility] NITRITE:PRTHR:PT:URIN E:ORD:TEST STRIP.AUTOMATED Negative Negative mg/dL [facility] PROTEIN:PRTHR:PT:URIN E:ORD:TEST STRIP Negative Negative mg/dL [facility] UROBILINOGEN:MCNC:PT: URINE:SEMIQN:TEST STRIP Negative Negative mg/dL [facility] Original Ordering Provider: DO Sherry Velasquez [facility] with Microon 02-16 Bilirubin Ql (U) Negative Normal Negative [facility] Comment on above: Performed By: #### 4 [id number] #### [facility] [address] [place] [address] Clarity (U) Clear Normal Clear [facility] Comment on above: Performed By: #### 4 [id number] #### [facility] [address] [place] [address] Color (U) Colorless Abnormal Yellow [facility] Comment on above: Result Comment: Micr oscopic readings are only performed on those samples that meet specific criteria set forth by [facility]. Performed By: #### 4 [id number] #### [facility] [address] [place] [address] Glucose Ql (U) Negative Normal Negative [facility] Comment on above: Performed By: #### 4 [id number] #### [facility] [address] [place] [address] Hemoglobin Auto test strip (U) [Mass/Vol] Negative Normal Negative [facility] Comment on above: Performed By: #### 4 [id number] #### [facility] [address] [place] [address] Ketones Auto test strip Ql (U) Negative Normal Negative [facility] Comment on above: Performed By: #### 4 [id number] #### [facility] [address] [place] [address] Leukocyte esterase Auto test strip Ql (U) Negative Normal Negative [facility] Comment on above: Performed By: #### 4 [id number] #### [facility] [address] [place] [address] Nitrite Auto test strip Ql (U) Negative Normal Negative [facility] Comment on above: Performed By: #### 4 [id number] #### [facility] [address] [place] [address] pH (U) 6.5 [pH] Invalid Interpretation Code 5.0-9.0 [facility] Comment on above: Performed By: #### 4 [id number] #### [facility] [address] [place] [address] Protein Ql (U) Negative Normal Negative [facility] Comment on above: Performed By: #### 4 [id number] #### [facility] [address] [place] [address] Specific gravity (U) [Rel density] 1.010 Invalid Interpretation Code 1.005-1.030 [facility] Comment on above: Performed By: #### 4 [id number] #### [facility] [address] [place] [address] Urobilinogen (U) [Mass/Vol] Negative Normal Negative [facility] Comment on above: Performed By: #### 4 [id number] #### [facility] [address] [place] [address] Type of Urine collection method Lucio Normal [facility] Comment on above: Performed By: #### 4 [id number] #### [facility] [address] [place] [address] BMPon 02-29-2024 Anion gap [Moles/Vol] 10 mmol/L Normal 6-16 [facility] Comment on above: Performed By: #### 2 [id number] #### [facility] [address] [place] [address] Calcium [Mass/Vol] 9.3 mg/dL Normal 8.9-11.1 [facility] Comment on above: Performed By: #### 2 [id number] #### [facility] [address] [place] [address] Chloride [Moles/Vol] 105 mmol/L Normal 101-111 [facility] Comment on above: Performed By: #### 2 [id number] #### [facility] [address] [place] [address] CO2 [Moles/Vol] 29 mmol/L Normal 21-31 [facility] Comment on above: Performed By: #### 2 [id number] #### [facility] [address] [place] [address] Creatinine [Mass/Vol] 0.8 mg/dL Normal 0.5-1.3 [facility] Comment on above: Performed By: #### 2 [id number] #### [facility] [address] [place] [address] Glucose [Mass/Vol] 109 mg/dL Normal 55-199 [facility] Comment on above: Performed By: #### 2 815130 #### [facility] [address] [place] [address] Potassium [Moles/Vol] 4.9 mmol/L Normal 3.5-5.3 [facility] Comment on above: Performed By: #### 2 [id number] #### [facility] [address] [place] [address] Sodium [Moles/Vol] 139 mmol/L Normal 135-145 [facility] Comment on above: Performed By: #### 2 [id number] #### [facility] [address] [place] [address] Urea nitrogen [Mass/Vol] 14 mg/dL Normal 5-21 [facility] Comment on above: Performed By: #### 2 [id number] #### [facility] [address] [place] [address] Urea nitrogen/Creatinine [Mass ratio] 18 No Units Normal 10-20 [facility] Comment on above: Performed By: #### 2 [id number] #### [facility] [address] [place] [address] CBC w/ Auto Diffon 5 Basophils/100 WBC (Bld) 0.6 % Normal 0.0-2.0 [facility] Comment on above: Performed By: #### 2 721108 #### [facility] [address] [place] [address] Basophils/Leukocytes Auto (Bld) [Pure # fraction] 0.1 E9/L Normal 0.0-0.2 [facility] Comment on above: Performed By: #### 2 [id number] #### [facility] [address] [place] [address] Eosinophils (Bld) [#/Vol] 0.4 E9/L Normal 0.0-0.5 [facility] Comment on above: Performed By: #### 2 642484 #### [facility] [address] [place] [address] Eosinophils/100 WBC (Bld) 4.3 % Normal 0.0-8.0 [facility] Comment on above: Performed By: #### 2 688917 #### [facility] [address] [place] [address] Erythrocyte distribution width (RBC) [Ratio] 12.7 % Normal 10.9-14.2 [facility] Comment on above: Performed By: #### 2 362145 #### [facility] [address] [place] [address] Hematocrit (Bld) [Volume fraction] 37.6 % Normal 34.0-46.0 [facility] Comment on above: Performed By: #### 2 242112 #### [facility] [address] [place] [address] Hemoglobin (Bld) [Mass/Vol] 12.7 g/dL Normal 12.0-16.0 [facility] Comment on above: Performed By: #### 2 630006 #### [facility] [address] [place] [address] Lymphocytes (Bld) [#/Vol] 3.1 E9/L Normal 1.0-4.0 [facility] Comment on above: Performed By: #### 2 689991 #### [facility] [address] [place] [address] Lymphocytes/100 WBC (Bld) 34.3 % Normal 14.0-50.0 [facility] Comment on above: Performed By: #### 2 512605 #### [facility] [address] [place] [address] MCH (RBC) [Entitic mass] 30.8 pg Normal 27.0-34.0 [facility] Comment on above: Performed By: #### 2 [id number] #### [facility] [address] [place] [address] MCHC (RBC) [Mass/Vol] 33.8 g/dL Normal 31.4-36.0 [facility] Comment on above: Performed By: #### 2 089117 #### [facility] [address] [place] [address] MCV (RBC) [Entitic vol] 90.9 fL Normal 80.0-100.0 [facility] Comment on above: Performed By: #### 2 017799 #### [facility] [address] [place] [address] Monocytes (Bld) [#/Vol] 0.5 E9/L Normal 0.2-1.0 [facility] Comment on above: Performed By: #### 2 388289 #### [facility] [address] [place] [address] Neutrophils (Bld) [#/Vol] 4.9 E9/L Normal 2.0-7.5 [facility] Comment on above: Performed By: #### 2 073358 #### [facility] [address] [place] [address] Neutrophils/100 WBC (Bld) 54.8 % Normal 36.0-75.0 [facility] Comment on above: Performed By: #### 2 289365 #### [facility] [address] [place] [address] Platelet 318.0 E9/L Normal 150.0-500.0 [facility] Comment on above: Performed By: #### 2 358278 #### [facility] [address] [place] [address] Platelet mean volume (Bld) [Entitic vol] 7.3 fL Normal 6.4-10.8 [facility] Comment on above: Performed By: #### 2 844188 #### [facility] [address] [place] [address] RBC (Bld) [#/Vol] 4.1 E12/L Low 4.3-5.9 [facility] Comment on above: Performed By: #### 2 375144 #### [facility] [address] [place] [address] WBC corrected for nucl RBC Auto (Bld) [#/Vol] 8.9 E9/L Normal 4.0-11.0 [facility] Comment on above: Performed By: #### 2 723941 #### [facility] [address] [place] [address] CHEMISTRYOrdered By: SYSTEM SYSTEM on 02-29-2024 Anion [...] mGy = na DAP = na Normal [facility] eGFRon 02-29-2024 eGFR 88 mL/min/1.73 m2 Normal >=59 [facility] Comment on above: Performed By: #### 1 [id number] #### [facility] [address] [place] [address] Cortisol [Mass/Vol]on 2023 CORTISOL 4.8 ug/dL Normal [facility] Comment on above: Result Comment: Due to the diurnal variation of cortisol levels in normal subjects, all cortisol measurements should be referenced to the time of day of sample collection. AM Cortisol Age>=6 6.7-22.4 ug/dL PM Cortisol Age>=6 <10 ug/dL Performed By: #### 2 143-6 #### [facility] ([id number]) [address] [place] [address] DHEA-S [Mass/Vol]on 01-06-20 24 DHEA S 34 ug/dL Normal 8-188 [facility] Comment on above: Performed By: #### 2 191-5 #### [facility] ([id number]) [address] [place] [address] E1 [Mass/Vol]on 01-06-2024 Estrone, S 248 pg/mL Normal [facility] Comment on above: Result Comment: NOTE REFERENCE VALUE Premenopausal :17-200 Postmenopausal : 7-40 ADDITIONAL INFORMATION This test was developed and its performance characteristics determined by [facility] in a manner consistent with CLIA requirements. This test has not been cleared or approved by the U.S. Food and Drug Administration. Test Performed by: [facility] [address] [place] [address] Customer Acquisition Specialist: Zak Cortez Ph.D.; CLIA# [id number] Performed By: #### Jeannette DEL CASTILLO, 83849-6, THYR, 0 #### [facility] ([id number]) [address] [facility], [address] [place] [address] E2 [Mass/Vol]on 01-06-2024 ESTRADIOL 50.7 pg/mL Normal [facility] Comment on above: Result Comment: NON- [...] assay. Performed By: #### Jeannette DEL CASTILLO, 25460-5, THYR, 0 #### [facility] ([id number]) [address] [facility] [facility] [facility], [address] [place] [address] Follitropin Qnon 01-06-2024 FOLLICLE STIM HORMONE 48.3 mIU/mL Normal [facility] Comment on above: Result Comment: NORMAL FEMALE Luteal 1.8-5.1 mIU/mL Follicular 3.8-8.8 mIU/mL Mid Cycle 4.5-22.5 mIU/mL [place] 16.7-113.6 mIU/mL Performed By: #### [place], [address]-2, THYR, 3051-0 #### [facility] ([id number]) [address] [place] [address] [facility] ORDERon 024 TEST NAME FV125, SST SERUM Normal [facility] Comment on above: Performed By: #### [place], [address]-5, THYR, 3051-0 #### [facility] ([id number]) [address], [address] [place] [address] TEST RESULT SEE COMMENTS 01/12/2024 10:26 PM Normal [facility] Comment on above: Result Comment: NOTE [...] analytical performance characteristics have been determined by [employer]. It has not been cleared or approved by FDA. This assay has been validated pursuant to the CLIA regulations and is used for clinical purposes. For additional information, please refer to http://education.Assurz/faq/WTV851 (This link is being provided for informational/educational purposes only.) Test Performed by: [employer] [address] [place] [address] Performed By: #### C ABUNDIO, 22183-3, THYR, 3051-0 #### [facility] ([id number]) [address] [facility], [address] [place] [address] Progesterone [Mass/Vol]on PROGESTERONE 0.2 ng/mL Normal [facility] Comment on above: Result Comment: FEMALES: 1st Tri: 4.7-50.7 ng/ml 2nd Tri: 19.4-45.3 ng/ml MENSTRUATING FEMALES: Follicular: 0.3-1.5 ng/ml Mid Luteal: 5.2-18.6 ng/ml [place]: <0.1-0.8 ng/ml Performed By: #### 2 839-9, TSHR, 2243-4, 81409-3 #### [facility] ([id number]) [address], [address] [place] [address] #### 92945-7, 2258-2, GO #### [facility] ([id number]) [address] [place] [address], [place] [address] TSH WITH REFLEXon 01-06-2024 TSH 1.76 uIU/mL Normal 0.49-4.67 [facility] Comment on above: Performed By: #### C ABUNDIO, 14707-9, THYR, 3051-0 #### [facility] ([id number]) [address] [place] [address], [facility] [address] [place] [address] Testosterone free and total panel [Mass/Vol]on 01-06-2024 Testosterone [Mass/Vol] 8.5 ng/dL Normal 8-60 [facility] Comment on above: Result Comment: NOTE ADDITIONAL INFORMATION Testing performed by Liquid Chromatography-Tandem Mass Spectrometry (LC-MS/MS). This test was developed and its performance characteristics determined by [facility] in a manner consistent with CLIA requirements. This test has not been cleared or approved by the U.S. Food and Drug Administration. Test Performed by: [address] [address] Customer Acquisition Specialist: Zak Cortez Ph.D.; CLIA# [id number] Performed By: ###[place], [address]-3, THYR, 3051-0 #### [facility] ([id number]) [address] [place] [address] TESTOSTERONE FREE 0.22 ng/dL Normal <0.13-0.92 [facility] Comment on above: Result Comment: NOTE ADDITIONAL INFORMATION This test was developed and its performance characteristics determined by [facility] in a manner consistent with CLIA requirements. This test has not been cleared or approved by the U.S. Food and Drug Administration. Performed By: #### Jeannette DEL CASTILLO, 16555-2, THYR, 305-0 #### [facility] ([id number]) [address] [place] [address] Erythrocyte distribution wid th Auto (RBC) [Ratio]on 10-09-2023 Erythrocyte distribution width (RBC) [Ratio] 13.4 % 11.0-15.0 [facility] Estimated glomerular filtrat ion rate (GFR) non- Americanon 10-09-2023 GFR/1.73 sq M.predicted among non-blacks MDRD (S/P/Bld) [Vol rate/Area] 58 mL/min/{1.73_m2} Low >=60 [facility] Hematocrit Auto (Bld) [Volum e fraction]on 10-09-2023 Hematocrit (Bld) [Volume fraction] 42.4 % 36.0-48.0 [facility] Hemoglobin [Mass/volume] in Bloodon 10-09-2023 Hemoglobin (Bld) [Mass/Vol] 13.7 g/dL 12.0-16.0 [facility] Laboratory - Chemistry and C hemistry - challengeon 10-09-2023 Albumin [Mass/Vol] 3.2 g/dL Low 3.4-5.0 [facility] Calcium [Mass/Vol] 8.8 mg/dL 8.5-10.1 [facility] Chloride [Moles/Vol] 101 mmol/L 98-107 [facility] CO2 [Moles/Vol] 26.7 mmol/L 21.0-32.0 [facility] Creatinine [Mass/Vol] 1.01 mg/dL 0.55-1.02 [facility] GFR/1.73 sq M.predicted MDRD (S/P/Bld) [Vol rate/Area] mL/min/{1.73_m2} >=60 [facility] Glucose [Mass/Vol] 132 mg/dL High 74-106 [facility] Magnesium [Mass/Vol] 2.0 mg/dL 1.8-2.4 [facility] Potassium [Moles/Vol] 4.0 mmol/L 3.5-5.1 [facility] Sodium [Moles/Vol] 137 mmol/L 136-145 [facility] Urea nitrogen [Mass/Vol] 12.0 mg/dL 7.0-18.0 [facility] Urea nitrogen/Creatinine [Mass ratio] 11.9 mg/mg [facility] Leukocytes [#/volume] correc bj for nucleated erythrocytes in Blood by Automated counon 10-09-2023 WBC corrected for nucl RBC Auto (Bld) [#/Vol] 5.1 10 3/uL 4.0-11.0 [facility] MCH Auto (RBC) [Entitic mass ]on 10-09-2023 MCH (RBC) [Entitic mass] 31.2 pg 26.7-34.0 [facility] MCHC Auto (RBC) [Mass/Vol]on 10-09-2023 MCHC (RBC) [Mass/Vol] 32.3 g/dL 29.9-35.2 [facility] MCV Auto (RBC) [Entitic vol] on 10-09-2023 MCV (RBC) [Entitic vol] 96.6 fL 81.0-99.0 [facility] No Panel Informationon 10-08 Phosphorus Level 2.9 mg/dL 2.6-4.7 [facility] Platelet mean volume Auto (B ld) [Entitic vol]on 10-09-2023 Platelet mean volume (Bld) [Entitic vol] 9.2 fL Low 9.5-13.5 [facility] Platelets Auto (Bld) [#/Vol] on 10-09-2023 Platelets (Bld) [#/Vol] 250 10 3/uL 150-450 [facility] RBC Auto (Bld) [#/Vol]on RBC (Bld) [#/Vol] 4.39 10 6/uL 4.20-5.40 [facility] Serum or plasma anion gap de terminationon 10-09-2023 Anion gap [Moles/Vol] 13.3 mmol/L [facility] 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 ([id number]) [address], [address] [place] [address] ALP [Catalytic activity/Vol] 62 U/L Normal 39-130 [facility] Comment on above: Performed By: #### C ABUNDIO, 88505-1, THYR, 305-0 #### [facility] ([id number]) [address], [address] [place] [address] ALT [Catalytic activity/Vol] 20 U/L Normal 0-31 [facility] Comment on above: Performed By: #### C ABUNDIO, 50111-2, THYR, 305-0 #### [facility] ([id number]) [address], [address] [place] [address] Anion gap [Moles/Vol] 6 mmol/L Normal 5-15 [facility] Comment on above: Performed By: #### C ABUNDIO, 20261-4, THYR, 305-0 #### [facility] ([id number]) [address], [address] [place] [address] AST [Catalytic activity/Vol] 15 U/L Normal 0-41 [facility] Comment on above: Performed By: #### C ABUNDIO, 39914-2, THYR, 305-0 #### [facility] ([id number]) [address], [address] [place] [address] Bilirubin [Mass/Vol] 0.6 mg/dL Normal 0.3-1.2 [facility] Comment on above: Performed By: #### C ABUNDIO, 23089-5, THYR, 305-0 #### [facility] ([id number]) [address] [address] [place] [address] Calcium [Mass/Vol] 8.9 mg/dL Normal 8.5-10.5 [facility] Comment on above: Performed By: #### C ABUNDIO, 13955-9, THYR, 305-0 #### [facility] ([id number]) [address] [address] [place] [address] Chloride [Moles/Vol] 105 mmol/L Normal 98-109 [facility] Comment on above: Performed By: #### C ABUNDIO, 96313-8, THYR, 3050-0 #### [facility] ([id number]) [address] [address] [place] [address] CO2 [Moles/Vol] 29 mmol/L Normal 22-32 [facility] Comment on above: Performed By: #### C ABUNDIO, 88103-5, THYR, 305-0 #### [facility] ([id number]) [address] [address] [place] [address] Creatinine [Mass/Vol] 0.91 mg/dL Normal 0.40-1.00 [facility] Comment on above: Result Comment: METH OD TRACEABLE TO IDMS STANDARD Performed By: #### C ABUNDIO, 72325-6, THYR, 305-0 #### [facility] ([id number]) [address] [address] [place] [address] GFR/1.73 sq M.predicted among non-blacks MDRD (S/P/Bld) [Vol rate/Area] 76 mL/min/{1.73_m2} Normal >59 [facility] Comment on above: Result Comment: Reported eGFR is based on the CKD-EPI 2020 equation that does not use a race coefficient. Performed By: #### C ABUNDIO, 47951-6, THYR, 305-0 #### [facility] ([id number]) [address], [address] [place] [address] Glucose [Mass/Vol] 120 mg/dL High 65-99 [facility] Comment on above: Performed By: #### C ABUNDIO, 39574-8, THYR, 305-0 #### [facility] ([id number]) [address], [address] [place] [address] Potassium [Moles/Vol] 4.2 mmol/L Normal 3.5-5.0 [facility] Comment on above: Performed By: #### C ABUNDIO, 13810-6, THYR, 305-0 #### [facility] ([id number]) [address], [address] [place] [address] Protein [Mass/Vol] 6.4 g/dL Normal 6.0-8.0 [facility] Comment on above: Performed By: #### C ABUNDIO, 45259-5, THYR, 305-0 #### [facility] ([id number]) [address] [place] [address] Sodium [Moles/Vol] 140 mmol/L Normal 134-146 [facility] Comment on above: Performed By: #### C ABUNDIO, 32475-4, THYR, 305-0 #### [facility] ([id number]) [address] [place] [address] Urea nitrogen [Mass/Vol] 18 mg/dL Normal 5-23 [facility] Comment on above: Performed By: #### C ABUNDIO, 15797-9, THYR, 305-0 #### [facility] ([id number]) [address] [place] [address] FREE T3on 04-06-2023 Free T3 [Mass/Vol] 3.00 pg/mL Normal 2.50-3.90 [facility] Comment on above: Performed By: #### Jeannette DEL CASTILLO, 65103-6, THYR, 305-0 #### [facility] ([id number]) [address] [address] HGB A1C (GLYCO-HGB)on 2023 Glucose [Mass/Vol] 146 mg/dL Normal [facility] Comment on above: Performed By: #### Jeannette DEL CASTILLO, 96156-3, THYR, 305-0 #### [facility] ([id number]) [address] [address] HbA1c (Bld) [Mass fraction] 6.7 % High 4.4-5.6 [facility] Comment on above: Result Comment: NOTE ADA Guidelines Result HgbA1c Normal : less than 5.7 % Prediabetes : 5.7 % to 6.4 % Diabetes : > 6.4 % Use with caution in patients with abnormal hemoglobin variants as the half-life of red blood cells and in vivo glycation rates are affected. Performed By: #### Jeannette DEL CASTILLO, 61901-9, THYR, 3050-0 #### [facility] ([id number]) [address] [address] Insulin Qnon 04-06-2023 INSULIN 9.51 uIU/mL Normal 1.00-23.00 [facility] Comment on above: Result Comment: Ref. range is for FASTING NON-DIABETIC POPULATION. Performed By: #### 2 0448-7 #### [facility] ([id number]) [address] [address] Lipid 1996 panelon 4 Cholesterol [Mass/Vol] 103 mg/dL Low 150-200 [facility] Comment on above: Performed By: #### Jeannette DEL CASTILLO, 28286-1, THYR, 305-0 #### [facility] ([id number]) [address], [address] [place] [address] Cholesterol in HDL [Mass/Vol] 32 mg/dL Low >39 [facility] Comment on above: Result Comment: HDL <40 mg/dL - High Risk HDL > or = 40mg/dL- Desirable HDL >60 mg/dL - Negative Risk Performed By: #### Jeannette DEL CASTILLO, 65606-4, THYR, 305-0 #### [facility] ([id number]) [address], [address] [place] [address] Cholesterol in LDL [Mass/Vol] 52 mg/dL Normal <130 [facility] Comment on above: Result Comment: LDL <100 mg/dL - Desirable LDL >160 mg/dL - High Risk Performed By: #### Jeannette DEL CASTILLO, 86933-8, THYR, 305-0 #### [facility] ([id number]) [address] [place] [address] Cholesterol in VLDL [Mass/Vol] 19 mg/dL Normal 0-30 [facility] Comment on above: Performed By: #### Jeannette DEL CASTILLO, 87985-2, THYR, 305-0 #### [facility] ([id number]) [address], [address] [place] [address] CHOLESTEROL:HDL 3.2 Normal 1.0-5.0 [facility] Comment on above: Performed By: #### Jeannette DEL CASTILLO, 80357-2, THYR, 3051-0 #### [facility] ([id number]) [address] [place] [address] Triglyceride [Mass/Vol] 95 mg/dL Normal 27-150 [facility] Comment on above: Performed By: #### [place], [address]-5, THYR, 3051-0 #### [facility] ([id number]) [address] [place] [address] THYROID PROFILEon 04-06-2023 Free T4 [Mass/Vol] 0.82 ng/dL Normal 0.61-1.60 [facility] Comment on above: Performed By: #### [place], 02212-2, THYR, 3051-0 #### [facility] ([id number]) [address] [place] [address] TSH 1.95 uIU/mL Normal 0.49-4.67 [facility] Comment on above: Performed By: #### [place], 163[address]-0, THYR, 3051-0 #### [facility] ([id number]) [address] [place] [address] Hemogram CBC Without Diffon 04-21-2022 Erythrocyte distribution width (RBC) [Ratio] 13.1 % [facility] Other Hematocrit (Bld) [Volume fraction] 39.6 % [facility] Other Hemoglobin (Bld) [Mass/Vol] 13.5 g/dL [facility] Other MCH (RBC) [Entitic mass] 31.4 pg [employer] Other MCH (RBC) [Entitic mass] 34.1 pg [employer] Other MCV (RBC) [Entitic vol] 92 fL [facility] Other Platelet mean volume (Bld) [Entitic vol] 7.4 fL [facility] Other Platelets (Bld) [#/Vol] 324 10*3/uL [facility] Other RBC (Bld) [#/Vol] 4.30 10*6/uL [facility] Other WBC (Bld) [#/Vol] 7.9 10*3/uL [place] [facility] Other Hemogram CBC Without Diff [place] [facility] Other Iron and TIBC Profileon 0 Iron [Mass/Vol] 61 ug/dL [facility] Other Iron and TIBC Profile 377 [facility] Other Iron and TIBC Profile 16 [facility] Other Magnesiumon 04-21-2022 Magnesium 2,2 [facility] Other Protein Creat Ratio Ur Rando mon 04-21-2022 Albumin Test strip detection limit <= 20 mg/L (U) [Mass/Vol] 80 [place] [facility] Other Protein Creat Ratio Ur Random 101.82 [facility] Other Protein Creat Ratio Ur Random 0.08 [facility] Other Ferritinon 04-17-2022 Ferritin [Mass/Vol] 26 ng/mL [place] [facility] Other Renal Function Panelon 04-17 Albumin [Mass/Vol] 4.0 g/dL [place] [facility] Other Calcium [Mass/Vol] 8.9 mg/dL [place] [facility] Other Chloride [Moles/Vol] 108 mmol/L [facility] Other CO2 [Moles/Vol] 26 mmol/L [employer] Other Creatinine [Mass/Vol] 0.93 mg/dL [facility] Other Glucose [Mass/Vol] 115 mg/dL [place] [facility] Other Potassium [Moles/Vol] 4.2 mmol/L [facility] Other Sodium [Moles/Vol] 143 mmol/L [facility] [employer] Other Urea nitrogen [Mass/Vol] 11 mg/dL [facility] [employer] Other Renal Function Panel [facility] Other Renal Function Panel 74 [facility] Other CT ABD/PELV W CONon 03-24-19 CT [...] ANNALISA MASTERS Date: 2022-03-24 08:27 Normal [facility] AMYLASEon 03-19-2022 Amylase [Catalytic activity/Vol] 48 U/L Normal 25-115 [facility] Comment on above: Performed By: #### L IPA, BEBA, CMP #### [facility] [address] [place] [address] Dr. Cecilio Guerrero CBC AUTO DIFFon 03-19-2022 BASO # 0.0 103/ul Normal 0.0-0.1 [facility] Comment on above: Performed By: #### C BC #### [facility] [address] [place] [address] Dr. Cecilio Guerrero Basophils/100 WBC (Bld) 0.5 % Normal 0.2-2.0 [facility] Comment on above: Performed By: #### C BC #### [facility] [address] [place] [address] Dr. Cecilio Guerrero EO # 0.3 103/ul Normal 0.0-0.7 [facility] Comment on above: Performed By: #### C BC #### [facility] [address] [place] [address] Dr. Cecilio Guerrero Eosinophils/100 WBC (Bld) 2.9 % Normal 0.9-7.0 [facility] Comment on above: Performed By: #### C BC #### [facility] [address] [place] [address] Dr. Cecilio Guerrero Erythrocyte distribution width (RBC) [Ratio] 12.0 % Normal 11.0-15.0 [facility] Comment on above: Performed By: #### C BC #### [facility] [address] [place] [address] Dr. Cecilio Guerrero Hematocrit (Bld) [Volume fraction] 45.8 % Normal 36.0-48.0 [facility] Comment on above: Performed By: #### C BC #### [facility] [address] [place] [address] Dr. Cecilio Guerrero Hemoglobin (Bld) [Mass/Vol] 14.3 g/dL Normal 12.0-16.0 [facility] Comment on above: Performed By: #### C BC #### [facility] [address] [place] [address] Dr. Cecilio Guerrero IG # 0.03 10e3/ul Normal 0.00-0.03 [facility] Comment on above: Performed By: #### C BC #### [facility] [address] [place] [address] Dr. Cecilio Guerrero IG % 0.3 % Normal 0.0-0.5 [facility] Comment on above: Performed By: #### C BC #### [facility] [address] [place] [address] Dr. Cecilio Guerrero LYMPH # 3.4 103/ul Normal 1.2-3.8 [facility] Comment on above: Performed By: #### C BC #### [facility] [address] [place] [address] Dr. Cecilio Guerrero Lymphocytes/100 WBC (Bld) 37.9 % Normal 20.5-60.0 [facility] Comment on above: Performed By: #### C BC #### [facility] [address] [place] [address] Dr. Cecilio Guerrero MANUAL DIFF REQ NO Normal [facility] Comment on above: Performed By: #### C BC #### [facility] [address] [place] [address] Dr. Cecilio Guerrero MCH (RBC) [Entitic mass] 30.1 pg Normal 26.7-34.0 [facility] Comment on above: Performed By: #### C BC #### [facility] [address] [place] [address] Dr. Cecilio Guerrero MCHC (RBC) [Mass/Vol] 31.2 g/dL Normal 29.9-35.2 [facility] Comment on above: Performed By: #### C BC #### [facility] [address] [place] [address] Dr. Cecilio Guerrero MCV (RBC) [Entitic vol] 96.4 fL Normal 81.0-99.0 [facility] Comment on above: Performed By: #### C BC #### [facility] [address] [place] [address] Dr. Cecilio Guerrero MONO # 0.9 103/ul Critically high 0.3-0.8 [facility] Comment on above: Performed By: #### C BC #### [facility] [address] [place] [address] Dr. Cecilio Guerrero Monocytes/100 WBC (Bld) 10.0 % Normal 1.7-12.0 [facility] Comment on above: Performed By: #### C BC #### [facility] [address] [place] [address] Dr. Cecilio Guerrero NEUT # 4.3 103/ul Normal 1.4-6.5 [facility] Comment on above: Performed By: #### C BC #### [facility] [address] [place] [address] Dr. Cecilio Guerrero Neutrophils/100 WBC (Bld) 48.4 % Normal 43.0-75.0 [facility] Comment on above: Performed By: #### C BC #### [facility] [address] [place] [address] Dr. Cecilio Guerrero Platelet mean volume (Bld) [Entitic vol] 9.2 fL Critically low 9.5-13.5 [facility] Comment on above: Performed By: #### C BC #### [facility] [address] [place] [address] Dr. Cecilio Guerrero PLT 319 103/ul Normal 150-450 [facility] Comment on above: Performed By: #### C BC #### [facility] [address] [place] [address] Dr. Cecilio Guerrero RBC 4.75 106/ul Normal 4.20-5.40 [facility] Comment on above: Performed By: #### C BC #### [facility] [address] [place] [address] Dr. Cecilio Guerrero WBC 8.9 103/ul Normal 4.0-11.0 [facility] Comment on above: Performed By: #### C BC #### [facility] [address] [place] [address] Dr. Cecilio Guerrero LIPASEon 03-19-2022 Lipase [Catalytic activity/Vol] 379.0 U/L Normal 73.0-393.0 [facility] Comment on above: Performed By: #### L IPA, BEBA, CMP #### [facility] [address] [place] [address] Dr. Cecilio Guerrero PROF 14(COMP METB)on 023 Albumin [Mass/Vol] 3.3 g/dL Critically low 3.4-5.0 [facility] Comment on above: Performed By: #### L BEBA RUSH, CMP #### [facility] [address] [address] [address] Cecilio Guerrero Albumin/Globulin [Mass ratio] 0.8 {ratio} Normal [facility] Comment on above: Performed By: #### L BEBA RUSH, CMP #### [facility] [address] [address] [address] Cecilio Guerrero ALP [Catalytic activity/Vol] 85 U/L Normal 46-116 [facility] Comment on above: Performed By: #### L BEBA RUSH, CMP #### [facility] [address] [address] [address] Cecilio Guerrero ALT [Catalytic activity/Vol] 103 U/L Critically high 14-59 [facility] Comment on above: Performed By: #### L BEBA RUSH, CMP #### [facility] [address] [address] [address] Cecilio Guerrero Anion gap [Moles/Vol] 10.8 mmol/L Normal [facility] Comment on above: Performed By: #### L BEBA RUSH, CMP #### [facility] [address] [place] [address] Dr. Cecilio Guerrero AST [Catalytic activity/Vol] 30 U/L Normal 15-37 [facility] Comment on above: Performed By: #### L BEBA RUSH, CMP #### [facility] [address] [address] [address] Cecilio Guerrero Bilirubin [Mass/Vol] 0.6 mg/dL Normal 0.2-1.0 [facility] Comment on above: Performed By: #### L BEBA RUSH, CMP #### [facility] [address] [address] [address] Cecilio Guerrero Calcium [Mass/Vol] 9.5 mg/dL Normal 8.5-10.1 [facility] Comment on above: Performed By: #### L BEBA RUSH, CMP #### [facility] [address] [address] [address] Cecilio Guerrero Chloride [Moles/Vol] 104 mmol/L Normal 98-107 [facility] Comment on above: Performed By: #### L BEBA RUSH, CMP #### [facility] [address] [address] [address] Cecilio Guerrero CO2 [Moles/Vol] 30.5 mmol/L Normal 21.0-32.0 [facility] Comment on above: Performed By: #### L BEBA RUSH, CMP #### [facility] [address] [address] [address] Cecilio Guerrero Creatinine [Mass/Vol] 0.99 mg/dL Normal 0.55-1.02 [facility] Comment on above: Performed By: #### L BEBA RUSH, CMP #### [facility] [address] [place] [address] Dr. Cecilio Guerrero EGFR-AF VINCENTIAN >60 Normal >=60 [facility] Comment on above: Performed By: #### L BEBA RUSH, CMP #### [facility] [address] [place] [address] Dr. Cecilio Guerrero EGFR-NON AF VINCENTIAN 59 mL/min/1.73m2 Critically low >=60 [facility] Comment on above: Performed By: #### L BEBA RUSH, CMP #### [facility] [address] [place] [address] Dr. Cecilio Guerrero Globulin (S) [Mass/Vol] 4.0 g/dL Normal [facility] Comment on above: Performed By: #### L BEBA RUSH, CMP #### [facility] [address] [place] [address] Dr. Cecilio Guerrero Glucose [Mass/Vol] 130 mg/dL Critically high 74-106 [facility] Comment on above: Performed By: #### L BEBA RUSH, CMP #### [facility] [address] [place] [address] Dr. Cecilio Guerrero Potassium [Moles/Vol] 4.3 mmol/L Normal 3.5-5.1 [facility] Comment on above: Performed By: #### L VICTOR MANUEL BEBA, CMP #### [facility] [address] [address] [address] Cecilio Guerrero Protein [Mass/Vol] 7.3 g/dL Normal 6.4-8.2 [facility] Comment on above: Performed By: #### L IPA BEBA, CMP #### [facility] [address] [address] [address] Cecilio Guerrero Sodium [Moles/Vol] 141 mmol/L Normal 136-145 [facility] Comment on above: Performed By: #### L VICTOR MANUEL BEBA, CMP #### [facility] [address] [address] [address] Cecilio Guerrero Urea nitrogen [Mass/Vol] 12.0 mg/dL Normal 7.0-18.0 [facility] Comment on above: Performed By: #### L VICTOR MANUEL BEBA, CMP #### [facility] [address] [address] [address] Cecilio Guerrero Urea nitrogen/Creatinine [Mass ratio] 12.1 mg/mg Normal [facility] Comment on above: Performed By: #### L VICTOR MANUEL BEBA, CMP #### [facility] [address] [address] [address] Cecilio Guerrero US SINGLE QUAD RT [...] by: ANNALISA DE Date: 2022-03-13 12:13 Normal [facility] NM STRESS/REST MULTIon 11-03 NM STRESS/REST MULTI Patient: TAMY SAL Exam Date: 11/03/2021 : 1970 Gender:F Ordering : DR ERIC JOHNSTON . Admission #: [id number] Family : Order #: [id number] CLICK HERE TO VIEW EXAM RADIOLOGY REPORT [...] Masters MD on 11/04/2021 at 07:34 Normal [facility] Antithyroglobulin Abon 07-08 Antithyroglobulin Ab <1.0 Normal 0.0-0.9 [facility] Comment on above: Result Comment: Thyr oglobulin Antibody measured by [employer] Performed at: - [facility] [address] [id number] Customer Acquisition Specialist: Fabrizio Herrera PhD, Phone: [phone] Performed By: #### C HROMATIN, TPO, THYGLOB AB #### [facility] , #### ADDONUAPLUS #### [facility] [address] [place] [address] Chromatin Antibodyon 022 Chromatin Antibody <0.2 Normal 0.0-0.9 [facility] Comment on above: Result Comment: Perf ormed at: CB - [facility] [address] [id number] Customer Acquisition Specialist: Fabrizio Herrera PhD, Phone: [phone] PERFORMED BY: [place] [address] PATHOLOGIST FLATWORK IRONER PAULA WILL M.D. Performed By: #### C HROMATIN, TPO, THYGLOB AB #### [facility] , #### ADDONUAPLUS #### [address] Dipstick and Microscopicon 0 07-08-2021 Appearance (U) Clear Normal Clear [facility] Comment on above: Order Comment: Name Collection Type:: Clean-Voided Midstream Performed By: #### C HROMATIN, TPO, THYGLOB AB #### [facility] , #### ADDONUAPLUS #### [address] Bacteria,Urine None Seen Normal None Seen [facility] Comment on above: Order Comment: Name Collection Type:: Clean-Voided Midstream Performed By: #### C HROMATIN, TPO, THYGLOB AB #### [facility] , #### ADDONUAPLUS #### [facility] [address] [place] [address] [place] Bilirubin,Urine Negative Normal Negative [facility] Comment on above: Order Comment: Name Collection Type:: Clean-Voided Midstream Performed By: #### C HROMATIN, TPO, THYGLOB AB #### [facility] , #### ADDONUAPLUS #### [facility] [address] [place] [address] Color (U) Yellow Normal Yellow [facility] Comment on above: Order Comment: Name Collection Type:: Clean-Voided Midstream Performed By: #### C HROMATIN, TPO, THYGLOB AB #### [facility] , #### ADDONUAPLUS #### [facility] [address] [place] [address] Glucose Ql (U) Normal Normal Normal [facility] Comment on above: Order Comment: Name Collection Type:: Clean-Voided Midstream Performed By: #### C HROMATIN, TPO, THYGLOB AB #### [facility] , #### ADDONUAPLUS #### [facility] [address] [place] [address] Hyaline Casts,Urine 0-8 Normal 0-8 [facility] Comment on above: Order Comment: Name Collection Type:: Clean-Voided Midstream Result Comment: PERF ORMED BY: [place] [address] PATHOLOGIST FLATWORK IRONER PAULA WILL M.D. Performed By: #### C HROMATIN, TPO, THYGLOB AB #### [facility] , #### ADDONUAPLUS #### [facility] [address] [place] [address] Ketones Ql (U) Trace High Negative [facility] Comment on above: Order Comment: Name Collection Type:: Clean-Voided Midstream Performed By: #### C HROMATIN, TPO, THYGLOB AB #### [facility] , #### ADDONUAPLUS #### [facility] [address] [place] [address] Leukocyte esterase Test strip Ql (U) Negative Normal Negative [facility] Comment on above: Order Comment: Name Collection Type:: Clean-Voided Midstream Performed By: #### C HROMATIN, TPO, THYGLOB AB #### [facility] , #### ADDONUAPLUS #### [address] Nitrite,Urine Negative Normal Negative [facility] Comment on above: Order Comment: Name Collection Type:: Clean-Voided Midstream Performed By: #### C HROMATIN, TPO, THYGLOB AB #### [facility] , #### ADDONUAPLUS #### [address] Occult Blood,Urine Negative Normal Negative [facility] Comment on above: Order Comment: Name Collection Type:: Clean-Voided Midstream Performed By: #### C HROMATIN, TPO, THYGLOB AB #### [facility] , #### ADDONUAPLUS #### [address] pH (U) 6.5 [pH] Normal 5.0-9.0 [facility] Comment on above: Order Comment: Name Collection Type:: Clean-Voided Midstream Performed By: #### C HROMATIN, TPO, THYGLOB AB #### [facility] , #### ADDONUAPLUS #### [address] Protein,Urine Negative Normal Negative [facility] Comment on above: Order Comment: Name Collection Type:: Clean-Voided Midstream Performed By: #### C HROMATIN, TPO, THYGLOB AB #### [facility] , #### ADDONUAPLUS #### [address] RBC LM.HPF (Urine sed) [#/Area] 0 /[HPF] Normal 0-4 [facility] Comment on above: Order Comment: Name Collection Type:: Clean-Voided Midstream Performed By: #### C HROMATIN, TPO, THYGLOB AB #### [facility] , #### ADDONUAPLUS #### [address] Specificy Mckenna,Urine 1.026 Normal 1.001-1.030 [facility] Comment on above: Order Comment: Name Collection Type:: Clean-Voided Midstream Performed By: #### C HROMATIN, TPO, THYGLOB AB #### [facility] , #### ADDONUAPLUS #### [address] Squamous Epithelial Cell,Urine 0-1 Normal 0-2 [facility] Comment on above: Order Comment: Name Collection Type:: Clean-Voided Midstream Performed By: #### C HROMATIN, TPO, THYGLOB AB #### [facility] , #### ADDONUAPLUS #### [address] Urobilinogen,Urine Normal Normal Normal [facility] Comment on above: Order Comment: Name Collection Type:: Clean-Voided Midstream Performed By: #### C HROMATIN, TPO, THYGLOB AB #### [facility] , #### ADDONUAPLUS #### [address] WBC LM.HPF (Urine sed) [#/Area] 0 /[HPF] Normal 0-4 [facility] Comment on above: Order Comment: Name Collection Type:: Clean-Voided Midstream Performed By: #### C HROMATIN, TPO, THYGLOB AB #### [facility] , #### ADDONUAPLUS #### [facility] [address] [place] [address] Thyroid Peroxidase Antibodie son 07-08-2021 Thyroid Peroxidase Antibodies <8 Normal 0-34 [facility] Comment on above: Result Comment: Perf ormed at: CB - [facility] [address] [place], [place] [id number] Customer Acquisition Specialist: Fabrizio Herrera PhD, Phone: [phone] Performed By: #### C HROMATIN, TPO, THYGLOB AB #### [facility] , #### ADDONUAPLUS #### [facility] [address] SHIV Antinuclear Antibodieson 05-27-2021 Antinuclear Abs, IFA Positive Critically abnormal . [facility] Comment on above: Result Comment: Nega tive <1:80 Borderline 1:80 Positive >1:80 Performed By: #### C HROMATIN, TPO, THYGLOB AB #### [facility] , #### ADDONUAPLUS #### [facility] [address] Homogeneous Pattern 1:160 High . [facility] Comment on above: Result Comment: ICAP nomenclature: AC-1 Performed By: #### C HROMATIN, TPO, THYGLOB AB #### [facility] , #### ADDONUAPLUS #### [facility] [address] Note 1 Normal . [facility] [...] titers Nucleosomes, Histones Drug-induced SLE Speckled Sm, TRAILER ASSEMBLER, SCL-70, SLE,MCTD,PSS (diffuse form), SS-A/SS-B Sjogrens Nucleolar SCL-70, PM-1/SCL High titers Scleroderma, PM/DM Centromere Centromere PSS (limited form) w/Crest syndrome variable Nuclear Dot Sp100,l30-dpvydk Primary Biliary Cirrhosis Nuclear GP210, Primary Biliary Cirrhosis Membrane souleymane A,B,C Performed at: - [facility] [address] [place], [place] [id number] Customer Acquisition Specialist: Fabrizio Herrera PhD, Phone: [phone] Performed By: #### C HROMATIN, TPO, THYGLOB AB #### [facility] , #### ADDONUAPLUS #### [address] C-Reactive Proteinon 022 C-Reactive Protein 0.7 mg/dL Normal 0.0-1.0 [facility] Comment on above: Performed By: #### R MD W RFX, SADE,URINE, SPE, UPE RAND, SADE SERUM, SHIV #### [facility] , #### CMP, TSH3, CRP, T4F, CK, ADDONUAPLUS #### [facility] [address] [place] [address] Complement C3on 05-27-2021 Complement C3 147 mg/dL Normal 82-167 [facility] Comment on above: Result Comment: Perf ormed at: [address] [id number] Customer Acquisition Specialist: Fabrizio Herrera PhD, Phone: [phone] Performed By: #### C HROMATIN, TPO, THYGLOB AB #### [facility] , #### ADDONUAPLUS #### [facility] [address] [place] [address] Complement C4on 05-27-2021 Complement C4 25 mg/dL Normal 12-38 [facility] Comment on above: Performed By: #### C HROMATIN, TPO, THYGLOB AB #### [facility] , #### ADDONUAPLUS #### [facility] [address] [place] [address] Complement Total (CH50)on Complement Total (CH50) >60 Normal >41 [facility] Comment on [...] determine out of range values. Performed at: [facility] [id number] Customer Acquisition Specialist: Fabrizio Herrera PhD, Phone: [phone] PERFORMED BY: [place] [address] PATHOLOGIST FLATWORK IRONER PAULA WILL M.D. Performed By: #### C HROMATIN, TPO, THYGLOB AB #### [facility] , #### ADDONUAPLUS #### [address] Complete Blood Count Auto Di ffon 05-27-2021 Basophils (Bld) [#/Vol] 0.1 10*3/uL Normal 0.0-0.2 [facility] Comment on above: Performed By: #### C HROMATIN, TPO, THYGLOB AB #### [facility] , #### ADDONUAPLUS #### [address] Basophils/100 WBC (Bld) 1.1 % Normal . [facility] Comment on above: Performed By: #### C HROMATIN, TPO, THYGLOB AB #### [facility] , #### ADDONUAPLUS #### [address] Eosinophils (Bld) [#/Vol] 0.3 10*3/uL Normal 0.0-0.45 [facility] Comment on above: Performed By: #### C HROMATIN, TPO, THYGLOB AB #### [facility] , #### ADDONUAPLUS #### [address] Eosinophils/100 WBC (Bld) 3.7 % Normal . [facility] Comment on above: Performed By: #### C HROMATIN, TPO, THYGLOB AB #### [facility] , #### ADDONUAPLUS #### [address] Erythrocyte distribution width (RBC) [Ratio] 12.5 % Normal 11.9-15.3 [facility] Comment on above: Performed By: #### C HROMATIN, TPO, THYGLOB AB #### [facility] , #### ADDONUAPLUS #### [address] Hematocrit (Bld) [Volume fraction] 40.3 % Normal 34.0-46.4 [facility] Comment on above: Performed By: #### C HROMATIN, TPO, THYGLOB AB #### [facility] , #### ADDONUAPLUS #### [address] Hemoglobin (Bld) [Mass/Vol] 13.5 g/dL Normal 11.8-15.4 [facility] Comment on above: Performed By: #### C HROMATIN, TPO, THYGLOB AB #### [facility] , #### ADDONUAPLUS #### [address] Lymphocytes (Bld) [#/Vol] 2.4 10*3/uL Normal 1.00-4.8 [facility] Comment on above: Performed By: #### C HROMATIN, TPO, THYGLOB AB #### [facility] , #### ADDONUAPLUS #### [address] Lymphocytes/100 WBC (Bld) 33.7 % Normal . [facility] Comment on above: Performed By: #### C HROMATIN, TPO, THYGLOB AB #### [facility] , #### ADDONUAPLUS #### [address] MCH (RBC) [Entitic mass] 31.3 pg Normal 24.7-34.3 [facility] Comment on above: Performed By: #### C HROMATIN, TPO, THYGLOB AB #### [facility] , #### ADDONUAPLUS #### [address] MCV (RBC) [Entitic vol] 93.6 fL Normal 80-100 [facility] Comment on above: Performed By: #### C HROMATIN, TPO, THYGLOB AB #### [facility] , #### ADDONUAPLUS #### [address] Mean Corpuscular HGB Conc 33.5 g/dL Normal 32.0-35.0 [facility] Comment on above: Performed By: #### C HROMATIN, TPO, THYGLOB AB #### [facility] , #### ADDONUAPLUS #### [address] Monocytes (Bld) [#/Vol] 0.5 10*3/uL Normal 0.0-0.8 [facility] Comment on above: Performed By: #### C HROMATIN, TPO, THYGLOB AB #### [facility] , #### ADDONUAPLUS #### [address] Monocytes/100 WBC (Bld) 7.1 % Normal . [facility] Comment on above: Performed By: #### C HROMATIN, TPO, THYGLOB AB #### [facility] , #### ADDONUAPLUS #### [address] Neutrophils (Bld) [#/Vol] 3.9 10*3/uL Normal 1.8-7.7 [facility] Comment on above: Performed By: #### C HROMATIN, TPO, THYGLOB AB #### [facility] , #### ADDONUAPLUS #### [address] Neutrophils/100 WBC (Bld) 54.4 % Normal . [facility] Comment on above: Performed By: #### C HROMATIN, TPO, THYGLOB AB #### [facility] , #### ADDONUAPLUS #### [address] Nucleated RBC/100 WBC (Bld) [Ratio] 0.1 % Normal 0-0.5 [facility] Comment on above: Performed By: #### C HROMATIN, TPO, THYGLOB AB #### [facility] , #### ADDONUAPLUS #### [address] Platelet mean volume (Bld) [Entitic vol] 7.3 fL Normal 6.3-10.7 [facility] Comment on above: Performed By: #### C HROMATIN, TPO, THYGLOB AB #### [facility] , #### ADDONUAPLUS #### [address] Platelets (Bld) [#/Vol] 397 10*3/uL Normal 150-450 [facility] Comment on above: Performed By: #### C HROMATIN, TPO, THYGLOB AB #### [facility] , #### ADDONUAPLUS #### [address] RBC (Bld) [#/Vol] 4.31 10*6/uL Normal 3.60-5.00 [facility] Comment on above: Performed By: #### C HROMATIN, TPO, THYGLOB AB #### [facility] , #### ADDONUAPLUS #### [address] WBC (Bld) [#/Vol] 7.1 10*3/uL Normal 4.5-11.0 [facility] Comment on above: Performed By: #### C HROMATIN, TPO, THYGLOB AB #### [facility] , #### ADDONUAPLUS #### [address] Comprehensive Metabolic Pane rl 05-27-2021 Albumin [Mass/Vol] 3.7 g/dL Normal 3.2-5.5 [facility] Comment on above: Performed By: #### R MD W RFX, SADE,URINE, SPE, UPE RAND, SADE SERUM, SHIV #### [facility] , #### CMP, TSH3, CRP, T4F, CK, ADDONUAPLUS #### [address] Albumin/Globulin [Mass ratio] 1.1 {ratio} Normal [facility] Comment on above: Performed By: #### R MD W RFX, SADE,URINE, SPE, UPE RAND, SADE SERUM, SHIV #### [facility] , #### CMP, TSH3, CRP, T4F, CK, ADDONUAPLUS #### [address] ALP [Catalytic activity/Vol] 73 U/L Normal 32-92 [facility] Comment on above: Performed By: #### R MD W RFX, SADE,URINE, SPE, UPE RAND, SADE SERUM, SHIV #### [facility] , #### CMP, TSH3, CRP, T4F, CK, ADDONUAPLUS #### [facility] [address] [place] [address] ALT [Catalytic activity/Vol] 38 U/L Normal 10-60 [facility] Comment on above: Performed By: #### R MD W RFX, SADE,URINE, SPE, UPE RAND, SADE SERUM, SHIV #### [facility] , #### CMP, TSH3, CRP, T4F, CK, ADDONUAPLUS #### [facility] [address] [place] [address] AST [Catalytic activity/Vol] 26 U/L Normal 10-42 [facility] Comment on above: Performed By: #### R MD W RFX, SADE,URINE, SPE, UPE RAND, SADE SERUM, SHIV #### [facility] , #### CMP, TSH3, CRP, T4F, CK, ADDONUAPLUS #### [address] Bilirubin [Mass/Vol] 0.5 mg/dL Normal 0.3-1.2 [facility] Comment on above: Performed By: #### R MD W RFX, SADE,URINE, SPE, UPE RAND, SADE SERUM, SHIV #### [facility] , #### CMP, TSH3, CRP, T4F, CK, ADDONUAPLUS #### [address] Calcium [Mass/Vol] 10.1 mg/dL Normal 8.2-10.2 [facility] Comment on above: Performed By: #### R MD W RFX, SADE,URINE, SPE, UPE RAND, SADE SERUM, SHIV #### [facility] , #### CMP, TSH3, CRP, T4F, CK, ADDONUAPLUS #### [address] Chloride [Moles/Vol] 101 mmol/L Normal 95-114 [facility] Comment on above: Performed By: #### R MD W RFX, SADE,URINE, SPE, UPE RAND, SADE SERUM, SHIV #### [facility] , #### CMP, TSH3, CRP, T4F, CK, ADDONUAPLUS #### [facility] [address] [place] [address] [place] CO2 [Moles/Vol] 29.4 mmol/L Normal 22.0-30.0 [facility] Comment on above: Performed By: #### R MD W RFX, SADE,URINE, SPE, UPE RAND, SADE SERUM, SHIV #### [facility] , #### CMP, TSH3, CRP, T4F, CK, ADDONUAPLUS #### [address] Creatinine [Mass/Vol] 0.99 mg/dL Normal 0.44-1.03 [facility] Comment on above: Performed By: #### R MD W RFX, SADE,URINE, SPE, UPE RAND, SADE SERUM, SHIV #### [facility] , #### CMP, TSH3, CRP, T4F, CK, ADDONUAPLUS #### [address] Estimated GFR ( Patricia > 60 [facility] Comment on above: Result Comment: GFR estimated reference range: According to KDOQI guidelines, <60 ml/min/1.73m2 is sufficient to diagnose a patient with chronic kidney disease. Performed By: #### R MD W RFX, SADE,URINE, SPE, UPE RAND, SADE SERUM, SHIV #### [facility] , #### CMP, TSH3, CRP, T4F, CK, ADDONUAPLUS #### [address] Estimated GFR (Non- Am 59 [facility] Comment on above: Performed By: #### R MD W RFX, SADE,URINE, SPE, UPE RAND, SADE SERUM, SHIV #### [facility] , #### CMP, TSH3, CRP, T4F, CK, ADDONUAPLUS #### [address] Globulin (S) [Mass/Vol] 3.3 g/dL [facility] Comment on above: Performed By: #### R MD W RFX, SADE,URINE, SPE, UPE RAND, SADE SERUM, SHIV #### [facility] , #### CMP, TSH3, CRP, T4F, CK, ADDONUAPLUS #### [address] Glucose [Mass/Vol] 111 mg/dL High 70-100 [facility] Comment on above: Result Comment: [facility] [place] Glucose Reference Range is dependent on time and content of last meal. Glucose of more than 200 mg/dL in a nonstressed, ambulatory subject supports the diagnosis of Diabetes Mellitus. ADA recommended reference range Performed By: #### R MD W RFX, SADE,URINE, SPE, UPE RAND, SADE SERUM, SHIV #### [facility] , #### CMP, TSH3, CRP, T4F, CK, ADDONUAPLUS #### [address] Potassium [Moles/Vol] 4.7 mmol/L Normal 3.5-5.1 [facility] Comment on above: Performed By: #### R MD W RFX, SADE,URINE, SPE, UPE RAND, SADE SERUM, SHIV #### [facility] , #### CMP, TSH3, CRP, T4F, CK, ADDONUAPLUS #### [address] Protein [Mass/Vol] 7.0 g/dL Normal 6.1-7.9 [facility] Comment on above: Performed By: #### R MD W RFX, SADE,URINE, SPE, UPE RAND, SADE SERUM, SHIV #### [facility] , #### CMP, TSH3, CRP, T4F, CK, ADDONUAPLUS #### [address] Sodium [Moles/Vol] 140 mmol/L Normal 136-146 [facility] Comment on above: Performed By: #### R MD W RFX, SADE,URINE, SPE, UPE RAND, SADE SERUM, SHIV #### [facility] , #### CMP, TSH3, CRP, T4F, CK, ADDONUAPLUS #### [address] Urea nitrogen [Mass/Vol] 10 mg/dL Normal 9-23 [facility] Comment on above: Performed By: #### R MD W RFX, SADE,URINE, SPE, UPE RAND, SADE SERUM, SHIV #### [facility] , #### CMP, TSH3, CRP, T4F, CK, ADDONUAPLUS #### [address] Creatine Kinaseon 05-27-2021 CK [Catalytic activity/Vol] 47 U/L Normal 22-269 [facility] Comment on above: Result Comment: PERF ORMED BY: [place] [address] PATHOLOGIST FLATWORK IRONER PAULA WILL M.D. Performed By: #### R MD W RFX, SADE,URINE, SPE, UPE RAND, SADE SERUM, SHIV #### [facility] , #### CMP, TSH3, CRP, T4F, CK, ADDONUAPLUS #### [address] Dipstick and Microscopicon 0 05-27-2021 Appearance (U) Cloudy Critically abnormal Clear [facility] Comment on above: Order Comment: Name Collection Type:: Clean-Voided Midstream Performed By: #### R MD W RFX, SADE,URINE, SPE, UPE RAND, SADE SERUM, SHIV #### [facility] , #### CMP, TSH3, CRP, T4F, CK, ADDONUAPLUS #### [address] Bacteria,Urine None Seen Normal None Seen [facility] Comment on above: Order Comment: Name Collection Type:: Clean-Voided Midstream Performed By: #### R MD W RFX, SADE,URINE, SPE, UPE RAND, SADE SERUM, SHIV #### [facility] , #### CMP, TSH3, CRP, T4F, CK, ADDONUAPLUS #### [address] Bilirubin,Urine Negative Normal Negative [facility] Comment on above: Order Comment: Name Collection Type:: Clean-Voided Midstream Performed By: #### R MD W RFX, SADE,URINE, SPE, UPE RAND, SADE SERUM, SHIV #### [facility] , #### CMP, TSH3, CRP, T4F, CK, ADDONUAPLUS #### [address] Color (U) Dark Yellow Critically abnormal Yellow [facility] Comment on above: Order Comment: Name Collection Type:: Clean-Voided Midstream Performed By: #### R MD W RFX, SADE,URINE, SPE, UPE RAND, SADE SERUM, SHIV #### [facility] , #### CMP, TSH3, CRP, T4F, CK, ADDONUAPLUS #### [address] Glucose Ql (U) Normal Normal Normal [facility] Comment on above: Order Comment: Name Collection Type:: Clean-Voided Midstream Performed By: #### R MD W RFX, SADE,URINE, SPE, UPE RAND, SADE SERUM, SHIV #### [facility] , #### CMP, TSH3, CRP, T4F, CK, ADDONUAPLUS #### [address] Hyaline Casts,Urine 0-8 Normal 0-8 [facility] Comment on above: Order Comment: Name Collection Type:: Clean-Voided Midstream Result Comment: PERF ORMED BY: [place] [address] PATHOLOGIST FL[employer]WORK IRONER PAULA WILL M.D. Performed By: #### R MD W RFX, SADE,URINE, SPE, UPE RAND, SADE SERUM, SHIV #### [facility] , #### CMP, TSH3, CRP, T4F, CK, ADDONUAPLUS #### [address] Ketones Ql (U) Trace High Negative [facility] Comment on above: Order Comment: Name Collection Type:: Clean-Voided Midstream Performed By: #### R MD W RFX, SADE,URINE, SPE, UPE RAND, SADE SERUM, SHIV #### [facility] , #### CMP, TSH3, CRP, T4F, CK, ADDONUAPLUS #### [address] Leukocyte esterase Test strip Ql (U) 1+ High Negative [facility] Comment on above: Order Comment: Name Collection Type:: Clean-Voided Midstream Performed By: #### R MD W RFX, SADE,URINE, SPE, UPE RAND, SADE SERUM, SHIV #### [facility] , #### CMP, TSH3, CRP, T4F, CK, ADDONUAPLUS #### [address] Nitrite,Urine Negative Normal Negative [facility] Comment on above: Order Comment: Name Collection Type:: Clean-Voided Midstream Performed By: #### R MD W RFX, SADE,URINE, SPE, UPE RAND, SADE SERUM, SHIV #### [facility] , #### CMP, TSH3, CRP, T4F, CK, ADDONUAPLUS #### [address] Occult Blood,Urine Negative Normal Negative [facility] Comment on above: Order Comment: Name Collection Type:: Clean-Voided Midstream Performed By: #### R MD W RFX, SADE,URINE, SPE, UPE RAND, SADE SERUM, SHIV #### [facility] , #### CMP, TSH3, CRP, T4F, CK, ADDONUAPLUS #### [address] pH (U) 8.5 [pH] Normal 5.0-9.0 [facility] Comment on above: Order Comment: Name Collection Type:: Clean-Voided Midstream Performed By: #### R MD W RFX, SADE,URINE, SPE, UPE RAND, SADE SERUM, SHIV #### [facility] , #### CMP, TSH3, CRP, T4F, CK, ADDONUAPLUS #### [address] Protein,Urine Trace High Negative [facility] Comment on above: Order Comment: Name Collection Type:: Clean-Voided Midstream Performed By: #### R MD W RFX, SADE,URINE, SPE, UPE RAND, SADE SERUM, SHIV #### [facility] , #### CMP, TSH3, CRP, T4F, CK, ADDONUAPLUS #### [address] RBC,Urine 3-4 Normal 0-4 [facility] Comment on above: Order Comment: Name Collection Type:: Clean-Voided Midstream Performed By: #### R MD W RFX, SADE,URINE, SPE, UPE RAND, SADE SERUM, SHIV #### [facility] , #### CMP, TSH3, CRP, T4F, CK, ADDONUAPLUS #### [address] Specificy Mckenna,Urine 1.020 Normal 1.001-1.030 [facility] Comment on above: Order Comment: Name Collection Type:: Clean-Voided Midstream Performed By: #### R MD W RFX, SADE,URINE, SPE, UPE RAND, SADE SERUM, SHIV #### [facility] , #### CMP, TSH3, CRP, T4F, CK, ADDONUAPLUS #### [address] Squamous Epithelial Cell,Urine 1-2 Normal 0-2 [facility] Comment on above: Order Comment: Name Collection Type:: Clean-Voided Midstream Performed By: #### R MD W RFX, SADE,URINE, SPE, UPE RAND, SADE SERUM, SHIV #### [facility] , #### CMP, TSH3, CRP, T4F, CK, ADDONUAPLUS #### [address] Urobilinogen,Urine Normal Normal Normal [facility] Comment on above: Order Comment: Name Collection Type:: Clean-Voided Midstream Performed By: #### R MD W RFX, SADE,URINE, SPE, UPE RAND, SADE SERUM, SHIV #### [facility] , #### CMP, TSH3, CRP, T4F, CK, ADDONUAPLUS #### [address] WBC,Urine 1-2 Normal 0-4 [facility] Comment on above: Order Comment: Name Collection Type:: Clean-Voided Midstream Performed By: #### R MD W RFX, SADE,URINE, SPE, UPE RAND, SADE SERUM, SHIV #### [facility] , #### CMP, TSH3, CRP, T4F, CK, ADDONUAPLUS #### [address] Erythrocyte Sedimentation Ra madeleine 05-27-2021 ESR (Bld) [Velocity] 27 mm/h Normal 0-29 [facility] Comment on above: Result Comment: PERF ORMED BY: [place] [address] PATHOLOGIST [employer]ONER PAULA WILL M.D. Performed By: #### C HROMATIN, TPO, THYGLOB AB #### [facility] , #### ADDONUAPLUS #### [address] Free T4 (Free Thyroxine)on 0 05-27-2021 Free T4 [Mass/Vol] 0.95 ng/dL Normal 0.61-1.12 [facility] Comment on above: Performed By: #### R MD W RFX, SADE,URINE, SPE, UPE RAND, SADE SERUM, SHIV #### [facility] , #### CMP, TSH3, CRP, T4F, CK, ADDONUAPLUS #### [place] [address] [place] Immunofixation, (SADE), Urine on 05-27-2021 Immunofixation, (SADE), Urine Normal . [facility] Comment on above: Result Comment: No m onoclonality detected. Performed at: - [facility] [id number] Customer Acquisition Specialist: Fabrizio Herrera PhD, Phone: [phone] Performed By: #### C HROMATIN, TPO, THYGLOB AB #### [facility] , #### ADDONUAPLUS #### [place] [address] [place] Immunofixation,Serumon 05-27 Immunofixation, Serum Normal . [facility] Comment on above: Result Comment: No m onoclonality detected. Performed By: #### C HROMATIN, TPO, THYGLOB AB #### [facility] , #### ADDONUAPLUS #### [facility] [address] [place] [address] [place] Immunoglobulin A, Serum 460 mg/dL High 87-352 [facility] Comment on above: Performed By: #### C HROMATIN, TPO, THYGLOB AB #### [facility] , #### ADDONUAPLUS #### [facility] [address] [place] [address] [place] Immunoglobulin G 1486 mg/dL Normal 586-1602 [facility] Comment on above: Performed By: #### C HROMATIN, TPO, THYGLOB AB #### [facility] , #### ADDONUAPLUS #### [facility] [address] [place] [address] [place] Immunoglobulin M, Serum 66 mg/dL Normal 26-217 [facility] Comment on above: Result Comment: Perf ormed at: CB - [facility] [address] [id number] Customer Acquisition Specialist: Fabrizio Herrera PhD, Phone: [phone] Performed By: #### C HROMATIN, TPO, THYGLOB AB #### [facility] , #### ADDONUAPLUS #### [facility] [address] [place] [address] Lupus Anticoagulant Compon 0 - Dilute Prothrombin Time (dPt) 37.4 Normal 0.0-47.6 [facility] Comment on above: Performed By: #### C HROMATIN, TPO, THYGLOB AB #### [facility] , #### ADDONUAPLUS #### [facility] [address] [place] [address] dPT Confirm Ratio 1.04 Normal 0.00-1.34 [facility] Comment on above: Performed By: #### C HROMATIN, TPO, THYGLOB AB #### [facility] , #### ADDONUAPLUS #### [facility] [address] [place] [address] DRVVT Lupus 35.3 Normal 0.0-47.0 [facility] Comment on above: Performed By: #### C HROMATIN, TPO, THYGLOB AB #### [facility] , #### ADDONUAPLUS #### [facility] [address] [place] [address] Interpretation Comment: Normal . [facility] Comment on above: Result Comment: No l upus anticoagulant was detected. Performed at: - [facility] [id number] Customer Acquisition Specialist: Rainer Bennett MD, Phone: [phone] PERFORMED BY: [place] [address] PATHOLOGIST [employer]WORK IRONER PAULA WILL M.D. Performed By: #### C HROMATIN, TPO, THYGLOB AB #### [facility] , #### ADDONUAPLUS #### [address] PTT-LA 29.7 Normal 0.0-51.9 [facility] Comment on above: Performed By: #### C HROMATIN, TPO, THYGLOB AB #### [facility] , #### ADDONUAPLUS #### [address] Thrombin Time 17.5 Normal 0.0-23.0 [facility] Comment on above: Performed By: #### C HROMATIN, TPO, THYGLOB AB #### [facility] , #### ADDONUAPLUS #### [address] Partial Thromboplastin Timeo n 05-27-2021 aPTT Coag (Bld) [Time] 33.6 s Normal 25.1-36.5 [facility] Comment on above: Order Comment: List the anticoagulant: NONE Result Comment: PERF ORMED BY: [place] [address] PATHOLOGIST [employer]WORK IRONER PAULA WILL M.D. Performed By: #### C HROMATIN, TPO, THYGLOB AB #### [facility] , #### ADDONUAPLUS #### [address] Protein Electro, Random Urin ryan 05-27-2021 Albumin, Urine 30.6 % Normal . [facility] Comment on above: Performed By: #### C HROMATIN, TPO, THYGLOB AB #### [facility] , #### ADDONUAPLUS #### [address] [id number], Urine 7.3 % Normal . [facility] Comment on above: Performed By: #### C HROMATIN, TPO, THYGLOB AB #### [facility] , #### ADDONUAPLUS #### [facility] [address] [id number], Urine 25.1 % Normal . [facility] Comment on above: Performed By: #### C HROMATIN, TPO, THYGLOB AB #### [facility] , #### ADDONUAPLUS #### [address] Beta Globulin, Urine 29.0 % Normal . [facility] Comment on above: Performed By: #### C HROMATIN, TPO, THYGLOB AB #### [facility] , #### ADDONUAPLUS #### [address] Gamma Globulin, Urine 8.0 % Normal . [facility] Comment on above: Performed By: #### C HROMATIN, TPO, THYGLOB AB #### [facility] , #### ADDONUAPLUS #### [facility] [address] [place] [address] M-Ahsan % Not Observed Normal Not Observed [facility] Comment on above: Performed By: #### C HROMATIN, TPO, THYGLOB AB #### [facility] , #### ADDONUAPLUS #### [facility] [address] [place] [address] Please Note: Normal . [facility] Comment on above: Result Comment: Prot ein electrophoresis scan will follow via computer, mail, or floor manager delivery. Protein electrophoresis scan will follow via computer, mail, or floor manager delivery. Performed at: [facility] [id number] Customer Acquisition Specialist: Fabrizio Herrera PhD, Phone: [phone] --- 05/29/21 3778 --- Please Note: previously reported as: Protein electrophoresis scan will follow via computer, mail, or floor manager delivery. Protein electrophoresis scan will follow via computer, mail, or floor manager delivery. Performed at: [address] [id number] Customer Acquisition Specialist: Fabrizio Herrera PhD, Phone: [phone] --- 06/04/21 1109 --- Please Note: previously reported as: Protein electrophoresis scan will follow via computer, mail, or floor manager delivery. Protein electrophoresis scan will follow via computer, mail, or floor manager delivery. Performed at: [address] [id number] Customer Acquisition Specialist: Fabrizio Herrera PhD, Phone: [phone] --- 05/29/21 1308 --- Please Note: previously reported as: Protein electrophoresis scan will follow via computer, mail, or floor manager delivery. PERFORMED BY: [place] [address] PATHOLOGIST [employer] IRONER PAULA WILL M.D. Performed By: #### C HROMATIN, TPO, THYGLOB AB #### [facility] , #### ADDONUAPLUS #### [address] Protein (U) [Mass/Vol] 18.9 mg/dL Normal Not Estab. [facility] Comment on above: Performed By: #### C HROMATIN, TPO, THYGLOB AB #### [facility] , #### ADDONUAPLUS #### [address] Protein Electrophoresis, Ser umon 05-27-2021 Albumin [Mass/Vol] 3.6 g/dL Normal 2.9-4.4 [facility] Comment on above: Performed By: #### C HROMATIN, TPO, THYGLOB AB #### [facility] , #### ADDONUAPLUS #### [address] Albumin/Globulin [Mass ratio] 1.0 {ratio} Normal 0.7-1.7 [facility] Comment on above: Performed By: #### C HROMATIN, TPO, THYGLOB AB #### [facility] , #### ADDONUAPLUS #### [address] Hbzly-2-Sielibna 0.2 g/dL Normal 0.0-0.4 [facility] Comment on above: Performed By: #### C HROMATIN, TPO, THYGLOB AB #### [facility] , #### ADDONUAPLUS #### [address] Muklc-0-Evbblfgb 0.8 g/dL Normal 0.4-1.0 [facility] Comment on above: Performed By: #### C HROMATIN, TPO, THYGLOB AB #### [facility] , #### ADDONUAPLUS #### [address] Beta Globulin 1.4 g/dL High 0.7-1.3 [facility] Comment on above: Performed By: #### C HROMATIN, TPO, THYGLOB AB #### [facility] , #### ADDONUAPLUS #### [address] Gamma Globulin 1.3 g/dL Normal 0.4-1.8 [facility] Comment on above: Performed By: #### C HROMATIN, TPO, THYGLOB AB #### [facility] , #### ADDONUAPLUS #### [facility] [address] [place] [address] [place] Globulin (S) [Mass/Vol] 3.7 g/dL Normal 2.2-3.9 [facility] Comment on above: Performed By: #### C HROMATIN, TPO, THYGLOB AB #### [facility] , #### ADDONUAPLUS #### [facility] [address] M-Ahsan Not Observed Normal Not Observed [facility] Comment on above: Performed By: #### C HROMATIN, TPO, THYGLOB AB #### [facility] , #### ADDONUAPLUS #### [address] Protein [Mass/Vol] 7.3 g/dL Normal 6.0-8.5 [facility] Comment on above: Performed By: #### C HROMATIN, TPO, THYGLOB AB #### [facility] , #### ADDONUAPLUS #### [address] SPE-Note Normal . [facility] Comment on above: Result Comment: Prot ein electrophoresis scan will follow via computer, mail, or floor manager delivery. Performed By: #### C HROMATIN, TPO, THYGLOB AB #### [facility] , #### ADDONUAPLUS #### [address] Prothrombin Time INRon 05-27 INR Coag (PPP) [Relative time] 1.1 {INR} Normal [facility] Comment on [...] AB #### [facility] , #### ADDONUAPLUS #### [address] PT Coag (PPP) [Time] 11.8 s Normal 9.0-12.9 [facility] Comment on above: Order Comment: List the anticoagulant: NONE Performed By: #### C HROMATIN, TPO, THYGLOB AB #### [facility] , #### ADDONUAPLUS #### [address] RPR w/rfx to Quant TP Abson 05-27-2021 RPR, Rfx Quant RPR Non-Reactive Normal Non Reactive [facility] Comment on above: Result Comment: Perf ormed at: - [facility] [address] [id number] Customer Acquisition Specialist: Fabrizio Herrera PhD, Phone: [phone] PERFORMED BY: [place] [address] PATHOLOGIST FLATWORK IRONER PAULA WILL M.D. Performed By: #### C HROMATIN, TPO, THYGLOB AB #### [facility] , #### ADDONUAPLUS #### [address] Thyroid Stimulating Hormoneo n 05-27-2021 TSH Qn 1.14 m[IU]/L Normal 0.45-5.33 [facility] Comment on above: Result Comment: PERF ORMED BY: [place] [address] PATHOLOGIST FLATWORK IRONER PAULA WILL M.D. Performed By: #### R MD W RFX, SADE,URINE, SPE, UPE RAND, SADE SERUM, SHIV #### [facility] , #### CMP, TSH3, CRP, T4F, CK, ADDONUAPLUS #### [facility] [address] [place] [address] Consent Formson 04-14-2019 Consent Forms [id number] #1.00OTGTIFF [facility] Provider Orderson 12-02-2018 Provider Orders [id number] #1.00OTGTIFF [facility] Coding Summaryon 11-28-2018 Coding Summary CODING DATE: 11/28/2018 [facility] STATUS: Home PAYOR: Commercial Insurance [...] Lorrie Bunn Date Saved: 11/28/2018 12:31 pm [facility] US Gallbladderon 11-26-2018 US Gallbladder ULTRASOUND [...] Alan Da Silva 11/26/18 12:51 p Technologist: [facility] CMP Standardon 11-09-2018 eGFR Non AA >60 [facility] Comment on above: Performed By: #### 2 659049, [id number] #### [facility] (DEFAULT) [address] [place] [address] 04859 eGFR AA >60 [facility] Comment on above: Result Comment: Slot Technician abiodun Kidney disease could be indicated at eGFRs of less than 60 ml/min/1.73m2. Kidney Failure is indicated at less than 15 ml/min/1.73m2 Performed By: #### 2 231570, [id number] #### [facility] (DEFAULT) [address] [place] [address] 96213 Albumin [Mass/Vol] 3.8 g/dL Normal 3.5-5.0 [facility] Comment on above: Performed By: #### 2 776230, [id number] #### [facility] (DEFAULT) [address] [place] [address] 36015 Albumin/Globulin [Mass ratio] 1.1 {ratio} Low 1.4-2.6 [facility] Comment on above: Performed By: #### 2 782140, [id number] #### [facility] (DEFAULT) [address] [place] [address] 44810 Alk Phos 60 IU/L Normal 32-91 [facility] Comment on above: Performed By: #### 2 431276, [id number] #### [facility] (DEFAULT) [address] [place] [address] 47913 ALT/SGPT 36.0 IU/L Normal 14.0-54.0 [facility] Comment on above: Performed By: #### 2 577227, [id number] #### [facility] (DEFAULT) [address] [place] [address] 59258 Anion gap [Moles/Vol] 16.0 mmol/L Normal 5.0-19.0 [facility] Comment on above: Performed By: #### 2 888861, [id number] #### [facility] (DEFAULT) [address] [place] [address] 18555 AST/SGOT 27 IU/L Normal 15-41 [facility] Comment on above: Performed By: #### 2 757883, [id number] #### [facility] (DEFAULT) [address] [place] [address] 41948 Bili Total 0.6 mg/dL Normal 0.3-1.2 [facility] Comment on above: Performed By: #### 2 157368, [id number] #### [facility] (DEFAULT) [address] [place] [address] 41843 Calcium [Mass/Vol] 9.1 mg/dL Normal 8.9-10.3 [facility] Comment on above: Performed By: #### 2 027588, [id number] #### [facility] (DEFAULT) [address] [place] [address] 98931 Chloride [Moles/Vol] 98 mmol/L Low 101-111 [facility] Comment on above: Performed By: #### 2 474292, [id number] #### [facility] (DEFAULT) [address] [place] [address] 69318 CO2 [Moles/Vol] 31 mmol/L Normal 21-32 [facility] Comment on above: Performed By: #### 2 850019, [id number] #### [facility] (DEFAULT) [address] [place] [address] 52163 Creatinine [Mass/Vol] 0.90 mg/dL Normal 0.60-1.30 [facility] Comment on above: Performed By: #### 2 683524, [id number] #### [facility] (DEFAULT) [address] [place] [address] 80701 Globulin (S) [Mass/Vol] 3.6 g/dL Normal 1.5-4.3 [facility] Comment on above: Performed By: #### 2 981169, [id number] #### [facility] (DEFAULT) [address] [place] [address] 93032 Glucose [Mass/Vol] 111.0 mg/dL Normal 74.0-118.0 [facility] Comment on above: Performed By: #### 2 954417, [id number] #### [facility] (DEFAULT) [address] [place] [address] 44080 Osmolality [Osmolality] 284 mOsm/L [facility] Comment on above: Performed By: #### 2 708863, [id number] #### [facility] (DEFAULT) [address] [place] [address] 03683 Potassium [Moles/Vol] 3.5 mmol/L Low 3.6-5.1 [facility] Comment on above: Performed By: #### 2 321091, [id number] #### [facility] (DEFAULT) [address] [place] [address] 92161 Protein [Mass/Vol] 7.4 g/dL Normal 6.5-8.1 [facility] Comment on above: Performed By: #### 2 691655, [id number] #### [facility] (DEFAULT) [address] [place] [address] Sodium [Moles/Vol] 141.0 mmol/L Normal 136.0-144.0 [facility] Comment on above: Performed By: #### 2 612512, [id number] #### [facility] (DEFAULT) [address] [place] [address] 64692 Urea nitrogen [Mass/Vol] 18 mg/dL Normal 8-26 [facility] Comment on above: Performed By: #### 2 403271, [id number] #### [facility] (DEFAULT) [address] [place] [address] Urea nitrogen/Creatinine [Mass ratio] 20.0 mg/mg High 4.6-16.2 [facility] Comment on above: Performed By: #### 2 613934, [id number] #### [facility] (DEFAULT) [address] [place] [address] 14721 GGTon 11-09-2018 Gamma glutamyl transferase [Catalytic activity/Vol] 27.0 U/L Normal 7.0-50.0 [facility] Comment on above: Performed By: #### 2 725117, 7610690, 3864755, [id number], 0859811, 6499387, [id number] #### [facility] (DEFAULT) [address] [place] [address] 40104 Iron Levelon 11-09-2018 Iron [Mass/Vol] 68.0 ug/dL Normal 28.0-170.0 [facility] Comment on above: Performed By: #### 2 244580, [id number] #### [facility] (DEFAULT) [address] [place] [address] 72625 LDHon 11-09-2018 LDH 171.0 IU/L Normal 98.0-192.0 [facility] Comment on above: Performed By: #### 2 296179, 9658033, 2664889, [id number], 5658037, 4681867, [id number] #### [facility] (DEFAULT) [address] [place] [address] 86057 Lipid Panel Standardon 11-09 Cholesterol [Mass/Vol] 136.0 mg/dL Normal 66.0-200.0 [facility] Comment on above: Result Comment: Juani rable - Less than 200 mg/dL Borderline high risk - 200-239 mg/dL High risk - 240 mg/dL and over. Performed By: #### 2 831395, [id number] #### [facility] (DEFAULT) [address] [place] [address] 58264 Cholesterol in HDL [Mass/Vol] 32 mg/dL Low 40-71 [facility] Comment on above: Result Comment: High risk - <40 mg/dL. Performed By: #### 2 344380, [id number] #### [facility] (DEFAULT) [address] [place] [address] 54695 Cholesterol in LDL [Mass/Vol] 68 mg/dL Normal 1-100 [facility] Comment on above: Result Comment: Opti mal - Less than 100 mg/dL Borderline high risk - 130-159 mg/dL High risk - 160-189 mg/dL. Performed By: #### 2 847263, [id number] #### [facility] (DEFAULT) [address] [place] [address] 72238 Cholesterol.total/Cho lesterol in HDL [Mass ratio] 4.3 {ratio} Normal 0.0-4.5 [facility] Comment on above: Performed By: #### 2 337019, [id number] #### [facility] (DEFAULT) [address] [place] [address] 36507 Triglyceride [Mass/Vol] 179.0 mg/dL High 0.0-150.0 [facility] Comment on above: Performed By: #### 2 748908, [id number] #### [facility] (DEFAULT) [address] [place] [address] 97178 VLDL. 36 mg/dL Normal 5-40 [facility] Comment on above: Performed By: #### 2 558079, [id number] #### [facility] (DEFAULT) [address] [place] [address] Phoson 11-09-2018 Phosphate [Mass/Vol] 2.7 mg/dL Normal 2.5-4.6 [facility] Comment on above: Performed By: #### 2 208373, [id number] #### [facility] (DEFAULT) [address] [place] [address] 53608 Uric Acidon 11-09-2018 Urate [Mass/Vol] 5.5 mg/dL Normal 2.6-8.0 [facility] Comment on above: Performed By: #### 2 384130, [id number] #### [facility] (DEFAULT) [address] [place] [address] 29530 Coding Summaryon 06-23-2018 Coding Summary CODING DATE: 06/23/2018 [facility] STATUS: Home PAYOR: Commercial Insurance [...] Purnima Felix Date Saved: 06/23/2018 12:21 pm [facility] Provider Orderson 06-23-2018 Provider Orders [id number]# 1.00OTGTIFF [facility] Renal Function Panel Standar don 06-22-2018 eGFR Non AA >60 [facility] Comment on above: Performed By: #### 1 [id number] #### [facility] (DEFAULT) [address] [place] [address] 53935 eGFR AA >60 [facility] Comment on above: Result Comment: Slot Technician abiodun Kidney disease could be indicated at eGFRs of less than 60 ml/min/1.73m2. Kidney Failure is indicated at less than 15 ml/min/1.73m2 Performed By: #### 1 [id number] #### [facility] (DEFAULT) [address] [place] [address] 55436 Albumin [Mass/Vol] 3.7 g/dL Normal 3.5-5.0 [facility] Comment on above: Performed By: #### 1 [id number] #### [facility] (DEFAULT) [address] [place] [address] 05668 Anion gap [Moles/Vol] 12.0 mmol/L Normal 5.0-19.0 [facility] Comment on above: Performed By: #### 1 [id number] #### [facility] (DEFAULT) [address] [place] [address] 11549 Calcium [Mass/Vol] 8.9 mg/dL Normal 8.9-10.3 [facility] Comment on above: Performed By: #### 1 [id number] #### [facility] (DEFAULT) [address] [place] [address] 93439 Chloride [Moles/Vol] 100 mmol/L Low 101-111 [facility] Comment on above: Performed By: #### 1 [id number] #### [facility] (DEFAULT) [address] [place] [address] 96094 CO2 [Moles/Vol] 30 mmol/L Normal 21-32 [facility] Comment on above: Performed By: #### 1 [id number] #### [facility] (DEFAULT) [address] [place] [address] 99890 Creatinine [Mass/Vol] 0.92 mg/dL Normal 0.60-1.30 [facility] Comment on above: Performed By: #### 1 [id number] #### [facility] (DEFAULT) [address] [place] [address] 69590 Glucose [Mass/Vol] 115.0 mg/dL Normal 74.0-118.0 [facility] Comment on above: Performed By: #### 1 [id number] #### [facility] (DEFAULT) [address] [place] [address] Osmolality [Osmolality] 277 mOsm/L [facility] Comment on above: Performed By: #### 1 [id number] #### [facility] (DEFAULT) [address] [place] [address] 62258 Phosphate [Mass/Vol] 3.8 mg/dL Normal 2.5-4.6 [facility] Comment on above: Performed By: #### 1 [id number] #### [facility] (DEFAULT) [address] [place] [address] 98582 Potassium [Moles/Vol] 3.7 mmol/L Normal 3.6-5.1 [facility] Comment on above: Performed By: #### 1 [id number] #### [facility] (DEFAULT) [address] [place] [address] 18659 Sodium [Moles/Vol] 138.0 mmol/L Normal 136.0-144.0 [facility] Comment on above: Performed By: #### 1 [id number] #### [facility] (DEFAULT) [address] [place] [address] 70999 Urea nitrogen [Mass/Vol] 14 mg/dL Normal 8-26 [facility] Comment on above: Performed By: #### 1 [id number] #### [facility] (DEFAULT) [address] [place] [address] 35312 Urea nitrogen/Creatinine [Mass ratio] 15.0 mg/mg Normal 4.6-16.2 [facility] Comment on above: Performed By: #### 1 [id number] #### [facility] (DEFAULT) [address] [place] [address] 92491 Coding Summaryon 06-15-2018 Coding Summary CODING DATE: 06/15/2018 [facility] STATUS: Home PAYOR: Commercial Insurance [...] Felix Date Saved: 06/15/2018 02:13 pm Normal [facility] Provider Orderson 06-15-2018 Provider Orders [id number] 1.00OTGTIFF Normal [facility] Extra Percival 06-14-2018 Tube Collected Yes [facility] Comment on above: Performed By: #### 1 [id number] #### [facility] (DEFAULT) [address] [place] [address] 59344 Magnesiumon 06-14-2018 Magnesium [Mass/Vol] 2.06 mg/dL Normal 1.80-2.50 [facility] Comment on above: Result Comment: The reference range for magnesium has changed from 0.40-2.10 mg/dl to 1.80-2.50 mg/dl as of 06/03/15. Performed By: #### 2 450308, [id number] #### [facility] (DEFAULT) [address] [place] [address] 07203 Renal Function Panel Standar don 06-14-2018 eGFR Non AA >60 [facility] Comment on above: Performed By: #### 2 217895, [id number] #### [facility] (DEFAULT) [address] [place] [address] 46785 eGFR AA >60 [facility] Comment on above: Result Comment: Slot Technician abiodun Kidney disease could be indicated at eGFRs of less than 60 ml/min/1.73m2. Kidney Failure is indicated at less than 15 ml/min/1.73m2 Performed By: #### 2 204319, [id number] #### [facility] (DEFAULT) [address] [place] [address] 88198 Albumin [Mass/Vol] 3.5 g/dL Normal 3.5-5.0 [facility] Comment on above: Performed By: #### 2 476157, [id number] #### [facility] (DEFAULT) [address] [place] [address] 31935 Anion gap [Moles/Vol] 14.0 mmol/L Normal 5.0-19.0 [facility] Comment on above: Performed By: #### 2 344886, [id number] #### [facility] (DEFAULT) [address] [place] [address] 66458 Calcium [Mass/Vol] 8.7 mg/dL Low 8.9-10.3 [facility] Comment on above: Performed By: #### 2 901476, [id number] #### [facility] (DEFAULT) [address] [place] [address] 41479 Chloride [Moles/Vol] 97 mmol/L Low 101-111 [facility] Comment on above: Performed By: #### 2 262158, [id number] #### [facility] (DEFAULT) [address] [place] [address] 52748 CO2 [Moles/Vol] 31 mmol/L Normal 21-32 [facility] Comment on above: Performed By: #### 2 265080, [id number] #### [facility] (DEFAULT) [address] [place] [address] 56997 Creatinine [Mass/Vol] 0.92 mg/dL Normal 0.60-1.30 [facility] Comment on above: Performed By: #### 2 997048, [id number] #### [facility] (DEFAULT) [address] [place] [address] 93149 Glucose [Mass/Vol] 121.0 mg/dL High 74.0-118.0 [facility] Comment on above: Performed By: #### 2 623750, [id number] #### [facility] (DEFAULT) [address] [place] [address] 76228 Osmolality [Osmolality] 280 mOsm/L [facility] Comment on above: Performed By: #### 2 872890, [id number] #### [facility] (DEFAULT) [address] [place] [address] 47477 Phosphate [Mass/Vol] 2.8 mg/dL Normal 2.5-4.6 [facility] Comment on above: Performed By: #### 2 478393, [id number] #### [facility] (DEFAULT) [address] [place] [address] 33335 Potassium [Moles/Vol] 3.0 mmol/L Low 3.6-5.1 [facility] Comment on above: Performed By: #### 2 242573, [id number] #### [facility] (DEFAULT) [address] [place] [address] 36517 Sodium [Moles/Vol] 139.0 mmol/L Normal 136.0-144.0 [facility] Comment on above: Performed By: #### 2 179709, [id number] #### [facility] (DEFAULT) [address] [place] [address] 29022 Urea nitrogen [Mass/Vol] 17 mg/dL Normal 8-26 [facility] Comment on above: Performed By: #### 2 234442, [id number] #### [facility] (DEFAULT) [address] [place] [address] 94948 Urea nitrogen/Creatinine [Mass ratio] 18.0 mg/mg High 4.6-16.2 [facility] Comment on above: Performed By: #### 2 594060, [id number] #### [facility] (DEFAULT) [address] [place] [address] 83647 Vital Signs Date Time Vital Sign Value Performing Clinician Facility 03-30-2024 08:13-0500 Body mass index (BMI) [Ratio] 24.6 kg/m2 Sherry Nataprawira DO Work Phone: [facility] 03-30-2024 08:13-0500 Body weight 72.3 kg Sherry Nataprawira DO Work Phone: [facility] 03-30-2024 08:13-0500 Diastolic blood pressure 70 mm[Hg] Sherry Nataprawira DO Work Phone: [facility] 03-30-2024 08:13-0500 Systolic blood pressure 108 mm[Hg] Sherry Nataprawira DO Work Phone: [facility] 03-09-2024 13:29-0500 Heart rate 61 /min Sherry Nataprawira [facility] 03-09-2024 13:29-0500 SaO2% (BldA) [Mass fraction] 100 % Sherry Bridgettaprawira [facility] 03-09-2024 13:29-0500 Diastolic blood pressure 79 mm[Hg] Sherry Natjeffreyra [facility] 03-09-2024 13:29-0500 Mean blood pressure 93 mm[Hg] Sherry Nataprawira [facility] 03-09-2024 13:29-0500 Systolic blood pressure 120 mm[Hg] Shrery Nataprawira [facility] 03-09-2024 12:29-0500 Heart rate 70 /min Sherry Nataprawira [facility] 03-09-2024 12:29-0500 SaO2% (BldA) [Mass fraction] 100 % Sherry Nataprawira [facility] 03-09-2024 12:28-0500 Blood Pressure Location Sherry Nataprawira [facility] 03-09-2024 12:28-0500 Diastolic blood pressure 79 mm[Hg] Sherry Nataprawira [facility] 03-09-2024 12:28-0500 Mean blood pressure 95 mm[Hg] Sherry Nataprawira [facility] 03-09-2024 12:28-0500 Systolic blood pressure 125 mm[Hg] Sherry Nataprawira [facility] 03-09-2024 12:28-0500 Respiratory rate 18 /min Sherry Nataprawira [facility] 03-09-2024 12:28-0500 SaO2% (BldA) [Mass fraction] 98 % Sherry Nataprawira [facility] 03-09-2024 12:20-0500 Blood Pressure Location Sherry Nataprawira [facility] 03-09-2024 12:20-0500 Body temperature 97.34 [degF] Sherry Nataprawira [facility] 03-09-2024 12:20-0500 Diastolic blood pressure 72 mm[Hg] Sherry Nataprawira [facility] 03-09-2024 12:20-0500 Heart rate 77 /min Sherry Nataprawira [facility] 03-09-2024 12:20-0500 Mean blood pressure 86 mm[Hg] Sherry Nataprawira [facility] 03-09-2024 12:20-0500 Respiratory rate 17 /min Sherry Nataprawira [facility] 03-09-2024 12:20-0500 Systolic blood pressure 114 mm[Hg] Sherry Nataprawira [facility] 03-09-2024 12:10-0500 Blood Pressure Location Sherry Nataprawira [facility] 03-09-2024 12:10-0500 Mean blood pressure 88 mm[Hg] Sherry Nataprawira [facility] 03-09-2024 12:10-0500 Respiratory rate 17 /min Sherry Nataprawira [facility] 03-09-2024 12:05-0500 Mean blood pressure 82 mm[Hg] Sherry Nataprawira [facility] 03-09-2024 12:05-0500 Respiratory rate 15 /min Sherry Nataprawira [facility] 03-09-2024 11:55-0500 Body temperature 97.16 [degF] Sherry Nataprawira [facility] 03-09-2024 11:55-0500 FIO2 100 1 Sherry Nataprawira [facility] 03-09-2024 11:55-0500 Respiratory rate 2 /min Sherry Nataprawira [facility] 03-09-2024 11:50-0500 FIO2 100 1 Sherry Nataprawira [facility] 03-09-2024 11:50-0500 Respiratory rate 17 /min Sherry Nataprawira [facility] 03-09-2024 11:45-0500 FIO2 100 1 Sherry Nataprawira [facility] 03-09-2024 09:45-0500 Mean blood pressure 89 mm[Hg] Sherry Nataprawira [facility] 03-09-2024 09:45-0500 Heart rate 60 /min Sherry Nataprawira [facility] 03-09-2024 09:43-0500 Body temperature 97.88 [degF] Sherry Nataprawira [facility] 02-29-2024 09:12-0500 Body mass index (BMI) [Ratio] 25.15 kg/m2 Sherry Nataprawira DO Work Phone: [facility] 02-29-2024 09:12-0500 Body weight 73.94 kg Sherry Nataprawira DO Work Phone: [facility] 02-29-2024 09:12-0500 Diastolic blood pressure 78 mm[Hg] Sherry Nataprawira DO Work Phone: [facility] 02-29-2024 09:12-0500 Systolic blood pressure 124 mm[Hg] Sherry Nataprawira DO Work Phone: [facility] 02-29-2024 08:38-0500 Diastolic blood pressure 72 mm[Hg] Sherry Nataprawira [facility] 02-29-2024 08:38-0500 Heart rate 64 /min Sherry Nataprawira [facility] 02-29-2024 08:38-0500 Mean blood pressure 83 mm[Hg] Sherry Nataprawira [facility] 02-29-2024 08:38-0500 Systolic blood pressure 104 mm[Hg] Sherry Nataprawira [facility] 02-29-2024 08:38-0500 Heart rate 66 /min Sherry Nataprawira [facility] 02-29-2024 08:38-0500 SaO2% (BldA) [Mass fraction] 100 % Sherry Nataprawira [facility] 02-29-2024 08:37-0500 Body temperature 98.24 [degF] Sherry Nataprawira [facility] 02-29-2024 08:37-0500 Blood Pressure Location Sherry Nataprawira [facility] 02-29-2024 08:37-0500 Diastolic blood pressure 72 mm[Hg] Sherry Nataprawira [facility] 02-29-2024 08:37-0500 Mean blood pressure 83 mm[Hg] Sherry Nataprawira [facility] 02-29-2024 08:37-0500 Systolic blood pressure 107 mm[Hg] Sherry Nataprawira [facility] 02-29-2024 08:37-0500 Respiratory rate 16 /min Sherry Nataprawira [facility] 12-29-2023 08:29-0500 Body mass index (BMI) [Ratio] 25.31 kg/m2 Sherry Nataprawira DO Work Phone: [facility] 12-29-2023 08:29-0500 Body weight 74.39 kg Sherry Velasquez DO Work Phone: [facility] 12-29-2023 08:29-0500 Diastolic blood pressure 74 mm[Hg] Sherry Velasquez DO Work Phone: [facility] 12-29-2023 08:29-0500 Systolic blood pressure 122 mm[Hg] Sherry Dera DO Work Phone: [facility] 10-13-2023 09:13-0400 Body height 167.64 cm [facility] 10-13-2023 09:13-0400 Body mass index (BMI) [Ratio] 25.9 kg/m2 [facility] 10-13-2023 09:13-0400 Body temperature 97.8 [degF] [facility] 10-13-2023 09:13-0400 Body weight 72.74 kg [facility] 10-13-2023 09:13-0400 Diastolic blood pressure 74 mm[Hg] [facility] 10-13-2023 09:13-0400 Heart rate 76 /min [facility] 10-13-2023 09:13-0400 Respiratory rate 16 /min [facility] 10-13-2023 09:13-0400 SaO2% (BldA) [Mass fraction] 98 % [facility] 10-13-2023 09:13-0400 Systolic blood pressure 137 mm[Hg] [facility] 04-01-2023 09:14-0500 Body height 167.64 cm [facility] 04-01-2023 09:14-0500 Body mass index (BMI) [Ratio] 27.2 kg/m2 [facility] 04-01-2023 09:14-0500 Body temperature 98.5 [degF] [facility] 04-01-2023 09:14-0500 Body weight 76.65 kg [facility] 04-01-2023 09:14-0500 Diastolic blood pressure 74 mm[Hg] [facility] 04-01-2023 09:14-0500 Heart rate 74 /min [facility] 04-01-2023 09:14-0500 Respiratory rate 16 /min [facility] 04-01-2023 09:14-0500 SaO2% (BldA) [Mass fraction] 93 % [facility] 04-01-2023 09:14-0500 Systolic blood pressure 122 mm[Hg] [facility] 04-30-2022 10:00-0400 Body height 167.64 cm Ledy Mat Other [facility] Other 04-30-2022 10:00-0400 Body mass index (BMI) [Ratio] 27.15 kg/m2 Ledy Mat Other [facility] Other 04-30-2022 10:00-0400 Body temperature 96.7 [degF] Ledy Mat Other [facility] Other 04-30-2022 10:00-0400 Body weight 76.3 kg Ledy Mat Other [facility] Other 04-30-2022 10:00-0400 Diastolic blood pressure 70 mm[Hg] Ledy Mat Other [facility] Other 04-30-2022 10:00-0400 Respiratory rate 18 /min Ledy Mat Other [facility] Other 04-30-2022 10:00-0400 SaO2% (BldA) [Mass fraction] 99 % Ledy Mat Other [facility] Other 04-30-2022 10:00-0400 Systolic blood pressure 120 mm[Hg] Ledy Mat Other [facility] Other 04-17-2021 10:00-0500 Body height Ledy Mat Other [facility] Other 04-17-2021 10:00-0500 Body mass index (BMI) [Ratio] 27.11 kg/m2 Ledy Mat Other [facility] Other 04-17-2021 10:00-0500 Body weight 76.2 kg Ledy Mat Other [facility] Other 04-17-2021 10:00-0500 Diastolic blood pressure 66 mm[Hg] Ledy Mat Other [facility] Other 04-17-2021 10:00-0500 Respiratory rate 18 /min Ledy Mat Other [facility] Other 04-17-2021 10:00-0500 SaO2% (BldA) [Mass fraction] 97 % Ledy Mat Other [facility] Other 04-17-2021 10:00-0500 Systolic blood pressure 104 mm[Hg] Ledy Mat Other [facility] Other Encounters Encounter Date Encounter Type Care Provider Facility Start: 03-30-2024 End: 03-30-2024 Postop follow up visit related to original px Sherry Velasquez DO Work Phone: [facility] Comment on above: Follow-up examinatio n after gynecological surgery (Primary Dx); Cystocele, midline Start: 03-28-2024 End: 03-28-2024 Emergency department patient visit [facility] Start: 03-09-2024 End: 03-09-2024 Clinisync Result Encounter Sherry Velasquez DO Work Phone: [facility] External Department Unsolicited Start: 03-09-2024 End: 03-09-2024 Clinisync Result Encounter Sherry Velasquez DO Work Phone: [facility] External Department Unsolicited Start: 03-09-2024 End: 03-09-2024 Admission to same day surgery center Sherry Velasquez [facility] Start: 03-09-2024 End: 03-09-2024 ambulatory Sherry Velasquez Facility:[facility] Start: 02-29-2024 End: 02-29-2024 Admission to same day surgery center Sherry Velasquez DO Work Phone: [facility] Start: 02-29-2024 End: 02-29-2024 Office outpatient visit 25 minutes Sherry Velasquez DO Work Phone: [facility] Comment on above: Preoperative exam fo r gynecologic surgery (Primary Dx); Cystocele, midline; Urge incontinence; Postmenopausal HRT (hormone replacement therapy); Follow-up encounter involving medication Start: 02-29-2024 End: 02-29-2024 ambulatory DO Sherry Velasquez Facility:[facility] Start: 02-29-2024 End: 02-29-2024 Patient encounter procedure Sherry Velasquez [facility] Start: 01-23-2024 End: 01-24-2024 Refill Sherry Velasquez DO Work Phone: [facility] Comment on above: Urge incontinence Start: 01-06-2024 End: 01-06-2024 ambulatory SHERRYKrystin VELASQUEZ [facility] Start: 12-29-2023 End: 12-29-2023 Patient encounter status Sherry Velasquez DO Work Phone: [facility] Start: 12-29-2023 End: 12-29-2023 Periodic preventive [...] Not Available Start: 10-13-2023 End: 10-13-2023 ambulatory [facility] Work Phone: Start: 10-13-2023 End: 10-13-2023 Patient encounter procedure [facility] Nephrology [facility] Work Phone: Start: 10-09-2023 Non-patient / Non-visit [facility] Work Phone: Start: 04-29-2023 End: 04-29-2023 [facility] Start: 04-06-2023 End: 04-06-2023 ambulatory [facility] Start: 04-01-2023 End: 04-01-2023 ambulatory [facility] Work Phone: Start: 04-01-2023 End: 04-01-2023 Patient encounter procedure [facility] Nephrology [facility] Work Phone: Start: 04-30-2022 End: 04-30-2022 ambulatory Ledy Mat Other [facility] Other Start: 04-30-2022 Office outpatient vi sit 15 minutes Ledy Mat [facility] Start: 04-20-2022 End: 04-20-2022 ambulatory Ledy Mat Other [facility] Other Start: 04-20-2022 Telephone encounter Ledy Mat [facility] Start: 03-24-2022 End: 03-25-[address] ERIC JOHNSTON Facility:[facility] Start: 03-19-2022 End: 03-20-[address] ERIC JOHNSTON Facility:[facility] Start: 03-13-2022 End: 03-14-[address] ERIC JOHNSTON Facility:[facility] Start: 11-03-2021 End: 11-04-[address] ERIC JOHNSTON Facility:[facility] Start: 04-17-2021 End: 04-17-2021 ambulatory Ledy Mat Other [place] [facility] Other Start: 04-17-2021 Office outpatient vi sit [...] EST Office Visit [facility] [address] [address] Sherry Velasquez, DO [address] [address] [facility] Start: 09-18-2024 End: 09-18-2024 Patient encounter procedure 09/18/2024 8:30 AM EDT Office Visit [facility] [address] [facility] [address] [address] Sherry Velasquez DO [address] [address] [facility] Start: 05-01-2024 End: 05-01-2024 Professional / ancillary services management 05/01/2024 12:00 PM EDT Ancillary Procedure [facility] [address] [place] [id number] [facility] Start: 04-29-2024 End: 02-26-2025 DBT Breast - bilateral screening Bilateral screening mammogram with tomosynthesis Imaging Routine Other screening mammogram Expected: 04/29/2024, Expires: 02/26/2025 [facility] Work Phone: Comment on above: Expected: 04/29/2024 , Expires: 02/26/2025 Start: 04-28-2024 Screening for malign ant neoplasm of breast Mammogram [facility] Start: 03-30-2024 End: 03-30-2024 Patient encounter procedure 03/30/2024 8:30 AM EST Office Visit [facility] [address] [address] Sherry Velasquez DO [address] [phone] [facility] Start: 03-09-2024 End: 03-09-2024 Patient encounter procedure 03/09/2024 10:30 AM EST Procedure Visit [facility] [address] [address] Sherry Velasquez DO [address] [address] [facility] Start: 02-29-2024 End: 02-29-2024 Patient encounter procedure 02/29/2024 9:30 AM EST Office Visit [facility] [address] [address] Sherry Velasquez DO [address] [address] [facility] Start: 10-17-2023 Influenza vaccination Influenza Vacc ine (#1) [facility] Start: 10-15-2022 Screening for malign ant neoplasm of colon [facility] Start: 2001 Screening for malign ant neoplasm of cervix [facility] Start: 1992 Screening for malign ant neoplasm of cervix Pap Smear [facility] Start: 1971 Screening for malign ant neoplasm of colon [facility] Renal function 1999 panel - Serum or Plasma [facility] Renal function 1999 panel - Serum or Plasma [facility] Immunizations Immunization Date Immunization Notes Care Provider Fa [facility] 11-15-2016 influenza virus vaccine, unspecified formulation Sherry Velasquez DO Work Phone: [facility] NEGATED: Highlighted row has not occurred!05-28-2015 influenza, seasonal, injectable [facility] Other [facility] Other NEGATED: Highlighted row has not occurred!05-28-2015 pneumococcal polysaccharide vaccine, 23 valent [facility] Other [facility] Other Payers Date Payer Category Payer Private Health Insurance [employer] [id number] 1970 Unknown [id number] 2.16.840.1.148210.3.579.2. 593 1971 Unknown [id number] 2.16.840.1.994232.3.579.2. 593 1971 Unknown [id number] 2.16.840.1.964501.3.579.2. 593 1971 Unknown [id number] 2.16.840.1.318494.3.579.2. 593 1971 Unknown [id number] 2.16.840.1.721881.3.579.2. 727 1971 Unknown [id number] 2.16.840.1.411501.3.579.2. 1259 1971 Unknown [id number] 2.16.840.1.821662.3.579.2. 1259 1971 Unknown [id number] 2.16.840.1.813340.3.579.2. 727 1971 Unknown [id number] 2.16.840.1.078573.3.579.2. 727 1971 Unknown [id number] 2.16.840.1.852884.3.579.2. 727 1971 Unknown [id number] 2.16.840.1.840539.3.579.2. 1286 1971 Unknown [id number] 2.16.840.1.158695.3.579.2. 1286 1971 Unknown [id number] 2.16.840.1.729738.3.579.2. 1286 1971 Unknown [id number] 2.16.840.1.814856.3.579.2. 1286 1959 Unknown [id number] 2.16.840.1.786805.19 Self-pay Self Pay [id number] Unknown O [id number] Social History Date Type Detail Facility Unknown if ever smoked [facility] Other Start: 12-29-2023 End: 03-30-2024 Sex Assigned At [facility] Start: 11-16-2022 End: 04-01-2023 Tobacco smoking status NHIS Never smoked tobacco (finding) [facility] Start: 1970 Sex Assigned At Female [facility] Start: 11-16-2022 Tobacco use and exposure Smokeless tobacco non-user [facility] Start: 12-29-2023 End: 03-30-2024 Alcoholic beverage intake Current drinker of alcohol (finding) [facility] Start: 12-29-2023 End: 03-30-2024 History of Social function [facility] Start: 11-16-2022 Gender identity Identifies as female gender (finding) [facility] Start: 11-16-2022 Sexual orientation Heterosexual (finding) [facility] Tobacco smoking status No Smokin g Status Entered [facility] How often to you hav e a drink containing alcohol? Never [facility] How many standard drinks containing alcohol do you have on a typical day? 1 or 2 [facility] Functional Status Date Assessment Result Facility 02-29-2024 Functional Status No [facility] Clinical Notes 08-15-2014 to 03-30-2024 Sherry Velasquez, [...] 2. Cystocele, midline documented in this encounter [facility] 03-09-2024 Hospital Discharg e instructions Patient [...] Follow these instructions at home: Medicines Take pwbl-fne-ylwbcuh and prescription medicines only as told by your health care provider. Ask your health care provider if the medicine prescribed to you: ?Requires you to avoid driving or using machinery. ?Can cause constipation. You may need to take these actions to prevent or treat constipation: ?Drink enough fluid to keep your urine pale yellow. ?Take cfgh-alg-izueuhr or prescription medicines. ?Eat foods that are [...] provider. Document Revised: 07/30/2020 Document Reviewed: 07/30/2020 [employer] Patient Education 2023 [employer]. Follow Up Care 02/17/2024 11:28:11 With:Sherry Velasquez Address[address] [address]- Business (1) When: Unknown [facility] 03-09-2024 Note Progress Note-Physic concepcion Patient: TAMY SAL Age: 53 years Sex: Female : 1970 Associated Diagnoses: None Author: Brigido Talbert MD Postoperative Information Postoperative disposition: Postoperative disposition: To PACU. Optimetrix number: Optimetrix number [id number]. Anesthetic utilized: General. Health Status Allergies: Allergic [...] when meets criteria ( To home ). [facility] Comment on above: Result Comment: Elec tronically Signed By: Brigido Talbert MD\.br\Date and Time Signed: 03/09/24 14:18 EST 03-09-2024 Evaluation + Plan note Extrac bj from: Title:ANES Post-operative Note---General Author: Brigido Talbert MD Date:03/09/24 Plan Transfer/Discharge: Transfer/Discharge Discharge when meets criteria ( To home ). Extracted from: Title:ANES Pre-operative Note 2022 Author:Brigido Whyte Date:03/09/24 Plan [place] [employer]esthesi[employer] (ASA) physical status classification: Class II. Anesthetic Preoperative Plan: Anesthesia General. [facility] 01-23-2025 NotePatient Education - Text Obstetrics and [...] these instructions at home: Medicines ??? Take ecod-wrf-khvdrai and prescription medicines only as told by your health care provider. ??? Ask your health care provider if the medicine prescribed to you: ? Requires you to avoid driving or using machinery. ? Can cause constipation. You may need to take these actions to prevent or treat constipation: ? Drink enough fluid to keep your urine pale yellow. ? Take ecik-oln-pbrexrc or prescription medicines. ? Eat foods that [...] provider. Document Revised: 07/30/2020 Document Reviewed: 07/30/2020 [employer] Patient Education ? 2023 [employer].[facility] 03-09-2024 NotePatient Education - Text Obstetrics and [...] these instructions at home: Medicines ??? Take tcgg-cdk-pbjvntt and prescription medicines only as told by your health care provider. ??? Ask your health care provider if the medicine prescribed to you: ? Requires you to avoid driving or using machinery. ? Can cause constipation. You may need to take these actions to prevent or treat constipation: ? Drink enough fluid to keep your urine pale yellow. ? Take gvzy-awb-ssgkpek or prescription medicines. ? Eat foods that [...] provider. Document Revised: 07/30/2020 Document Reviewed: 07/30/2020 [employer] Patient Education ? 2023 [employer].[facility] 03-09-2024 NoteProgress Note-Physician Patient: TAMY SAL Age: [...] Problems Abnormal kidney function / SNOMED CT 14433883 / Confirmed Arthritis / SNOMED CT 7289629 / Confirmed Menopause / SNOMED CT 679237208 / Confirmed Raynaud disease / SNOMED CT 800526966 / Confirmed, Active Problems (4) Abnormal kidney function Arthritis Menopause Raynaud disease Histories Past Medical History: No active or resolved past medical history items have been selected or recorded. Family History: No family history items have been selected or recorded. Procedure history: Appendectomy (678644202). Endometrial ablation (220368904). Partial hysterectomy (8583722955). Social History Social & Psychosocial Habits Alcohol [...] available . Plan [employer] (more content not included)...[facility]: Result Comment: Electronically Signed By: Nitish DELGADO, Brigido Goldsmith\.pearl\Date and Time Signed: 03/09/24 10:21 [id number] History of Present illness Narrative* Sherry Velasquez, [...] Follow-up encounter involving medication [id number] History of Present illness Narrative* Sherry Velasquez [...] tomosynthesis Narrative THIS EXAM WAS PERFORMED AT [facility] EXAM: MAMM SCREENING BILATERAL W CAD, [...] DO 12/29/2023 9:13 AM documented in [facility] [id number] Evaluation note* Encounter Date Diagnosis Assessment Notes Treatment Notes Treatment Clinical Notes Apr, Hypokalemia (ICD-10 - E87.6) 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 She has negative w/u for Hyperaldosteronism and [place]. Her potassium is within the normal limit. [...] continue with close monitoring of renal function. 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 She has negative w/u for Hyperaldosteronism and [place]. Her potassium is within the normal limit. Continue current dose of the potassium chloride and amiloride. Apr, Metabolic alkalosis (ICD-10 - E87.3) Her bicarbonate is within the acceptable range. No need for any intervention Apr, Renal cyst (ICD-10 - Q61.00) She has likely simple cyst on renal US. No more w/u needed [facility] Other 07-01-2015 History general Narrative - Reported* Type Description Date Medical History low potassium Surgical History hysterectomy 08/2014 Surgical History appendectomy Surgical History Right hand 5 th finger cyst [place] 04/2017 Hospitalization History see above Hospitalization History 4 child births [facility] Other 07-01-2015 History general Narrative - Reported* Type Description Date Medical History low potassium Medical History METABOLIC ALKALOSIS Medical History HYPOKALEMIA DUE TO LOSS OF POTAS [facility] Medical History RENAL CYST Surgical History hysterectomy 08/2014 Surgical History appendectomy Surgical History Right hand 5 th finger cyst [place] 04/2017 Hospitalization History see above Hospitalization History 4 child births [facility] Other Evaluation + Plan note Future Appointments Appointment Date:03/09/2024 10:30:00 AM Scheduled Provider: Location:[facility] Services Appointment Type:Surgery [facility] Evaluation noteNo InformationNort [facility] Other Evaluation note* Diagnosis Onset Date Resolution Status GERD (gastroesophageal reflux disease) acute Hypokalemia acute Iron deficiency acute Metabolic alkalosis acute Renal cyst acute [facility] Work Phone: Evaluation note* Diagnosis Onset Date Resolution Status Hypokalemia acute Metabolic alkalosis acute [facility] Work Phone: Evaluation note* Diagnosis Encounter for gynecological examination without abnormal finding- Primary Other screening mammogram Cystocele, midline Postmenopausal HRT (hormone replacement therapy) Need for prophylactic hormone replacement therapy (postmenopausal) Hot flashes Mood swings Other specified episodic mood disorder Urge incontinence Hx of hysterectomy for benign disease documented [facility] Diagnosis Urge incontinence documented in this encounter [facility] HealthcareEvaluation note* Diagnosis Preoperative exam for gynecologic surgery- Primary Cystocele, midline Urge incontinence Postmenopausal HRT (hormone replacement therapy) Need for prophylactic hormone replacement therapy (postmenopausal) Follow-up encounter involving medication documented in this encounter [facility] HealthcareEvaluation note* Diagnosis Follow-up examination after gynecological surgery- Primary Cystocele, midline documented in this encounter [facility] HealthcareHospital course Narrative No data available for this section [facility] Hospital Discharge instructions No data available for this section [facility] Progress note No data available for this section [facility] Summary Purpose Family History Relationship Condition Age [...] section and content) DATE CREATED AUTHOR 04/14/2019 [facility] DATE CREATED AUTHOR AUTHOR'S ORGANIZ ATION 07/23/2021 [facility] DATE CREATED AUTHOR AUTHOR'S ORGANIZ ATION 04/03/2022 [facility] DATE CREATED AUTHOR AUTHOR'S ORGANIZ ATION 03/03/2024 [facility] DATE CREATED AUTHOR AUTHOR'S ORGANIZ ATION 03/03/2024 [facility] DATE CREATED AUTHOR AUTHOR'S ORGANIZ ATION 03/11/2024 [facility] DATE CREATED AUTHOR AUTHOR'S ORGANIZ ATION 03/14/2024 [facility] DATE CREATED AUTHOR AUTHOR'S ORGANIZ ATION 03/30/2024 [facility] REASON FOR VISIT (unrecogniz ed section and [...] pad or liner. Mammogram order sent to [place] [facility]. Colonoscopy 2019. Patient currently uses the [...] April 01, 2023 End: April 01, 2023 Key Person Relationship Specialty Start Date End Date Eric Johnston MD [address] [facility] [place] [address] PCP - General Family Medicine 11/16/22 Key Person Relationship Specialty Start Date End Date Eric Johnston MD [address] [facility] [place] [address] PCP - General Family Medicine 11/16/22 Key Person Relationship Specialty Start Date End Date Eric Johnston MD [address] [facility] [place] [address] PCP - General Family Medicine 11/16/22 Key Person Relationship Specialty Start Date End Date Eric Johnston MD [address] [facility] [place] [address] PCP - General Family Medicine 11/16/22 Key Person Relationship Specialty Start Date End Date Eric Johnston MD [address] [facility] [place] [address] PCP - General Family Medicine 11/16/22 Goals [...] BE BASED ON THE PRIMARY CLINICAL RECORDS. [employer] [facility] provides no warranty or guarantee of the accuracy or completeness of information in this document.
[2024-04-01 07:38] LABS: Bilirubin Urine NEGATIVE (NEGATIVE); Blood Urine NEGATIVE (NEGATIVE); Clarity Urine CLEAR (CLEAR); Color Urine YELLOW (YELLOW); Glucose Urine UA NEGATIVE (NEGATIVE); Ketones Urine NEGATIVE (NEGATIVE); Leukocyte Esterase Urine NEGATIVE (NEGATIVE); Nitrite Urine NEGATIVE (NEGATIVE); Protein Urine TRACE mg/dL (NEG/TRACE)
[2024-04-01 07:41] LABS: Protein Creatinine Ratio Urine 0.11; Total Protein Urine Random 31.9 mg/dL (<=11.9)
[2024-04-01 07:55] LABS: Bacteria Urine MODERATE #/HPF (NONE SEEN); Cast Seen? NONE SEEN #/LPF (NONE SEEN); Crystals Seen? None Seen #/HPF (None Seen); Mucus Urine LARGE (NONE SEEN); Squamous Epithelial Cell Urine MODERATE #/LPF (NONE/RARE)
[2024-04-01 08:32] LABS: Phosphorus 3.1 mg/dL (2.6-4.7)
== END 2024-04-01 07:06 | disposition home or self-care (01) ==
LOC: LAB 07:06
PROVIDERS: PCP Family Medicine; Visit Provider Internal Medicine
DX: E87.6 Hypokalemia (principal); E87.3 Alkalosis
CPT/HCPCS: 36415; 81001; 82570; 84100; 84156

== ENCOUNTER 2024-06-22 14:10 | Outpatient (OUT) | payer OTHER, SELFPAY ==
--- NOTE | 2024-06-22 14:24 | XR_ITS ---
[facility] [place] [id number] Patient Name: NORMA LOU MRN: [id number] date: 1970 Sex: F Assigned Patient Location: [facility] Current Patient Location: [facility] Accession/Order Number: [id number] Exam Date: 06/22/2024 15:04 Report Date: 06/22/2024 15:08 At the request of: ERIC HALL MD Procedure: XR cervical spine 2-3V CERVICAL SPINE 3 views: CLINICAL HISTORY: Neck Pain COMPARISON: None FINDINGS: Vertebral body and disc space heights appear maintained. Facet joint degenerative changes. No prevertebral soft tissue swelling. XR/XR cervical spine 2-3V IMPRESSION: FACET JOINT DEGENERATIVE CHANGES WITHOUT SIGNIFICANT VERTEBRAL BODY HEIGHT LOSS. Impression dictated by: Jacobo Carrington Jr. DGageOGage 06/22/2024 3:08 PM Dictation Location: [facility] Electronically authenticated by: [id number] Date: 06/22/2024 15:08
== END 2024-06-22 14:11 | disposition home or self-care (01) ==
LOC: RAD 14:20
PROVIDERS: PCP Family Medicine; Visit Provider Family Medicine
DX: M54.2 Cervicalgia (principal); M51.369 Other intervertebral disc degeneration, lumbar region without mention of lumbar back pain or lower extremity pain
CPT/HCPCS: 72040

== ENCOUNTER 2025-02-05 07:11 | Outpatient (OUT) | payer OTHER, SELFPAY ==
--- OUTSIDE RECORDS SUMMARY | 2025-02-05 07:14 | XMS_ITS | Patient Health Record ---
Author Organization [facility] [place] Address [address] [place] [address] Care Team Providers Care Manager Integration Name Role Phone Sander Hall Primary Care Provider [phone] Allergies No Known Allergies Results Component Value Reference Range Notes UA DIP NONAUTO WO MICRO (810 02) - IN OFFICE (Not yet reviewed by provider) Interpretation: Performing Lab: Notes/Report: COLOR dark yellow CLARITYclearGLUCOSEnBILIRUBINnKETONEnSPECIFIC GRAVITY1.771IBHLTsjwbrDE3.0PROTEIN nUROBILINOGENnNITRITEnLEUKOCYTE ESTERASEnFREE T3 Reviewed date:04/01/2024 02:12:28 PM Interpretation: Performing Lab: Notes/Report: [facility] ,Free T32.402.18-3.98 pg/mLPerforming Lab:see noteML - [facility] LB LIPID PROFILE Reviewed date:04/01/2024 02:12:28 PM Interpretation: Performing Lab: Notes/Report: [facility] ,Cibxxyhsmvpvy239<=150 mg/bAYtoushktkdq865<=200 mg/dLHDL Iruevyfcyfc5223-26 mg/dL <40 mg/dl - HIGH CARDIOVASCULAR RISK > or =60 mg/dl - LOW CARDIOVASCULAR RISK LDL Cholesterol Muthsrsvmk83.0 <100 mg/dl OPTIMAL 130-159 mg/dl BORDERLINE HIGH 100-129 mg/dl NEAR OR ABOVE OPTIMAL >190 mg/dl VERY HIGH 160-189 mg/dl HIGH VLDL PHAOMFCSUTF31.2Chol HDL Ratio3.2 >11.0 HIGH RISK 3.3 - 4.4 LOW RISK 7.1 - 11.0 MODERATE RISK 4.4 - 7.1 AVERAGE RISK Performing Lab:see note - [facility] LBPHOSPHORUS Reviewed date:04/01/2024 02:12:28 PM Interpretation: Performing Lab: Notes/Report: [facility] ,Phosphorus3.12.6-4.7 mg/dLPerforming Lab:see note - [facility] LB PROF 14(COMP METB) Reviewed date:04/01/2024 02:12:28 PM Interpretation: Performing Lab: Notes/Report: [facility] ,Vrofxz860461-446 mmol/LPotassium4.23.5-5.1 mmol/IJjhuszml87261-623 mmol/LCarbon Enknmmi92.321.0-32.0 mmol/LAnion Gap8.0Qmawxuh12144-333 mg/dLBlood Urea Nitrogen 14.07.0-18.0 mg/dLCreatinine1.010.55-1.02 mg/dLEstimated GFR ( Patricia>60 >=60 mL/min/1.73m 2Estimated GFR (Non- Ame57>=60 mL/min/1.73m 2BUN Creatinine Ratio13.8Ybaczye9.28.5-10.1 mg/dLBilirubin Total0.60.2-1.0 mg/dL Aspartate Amino Hmvqjvfwylf4874-72 U/LAlanine Whbnguzonrxjmtnk9504-25 U/L Alkaline Hxdivvjpcko4891-586 U/LTotal Protein7.16.4-8.2 g/dLAlbumin Level3.43.4- 5.0 g/dLGlobulin3.7Albumin Globulin Ratio0.9Performing Lab:see noteML - [facility] LBT4 Reviewed date:04/01/2024 02:12:28 PM Interpretation: Performing Lab: Notes/Report: [facility] ,T4 Thyroxine8.204.80-13.90 ug/dLPerforming Lab:see note - [facility] LBTSH Reviewed date:04/01/2024 02:12:28 PM Interpretation: Performing Lab: Notes/Report: [facility] ,Thyroid Stimulating Hormone1.3420.358-3.740 uIU/mLPerforming Lab:see note - [facility] LBOccult Blood* Reviewed date:04/02/2024 11:19:24 AM Interpretation: Performing Lab: Notes/Report: [facility] ,Occult BloodPositivePerforming Lab:see note - [facility] LBURINE T PROTEIN CREAT RATIO Reviewed date:04/01/2024 02:12:28 PM Interpretation: Performing Lab: Notes/Report: [facility] ,Total Protein Urine Xhvnmt53.9<=11.9 mg/dLCreatinine Urine Dviofb876.8020.00- 300.00 mg/dLProtein Creatinine Ratio Urine0.11Performing Lab:see note - [facility] LBUA RANDOM W or MICROSCOPIC Reviewed date:04/01/2024 02:12:28 PM Interpretation: Performing Lab: Notes/Report: [facility] ,Color UrineYELLOWYELLOWClarity UrineCLEARCLEARSpecific [place] Urine1.020 1.005-1.025pH Urine7.05.0-9.0Protein UrineTRACENEG/TRACE mg/dLGlucose Urine UA NEGATIVENEGATIVE mg/dLBilirubin UrineNEGATIVENEGATIVEKetones UrineNEGATIVE NEGATIVE mg/dLBlood UrineNEGATIVENEGATIVENitrite UrineNEGATIVENEGATIVE Urobilinogen Urine1.00.2-1.0 EU/dLLeukocyte Esterase UrineNEGATIVENEGATIVEWBC Urine2-5NONE SEEN #/HPFRBC Urine2-50-2 #/HPFBacteria UrineMODERATENONE SEEN #/HPFMucus UrineLARGENONE SEENSquamous Epithelial Cell UrineMODERATENONE/RARE #/LPFCrystals Seen?None SeenNone Seen #/HPFCast Seen?NONE SEENNONE SEEN #/LPF Performing Lab:see note - [facility] LBIRON Reviewed date:04/01/2024 02:12:28 PM Interpretation: Performing Lab: Notes/Report: [facility] ,Iron83.050.0-170.0 ug/dLPerforming Lab:see [facility] LB GLYCOHEMOGLOBIN A1C Reviewed date:04/01/2024 02:12:28 PM Interpretation: Performing Lab: Notes/Report: [facility] ,Glycohemoglobin A1C6.04.5-6.2 % ADA RECOMMENDED LIMIT 4.0 - 6.0 ADA THERAPEUTIC TARGET < 7.0 ACTION SUGGESTED > 7.0 Estimated Average Blookwf249Equniydsqi Lab:see noteML - [facility] LB CBC AUTO DIFF Reviewed date:04/01/2024 02:12:28 PM Interpretation: Performing Lab: Notes/Report: [facility] ,White Blood Count7.24.0-11.0 10 3/uLRed Blood Count4.374.20-5.40 10 6/uL Nnayvgkyil47.812.0-16.0 g/sLFoaemuddvq49.736.0-48.0 %Mean Corpuscular Xantql69.1 81.0-99.0 fLMean Corpuscular Tgmtyellbi97.626.7-34.0 pgMean Corpuscular HGB Conc 33.929.9-35.2 g/dLRed Cell Distribution Width12.611.0-15.0 %Platelet Gbjsn467 150-450 10 3/uLMean Platelet Volume8.89.5-13.5 fLNeutrophils Percent Auto50.6 43.0-75.0 %Lymphocytes Percent Auto36.520.5-60.0 %Monocytes Percent Auto7.51.7- 12.0 %Eosinophils Percent Auto4.50.9-7.0 %Basophils Percent Auto0.60.2-2.0 % Immature Granulocytes Pct Auto0.30.0-0.5 %Neutrophils Absolute Auto3.61.4-6.5 10 3/uLLymphocytes Absolute Auto2.61.2-3.8 10 3/uLMonocytes Absolute Auto0.50.3-0.8 10 3/uLEosinophils Absolute Auto0.30.0-0.7 10 3/uLBasophils Absolute Auto0.00.0- 0.1 10 3/uLImmature Granulocytes Abs Auto0.020.00-0.03 10 3/uLPerforming Lab:see noteML - [facility] LBXR cervical spine 2-3V Reviewed date:06/22/2024 05:08:13 PM Interpretation: Performing Lab: Notes/Report: Source Facility: [facility] [place] [address] [place] [address] XRay Report Signed Patient: TAMY LOU MR#: [id number] : 1970 Acct:[id number] Age/Sex: 54 / F ADM Date: 06/22/24 Loc: [facility] Attending Dr: Tyson Hall M.D. Ordering Physician: Tyson Hall M.D. Date of Service: 06/22/24 Procedure(s): XR cervical spine 2-3V Accession Number(s): [id number] cc: Tyson Hall M.D. [place] [address] Patient Name: TAMY LOU MRN: [id number] date: 1970 Sex: F Assigned Patient Location: [facility] Current Patient Location: [facility] Accession/Order Number: [id number] Exam Date: 06/22/2024 15:04 Report Date: 06/22/2024 15:08 At the request of: TYSON HALL MD Procedure: XR cervical spine 2-3V CERVICAL SPINE 3 views: CLINICAL HISTORY: Neck Pain COMPARISON: None FINDINGS: Vertebral body and disc space heights appear maintained. Facet joint degenerative changes. No prevertebral soft tissue swelling. XR/XR cervical spine 2-3V IMPRESSION: FACET JOINT DEGENERATIVE CHANGES WITHOUT SIGNIFICANT VERTEBRAL BODY HEIGHT LOSS. Impression dictated by: Jacobo Carrington Jr., DGageOGage 06/22/2024 3:08 PM Dictation Location: [place] [address] Electronically authenticated by: [id number] Y Date: 06/22/2024 15:08 Dictated By: Jacobo Carrington M.D. Signed By: 06/22/24 1510 DD/ 1508 TD/TT: Bond Writer:MAGNESIUM Reviewed date:04/01/2024 02:12:28 PM Interpretation: Performing Lab: Notes/Report: [facility] ,Magnesium2.11.8-2.4 mg/dLPerforming Lab:see noteML - [facility] LB VITAMIN D 25 [place] Reviewed date:04/01/2024 02:12:28 PM Interpretation: Performing Lab: Notes/Report: [facility] ,Vitamin D46.5 20-<30 ng/mL Vit D insufficient 30-100 ng/mL Vit D sufficient >100 ng/mL Potential Toxicity <20 ng/mL Vit D deficient Performing Lab:see noteML - [facility] LB Reason For Referral Diagnosis 1 Other fecal abnormal ities (R19.5) Referral Organization [facility] Referring Provider First Name Sander Referring Provider Last Name Preston Referring Provider [facility] aisha Referred Provider Luis Antonio Elizabeth Referred Provider [facility] satnam Referral Priority Routine Reason EGD Diagnosis 1 GERD (gastroesophage al reflux disease) (K21.9) Referral Organization [facility] Referring Provider First Name Sander Referring Provider Last Name Preston Referring Provider [facility] aisha Referred Provider Luis Antonio Elizabeth Referred Provider [facility] satnam Referral Priority Routine Medications Medication SIG (Take, Route, Frequency, Duration) Notes Start Date End Date Status Pantoprazole Sodium 40 MG TAKE 1 TABLET BY MOUTH TWICE A DAY; Duration: 90 days ActiveTriamcinolone Acetonide 0.1 %APPLY TO AFFECTED AREA EXTERNALLY TWICE DAILY FOR 30 DAYS; Duration: 30ActivetiZANidine HCl 4 MG1 tabs Orally qhs; Duration: 30 days5ActiveoxyBUTYnin Chloride ER 5 MGOral; Duration: 90 DaysActive Meloxicam 15 MG1 tablet Orally Once a day; Duration: 30 days5Active Klor-Con M20 20 MEQTAKE 2 TABLETS BY MOUTH TWICE A DAY; Duration: 90Active Sucralfate 1 GM1 tablet on an empty stomach Orally Twice a day; Duration: 14 days5ActiveaMILoride HCl 5 MG1 tablet with food Oral Once a day; Duration: 90 daysActiveFerrous Sulfate 325 (65 Fe) MGTAKE 1 TABLET BY MOUTH TWICE A DAY; Duration: 90ActiveEstradiol 0.5 MGTAKE 1 TABLET BY MOUTH EVERY DAY Oral; Duration: 90 DaysActive Social History Tobacco Use: Social History Observation Description Date Details (start date - stop date) Never Smoker NA - NA Tobacco Use/Smoking Question Answer Notes Patient is a nonsmoker Alcohol Screen (Audit-C) Question Answer Notes Did you have a drink containing alcohol in the p ast year? Yes How often did you have 6 or more drinks on one occasion in the past year?Never (0 point)How many drinks did you have on a typical day when you were drinking in the past year?1 or 2 drinks (0 point)How often did you have a drink containing alcohol in the past year?Monthly (2 points)Hwvahn5PtiqukuvvfwxozMmiinzwlCLOWT-Y (Standard) Question Answer Notes Did you have a drink containing alcohol in the p ast year? No Nigkwk3PreezweigkftkcAruzrokc Problems Problem Type SNOMED Code ICD Code Onset Dates Problem Status W/U Status Risk Notes Problem Iron deficiency (83785696) Iron deficienc y (E61.1) ActiveconfirmedProblemHypokalemia (77375461)Hypokalemia (E87.6)Activeconfirmed ProblemGastroesophageal reflux disease (839751198)GERD (gastroesophageal reflux disease) (K21.9)ActiveconfirmedProblemNeck pain (25641616)Neck pain (M54.2) ActiveconfirmedProblemRenal cyst (242402550)Renal cyst (Q61.00)Activeconfirmed ProblemFatty liver (874814919)Fatty liver (K76.0)ActiveconfirmedProblemWell adult (614974961)Well adult (Z00.00)ActiveconfirmedProblemAcute sinusitis (67929601)Acute sinus infection (J01.90)ActiveconfirmedProblemChronic kidney disease stage 3 (disorder) (648452671)Chronic kidney disease (CKD), stage III (moderate) (N18.30)Activeconfirmed Vital Signs Blood pressure diastolic 82 mm Hg 12/28/2024 Iggumo46 in12/28/2024lood pressure mm Hg12/28/20243256Aeyrzo594.0 lbs 12/28/2024BMI25.37 kg/m212/28/2024 Encounters Encounter Location Date Provider Diagnosis [facility] [address] [place] [address] 04/01/2024 Sander Hall [facility] [place] [address] 04/02/2024Doug H[facility]Other fecal abnormalities [facility] [address] [place] [address]/08/2025Doug HoyNeck pain M54.2 [facility] [place] [address] 09/07[facility] [place] [address]/Doug HoyGERD (gastroesophageal reflux disease) K21.9BSt[facility] [place] [address]/ Sander HoyWell adult Z00.00[facility] [place] [address]/01/2025Doug HoyChronic kidney disease (CKD), stage III (moderate) N18.30[facility] [place] [address]/09/2024Doug HoyNeck pain M54.2BSt[facility] [address] [place] [address]/Doug HoyUTI (urinary tract infection) N39.0 and GERD (gastroesophageal reflux disease) K21.9 Assessments Encounter Date Diagnosis (ICD Code) Assessment Notes Treatment Notes Treatment Clinical Notes Section Notes 03/30/2024 Well adult (ICD-10 - Z00.00) 5Chronic kidney disease (CKD), stage III (moderate) (ICD-10 - N18.30) nubers are essentialy normal - encouragged flushing eohrzqw3706/22/2024Neck pain (ICD-10 - M54.2)12/28/2024UTI (urinary tract infection) (ICD-10 - N39.0) 12/28/2024GERD (gastroesophageal reflux disease) (ICD-10 - K21.9)doubleing protonix -ifnot better - egd and upper gi04/02/2024Other fecal abnormalities (ICD-10 - R19.5)06/22/2024Neck pain (ICD-10 - M54.2)01/01/2025GERD (gastroesophageal reflux disease) (ICD-10 - K21.9)06/22/2024OtherRecommended to rest and use a heating pad on the area. Take NSAIDs for pain as needed Plan Of Treatment Pending Test Test Name Order Date HEMOGLOBIN A1C (GLYCO) 03/30/2024 IRON, TOTAL 03/30/2024 LIPID PANEL (CHOL/TRIG/HDL/LDL) 03/30/19 25 CBC WITH DIFF (EXP 12/2024) 03/30/2024 VITAMIN D, 25 LEVEL (TOTAL) 03/30/2024 UA DIP NONAUTO WO MICRO (30760) - IN OFF ICE 12/28/2024 STOOL OCCULT BLOOD 03/30/2024 GLYCOHEMOGLOBIN A1C 04/02/2023 INSULIN 04/02/2023 LIPID PROFILE 04/02/2023 PROF 14(COMP METB) 04/02/2023 THYROID PANEL (T4/TSH/FREE T3) THYROID PANEL (T4/TSH/FREE T3) 5 CMP (COMP MET GOMEZ) w/eGFR CKD-EPI 2024 Insurance Providers Payer Name Payer Address Payer Phone Subscriber Number Group Number Insured Name Patient Relationship to Insured Coverage Start Date Coverage End Date [employer] [address] [place], [place] [id number] Nelson Lou - patient is the [id number] 2022 Medications Administered Medication Instructions Date of Administration Dosage Notes Kenalog-40 jf81Fczicxwdb Cumjrdzayovc87/08/809678 mgOrphenadrine Citrate 560 mgPromethazine, 25 mg525 mg Medical (General) History Surgical History Surgery Date(Month/Year) Appendectomy Hysterectomy- PartialCyst Removal- Pinky FingerBladder Lift03/09/24colonoscopy 04/21/24
--- OUTSIDE RECORDS SUMMARY | 2025-02-05 07:14 | XMS_ITS | Patient Health Record ---
Author Organization [facility] [employer] [facility] Address [address] [place] [address] Care Team Providers Care District Sales Manager Name Role Phone TessyMarie Primary Care Provider ALLERGIES No Known Allergies REASON FOR REFERRAL No Information MEDICATIONS Medication SIG (Take, Route, Frequency, Duration) Notes Start Date End Date Status Fluticasone Propionate 50 MCG/ACT 1 spra y in each nostril Nasally Once a day for 30 days 12/29/20221488Snp-OhzuykUlld-Dmj 8 MEQ2 tablets with food Orally Twice a dayActive Pantoprazole Sodium 40 MG1 tablet Oral twice a day for 90 daysActiveIron 65 MG1 tablet Orally Once a dayNot-TakingEstradiol 0.5 MGOral for 90 DaysActiveMucinex 600 MG1 tablet as needed Orally every 12 hrs12/29/2022Not-TakingAlbuterol Sulfate HFA 108 (90 Base) MCG/ACT2 puffs prn Inhalation every 4 hrs prn for 30 daysplease dispense 1 zlzalj7212/31/2022Not-TakingEtodolac 500 MGTAKE 1 TABLET BY MOUTH TWICE A DAY Oral for 30 DaysActiveaMILoride HCl 5 MGOral for 30 DaysActive SOCIAL HISTORY Tobacco Use: Social History Observation Description Date Details (start date - stop date) Never Smoker NA - NA Sex Assigned At : Social History Observation Description Sex Assigned At Unknown Tobacco Use/Smoking Question Answer Notes Are you a 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 EtOH - 0-2 drinks/week. 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 EtOH - 0-2 drinks/week. No illicit drugs PROBLEMS Problem Type ICD Code Onset Dates Problem Status W/U Status Risk SNOMED Code Notes Problem GERD (gastroesophageal reflux di sease) (K21.9) ActiveconfirmedGastroesophageal reflux disease (838999229)ProblemHypokalemia (E87.6)ActiveconfirmedHypokalemia (09837960)ProblemMenopause (Z78.0)Active confirmedMenopause (013504711)ProblemRaynaud disease (I73.00)Activeconfirmed Raynaud disease (440006390) PLAN OF TREATMENT Pending Test Test Name Order Date DEXA Hip and Spine 12/31/2022 Insurance Providers Payer Name Payer Address Payer Phone Subscriber Number Group Number Insured Name Patient Relationship to Insured Coverage Start Date Coverage End Date [facility] [address] [place] [address] [id number] Tamy Olivera Self - patient is the insured MEDICAL (GENERAL) HISTORY Medical History History ICD Code Menopause Z78.0 Hypokalemia E87.6 Raynaud disease I73.00 GERD (gastroesophageal reflux disease) K 21.9 Surgical History Surgery Date(Month/Year) appendix removal Cyst removed from pinky fingerHysterectomyHospitalization History Reason Date(Month/Year) Child
--- OUTSIDE RECORDS SUMMARY | 2025-02-05 07:14 | XMS_ITS | Patient Health Record ---
Author Organization [facility] [employer] [facility] Address [address] [place] [address] Care Team Providers Care Veneer Taper Name Role Phone Marie Still Primary Care Provider ALLERGIES No Known Allergies REASON FOR REFERRAL No Information MEDICATIONS Medication SIG (Take, Route, Frequency, Duration) Notes Start Date End Date Status Klor-Con 8 MEQ 2 tablets with food Orally Twice a day ActiveEstradiol 0.5 MG1 tablet Orally Once a dayActivePantoprazole Sodium 40 MG1 tablet Orally Once a dayActiveEtodolac 500 MG1 tablet with food Orally Twice a dayActiveaMILoride HCl 5 MG1 tablet with food Orally Once a dayActive SOCIAL HISTORY Tobacco Use: Social History Observation Description Date Details (start date - stop date) Never Smoker NA - NA Sex Assigned At : Social History Observation Description Sex Assigned At Unknown Tobacco Use/Smoking Question Answer Notes Are you a nonuser PLAN OF TREATMENT No Information MEDICAL (GENERAL) HISTORY Medical History History ICD Code menopause hypokalemiaraynaud diseasegerdSurgical History Surgery Date(Month/Year) appendix removal cyst removed from pinky fingerhysterectomyHospitalization History Reason Date(Month/Year) child
--- OUTSIDE RECORDS SUMMARY | 2025-02-05 07:14 | XMS_ITS | Clinical Summary ---
Author Organization [facility] Healthcare Address [address] [place] [address] Care Team Providers Care Plastic Dolls Mold Filler Name Role Phone Tyson Johnston MD Primary Care Provider [phone] Allergies No known active allergies Medications MedicationSigDispense QuantityRefillsLast FilledStart DateEnd DateStatus pantoprazole (ProtoNix) 40 MG EC tablet Take 40 mg by mouth in the morning and 40 mg before bedtime.Active etodolac (Lodine) 500 MG tablet TAKE 1 TABLET BY MOUTH TWICE A DAY Oral for 30 DaysActive ferrous sulfate 325 (65 Fe) MG tablet Take 1 tablet by mouth in the morning and 1 tablet before bedtime.Active KLOR-CON 20 MEQ ER tablet Take 40 mEq by mouth in the morning and 40 mEq before bedtime.Active estradiol (Estrace) 0.5 MG tablet Indications:Postmenopausal HRT (hormone replacement therapy),Hot flashesTake 1 tablet (0.5 mg) by mouth Daily 90 tablet 4Active aMILoride (Midamor) 5 MG tablet 5Active acetaminophen (Tylenol 8 Hour) 650 MG ER tablet Take 650 mg by mouth every 8 (eight) hours if needed for mild pain Do not crush, chew, or split.Active docusate sodium (Colace) 50 MG capsule Take 50 mg by mouth in the morning and 50 mg before bedtime.Active tiZANidine (Zanaflex) 4 MG tablet TAKE 2 TABLETS BY MOUTH ONCE DAILY AT BEDTIMEActive meloxicam (Mobic) 15 MG tablet TAKE 1 TABLET BY MOUTH EVERY DAY FOR 30 DAYS5Active oxybutynin XL (Ditropan-XL) 5 MG 24 hr tablet Indications:Urge incontinenceTAKE 1 TABLET (5 MG) BY MOUTH DAILY DO NOT CRUSH, CHEW, OR SPLIT. 90 tablet 109ctive Family History Medical HistoryRelationNameCommentsCancerBrotherJon KraakDiabetesBrotherJon KraakDiabetesFatherNorman KraakRheum arthritisFatherNorman KraakAsthmaMotherMary Alicia KraakCancerMotherMary Alicia PatakDementiaMotherMarshelby PatakDiabetesSister Simran BowerRelationNameStatusCommentsBrotherJon KraakFatherNorman KraakAlive MotherMarshelby WalshliveSisterSimran Paniaguaer Social History Tobacco UseTypesPacks/DayYears UsedDateSmoking Tobacco: NeverSmokeless Tobacco: Never Tobacco Cessation:Counseling Given: No Alcohol UseStandard Drinks/WeekCommentsYes2 (1 standard drink = 0.6 oz pure alcohol)AUDIT-CAnswerDate RecordedQ1: How often do you have a drink containing alcohol?Never03/30/2024Q2: How many drinks containing alcohol do you have on a typical day when you are drinking?1 or Q3: How often do you have six or more drinks on one occasion?Never03/30/2024PHQ-2AnswerDate RecordedPatient Health Questionnaire-2 Nxviu066CommentsNoSex and Gender InformationValueDate RecordedSex Assigned at CnuluGtzohv62/02/2023 9:01 AM EDT Legal OqbJzaowo04/15/2023 7:09 PM EDTGender VbbhldqjQisdhj48/02/2023 9:01 AM EDT Sexual NpuzgcabifxIhfjfeob28/02/2023 9:01 AM EDT Last Filed Vital Signs Vital SignReadingTime TakenCommentsBlood Smrfavpj750/7408 8:16 AM EDT Pulse--Temperature--Respiratory Rate--Oxygen Saturation--Inhaled Oxygen Concentration--Hrrwzw70.2 kg (157 lb)09/18/2024 8:16 AM HKBQaclen518.5 cm (5' 7.5 )06/01/2022 12:00 PM EDTBody Mass Index24.2304/ 12:00 PM EDT Plan of Treatment DateTypeDepartmentCare Team (Latest Contact Info)Mnyxehysvla33/17/2026 8:30 AM EDTOffice Visit [facility] [address] SAMI D [facility] [address] [place] [address] Sherry Velasquez DO [address] [address] Health MaintenanceDue DateLast DoneCommentsCT Ctewxswmkagz94/29/1972FIT-DNA 1971FIT1971Jmldaxgslpbdw13/29/1972Pap Smear1992Cervical Cancer Mtfysndjs14/29/2002HPV/Orsthc1603/15/2001FOBT/OVID-19 Vaccine ( season)/, 04/10/2020Influenza Vaccine (#1) /02/2016, 11/06/20167408Yenqsffod98/17/829777/, 04/29/2023, 04/29/2023, Additional history fttfcvOgdszgeskpx97/19/202812/Colorectal Cancer Kdgjtwmjc66/19/2028Pneumococcal Vaccine: Pediatrics (0 to 5 Years) and At-Risk Patients (6 to 64 Years)Aged OutNo longer eligible based on patient's age to complete this topic Procedures Procedure NamePriorityDate/TimeAssociated DiagnosisCommentsBI MAMMOGRAM SCREENING TOMOSYNTHESIS DHCBNYVEZEsnuerz20/17/2025 12:16 PM EDT Other screening mammogram from Last 3 Months or Most Recently Relevant to Health Maintenance Results * Bilateral screening mammogram with tomosynthesis (05/01/2024 12:16 PM EDT) Anatomical RegionLateralityModalityBreastBilateralMammographySpecimen (Source) Anatomical Location / LateralityCollection Method / VolumeCollection Time Received Time05/03/2024 12:21 PM EDT Impressions 05/03/2024 12:27 PM EDT Impression: No specific evidence of malignancy seen in either breast. BIRADS 2 - Benign Findings DENSITY: There are scattered areas of fibroglandular density. FOLLOW-UP: Routine Screening Mammogram ELECTRONICALLY SIGNED BY: Andrey Renee M.D. Narrative 05/03/2024 12:27 PM EDT Examination: BI MAMMOGRAM SCREENING TOMOSYNTHESIS BILATERAL Clinical History: screening Technique: Screening digital mammography study of both breasts was performed with 2-D and 3-D tomosynthesis imaging. Study was compared to the prior exam dated 04/29/2023. Findings: There is no evidence of interval dominant spiculated mass, grouped microcalcifications, or skin thickening which would be suggestive of malignancy. ?? Scattered benign calcifications are noted bilaterally. A few small benign- appearing asymmetric densities bilaterally similar to the prior study. Procedure Note Andrey Renee MD - 05/03/2024 Examination: BI MAMMOGRAM SCREENING TOMOSYNTHESIS BILATERAL Clinical History: screening Technique: Screening digital mammography study of both breasts wasperformed with 2-D and 3-D tomosynthesis imaging. Study was compared tothe prior exam dated 04/29/2023. Findings: There is no evidence of interval dominant spiculated mass,grouped microcalcifications, or skin thickening which would be suggestiveof malignancy. Scattered benign calcifications are noted bilaterally. A few smallbenign- appearing asymmetric densities bilaterally similar to the priorstudy. IMPRESSION: Impression: No specific evidence of malignancy seen in either breast. BIRADS 2 - Benign Findings DENSITY: There are scattered areas of fibroglandular density. FOLLOW-UP: Routine Screening Mammogram ELECTRONICALLY SIGNED BY: Andrey Renee M.D. Authorizing ProviderResult TypeResult StatusPemiscot Memorial Health Systemsa Rehan Velasquez DOIMG PROCEDURESFinal Result from Last 3 Months or Most Recently Relevant to Health Maintenance Insurance Care Teams Team MemberRelationshipSpecialtyStart DateEnd Date Tyson Johnston MD [address] [place] [id number] PCP - GeneralFamily Medicine09/18/24
--- OUTSIDE RECORDS SUMMARY | 2025-02-05 07:14 | XMS_ITS | Clinical Summary ---
Author Organization [facility] Address [address] [place] [address] Care Team Providers Care Shredder Picker Name Role Phone Unavailable Primary Care Provider Unavailabl e Social History Tobacco UseTypesPacks/DayYears UsedDateSmoking Tobacco: Never AssessedUT Safety & EnvironmentAnswerDate RecordedFear of Current or Ex-PartnerNot on file 04/08/2023Emotionally AbusedNot on file04/08/2023hysically AbusedNot on file 04/08/2023Sexually AbusedNot on file04/08/2023hysically or Sexually AbusedNot on file04/08/2023CommentsUnknownSex and Gender InformationValueDate RecordedSex Assigned at BirthNot on fileLegal FtiReqsgf47/29/2022 10:40 PM EDT Gender IdentityNot on fileSexual OrientationNot on file Plan of Treatment Not on file
== END 2025-02-05 07:12 | disposition home or self-care (01) ==
LOC: PST 07:11
PROVIDERS: PCP Family Medicine; Visit Provider Surgery
DX: Z01.818 Encounter for other preprocedural examination (principal); K21.9 Gastro-esophageal reflux disease without esophagitis; R10.13 Epigastric pain

== ENCOUNTER 2025-02-14 07:56 | Day surgery (SDC) | payer OTHER, SELFPAY ==
--- NOTE | 2025-02-14 | OP_ITS ---
OPERATION DATE: 02/14/2025 PREOPERATIVE DIAGNOSIS: Refractory epigastric pain and bloating. POSTOPERATIVE DIAGNOSIS: Bile reflux, mild antral gastritis, as well as a 3 cm hiatal hernia. PROCEDURE: EGD with antral biopsy: SURGEON: Luis Antonio Elizabeth M.D. ANESTHESIA: Monitored anesthesia care. ESTIMATED BLOOD LOSS: Less than 1 mL. INDICATIONS AND CONSENT: Patient is a 54-year-old female, history of worsening epigastric abdominal pain and bloating, as well as gastroesophageal reflux disease, despite proton pump inhibitors. Indications, risks, benefits, alternatives were explained extensively to the patient, including the risks of bleeding, aspiration, esophageal/gastric/duodenal perforation or anesthetic complications. All of her questions were answered. Informed consent was obtained. PROCEDURE: Patient brought to the operating room, placed in the left lateral decubitus position. Monitored anesthesia care was provided. Bite block was placed in the patient?s mouth. Scope was inserted into the oropharynx. Under direct visualization, it was advanced into the esophagus, past the cricopharyngeus and down into the stomach. The stomach was insufflated with air. The pylorus was traversed down to the descending portion of the duodenum. There was no evidence of duodenitis or ulceration. There was no scarring within the pyloric channel. Scope was pulled back into the stomach and retroflexed. There was noted to be a 3 cm sliding type hiatal hernia, as well as some mild antral gastritis. Biopsy x2 was obtained with pediatric cold biopsy forceps with good hemostasis. This was of the antrum. The GE junction was noted at approximately 37 cm. There was a regular Z-line with no evidence of esophagitis or Ornelas?s changes. The remainder of the esophagus was unremarkable. The scope was then withdrawn. Patient tolerated procedure well, was sent to recovery room in good condition. I did restart the Carafate q.i.d., until we have the biopsies back. CC: Tyson Johnston M.D. [facility] K[facility]TER[facility] CANCER CENTERJoycelyn
--- OUTSIDE RECORDS SUMMARY | 2025-02-14 08:00 | XMS_ITS | Patient Health Record ---
Author Organization [facility] Address [address] [place] [address] Care Team Providers Care Sonogram Technician Name Role Phone TessyMarie Primary Care Provider ALLERGIES No Known Allergies REASON FOR REFERRAL No Information MEDICATIONS Medication SIG (Take, Route, Frequency, Duration) Notes Start Date End Date Status Fluticasone Propionate 50 MCG/ACT 1 spra y in each nostril Nasally Once a day for 30 days 12/29/20227939Txj-BtgbfzTxqu-Nzn 8 MEQ2 tablets with food Orally Twice a dayActive Pantoprazole Sodium 40 MG1 tablet Oral twice a day for 90 daysActiveIron 65 MG1 tablet Orally Once a dayNot-TakingEstradiol 0.5 MGOral for 90 DaysActiveMucinex 600 MG1 tablet as needed Orally every 12 hrs12/29/2022Not-TakingAlbuterol Sulfate HFA 108 (90 Base) MCG/ACT2 puffs prn Inhalation every 4 hrs prn for 30 daysplease dispense 1 irtipv1112/31/2022Not-TakingEtodolac 500 MGTAKE 1 TABLET BY MOUTH TWICE [...] reflux di sease) (K21.9) ActiveconfirmedGastroesophageal reflux disease (513693235)ProblemHypokalemia (E87.6)ActiveconfirmedHypokalemia (86854174)ProblemMenopause (Z78.0)Active confirmedMenopause (156407773)ProblemRaynaud disease (I73.00)Activeconfirmed Raynaud disease (406645202) PLAN OF TREATMENT Pending Test Test Name Order Date DEXA Hip and Spine 12/31/2022 Insurance Providers Payer Name Payer Address Payer Phone Subscriber Number Group Number Insured Name Patient Relationship to Insured Coverage Start Date Coverage End Date [facility] [address] [place] [address] [id number] Tamy Olivera Self - patient is the insured MEDICAL (GENERAL) HISTORY Medical History History ICD Code Menopause Z78.0 Hypokalemia E87.6 Raynaud disease I73.00 GERD (gastroesophageal reflux disease) K 21.9 Surgical History Surgery Date(Month/Year) appendix removal Cyst removed from pinky fingerHysterectomyHospitalization History Reason Date(Month/Year) Child
--- OUTSIDE RECORDS SUMMARY | 2025-02-14 08:00 | XMS_ITS | Clinical Summary ---
Author Organization [facility] Address [address] [place] [address] Care Team Providers Care Upper Tier Name Role Phone Unavailable Primary Care Provider Unavailabl e Social History Tobacco UseTypesPacks/DayYears UsedDateSmoking Tobacco: Never AssessedUT Safety & EnvironmentAnswerDate RecordedFear of Current or Ex-PartnerNot on file 04/08/2023Emotionally AbusedNot on file04/08/2023hysically AbusedNot on file 04/08/2023Sexually AbusedNot on file04/08/2023hysically or Sexually AbusedNot on file04/08/2023CommentsUnknownSex and Gender InformationValueDate RecordedSex Assigned at BirthNot on fileLegal ZsqOzqjxh30/29/2022 10:40 PM EDT Gender IdentityNot on fileSexual OrientationNot on file Plan of Treatment Not on file
--- OUTSIDE RECORDS SUMMARY | 2025-02-14 08:00 | XMS_ITS | Clinical Summary ---
Author Organization [facility] [facility] Address [id number] [address] [place] [address] Care Team Providers Care Hand Tacker Name Role Phone Tyson Johnston MD Primary Care Provider [phone] Allergies No known active allergies Medications * This document contains information received from the source organization and may not represent a complete record from that organization. MedicationSigDispense QuantityRefillsLast FilledStart DateEnd DateStatus aMILoride (MIDAMOR) 5 mg tablet 1 tablet (5 mg total).5Active potassium chloride (KLOR-CON M20) 20 MEQ CR tablet Take 2 tablets (40 mEq total) by mouth in the morning and 2 tablets (40 mEq total) before bedtime.Active Family History Medical HistoryRelationNameCommentsBreast cancerNeg Hx Social History Tobacco UseTypesPacks/DayYears UsedDateSmoking Tobacco: Never AssessedChildcare AnswerDate DjzyrmymIdrbglspiYcltruh53/05/2019EmploymentAnswerDate Recorded XmcujlvimmKrkbfov99/05/2019Hunger ScreeningAnswerDate RecordedWithin the past 12 months we worried whether our food would run out before we got money to buy more.Never True03/28/2024Within the past 12 months the food we bought just didn't last and we didn't have money to get more.Never True03/28/2024Purpose - LifeAnswerDate RecordedPurpose and direction in fkpjTxvoswz52/11/2021 CommentsNoSex and Gender InformationValueDate RecordedSex Assigned at Qanjvs1012/31/2022 3:06 PM ESTLegal EubUoddka14/06/2015 11:40 AM EDTGender RyncguoiGjwcgi82/16/2023 3:06 PM ESTSexual YlnlqwrspvcHnmhhggr34/16/2023 3:06 PM EST Last Filed Vital Signs Vital SignReadingTime TakenCommentsBlood Apnllsej425/8603/28/2024 9:04 AM EST Gcbha275403/28/2024 9:04 AM UPQRkdbzpgomxt86.7 ??C (98 ??F)03/28/2024 9:04 AM EST Respiratory Tigx656703/28/2024 9:04 AM ESTOxygen Gkyshbghlm50%03/28/2024 9:04 AM ESTInhaled Oxygen Concentration--Wrtizo77.8 kg (165 lb)03/28/2024 9:04 AM EST Zhmyqh398.2 cm (5' 7 )04/29/2023 2:03 PM EDTBody Mass Index25.8404/29/2023 2:03 PM EDT Plan of Treatment Health MaintenanceDue DateLast DoneCommentsDepression Nsttmzazn24/29/1984Tobacco Dlnyvfmol42/29/1984DTaP,Tdap and Td Vaccines (1 - Tdap)1990Zoster (Shingles) Vaccine (1 of 2)2COVID-19 Vaccine (3 - season) 503/, 04/10/2020Influenza Pjhbtqd32/Adult BMI Zxfsbynxi13 Medical Devices Not on file Insurance Care Teams Team MemberRelationshipSpecialtyStart DateEnd Tyson Johnston MD [facility] - General03/28/24
--- OUTSIDE RECORDS SUMMARY | 2025-02-14 08:00 | XMS_ITS | Patient Health Record ---
Author Organization [facility] in [place] Address [address] [place] [address] Care Team Providers Care Blood Bank Custodian Name Role Phone Sander Hall Primary Care Provider [phone] Allergies No Known Allergies Results Component Value Reference Range Notes Occult Blood* Reviewed date:04/02/2024 11:19:24 AM Interpretation: Performing Lab: Notes/Report: [facility] , Occult Blood Positive Performing Lab:see note - [facility] LBVITAMIN D 25 [place] Reviewed date:04/01/2024 02:12:28 PM Interpretation: Performing Lab: Notes/Report: [facility] ,Vitamin D46.5 20-<30 ng/mL Vit D insufficient 30-100 ng/mL Vit D sufficient >100 ng/mL Potential Toxicity <20 ng/mL Vit D deficient Performing Lab:see note - [facility] LBIRON Reviewed date:04/01/2024 02:12:28 PM Interpretation: Performing Lab: Notes/Report: [facility] ,Iron83.050.0-170.0 ug/dLPerforming Lab:see noteML - [facility] LBUA DIP NONAUTO WO MICRO (65565) - IN OFFICE (Not yet reviewed by provider) Interpretation: Performing Lab: Notes/Report: COLORdark yellowCLARITYclearGLUCOSEnBILIRUBINnKETONEnSPECIFIC GRAVITY1.010BLOOD tracePH7.0PROTEINnUROBILINOGENnNITRITEnLEUKOCYTE ESTERASEnXR cervical spine 2-3V Reviewed date:06/22/2024 05:08:13 PM Interpretation: Performing Lab: Notes/Report: Source Facility: [place] [address] [address] XRay Report Signed Patient: TAMY LOU MR#: [id number] : 1970 Acct:[id number] Age/Sex: 54 / F ADM Date: 06/22/24 Loc: RAD Attending Dr: Tyson Hall M.D. Ordering Physician: Tyson Hall M.D. Date of Service: 06/22/24 Procedure(s): XR cervical spine 2-3V Accession Number(s): [id number] cc: Tyson Hall M.D. The [place] [address] Patient Name: TAMY LOU MRN: [id number] date: 1970 Sex: F Assigned Patient Location: [facility] Current Patient Location: [facility] Accession/Order Number: [id number] Exam Date: 06/22/2024 15:04 Report Date: 06/22/2024 [...] LOSS. Impression dictated by: Jacobo Carrington Jr., D.OGage 06/22/2024 3:08 PM Dictation Location: [place] [address] Electronically authenticated by: [id number] Y Date: 06/22/2024 15:08 Dictated By: Jacobo Carrington M.D. Signed By: 06/22/24 1510 DD/ 1508 TD/TT: Technical Project Coordinator:MAGNESIUM Reviewed date:04/01/2024 02:12:28 PM Interpretation: Performing Lab: Notes/Report: [facility] ,Magnesium2.11.8-2.4 mg/dLPerforming Lab:see noteML - [facility] LB TSH Reviewed date:04/01/2024 02:12:28 PM Interpretation: Performing Lab: Notes/Report: [facility] ,Thyroid Stimulating Hormone1.3420.358-3.740 uIU/mLPerforming Lab:see noteML - [facility] LBT4 Reviewed date:04/01/2024 02:12:28 PM Interpretation: Performing Lab: Notes/Report: [facility] ,T4 Thyroxine8.204.80-13.90 ug/dLPerforming Lab:see noteML - [facility] LBPROF 14(COMP METB) Reviewed date:04/01/2024 02:12:28 PM Interpretation: Performing Lab: Notes/Report: [facility] ,Wgvigv968293-395 mmol/LPotassium4.23.5-5.1 mmol/CFmnlybtw67671-879 mmol/LCarbon Jixqbuh48.321.0-32.0 mmol/LAnion Gap8.5Uzjfpgg39527-892 mg/dLBlood Urea Nitrogen 14.07.0-18.0 mg/dLCreatinine1.010.55-1.02 mg/dLEstimated GFR ( Patricia>60 >=60 mL/min/1.73m 2Estimated GFR (Non- Ame57>=60 mL/min/1.73m 2BUN Creatinine Ratio13.6Onznjdm1.28.5-10.1 mg/dLBilirubin Total0.60.2-1.0 mg/dL Aspartate Amino Wmzgvmmnzna8215-55 U/LAlanine Lkwhsiahidorjanv1523-98 U/L Alkaline Azhodyrznmu6203-768 U/LTotal Protein7.16.4-8.2 g/dLAlbumin Level3.43.4- 5.0 g/dLGlobulin3.7Albumin Globulin Ratio0.9Performing Lab:see noteML - [facility] LBPHOSPHORUS Reviewed date:04/01/2024 02:12:28 PM Interpretation: Performing Lab: Notes/Report: [facility] ,Phosphorus3.12.6-4.7 mg/dLPerforming Lab:see noteML - [facility] LB LIPID PROFILE Reviewed date:04/01/2024 02:12:28 PM Interpretation: Performing Lab: Notes/Report: [facility] ,Wpuewkhqfwnej057<=150 mg/xJIxrfdjwrrde634<=200 mg/dLHDL Wmyshvklnrt7750-29 mg/dL <40 mg/dl - HIGH CARDIOVASCULAR RISK > or =60 mg/dl - LOW CARDIOVASCULAR RISK LDL Cholesterol Ktaldqdhll34.0 <100 mg/dl OPTIMAL 130-159 mg/dl BORDERLINE HIGH 100-129 mg/dl NEAR OR ABOVE OPTIMAL >190 mg/dl VERY HIGH 160-189 mg/dl HIGH VLDL JNRXGPRZAFL66.2Chol HDL Ratio3.2 >11.0 HIGH RISK 3.3 - 4.4 LOW RISK 7.1 - 11.0 MODERATE RISK 4.4 - 7.1 AVERAGE RISK Performing Lab:see noteML - [facility] LBFREE T3 Reviewed date:04/01/2024 02:12:28 PM Interpretation: Performing Lab: Notes/Report: [facility] ,Free T32.402.18-3.98 pg/mLPerforming Lab:see note - [facility] LB URINE T PROTEIN CREAT RATIO Reviewed date:04/01/2024 02:12:28 PM Interpretation: Performing Lab: Notes/Report: [facility] ,Total Protein Urine Bvjuev85.9<=11.9 mg/dLCreatinine Urine Froltc086.8020.00- 300.00 mg/dLProtein Creatinine Ratio Urine0.11Performing Lab:see note - [facility] LBUA RANDOM W or MICROSCOPIC Reviewed date:04/01/2024 02:12:28 PM Interpretation: Performing Lab: Notes/Report: [facility] ,Color UrineYELLOWYELLOWClarity UrineCLEARCLEARSpecific Neptune Urine1.020 1.005-1.025pH Urine7.05.0-9.0Protein UrineTRACENEG/TRACE mg/dLGlucose Urine UA NEGATIVENEGATIVE mg/dLBilirubin UrineNEGATIVENEGATIVEKetones UrineNEGATIVE NEGATIVE mg/dLBlood UrineNEGATIVENEGATIVENitrite UrineNEGATIVENEGATIVE Urobilinogen Urine1.00.2-1.0 EU/dLLeukocyte Esterase UrineNEGATIVENEGATIVEWBC Urine2-5NONE SEEN #/HPFRBC Urine2-50-2 #/HPFBacteria UrineMODERATENONE SEEN #/HPFMucus UrineLARGENONE SEENSquamous Epithelial Cell UrineMODERATENONE/RARE #/LPFCrystals Seen?None SeenNone Seen #/HPFCast Seen?NONE SEENNONE SEEN #/LPF Performing Lab:see noteML - [facility] LBGLYCOHEMOGLOBIN A1C Reviewed date:04/01/2024 02:12:28 PM Interpretation: Performing Lab: Notes/Report: [facility] ,Glycohemoglobin A1C6.04.5-6.2 % ADA RECOMMENDED LIMIT 4.0 - 6.0 ADA THERAPEUTIC TARGET < 7.0 ACTION SUGGESTED > 7.0 Estimated Average Maitomg602Mbipvhtgbq Lab:see noteML - [facility] LB CBC AUTO DIFF Reviewed date:04/01/2024 02:12:28 PM Interpretation: Performing Lab: Notes/Report: [facility] ,White Blood Count7.24.0-11.0 10 3/uLRed Blood Count4.374.20-5.40 10 6/uL Bcpnbtyibn34.812.0-16.0 g/lBUwxxtnlhxr13.736.0-48.0 %Mean Corpuscular Noacyk99.1 81.0-99.0 fLMean Corpuscular Mewjuonncn14.626.7-34.0 pgMean Corpuscular HGB Conc 33.929.9-35.2 g/dLRed Cell Distribution Width12.611.0-15.0 %Platelet Lpazt950 150-450 10 3/uLMean Platelet Volume8.89.5-13.5 fLNeutrophils Percent Auto50.6 43.0-75.0 %Lymphocytes Percent Auto36.520.5-60.0 %Monocytes Percent Auto7.51.7- 12.0 %Eosinophils Percent Auto4.50.9-7.0 %Basophils Percent Auto0.60.2-2.0 % Immature Granulocytes Pct Auto0.30.0-0.5 %Neutrophils Absolute Auto3.61.4-6.5 10 3/uLLymphocytes Absolute Auto2.61.2-3.8 10 3/uLMonocytes Absolute Auto0.50.3-0.8 10 3/uLEosinophils Absolute Auto0.30.0-0.7 10 3/uLBasophils Absolute Auto0.00.0- 0.1 10 3/uLImmature Granulocytes Abs Auto0.020.00-0.03 10 3/uLPerforming Lab:see noteML - [facility] LB Reason For Referral Diagnosis 1 Other fecal abnormal ities (R19.5) Referral Organization [facility] Referring Provider First Name Sander Referring Provider Last Name Preston Referring Provider [facility] aisha Referred Provider Luis Antonio Elizabeth Referred Provider Specialty General Surg satnam Referral Priority Routine Reason EGD Diagnosis 1 GERD (gastroesophage al reflux disease) (K21.9) Referral Organization [facility] Referring Provider First Name Sander Referring Provider Last Name Preston Referring Provider [facility] aisha Referred Provider Luis Antonio Elizabeth [...] containing alcohol in the past year?Monthly (2 points)Kftsoj9RcoymbpaeyjsbcQvuuoyyiXNEGN-A (Standard) Question Answer Notes Did you have a drink containing alcohol in the p ast year? No Ftavvq9QerselqosboaiqQrkapqhs Problems Problem Type SNOMED Code ICD Code Onset Dates Problem Status W/U Status Risk Notes Problem Iron deficiency (58455012) Iron deficienc y (E61.1) ActiveconfirmedProblemHypokalemia (13081361)Hypokalemia (E87.6)Activeconfirmed ProblemGastroesophageal reflux disease (000339308)GERD (gastroesophageal reflux disease) (K21.9)ActiveconfirmedProblemNeck pain (13188889)Neck pain (M54.2) ActiveconfirmedProblemRenal cyst (486010188)Renal cyst (Q61.00)Activeconfirmed ProblemFatty liver (964392899)Fatty liver (K76.0)ActiveconfirmedProblemWell adult (611051936)Well adult (Z00.00)ActiveconfirmedProblemAcute sinusitis (60114279)Acute sinus infection (J01.90)ActiveconfirmedProblemChronic kidney disease stage 3 (disorder) (945281326)Chronic kidney disease (CKD), stage III (moderate) (N18.30)Activeconfirmed Vital Signs Blood pressure diastolic 82 mm Hg 12/28/2024 Rynaqu56 in12/28/2024lood pressure rhvcdkpo036 mm Hg12/28/20241764Axstcg243.0 lbs 12/28/2024BMI25.37 kg/m212/28/2024 Encounters Encounter Location Date Provider Diagnosis [facility] [address] [place] [address] 04/01/2024 Sander Hall [facility] [place] [address] 04/02/2024Doug H[facility]Other fecal abnormalities [facility]19.[facility] [address] [place] [address]/08/2025Doug HoyNeck pain M54.2 [facility] [place] [address] 09/07/2024[facility] [place] [address]/Doug HoyGERD (gastroesophageal reflux disease) K21.9B[facility] [place] [address]/ Sander HoyWell adult Z00.00[facility] [place] [address]/01/2025Doug HoyChronic kidney disease (CKD), stage III (moderate) N18.30[facility] [place] [address]/09/2024Doug HoyNeck pain M54.2BAd[facility] [address] [place] [address]/Doug HoyUTI (urinary tract infection) N39.0 and GERD (gastroesophageal reflux disease) K21.9 Assessments Encounter Date Diagnosis (ICD Code) Assessment Notes Treatment Notes Treatment Clinical Notes Section Notes 03/30/2024 Well adult (ICD-10 - Z00.00) 5Chronic kidney disease (CKD), stage III (moderate) (ICD-10 - N18.30) nubers are essentialy normal - encouragged flushing wprukyh5406/22/2024Neck pain (ICD-10 - M54.2)12/28/2024UTI (urinary tract infection) [...] IRON, TOTAL 03/30/2024 LIPID PANEL (CHOL/TRIG/HDL/LDL) 03/30/19 CBC WITH DIFF (EXP 12/2024) 03/30/2024 VITAMIN D, 25 LEVEL (TOTAL) 03/30/2024 UA DIP NONAUTO WO MICRO (04855) - IN OFF ICE 12/28/2024 STOOL OCCULT BLOOD 03/30/2024 GLYCOHEMOGLOBIN A1C 04/02/2023 INSULIN 04/02/2023 LIPID PROFILE 04/02/2023 PROF 14(COMP METB) 04/02/2023 THYROID PANEL (T4/TSH/FREE T3) THYROID PANEL (T4/TSH/FREE T3) CMP (COMP MET GOMEZ) w/eGFR CKD-EPI 2024 Insurance Providers Payer Name Payer Address Payer Phone Subscriber Number Group Number Insured Name Patient Relationship to Insured Coverage Start Date Coverage End Date [employer] [address] [place], [place] [id number] Hoda Louelf - patient is the [id number] 2022 Medications Administered Medication Instructions Date of Administration Dosage Notes Kenalog-40 480 qe88Vpliwlyvg Vywfsybdswdg39/08/834807 mgOrphenadrine Citrate 560 mgPromethazine, 25 mg525 mg Medical (General) History Surgical History Surgery Date(Month/Year) Appendectomy Hysterectomy- PartialCyst Removal- Pinky FingerBladder Lift03/09/24colonoscopy 04/21/24
--- OUTSIDE RECORDS SUMMARY | 2025-02-14 08:01 | XMS_ITS | Patient Health Record ---
Author Organization [facility]ILLING [facility]AC[facility] [employer] [facility] Address [address] [place] [address] Care Team Providers Care Science Technicians Name Role Phone Marie Still Primary Care [...]
--- OUTSIDE RECORDS SUMMARY | 2025-02-14 08:01 | XMS_ITS | Clinical Summary ---
Author Organization [facility] Address [address] [place] [address] Care Team Providers Care Warping Machine Operator Name Role Phone Tyson Johnston MD Primary Care Provider [phone] Allergies No known active allergies Medications MedicationSigDispense [...] drinks on one occasion?Never03/30/2024PHQ-2AnswerDate RecordedPatient Health Questionnaire-2 Cfpaq142CommentsNoSex and Gender InformationValueDate RecordedSex Assigned at HzjviLqbuzk57/02/2023 9:01 AM EDT Legal QpyRiqizn22/15/2023 7:09 PM EDTGender SmdwxulqXsrodc79/02/2023 9:01 AM EDT Sexual PkegvwwsmsaCswxxixj24/02/2023 9:01 AM EDT Last Filed Vital Signs Vital SignReadingTime TakenCommentsBlood Bxlakzag760/7408 8:16 AM EDT Pulse--Temperature--Respiratory Rate--Oxygen Saturation--Inhaled Oxygen Concentration--Vkifmn40.2 kg (157 lb)09/18/2024 8:16 AM BRKJgaddj682.5 cm (5' 7.5 )06/01/2022 12:00 PM EDTBody Mass Index24.2304/ 12:00 PM EDT Plan of Treatment DateTypeDepartmentCare Team (Latest Contact Info)Lzjulvgnzrf48/17/2026 8:30 AM EDTOffice Visit [facility] [address] [facility] [address] [place] [address] Sherry Velasquez DO [address] [address] Health MaintenanceDue DateLast DoneCommentsCT Ginylpbeixji11/29/1972FIT-DNA 1971FIT1971 7477Mtghjbogplcit75/29/1972Pap Smear1992Cervical Cancer Dvkfgrjly84/29/2002HPV/Uhmvsd2503/15/2001FOBT/Influenza Vaccine (#1)/02/2016, 11/06/20160772Vomqiekiz43/17/22385005/01/2024, 04/29/2023, 04/29/2023, Additional history vsjsklWalocgdxkdv40/19/202812/Colorectal Cancer Bvtmjkbia81/19/2028Pneumococcal Vaccine: Pediatrics (0 to 5 Years) and At-Risk Patients (6 to 64 Years)Aged OutNo longer eligible based on patient's age to complete this topic Procedures Procedure NamePriorityDate/TimeAssociated DiagnosisCommentsBI MAMMOGRAM SCREENING TOMOSYNTHESIS BLPXKSRHFNnnoyaj29/17/2025 12:16 PM EDT Other screening mammogram from [...] BY: Andrey Renee M.D. Authorizing ProviderResult TypeResult StatusSaint Luke'S Health Systema J Natlyndseyawira DOIMG BI PROCEDURESFinal Result from Last 3 Months or Most Recently Relevant to Health Maintenance Insurance Care Teams Team MemberRelationshipSpecialtyStart DateEnd Date Tyson Johnston MD [address] [place] [address] PCP - GeneralSaint [facility] Medicine09/18/24
--- OUTSIDE RECORDS SUMMARY | 2025-02-14 08:02 | XMS_ITS | CCD ---
Author Organization [facility] CliniSyri Care Team Providers Care Sales Agent Pest Control Service Name Role Phone Ledy Swartz Unavailable DR ERIC HALL Admitting Unavailable RAFAEL, DR REYES Primary Care Unavailable HOAlee, DR REYES Consulting Unavailable RAFAEL, DR REYES Attending Unavailable WEST, DR ANNALISA Zayas Consulting Unavailable RAFAEL, DR REYES Primary Care Unavailable RAFAEL, DR REYES Consulting Unavailable RAFAEL, DR REYES Attending Unavailable RAFAEL, DR REYES Admitting Unavailable GUERRERO, DR ANNALISA Zayas Consulting Unavailable RAFAEL, DR REYES Primary Care Unavailable HOAlee, DR REYES Consulting Unavailable RAFAEL, DR REYES Attending Unavailable HOY, DR REYES Admitting Unavailable RAFAEL, DR REYES Primary Care Unavailable RAFAEL, DR REYES Consulting Unavailable RAFAEL, DR REYES Attending Unavailable RAFAEL, DR REYES Admitting Unavailable ANNALISA DE Consulting Unavailable Eric Hall MD Primary Care Provider [phone] Eric Hall Primary Care Physician DO Sherry Velasquez Admitting Unavaila DO Sherry Merino Attending Unavaila ble DO Sherry Velasquez Referring Unavaila ble Sherry Velasquez Referring Unavailable Sherry Velasquez JGage Admitting Unavailable Sherry Velasquez Attending Unavailable Sherry Velasquez Referring Unavailable Sherry Velasquez Admitting Unavailable Sherry Velasquez Attending Unavailable Sherry Velasquez Admitting Unavailable Sherry Velasquez Attending Unavailable Sherry Velasquez Referring Unavailable NILLLuis Antonio R Attending Unavailable NILLLuis Antonio R Referring Unavailable NILLLuis Antonio R Attending Unavailable NILL, Luis Antonio R Admitting Unavailable RON, SHERRY Referring Unavailable ERIC HALL Primary Care Unavailable ERIC HALL Primary Care Unavailable BAM BRIGHT Attending Unavailable LEDY SWARTZ Referring Unavailable ERIC HALL Primary Care Unavailable Eric Hall MD Primary Care Provider [phone] SHERRY VELASQUEZ Attending Unavailable SHERRY VELASQUEZ Referring Unavailable SHERRY VELASQUEZ Attending Unavailable SHERRY VELASQUEZ Attending Unavailable SHERRY VELASQUEZ Attending Unavailable ERIC HALL Unavailable ERIC HALL Unavailable ERIC HALL Unavailable Eric Hall MD Primary Care Provider [phone] Ledy Swartz MD Attending Provider [phone] Medications Current Medications MedicationDrug Class(es)DatesSig (Normalized)Sig (Original)acetaminophen 500 mg oral tablet (11 sources)Start: 45-54-6357nszb 1 tablet by mouth every six hours as needed Acetaminophen 500 mg tablet Active 500 MG PO Every 6 hours as needed April 13, 2024 12:00am Complies with drug therapyStart: 03-09-2024 End: 69-23-0647uqvy 2 tablets by mouth every six hoursacetaminophen 500 mg Tab 1,000 mg = 2 tab(s), Oral, q6hr, # 50 tab(s), Refills(s) 1, Pharmacy: [id number], 171.2, cm, 02/29/24 12:35:00 EST, Height/Length Dosing, 73.6, kg, 02/29/24 12:35:00 EST, Weight Dosing Start Date: 03/09/24 Status: Orderedtake 1 tablet by mouth every eight hours as needed for painacetaminophen (Tylenol 8 Hour) 650 MG ER tablet Take 650 mg by mouth every 8 (eight) hours if needed for mild pain Do not crush, chew, or split. [id number] 200 actuat albuterol 0.09 mg/actuat metered dose inhaler (3 sources)beta2-Adrenergic AgonistStart: 15-57-5005omus 2 puff(s) by inhalation every four hours as neededalbuterol sulfate HFA 90 mcg/actuation aerosol inhaler 2 puffs prn every 4 hrs prn , Inhalation 12/31/2022 active Encounter Date: 08/03/2023 ; please dispense 1 spacer Status: 'Not-Taking'; Not Available Not Available Not AvailableaMILoride hydrochloride 5 mg oral tablet (20 sources)Potassium-sparing DiureticStart: 04-27-2024 End: 48-92-6204tdnl 1 tablet by mouth once dailyAmiloride 5 mg tablet Active 0 .ROUTE .COMPLEX 90 November 19, 2024 1:52pm TAKE 1 TABLET BY MOUTHEVERYDAY Complies with drug therapyStart: 04-01-2023 End: 42-49-9918mskl 1 tablet by mouth once dailyAmiloride 5 mg tablet Discontinued 5 MG PO Daily 90 April 01, 2023 9:44am September 08, 2023 6:3 9amdiclofenac sodium 75 mg delayed release oral tablet (2 sources)Nonsteroidal Anti-inflammatory Drugtake 1 tablet by mouth every twelve hoursDiclofenac Sodium 75 MG 1 tablet Orally Twice a day Activedocusate sodium 100 mg oral capsule (9 sources)Start: 03-09-2024 End: 10-68-6943sgsp 1 capsule by mouth twice daily as needed for constipation Doculase 100 mg oral capsule 100 mg = 1 cap(s), Oral, BID, PRN for constipation, # 20 cap(s), Refills(s) 1, Pharmacy: [facility]/pharmacy #[id number], 171.2, cm, 02/29/24 12:35:00 EST, Height/Length Dosing, 73.6,kg, 02/29/24 12:35:00 EST, Weight Dosing Start Date: 03/09/24 Status: Orderedtake 1 capsule by mouth in the morning docusate sodium (Colace) 50 MG capsule Take 50 mg by mouth in the morning and 50 mg before bedtime.Activeferrous sulfate 325 mg oral tablet (20 sources)Start: 24-41-7297iaay 1 tablet by mouth twice dailyferrous sulfate 325 mg Tab 325 mg = 1 tab(s), Oral, BID Start Date: 02/29/24 Status: Ordered Start: 07-84-5552Xaymwil Sulfate 325 mg (65 mg iron) tablet Active 0 .ROUTE .COMPLEX 90 September 07, 2023 5:00pm TAKE 1 TABLET ONCE A DAY Complies with drug therapyStart: 97-99-9702Hqsjaif Sulfate Active 0 .ROUTE .COMPLEX September 07, 2023 6:00pm TAKE 1 TABLET ONCE A DAYStart: 04-01-2023 End: 46-29-2451pily 1 tablet by mouth once dailyFerrous Sulfate 325 mg (65 mg iron) tablet Discontinued 325 MG PO Daily 90 April 01, 2023 9:43am September 07, 2023 5:01pm FreeTextSi tablet Orally Once a day; Note: Source Status: Taking; Provider: Mat Villafana ( )take 1 tablet by mouth once dailyFerrous Sulfate 325 (65 Fe) MG 1 tablet Orally Once a day Activefluticasone propionate 0.05 mg/actuat metered dose nasal spray (3 sources)CorticosteroidStart: 39-21-5393nmjz 1 spray(s) nasal route once daily fluticasone propionate 50 mcg/actuation nasal spray,suspension 1 spray in each nostril Once a day ,Nasally 12/29/2022 active Encounter Date: 08/03/2023 Status: 'Not-Taking'; Not Available Not Available Not Khkpugxzr63 hr guaiFENesin 600 mg extended release oral tablet (3 sources)Start: 42-37-0057jaxx 1 tablet by mouth every twelve hours as needed Mucinex 600 mg tablet, extended release 1 tablet as needed every 12 hrs , Orally 12/29/2022 active Encounter Date: 08/03/2023 Status: 'Not-Taking'; Not Available Not Available Not Availableibuprofen 600 mg oral tablet (4 sources)Nonsteroidal Anti-inflammatory DrugStart: 03-09-2024 End: 32-13-8073aaqy 1 tablet by mouth every six hoursibuprofen 600 mg Tab 600 mg = 1 tab(s), Oral, q6hr, # 60 tab(s), Refills(s) 1, Pharmacy: [facility]/pharmacy #[id number], 171.2, cm, 02/29/24 12:35:00 EST, Height/Length Dosing, 73.6, kg, 02/29/24 12:35:00 EST, Weight Dosing Start Date: 03/09/24 Status: OrderedIron (3 sources)take 1 tablet by mouth once dailyiron 1 tablet Once a day , Orally active Encounter Date: 08/03/2023 MedicationName: 'Iron'; ConceptType: 'NDC'; Status: 'Not-Taking'; Not Available Not Available Not Availablemeloxicam 15 mg oral tablet (7 sources)Nonsteroidal Anti-inflammatory DrugStart: 10-42-7714croi 1 tablet by mouth once dailyMeloxicam 15 mg tablet Active 15 MG PO Daily December 21, 2024 12:00am Complies with drug therapyStart: 03-91-6061dmnc 1 tablet by mouth once dailymeloxicam (Mobic) 15 MG tablet TAKE 1 TABLET BY MOUTH EVERY DAY FOR 30 DAYS 08/16/2024 Sreohz59 hr oxybutynin chloride 5 mg extended release oral tablet (19 sources)Cholinergic Muscarinic AntagonistStart: 12-30-2023 End: 10-39-0544hhxw 1 tablet by mouth once dailyOxybutynin Chloride 5 mg tablet extended release 24hr Active 5 MG PO Daily April 13, 2024 12:00am Complies with drug therapypantoprazole 40 mg delayed release oral tablet (20 sources)Proton Pump InhibitorStart: 88-11-8106wfhz 2 tablets by mouth once dailyPantoprazole 40 mg tablet,delayed release (DR/EC) Active 40 MG PO Daily December 21, 2024 9:38am FreeTextSi TABLETS Orally Once a day; Note: Source Status: Taking; Provider: Mat Villafana ( ) Complies with drug therapyStart: 04-13-2024 End: 41-86-8667irgr 2 tablets by mouth twice dailyPantoprazole 40 mg tablet,delayed release (DR/EC) Discontinued 40 MG PO Twice daily April 13, 2024 11:16am December 21, 2024 9:39am FreeTextSi TABLETS Orally Once a day; Note: Source Status: Taking; Provider: Mat Villafana ( )Start: 84-25-6918jmcu 1 tablet by mouth twice dailyPantoprazole [address] Tab 40 mg = 1 tab(s), Oral, BID Start Date: 02/29/24 Status: OrderedStart: 04-01-2023 End: 62-17-1091mzok 2 tablets by mouth once dailyPantoprazole 40 mg tablet,delayed release (DR/EC) Discontinued 80 MG PO Daily April 01, 2023 12:00am April 13, 2024 11:19am FreeTextSi TABLETS Orally Once a day; Note: Source Status: Taking; Provider: Mat Villafana ( )Start: 90-13-6215dglw 2 tablets by mouth once dailyPantoprazole Active 80 MG PO Daily April 01, 2023 1:00am FreeTextSi TABLETS Orally Once a day; Note: Source Status: Taking; Provider: Mat Villafana ( )take 1 tablet by mouth in the morningpantoprazole (ProtoNix) 40 MG EC tablet Take 40 mg by mouth in the morning and 40 mg before bedtime. Activetake 2 tablets by mouth every twenty-four hoursPantoprazole Sodium 40 MG 2 TABLETS Orally Once a day Active tiZANidine 4 mg oral tablet (7 sources)Central alpha-2 Adrenergic AgonistStart: 88-74-2646ptym 1 tablet by mouth once daily at bedtimeTizanidine 4 mg tablet Active 4 MG PO Daily at bedtime December 21, 2024 12:00am Complies with drug therapytake 1 tablet by mouth once daily at bedtimetizanidine 4 mg tablet TAKE 1 TABLETS BY MOUTH ONCE DAILY AT BEDTIME active Not Available Not Available Not Availabletake 2 tablets by mouth once daily at bedtimetiZANidine (Zanaflex) 4 MG tablet TAKE 2 TABLETS BY MOUTH ONCE DAILY AT BEDTIME Activetriamcinolone acetonide 1 mg/ml topical cream (13 sources)CorticosteroidStart: 10-19-2023 End: 73-92-4764xtwnacrkizidi (Kenalog) 0.1 % cream APPLY TO AFFECTED AREA EXTERNALLY TWICE DAILY FOR 30 DAYS 10/19/2023 09/18/2024 Discontinued (Therapy completed) Completed/Discontinued Medications MedicationDrug Class(es)DatesSig (Normalized)Sig (Original)amoxicillin 875 mg / clavulanate 125 mg oral tablet (6 sources)Penicillin-class AntibacterialStart: 10-13-2023 End: 34-20-7031douw 1 tablet by mouth twice dailyAmoxicillin-Pot Clavulanate 875-125 mg tablet Discontinued 1 TAB PO Twice daily October 12, 2023 11:00pm April 13, 2024 11:17am End: 85-27-5981ostl 1 tablet by mouth every twelve hoursamoxicillin 875 mg- potassium clavulanate 125 mg tablet TAKE 1 TABLET BY MOUTH EVERY 12 HOURS FOR 10 DAYS 10/11/2024 completed Not Available Not Available Not Availableestradiol 0.5 mg oral tablet (20 sources)EstrogenStart: 11-16-2022 End: 31-42-4140wtfw 1 tablet by mouth once dailyEstradiol 0.5 mg tablet Discontinued 0.5 MG PO Daily April 01, 2023 12:00am October 13, 2023 8 :18am FreeTextSi tablet Orally Once a day; Note: Source Status: Taking; Provider: Mat Villafana ( )take 1 tablet by mouth every other day estradiol 0.5 mg tablet TAKE 1 TABLET BY MOUTH EVERY OTHER DAY active Not Available Not Available Not Availabletake 1 tablet by mouth every twenty-four hoursEstradiol 0.5 MG 1 tablet Orally Once a day Activeetodolac 500 mg oral tablet (20 sources)Nonsteroidal Anti-inflammatory DrugStart: 04-01-2023 End: 58-93-6109wzvr 1 tablet by mouth twice daily at mealtimeEtodolac 500 mg tablet Discontinued 500 MG PO Once April 01, 2023 12:00am April 13, 2024 11:17am FreeTextSi tablet with food Orally Twice a day; Note: Source Status: Taking; Provider: Mat Villafana ( )24 hr mirabegron 25 mg extended release oral tablet (2 sources)beta3-Adrenergic AgonistStart: 12-29-2023 End: 13-17-6574jgdy 1 tablet by mouth every twenty-four hours at bedtime mirabegron ER (Myrbetriq) 25 MG 24 hr tablet Indications: Urge incontinence Take 1 tablet (25 mg) by mouth at bedtime Do not crush, chew, or split. 30 tablet 2 12/29/2023 12/30/2023 Discontinued (Cost of medication)potassium chloride 20 meq oral tablet (20 sources)Start: 95-13-9125rboh 2 tablets by mouth twice dailyPotassium Chloride (Eqv-K-Tab) 20 mEq oral tablet, extended release 40 mEq = 2 tab(s), Oral, BID Start Date: 02/29/24 Status: OrderedStart: 63-94-4328amhh 2 tablets by mouth once dailyPotassium Chloride (Eqv-K-Tab) 20 mEq oral tablet, extended release 40 mEq = 2 tab(s), Oral, Daily Start Date: 02/29/24 Status: OrderedStart: 07-58-0020hhnh 1 tablet by mouth twice dailyPotassium Chloride 20 mEq tablet extended release Active 0 .ROUTE .COMPLEX 180 1 September 07, 2023 5:00pm TAKE 1 TABLET BY MOUTH TWICE DAILY Complies with drug therapyStart: 44-38-8926mfwf 1 tablet by mouth twice dailyPotassium Chloride Active 0 .ROUTE .COMPLEX 180 September 07, 2023 6:00pm TAKE 1 TABLET BY MOUTH TWICEDAILYStart: 04-01-2023 End: 57-22-7157tmhh 1 tablet by mouth twice dailyPotassium Chloride 20 mEq tablet extended release Discontinued 20 MEQ PO Twice daily 180 1 2023 9:44am September 07, 2023 5:01pm FreeTextSi Tablet Orally bid; Note: Source Status: Taking; Refills: 1; Qty: 180 Tablet; Provider: Mat Villafana ( ) End: 18-82-7389mzkk 2 tablets by mouth twice daily at mealtimeKlor-Con 8 mEq tablet,extended release 2 tablets with food Twice a day , Orally 10/11/2024 completed Encounter Date: 08/03/2023 Status: 'Taking'; Not Available Not Available Not Availabletake 2 tablets by mouth once dailypotassium chloride ER 20 mEq tablet,extended release(part/cryst) TAKE 2 TABLETS BY MOUTH DAILY active Not Available Not Available Not Availabletake 1 tablet by mouth every twelve hoursPotassium Chloride ER 20 mEq 1 Tablet Orally bid for 90 day(s) Active predniSONE 20 mg oral tablet (3 sources) End: 45-06-2384gare 2 tablets by mouth once daily at mealtimeprednisone 20 mg tablet TAKE 2 TABLETS BY MOUTH EVERY DAY WITH FOOD OR MILK FOR 5 DAYS 10/11/2024 completed Not Available Not Available Not Available Problems Active Problems Problem ClassificationProblemDateDocumented DateEpisodic/ChronicAbdominal pain (4 sources)Right upper quadrant pain; Translations: [RIGHT UPPER QUADRANT PAIN] Onset: 38-16-3109SdfodwjxKqarviv kidney disease (4 sources)Chronic kidney disease stage 3; Translations: [Stage 3 chronic kidney disease]52-89-9082SfjoyelHckcicb kidney disease (1 source)Chronic kidney disease; Translations: [Chronic kidney disease, stage 3 unspecified]Onset: 88-57-2646Chcwsbuxkv and other anemia (1 source)Anemia, unspecifiedEpisodicDiabetes mellitus without complication (2 sources)Hyperglycemia; Translations: [Hyperglycemia, unspecified]12-21-2024 EpisodicEsophageal disorders (14 sources)Gastroesophageal reflux disease; Translations: [Gastro-esophageal reflux disease without esophagitis]Onset: 42-00-0979UjeqldnHqnov and electrolyte disorders (20 sources)Metabolic alkalosis; Translations: [Alkalosis]Onset: 04-17-2021 Resolved: 17-70-5165BieuetrjCrdhsdyudmdfd congenital anomalies (7 sources)Cyst of kidney; Translations: [Congenital renal cyst, unspecified] Onset: 04-17-2021 Resolved: 92-02-5927MyixpxgWzlctteoitjzd symptoms and ill-defined conditions (7 sources)Urge incontinence of urine; Translations: [Urge incontinence]Onset: 311816-08-1647ZldhrflPzsdhxxhktynd symptoms and ill-defined conditions (2 sources)Increased frequency of urination; Translations: [Frequency of micturition]84-09-3193VixmmzagSmgnkmv and fatigue (1 source)Other fatigue; Translations: [OTHER FATIGUE]Onset: 50-86-8597Hvnpzfdf Menopausal disorders (6 sources)Postmenopausal state; Translations: [Hormone replacement therapy] 52-69-9472CtfsecfqJwsfphiwzip chest pain (7 sources)Chest pain, unspecified; Translations: [Chest pain]Onset: 11-03-2021 EpisodicNutritional deficiencies (9 sources)Iron deficiency; Translations: [Iron deficiency]Episodic Osteoarthritis (3 sources)Cawhxthdx62-12-2067HozkcukLhogz aftercare (2 sources)Patient encounter status; Translations: [Other fpc (current) drug therapy]49-02-6553YawsltzcYvaet aftercare (2 sources)Surgical follow-up; Translations: [Encounter for follow-up examination after completed treatment for conditions other than malignant neoplasm]88-66-3719PqedjszdTxvxj circulatory disease (7 sources)Raynaud's vvldrce18-12-9268DvbbycuCgmxx diseases of kidney and ureters (6 sources)Cyst of kidney; Translations: [Cyst of kidney, acquired]Onset: 04-17-2021 Resolved: 358806-39-1260FbrgplcvVbykb diseases of kidney and ureters (2 sources)Cyst of kidney, acquired; Translations: [Cystic kidney disease, unspecified]50-33-6998LysqrnmpWivsm gastrointestinal disorders (1 source)Abdominal distension (gaseous); Translations: [ABDOMINAL DISTENSION GASEOUS]Onset: 80-16-5676RndzkoxiFzros gastrointestinal disorders (1 source)Abnormal feces; Translations: [Other fecal abnormalities]Onset: 74-04-5268CqzuqcddAgpnk gastrointestinal disorders (2 sources)Occult blood in aaxupz37-27-0398FzcwyvoeGjbrs liver diseases (1 source)Fatty (change of) liver, not elsewhere classified; Translations: [FATTY CHANGE LIVER NEC]Onset: 04-10-6125EifccbaJfnpv liver diseases (1 source)Steatosis of ouftx56-76-5338CtposbmOxdoj nutritional; endocrine; and metabolic disorders (1 source)Alizbzmcrb90-74-3439ZbsobsqsGnxcq nutritional; endocrine; and metabolic disorders (1 source)Overweight in adulthood with body mass index of 25 or more but less than 8928-09-2583SqwejpfoYwaxj screening for suspected conditions (not mental disorders or infectious disease) (8 sources)Breast neoplasm screening status; Translations: [Encounter for screening mammogram for malignant neoplasm of breast]Onset: EpisodicProlapse of female genital organs (7 sources)Midline cystocele; Translations: [Cystocele, midline]Onset: 213830-59-0965UaohmpeMiemsunt codes; unclassified (4 sources)Flushing; Translations: [Flushing]10-95-1675BxdxcgrrXpjvrzzx codes; unclassified (4 sources)History of hysterectomy for benign disease; Translations: [Acquired absence of both cervix and uterus]77-43-4110IfcwsawwToqgirwf codes; unclassified (6 sources)Menopause ijaptxu57-23-5398JtsryzivPipzdpme codes; unclassified (1 source)Pelvic organ finding; Translations: [Acquired absence of both cervix and uterus]Onset: 87-67-8968TtqvuzwzJaylimwrsjl; intervertebral disc disorders; other back problems (2 sources)Low back pain; Translations: [Low back pain, unspecified back pain laterality, unspecified chronicity, unspecified whether sciatica present] 74-08-4005Uvbpqaun Past or Other Problems Problem ClassificationProblemDateDocumented DateEpisodic/ChronicMood disorders (3 sources)Mood swings; Translations: [Emotional lability]Onset: 01-06-2024 40-95-9033NumjjriqNkarj diseases of kidney and ureters (1 source)Acquired renal cystic disease; Translations: [Cyst of kidney, acquired]Onset: 11-27-2024 Resolved: 22-47-5957KstqqdbgMvgmxuwv codes; unclassified (1 source)Flushing; Translations: [Flushing]Onset: 48-13-8272Yjgaxlxd Results Test NameValueInterpretationReference RangeFacilityUrinalysis macro (dipstick) panel (U)on 93-39-3628Fgcmbhoft, UANegativeNegative - 4(70) +++ mg/dLNOMS HealthcareBlood, UANegativeNegative - 50 Joaquim/mcLNOMS HealthcareClarity, UAClear NOMS HealthcareColor, UAAmberNOMS HealthcareGlucose, UANegativeNegative - 1999(110) ++++ mg/dLNOMS HealthcareInterpretation and review of laboratory resultsNormalNOMS HealthcareKetones, UANegativeNegative - 160(16) ++++ mg/dLNOMS HealthcareLeukocytes, UANegativeNegative - 500+++ Justin/mcLNOMS Healthcare Nitrite, UANegativeNegative - PositiveNOMS HealthcarepH, UA55 - 9NOMS Healthcare Protein, UATraceNegative - 2000(20) ++++ mg/dLNOMS HealthcareSpec Grav, UA1.0251 - 1.03NOMS HealthcareUrobilinogen, UA1.00.2 - 12 mg/dLFormerly [facility] MAMMOGRAM SCREENING TOMOSYNTHESIS BILATERALon 25-74-4223HN MAMMOGRAM SCREENING TOMOSYNTHESIS BILATERALThis is a summary report. The complete report is available in the patient's medical record. If you cannot access the medical record, please contact the sending organization for a detailed fax or copy. Examination: BI MAMMOGRAM SCREENING TOMOSYNTHESIS BILATERAL Clinical History: screening Technique: Screening digital mammography study of both breasts was performed with 2-D and 3-D tomosynthesis imaging. Study was compared to the prior exam dated 04/29/2023. Findings: There is no evidence of interval dominant spiculated mass, grouped microcalcifications, or skin thickening which would be suggestive of malignancy. Scattered benign calcifications are noted bilaterally. A few small benign- appearing asymmetric densities bilaterally similar to the prior study. IMPRESSION: Impression: No specific evidence of malignancy seen in either breast. BIRADS 2 - Benign Findings DENSITY: There are scattered areas of fibroglandular density. FOLLOW-UP: Routine Screening Mammogram ELECTRONICALLY SIGNED BY: Andrey Renee M.D.NormalNot AvailableUS RETROPERITONEAL COMPLETEon 14-44-8700IH RETROPERITONEAL COMPLETEUS RETROPERITONEAL COMPLETE RENAL ULTRASOUND HISTORY: Stage 3 chronic kidney disease, unspecified whether stage 3a or 3b CKD (CMS-HCC) COMPARISON: None available. FINDINGS: Right kidney: - Length: 10.2 cm. - Appearance: Unremarkable echogenicity and morphology. - Calculi: None. - Collecting system: Not dilated. Left kidney: - Length: 10.4 cm. - Appearance: Mildly echogenic kidney compatible with chronic kidney disease. Normal morphology. - Calculi: None. - Collecting system: Not dilated. Urinary bladder: Normal morphology. Bilateral jets visualized. Other findings: Mildly echogenic liver indicating probable hepatic steatosis. IMPRESSION: 1. Mildly echogenic left kidney suggestive of chronic kidney disease. No collecting system dilatation 2. Probable hepatic steatosis. Finalized by Lucius Andres MD on 04/30/2024 3:23 [facility]ordon [id number] OR Intraoperative Record Main OR Intraoperative Record IntraOp Document Type FT Summary Primary Physician: KEN DELGADO, Luis Antonio Hoffmann Finalized Date/Time: 04/25/24 15:08:11 Pt. Name: TAMY SAL/Sex: 1970 Female Med Rec #: [id number] Physician: KEN DELGADO, Luis Antonio Hoffmann Financial #: [id number] Pt. Type: O Room/Bed: / Admit/Disch: 04/21/24 09:13:57 - 04/21/24 23:59:59 Institution: Case Times FT Entry 1 Patient Times In Room 04/21/24 10:20:00 Out Room 04/21/24 10:45:00 Procedure Times Start 04/21/24 10:27:00 Stop 04/21/24 10:42:00 Anesthesia Times Start 04/21/24 10:20:00 Stop 04/21/24 10:45:00 Time at [facility] 04/21/24 10:34:00 Last Modified By: Emily STONE, Arelis Amador 04/21/24 10:42:53 General Comments: 04/25/24 Chart opened for charge review per Edgard Henderson RN. [place] Case Attendance FT Entry 1 Entry 2 Entry 3 Case Attendee Charity KOCH, Sunny ROGERS MD, Luis Antonio Diaz RN, Arelis Amador Role Performed Anesthesiologist Surgeon - Primary Continuous Drier Operator - Primary Corrective Therapist Time In 04/21/24 10:20:00 04/21/24 10:20:00 04/21/24 10:20:00 Time Out 04/21/24 10:45:00 04/21/24 10:45:00 04/21/24 10:45:00 Procedure COLONOSCOPY(.) COLONOSCOPY(.) COLONOSCOPY(.) Comments Dr. Ornelas supervising case Last Modified By: Emily STONE, Arelis Diaz RN, Arelis Diaz RN, Arelis F 04/21/24 10:42:54 F 04/21/24 10:42:54 F 04/21/24 10:42:54 Entry 4 Case Attendee Bonnie Lim Role Performed Scrub - Primary Time In 04/21/24 10:20:00 Time Out 04/21/24 10:45:00 Procedure COLONOSCOPY(.) Comments Last Modified By: Emily STONE, Arelis F 04/21/24 10:42:54 Perioperative Protocols FT Pre-Care Text: Implements protective measures prior to operative or invasive procedure, confirms identity before the operative or invasive procedure, verifies operative procedure, surgical site, and laterality Entry 1 Procedure(s) COLONOSCOPY(.) Patient Identity Birthday, ID Band Verified (select at Check, Patient least 2): Participation Consents / H and P Anesthesia Consent, Operative Site N/A Verified H&P, Surgery/Procedure Marking Verified Consent Surgical Site No Laterality Verified n/a Verified Procedure Verified Yes Correct Patient Yes Position Verified Availability Equipment, Medication Prep Dry n/a Verified (If Applicable) PreOp Antibiotic No Time Out Sunny Beaulieu Given Participants KEN Sanchez MD, Emily De Los Santos RN, Raphael Parish Micala E Time Out Complete 04/21/24 10:24:00 Outcomes Met? Yes Last Modified By: Arelis Diaz RN 04/21/24 10:24:31 Post-Care Text: The patient is free from signs and symptoms of injury caused by extraneous objects Allergy Information FT Pre-Care Text: Verifies allergies Entry 1 Allergies Reviewed? Yes Allergies Reviewed Self/Patient With Outcomes Met? Yes Last Modified By: Arelis Diaz RN 04/21/24 10:24:36 Post-Care Text: The patient received appropriate medication(s) safely administered during the perioperative period Surgical Procedures FT Entry 1 Procedure Description Procedure COLONOSCOPY Modifiers . Surgeon Description Colonoscopy Primary Procedure Yes Primary Surgeon Luis Antonio ROGERS MD Start 04/21/24 10:27:00 Stop 04/21/24 10:42:00 Anesthesia Type General Surgical Service General Wound Class 2 - Clean-Contaminated Last Modified By: Arelis Diaz RN 04/21/24 10:42:35 General Case Data FT Pre-Care Text: Classifies surgical wound, implements aseptic technique, initiates traffic control Entry 1 Case Information OR ENDO 2 FT Case Level Level 2 Wound Class 2 - Clean-Contaminated Specialty General ASA Class 2 Preop Diagnosis Positive cologuard Postop Same As Preop No Postop Diagnosis Normal colonoscopy Outcomes Met? Yes Last Modified By: Arelis Diaz RN 04/21/24 10:43:42 Post-Care Text: The patient is free from signs and symptoms of infection Skin Assessment (Pre Procedure) FT Pre-Care Text: Implements protective measures to prevent skin/ tissue injury due to thermal or mechanical sources Evaluates for signs and symptoms of physical injury to skin and tissue Entry 1 Skin Integrity Intact, [place], Warm, & Skin Abnormality No Dry Outcomes Met? Yes Last Modified By: Emily STONE, Arelis Perry 04/21/24 10:25:03 Post-Care Text: The patient is free from signs and symptoms of injury caused by extraneous objects Patient Positioning FT Pre-Care Text: Identifies physical alterations that require additional precautions for procedure-specific positioning, verifies presence of prosthetics or corrective devices, positions the patient, evaluates the patient for signs and symptoms of injury as a result of positioning Entry 1 Procedure COLONOSCOPY(.) Body Position Lateral, right side up Feet Uncrossed? Yes Left Arm Position Resting at Side Right Arm Position Resting at Side Left Leg Position Extended Right Leg Position Extende (more content not included)...[facility] 14-36-5633PzlaqylvqAwhlllqvr From: Chrystal Snowden LPN To: N - Clinical; Sent: 04/24/2024 10:37:11 EDT Show up: 03/24/2034 07:00:00 EST Subject: colonoscopy recall Due Date/Time: 04/21/2034 07:00:00 EST Reminder/Recall Patient due for screening colonoscopy 04/21/2034.[facility] HospitalDischarge Instructionson 01-18-5360Lwvurwhbz InstructionsDischarge Instructions TAMY SAL :1970 Visit Date:04/21/2024 Inpatient Discharge Instructions Your Care Team Admitting Physician - Luis Antonio ROGERS MD Referring Physician - Luis Antonio ROGERS MD Reason for Your Visit POSITIVE COLOGUARD Your Diagnosis Encounter for screening colonoscopy for ijr-uyja-mlsv patient This Is Your Medications List amiloride (amiloride 5 mg oral tablet) estradiol (estradiol 0.5 mg Tab) ferrous sulfate (ferrous sulfate 325 mg Tab) oxybutynin (oxybutynin 5 mg ER Tab) pantoprazole (Pantoprazole [address] Tab) potassium chloride (Potassium Chloride (Eqv-K-Tab) 20 mEq oral tablet, extended release) Procedure History Anterior repair of vagina (03/09/2024), Colonoscopy (02/02/2018), Abdominal hysterectomy, Appendectomy, Endometrial ablation, Excision of cyst, Suspension of bladder. Discharge Vitals Temperature (Temporal Artery) 36.1 ???C Heart Rate (Monitored) 73 Respiratory Rate 17 Blood Pressure 98/63 Height 170 cm Weight 73 kg What to do next Instructions From Your Doctor Event Name Event Result Discharge Activity Resume normal activities in 24 hours, Arrange for a responsible adult supervision for 24 hours Discharge Restrictions No driving for 24 hrs, Do not operate machinery or tools, Do not make important decisions for 24 hours, Do not drink alcoholic beverages for 24 hours Discharge Diet(s) Regular Call Your Doctor For Persistent or heavy bleeding, Temperature above 101.5 degrees, Redness, swelling, or pus at operative site, Severe pain at the operative site, Persistent vomiting Discharge Instructions Discharge Instructions New Follow Up Appointments after Discharge Follow Up with Luis Antonio ROGERS When: Only if needed Where: Rick Simmons, [facility] [address] [address]- Business (1) Medications What How Much When Instructions Next Dose Unchanged amiloride (amiloride 5 mg oral tablet) [...] tablet, extended release) 2 Tablets By Mouth 2 times a day Test Results No qualifying data available. Allergies No Known Allergies Problems Ongoing - Any problem that you are currently receiving treatment for. BMI 25.0-25.9,adult Gastroesophageal reflux disease Iron deficiency Occult blood positive stool Overweight Positive fecal occult blood test Raynaud's disease Steatosis of liver Historical - Any problem that you are no longer receiving treatment for. Cyst of kidney Education Materials Colonoscopy Care After Surgery Please read the instructions outlined below and refer to this sheet in the next few weeks. These discharge instructions provide you with general information on caring for yourself after you leave thespital. Your doctor may also give you specific instructions. While your treatment has been planned according to the most current medical practices available, unavoidable complications occasionally occur. If you have any problems or questions after discharge, please call your doctor. ACTIVITY You may resume your regular activity, but move at a slower pace for the next 24 hours. Take frequent rest periods for the next 24 hours. Walking will help get rid of the air and reduce the bloated feeling in your abdomen (belly). No driving for 24 hours (because of the anesthesia (medicine) used during the test). You may shower. Do not sign any important legal documents or operate any machinery for 24 hours (because of the anesthesia used during the test). NUTRITION Drink plenty of fluids. You may resume your normal diet as instructed by your doctor. Begin with a light meal and progress to your normal diet. Heavy or fried foods are harder to digestand may make you feel nauseated (sick to your stomach). Avoid alcoholic beverages for 24 hours or as instructed. MEDICATIONS You may resume your normal medications unless your doctor tells you otherwise. WHAT YOU CAN EXPECT TODAY Some feelings of bloating in the abdomen. Passage of more gas than usual. Spotting of blood in your stool or on the toilet paper. IF YOU HAD POLYPS REMOVED DURING THE COLONOSCOPY: No aspirin products for 7 days or as instructed. No alcohol for 7 days or as instructed. Eat a soft diet for the next 24 hours. FOLLOW-UP Your doctor will discuss the results of your test with you. SEEK IMMEDIATE MEDICAL ATTENTION IF: There is more than a spotting of blood in your stool. There is abdominal distention (your abdomen is swollen (more content not included)...[facility] HospitalComment on above:Result Comment: Electronically Signed By: Jona STONE, Eneida\.pearl\Date and Time Signed: 04/21/24 11:04 ESTInpatient Patient Summaryon 96-41-5403Aavqglafm Patient Summary Inpatient Patient Summary [place] [id number] [facility] Clinical Discharge Instructions PERSON INFORMATION Name: TAMY SAL PHYSICIANS Admitting Physician: Luis Antonio ROGERS MD Attending Physician: Luis Antonio ROGERS MD PCP: Eric Hall MD Discharge Diagnosis: Encounter for screening colonoscopy for zaq-fbyd-dbrj patient Comment: PATIENT EDUCATION INFORMATION Instructions: Medication Leaflets: Follow up: With: Address: When: Luis Antonio ROGERS [address], [address], [facility] [address] [place] [id number] Business (1) , only if needed MEDICATION LIST Medications to Continue with No Changes Other [...] tablet, extended release) 2 Tablets By Mouth 2 times a day. Comment:[facility] HospitalMain OR PACU I Recordon 57-12-3591Fabo OR PACU I RecordMain OR PACU I Record PACU Phase I Document Type FT Summary Primary Physician: Luis Antonio ROGERS MD Finalized Date/Time: 04/21/24 11:41:07 Pt. Name: TAMY SAL/Sex: 1970 Female Med Rec #: [id number] Physician: Luis Antonio ROGERS MD Financial #: [id number] Pt. Type: O Room/Bed: / Admit/Disch: 04/21/24 09:13:57 - Institution: Case Times PACU I FT [...] to medications Entry 1 In PACU I 04/21/24 10:45:00 Discharge from PACU 04/21/24 11:35:00 I Outcomes Met? Yes Last Modified By: Eneida Tenorio RN 04/21/24 11:40:48 Post-Care Text: The patient demonstrates knowledge of the expected response to the operative or invasive procedure The patient's care is consistent with the individualized perioperative plan of care The patient's rightto privacy is maintained The patient's value system, [...] with or improved from baseline levels established preoperativelyThe patient's cardiovascular status is consistent with or improved from baseline levels established preoperatively The patient's cardiovascular status is consistent with or improved from baseline levels established preoperatively The patient demonstrates and/or reports adequate pain control throughout the perioperative period The patient received appropriate medication(s), safely administered during the perioperativeperiod Acuity Level PACU I FT Entry 1 Start Time 04/21/24 10:45:00 Stop Time 04/21/24 11:35:00 Acuity Level Acuity Level I Last Modified By: Eneida Tenorio RN 04/21/24 11:41:03 Finalized By: Eneida Tenorio RN Document Signatures Signed By: Eneida Tenorio RN 04/21/24 11:41[facility] HospitalMain OR Preoperative Recordon 60-63-5816Foue OR Preoperative RecordMain OR Preoperative Record Holding Area Document Type FT Summary Primary Physician: Luis Antonio ROGERS MD Finalized Date/Time: 04/21/24 10:05:50 Pt. Name: TAMY SAL/Sex: 1970 Female Med Rec #: [id number] Physician: Luis Antonio ROGERS MD Financial #: [id number] Pt. Type: O Room/Bed: / Admit/Disch: 04/21/24 09:13:57 - Institution: Case Times Holding FT Pre-Care Text: Verifies consent for planned procedure, identifies individual values and wishes concerning care, includes family members in perioperative teaching Secures patient's records' belongings, and valuables, maintains patient's dignity and privacy, and maintains patient confidentiality Entry 1 In Holding 04/21/24 09:58:00 Outcomes Met? Yes Last Modified By: Aaliyah Luke RN 04/21/24 10:03:28 Post-Care Text: The patient participates in decisions affecting his or her perioperative plan of care The patient'sright to privacy is maintained Surgery Checklist FT Entry 1 Patient Birthday, ID Band Procedure History and Physical, Identification: Check, Patient Verification: Surgical Consent, With Participation Patient NPO after Midnight: Yes Results Reviewed Clear/orange Comments: Personal Items: Jewelry Personal Items Earring, rings Comment: Complaints of Pain: No Pain Comment: Denies Operative Site n/a Availability Equipment Marking: Verified: Does Patient Smoke No Patient states Yes Comment - Adult Gregg- postop adult Supervision supervision available Case Cancelled in No Holding Area see comments below for reason Last Modified By: Aaliyah Luke RN 04/21/24 10:05:42 General Comments: Pt completed prep at 0500 and remained NPO since/CLEO,RN Finalized By: Aaliyah Luke RN Document Signatures Signed By: Aaliyah Luke RN 04/21/24 10:05[facility] HospitalOutpatient Surgery Discharge Instructionon 04-10-5259Okylfwearb Surgery Discharge InstructionOutpatient Surgery Discharge Instruction [address] [address] Patient Discharge Instructions PERSON INFORMATION Name: TAMY SAL Date of : 1970 Current Date: 04/21/2024 10:46:47 PHYSICIANS Admitting Physician: KEN DELGADO, Luis Antonio Hoffmann Discharge Diagnosis: Encounter for screening colonoscopy for ifg-irup-vrvk patient TAMY SAL has been given the following list of follow-up instructions, prescriptions, and patient education materials: PATIENT FOLLOW-UP INFORMATION Diet: Regular Discharge Activity: Resume normal activities in 24 hours, Arrange for a responsible adult supervision for 24 hours Discharge Restrictions: No driving for 24 hrs, Do not operate machinery or tools, Do not make important decisions for 24 hours, Do not drink alcoholic beverages for 24 hours Call Your Doctor For: Persistent or heavy bleeding, Temperature above 101.5 degrees, Redness, swelling, or pus at operative site, Severe pain at the operative site, Persistent vomiting IF UNABLE TO CONTACT YOUR PHYSICIAN AND YOU FEEL IT IS AN EMERGENCY, GO TO THE NEAREST EMERGENCY ROOM OR CALL 911 DASHA Moon JOY, have received the attached patient education materials/instructions and have verbalized understanding: May we do a follow up call? Yes No I was present when discharge instructions were given Patient Signature Date Clinican/Nurse Signature Date Follow up: With: Address: When: Luis Antonio Simmons, [address], [place] [phone] [facility] (1) , only if needed Pharmacy Information: You may receive a survey from Bibiana Clemons asking you to rate your care experience. Your feedback is important and will help us understand what we do well and how we can improve the quality of care we provide to you, your loved ones and our community. It???s an honor to serve you. Thank you for choosing [facility] HERE ARE THE MEDICATION CHANGES THAT OCCURRED DURING YOUR HOSPITAL STAY Medications to Continue with No Changes Other [...] tablet, extended release) 2 Tablets By Mouth 2 times a day. PATIENT EDUCATION INFORMATION Instructions: Medication Leaflets:[facility] HospitalLaboratory - Urinalysison 25-92-1424Ccrmzqw (U) [Mass/Vol]31.9 mg/dLHigh<=11.9[facility] SouthNo Panel Informationon 14-49-8799Bahdzkspph Level3.1 mg/dL2.6-4.7FMetroHealth Parma Medical CenterUrine Random Qvtftpqigg184.80 mg/dL20.00-300.00[facility] SouthUrine protein/creatinine ratioon 04-01-2024 Protein/Creatinine (U) [Ratio]Urine protein/creatinine ratioPremier Health Miami Valley Hospital SouthBASIC METABOLIC PANLon 31-84-5239Tsyur gap [Moles/Vol]7 mmol/L Normal5-15[facility] HospitalComment on above:Performed By: #### 2191-5 #### [facility] ([id number]) [address], [address] [place], [place] [address]Pgqxztd [Mass/Vol]9.1 mg/dLNormal8.5-10.5ProMedSaddleback Memorial Medical CenterComment on above:Performed By: #### 2191-5 #### [facility] ([id number]) [address], [address] [place], [place] [address]Rdscwbrk [Moles/Vol]106 mmol/LOmstrt17-417IzhNdfapwBaylor Scott And White The Heart Hospital – PlanoComment on above:Performed By: #### 2191-5 #### [facility] ([id number]) [address], [address] [place] [address]EH2 [Moles/Vol]26 mmol/MIjdknd24-51YlwPtyoasThe Jewish Hospital Comment on above:Performed By: #### 2191-5 #### [facility] ([id number]) [address], [address] [place] [address]Rzzbsgonok [Mass/Vol]0.88 mg/dLNormal0.40-1.00[facility] HospitalComment on above:Result Comment: METHOD TRACEABLE TO IDMS STANDARD Performed By: #### 2191-5 #### [facility] ([id number]) [address], [address] [place], [place] [address]JMF/1.73 sq M.predicted among non-blacks MDRD (S/P/Bld) [Vol rate/Area]79 mL/min/{1.73_m2}Normal>59ProBaylor Scott And White The Heart Hospital – PlanoComment on above:Result Comment: Reported eGFR is based on the CKD-EPI 2020 equation that does not use a race coefficient.Performed By: #### 2191-5 #### [facility] ([id number]) [address], [address] [place], [place] [address]Curdcrj [Mass/Vol]103 mg/cCMajj84-03DvyQbgimzMarietta Memorial Hospital Comment on above:Performed By: #### 2191-5 #### [facility] ([id number]) [address] [place], [place] [address]Qfwxkrbwk [Moles/Vol]4.0 mmol/LNormal3.5-5.0M[facility] HospitalComment on above:Performed By: #### 2191-5 #### [facility] ([id number]) [address], [address] [place], [place] [address]Jxqrfk [Moles/Vol]139 mmol/RHpaaje150-514VhnZtnxdx [facility] HospitalComment on above:Performed By: #### 2191-5 #### [facility] ([id number]) [address], [address] [place], [place] [address]Ibpx nitrogen [Mass/Vol]15 mg/dLNormal5-23ProBaylor Scott And White The Heart Hospital – PlanoComment on above:Performed By: #### 2191-5 #### [facility] ([id number]) [address], [address] [place], [place] [address]HDA AND AUTO DIFFon 35-33-8151JIMYXDHH BASOPHIL0.1 X10E9/LNormal 0.0-0.2ProMedSaddleback Memorial Medical CenterComment on above:Performed By: #### 02386-5, 30189-5, CBCA, BMP #### [facility] ([id number]) [address] [place] [address]IABPOKMJ NEUTROPHIL4.0 X10E9/LNormal1.5-6.6ProBaylor Scott And White The Heart Hospital – PlanoComment on above:Performed By: #### 22697-6, 53311-2, CBCA, BMP #### [facility] ([id number]) [address] [place] [address]Xuncgbsod/100 WBC (Bld)0.7 %[facility] Comment on above:Performed By: #### 86423-6, 63560-6, CBCA, BMP #### [facility] ([id number]) [address] [place] [address]Zhoainkelzb (Bld) [#/Vol]0.3 10*3/uLNormal0.0-0.4[facility] HospitalComment on above:Performed By: #### 41245-1, 19983-7, CBCA, BMP #### [facility] ([id number]) [address] [place] [address] 913[address]Qreydurntcx/100 WBC (Bld)3.5 %[facility] Comment on above:Performed By: #### 42323-1, 90934-7, CBCA, BMP #### [facility] ([id number]) [address] [place] [address]Ezhdlmweavi distribution width (RBC) [Ratio]13.2 %Normal 11.5-15.0[facility] HospitalComment on above:Performed By: #### 49954-5, 35670-9, CBCA, BMP #### [facility] ([id number]) [address] [place] [address]66[address]Dwhggqkbrt (Bld) [Volume fraction]40.3 %Ldloto97-25KrkJogdwkBaylor Scott And White The Heart Hospital – PlanoComment on above:Performed By: #### 08809-2, 03044-6, CBCA, BMP #### [facility] ([id number]) [address] [place] [address]Dobwzvmeij (Bld) [Mass/Vol]13.8 g/fVVbyhqm00.7-15.5PThe Jewish HospitalComment on above:Performed By: #### 53458-0, 19394-6, CBCA, BMP #### [facility] ([id number]) [address] [place] [address]Vijeuccmmue (Bld) [#/Vol]2.9 10*3/uLNormal1.0-3.5PThe Jewish HospitalComment on above:Performed By: #### 14455-7, 17787-4, CBCA, BMP #### [facility] ([id number]) [address] [place] [address]Gkvkscdesqd/100 WBC (Bld)37.3 %NormalProBaylor Scott And White The Heart Hospital – Plano Comment on above:Performed By: #### 12678-1, 29572-7, CBCA, BMP #### [facility] ([id number]) [address] [place] [address] 341[address]KNW (RBC) [Entitic mass]31.2 gkZwoifl15-96TnqNjmujmBaylor Scott And White The Heart Hospital – PlanoComment on above:Performed By: #### 20899-2, 94346-5, CBCA, BMP #### [facility] ([id number]) [address] [place] [address] 944[address]ZNTH (RBC) [Mass/Vol]34.2 g/zLVodrny88-79NriBahrbuBaylor Scott And White The Heart Hospital – PlanoComment on above:Performed By: #### 36599-6, 19032-5, CBCA, BMP #### [facility] ([id number]) [address] [place] [address] 396[address]WUP (RBC) [Entitic vol]91 aVTnzwoo00-430OhfRhoolk [facility] HospitalComment on above:Performed By: #### 44915-8, 00392-5, CBCA, BMP #### [facility] ([id number]) [address] [place] [address]Rtybycipo (Bld) [#/Vol]0.6 10*3/uLNormal0-0.9[facility] HospitalComment on above:Performed By: #### 84880-4, 12518-3, CBCA, BMP #### [facility] ([id number]) [address] [place] [address]Marjnxicn/100 WBC (Bld)7.2 %[facility] Comment on above:Performed By: #### 24885-3, 53990-7, CBCA, BMP #### [facility] ([id number]) [address] [place] [address] 09[address]Anbarkulwup/100 WBC (Bld)51.3 %[facility] Comment on above:Performed By: #### 45321-9, 42361-4, CBCA, BMP #### [facility] ([id number]) [address] [place] [address] [place] [address]Lqxlzjsv mean volume (Bld) [Entitic vol]7.2 fLNormal7-12 [facility] HospitalComment on above:Performed By: #### 88553-2, 44923-3, CBCA, BMP #### [facility] ([id number]) [address] [place] [address] 992[address]Kkxcagxqo (Bld) [#/Vol]337 10*3/zRMakeoz728-064MmlMcalqr [facility] HospitalComment on above:Performed By: #### 97295-1, 12632-0, CBCA, BMP #### [facility] ([id number]) [address] [place] [address]UHW COUNT4.42 X10E12/LNormal3.80-5.20[facility] Comment on above:Performed By: #### 24312-1, 76065-4, CBCA, BMP #### [facility] ([id number]) [address] [place] [address] 18574HLC (Bld) [#/Vol]7.8 10*3/uLNormal4.0-11.0[facility] HospitalComment on above:Performed By: #### 44817-2, 52134-0, CBCA, BMP #### [facility] ([id number]) [address] [place] [address] 12090Zkcaoy D-dimer DDU (PPP) [Mass/Vol]on 03-28-2024D DIMER<150 Normal<255M[facility] HospitalComment on above:Result Comment: Results <255 ng/mL DDU: The presence of a VTE can safely be excluded with a negative D-Dimer result and Wells score. A negative result doesn't exclude the possibility of DIC. The test be repeated along with other diagnostic tests if the patient's symptoms persist or worsen. [email or web address] By: #### 2191-5 #### [facility] ([id number]) [address], [address] [place], [place] [address]Uwjmjkax I.cardiac High sensitivity method [Mass/Vol]on HOUR TROP I, HIGH SENSITIVITY<2Normal<16[facility] Comment on above:Performed By: #### 2191-5 #### [facility] ([id number]) [address], [address] [place], [place] [address]URDUTEKS I, HIGH SENSITIVITY<2Normal<16ProBaylor Scott And White The Heart Hospital – PlanoComment on above:Performed By: #### 2191-5 #### [facility] ([id number]) [address], [address] [place], [place] [address]OJ CHEST 1 VWon 40-66-0535KH CHEST 1 VWXR CHEST 1 VW Single view chest History:chest pain Difficulty breathing, shortness of breath Comparison: 04/14/2013 Findings: Single portable view of the chest. Stable cardiac mediastinal silhouette. No focal opacity, effusion or pneumothorax. Impression: No evidence of acute cardiopulmonary process. Finalized by Luis Antonio Caldwell MD on 03/28/2024 10:56 [facility] Reporton [id number] Pathology Report[address] [address]- Surgical Pathology Report Collected Date/Time: 03/09/2024 11:33 EST Pathologist: Cesar DELGADO PhD, Cecilio Leger Date/Time: 03/09/2024 12:51 EST Sherry Velasquez DO, [...] No discrete lesions are grossly identified. A district sales representative portion is submitted in 2 cassettes. (DC) DC:[facility] Microscopic Description Microscopic examination performed unless gross only specified. This report was transcribed using voice recognition technology and might contain unintended computerized belt brander errors.[facility] HospitalComment on above:Performed By: #### [id number] ####[facility] [address] [place], [place] [address]Txbx OR Intraoperative Recordon 26-84-4627Xyti OR Intraoperative RecordMain OR Intraoperative Record IntraOp Document Type FT Summary Primary Physician: Sherry Velasquez DO Finalized Date/Time: 03/10/24 10:52:58 Pt. Name: TAMY SAL/Sex: 1970 Female Med Rec #: [id number] Physician: Sherry Velasquez DO Financial #: [id number] Pt. Type: A Room/Bed: [place] [address] Admit/Disch: 03/09/24 09:22:26 - 03/09/24 13:30:00 Institution: [...] 2 Entry 3 Case Attendee Foreign DIXON, DOCKET CLERK, [facility], Sherrykrystin Murrieta RN, Va Sprague NGage Role Performed DOCKET CLERK Surgeon - Primary Continuous Drier Operator - Primary Time In 03/09/24 10:43:00 03/09/24 10:56:00 03/09/24 10:43:00 Time Out 03/09/24 11:53:00 03/09/24 11:48:00 03/09/24 11:53:00 Procedure ANTERIOR/POSTERIOR ANTERIOR/POSTERIOR ANTERIOR/POSTERIOR COLPORRHAPHY(.) COLPORRHAPHY(.) COLPORRHAPHY(.) Comments DR. TALBERT SUPERVISING Last Modified By: Lit RN, Va Murrieta RN, Va Murrieta RN, Va Sprague 03/09/24 11:53:34 03/09/24 11:53:34 03/09/24 11:53:34 Entry 4 Entry 5 Entry 6 Case Attendee Velma Francois PIPE CAULKER, Anneliese Ann RN, Joseph Swann Role Performed FRAME WIRER Scrub - Primary Continuous Drier Operator - Primary Time In 03/09/24 10:43:00 03/09/24 10:43:00 03/09/24 10:43:00 Time Out 03/09/24 11:53:00 03/09/24 11:53:00 03/09/24 11:53:00 Procedure ANTERIOR/POSTERIOR ANTERIOR/POSTERIOR ANTERIOR/POSTERIOR COLPORRHAPHY(.) COLPORRHAPHY(.) COLPORRHAPHY(.) Comments ROOM ASSIST, OUT OF ROOM FOR LUNCH [id number] Last Modified By: Lit RN, Va Murrieta RN, Va Murrieta RN, Va Sprague 03/09/24 11:53:34 03/09/24 11:53:34 03/09/24 11:53:34 General Comments: [facility] HEALTH 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 BERTHA ARRIAGAphysician ophthalmologist Protocols FT Pre-Care Text: Implements protective measures [...] PreOp Antibiotic No Time Out Foreign DIXON, DOCKET CLERK, Queen Siva Luz, Sherry Velasquez DO, Lit [...] and tissue Entry 1 Skin Integrity Intact, [place], Warm, & Skin Abnormality No Dry Outcomes Met? Yes Last Modified By: Va Murrieta RN 03/09/24 11:07:23 Post-Care Text: The patient is free from signs and symptoms of injury caused by extraneous objec (more content not included)...[facility] HospitalDischarge Instructionson [id number] InstructionsDischarge Instructions TAMY SAL :1970 Visit Date:03/09/2024 Inpatient [...] Follow Up with Sherry Velasquez When: Where: [facility] Carlos Simmons [address] [address]- Business (1) Medications What How Much When Instructions Next Dose New acetaminophen (acetaminophen 500 mg Tab) 2 Tablets By Mouth Every 6 hours Refills: 1 Pickup at [facility]/pharmacy #[id number] New docusate (Doculase 100 mg oral capsule) 1 Capsules By Mouth 2 times a day as needed for for constipation Refills: 1 Pickup at [facility]/pharmacy #[id number] New ibuprofen (ibuprofen 600 mg Tab) 1 Tablets By Mouth Every 6 hours Refills: 1 Pickup at [facility]/pharmacy #[id number] Unchanged amiloride (amiloride 5 mg [...] Tablets By Mouth Every day Pharmacy Information [facility]/pharmacy #[id number]: [address] [place], [place] [phone] Education Materials Anterior and Posterior Colporrhaphy, Care [...] these instructions at home: Medicines ??? Take fwos-tqw-sjaaqjm and prescription medicines only as told by your health care provider. ??? Ask your health care provider if the medicine prescribed to you: ? Requires you to avoid driving or using machinery. ? Can cause constipation. You may need to take these actions to prevent or treat constipation: ? Drink enough fluid to keep your urine pale yellow. ? Take ejww-ghm-jcmtckm or prescription medicines. ? Eat foods that [...] clean and dry. Make sure you clean thearea after every bowel movement and each time you urinate. ??? Ask your health care provider if you can take a sitz bath or sit in a tub of clean, warm water. Activity ??? Rest as told by your health care provider. ??? Avoid sitting for a long time without moving. Get up to take short walks every 1???2 hours. This isimportant to improve blood flow and breathing. Ask [...] the limit that you are told, until yourhealth care provider says that it is safe. Avoid pushing or pulling motions. ??? Avoid standing for long periods of time. ??? Do not drive until your health care provider says that it is safe. ??? Return to your normal activities as told by your health care provider. Ask your health care provider what activities are safe for you. General (more content not included)...[facility] HospitalComment on above:Result Comment: Electronically Signed By: Domi STONE, Dami Irwin\.br\Date and Time Signed: 03/09/24 13:23 ESTInpatient Patient Summaryon [id number] Patient SummaryInpatient Patient Summary [place] [id number] [facility] Clinical Discharge Instructions PERSON INFORMATION Name: TAMY SAL PHYSICIANS Admitting Physician: Sherry Velasquez DO Attending Physician: Sherry Velasquez DO PCP: Rafael DELGADO, Eric Discharge Diagnosis: Cystocele, midline; History of hysterectomy for benign disease; Urge incontinence Comment: PATIENT EDUCATION INFORMATION Instructions: Anterior and Posterior Colporrhaphy, Care After Medication Leaflets: Follow up: With: Address: When: Sherry Velasquez [address] [place] [phone] Business (1) MEDICATION LIST New Medications [facility]/pharmacy #[id number], [address], [place] [phone], [phone] acetaminophen (acetaminophen 500 mg Tab) 2 Tablets [...] release) 2 Tablets By Mouth every day. Comment:[facility] HospitalMain OR Intraoperative Recordon [id number] OR Intraoperative RecordMain OR Intraoperative Record IntraOp Document Type FT Summary Primary Physician: Sherry Velasquez DO Finalized Date/Time: 03/09/24 11:53:41 Pt. Name: TAMY SAL/Sex: 1970 Female Med Rec #: [id number] Physician: Sherry Velasquez DO Financial #: [id number] Pt. Type: A Room/Bed: Admit/Disch: 03/09/24 09:22:26 [...] DO, RN, Leann E N. Role Performed SHAKIR Surgeon - Primary Continuous Drier Operator - Primary Time In 03/09/24 10:43:00 03/09/24 10:56:00 03/09/24 10:43:00 Time Out 03/09/24 11:53:00 03/09/24 11:48:00 03/09/24 11:53:00 Procedure ANTERIOR/POSTERIOR ANTERIOR/POSTERIOR ANTERIOR/POSTERIOR COLPORRHAPHY(.) COLPORRHAPHY(.) COLPORRHAPHY(.) Comments DR. TALBERT SUPERVISING Last Modified By: Lit RN, Va Murrieta RN, Va Murrieta RN, Va Sprague 03/09/24 11:53:34 03/09/24 11:53:34 03/09/24 11:53:34 Entry 4 Entry 5 Entry 6 Case Attendee Velma Francois PIPE CAULKER, Anneliese Ann RN, Joseph Swann Role Performed FRAME WIRER Scrub - Primary Continuous Drier Operator - Primary Time In 03/09/24 10:43:00 03/09/24 10:43:00 03/09/24 10:43:00 Time Out 03/09/24 11:53:00 03/09/24 11:53:00 03/09/24 11:53:00 Procedure ANTERIOR/POSTERIOR ANTERIOR/POSTERIOR ANTERIOR/POSTERIOR COLPORRHAPHY(.) COLPORRHAPHY(.) COLPORRHAPHY(.) Comments ROOM ASSIST, OUT OF ROOM FOR LUNCH [id number] Last Modified By: Lit RN, Va Murrieta RN, Va Murrieta RN, Va Sprague 03/09/24 11:53:34 03/09/24 11:53:34 03/09/24 11:53:34 General Comments: [facility] HEALTH 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 BERTHA ARRIAGAphysician ophthalmologist Protocols FT Pre-Care Text: Implements protective measures [...] Time Out Foreign DIXON, SHAKIR, Queen Siva Participants N., Sherry Velasquez DO, Va Murrieta RN, [place], Amber M, Roth CST, Marissa Ramirez RN, [...] and tissue Entry 1 Skin Integrity Intact, [place], Warm, & Skin Abnormality No Dry Outcomes Met? Yes Last Modified By: Va Murrieta RN 03/09/24 11:07:23 Post-Care Text: The patient is free from signs and symptoms of injury caused by extraneous objects Patient Positioning FT Pre-Care Text: Identifies physical alterations that require additiona (more content not included)...[facility] HospitalMain OR PACU I Recordon 03-09-2024 Main OR PACU I RecordMain OR PACU I Record PACU Phase I Document Type FT Summary Primary Physician: Sherry Velasquez DO Finalized Date/Time: 03/09/24 12:58:45 Pt. Name: TAMY SAL Maribell/Sex: 1970 Female Med Rec #: [id number] Physician: Sherry Velasquez DO Financial #: [id number] Pt. Type: A Room/Bed: Admit/Disch: 03/09/24 09:22:26 [...] I Outcomes Met? Yes Last Modified By: Purnmia Henriquez RN 03/09/24 12:46:24 Post-Care Text: The patient demonstrates knowledge of the expected response to the operative or invasive procedure The patient's care is consistent with the individualized perioperative plan of care The patient's rightto privacy is maintained The patient's value system, [...] with or improved from baseline levels established preoperativelyThe patient's cardiovascular status is consistent with or improved from baseline levels established preoperatively The patient's cardiovascular status is consistent with or improved from baseline levels established preoperatively The patient demonstrates and/or reports adequate pain control throughout the perioperative period The patient received appropriate medication(s), safely administered during the perioperativeperiod Acuity Level PACU I FT Entry 1 Start Time 03/09/24 11:55:00 Stop Time 03/09/24 12:25:00 Acuity Level Acuity Level I Last Modified By: Purnima Henriquez RN 03/09/24 12:46:37 Finalized By: Purnima Henriquez RN Document Signatures Signed By: Purnima Henriquez RN 03/09/24 12:46 Purnima Henriquez RN 03/09/24 12:58[facility] HospitalMain OR PACU II Recordon [id number] OR PACU II RecordMain OR PACU II Record PACU Phase II Document Type FT Summary Primary Physician: Sherry Velasquez DO Finalized Date/Time: 03/09/24 13:42:04 Pt. Name: TAMY SAL/Sex: 1970 Female Med Rec #: [id number] Physician: Sherry Velasquez DO Financial #: [id number] Pt. Type: A Room/Bed: [facility] Admit/Disch: 03/09/24 09:22:26 - Institution: Case Times [...] and monitors body temperature Evaluates postoperative respiratory statusEvaluates postoperative cardiac status Evaluates postoperative neurological status [...] individualized perioperative plan of care The patient's rightto privacy is maintained The patient's value system, [...] with or improved from baseline levels established preoperativelyThe patient's cardiovascular status is consistent with or improved from baseline levels established preoperatively The patient's neurological status is consistent with or improved from baseline levels established preoperatively The patient demonstrates and/or reports adequate pain control throughout the perioperative period The patient received appropriate medication(s), safely administered during the perioperativeperiod Finalized By: Dami Duron RN Document Signatures Signed By: Dami Duron RN 03/09/24 13:42[facility] HospitalMain OR Preoperative Recordon [id number] OR Preoperative RecordMain OR Preoperative Record PreOp Document Type FT Summary Primary Physician: Sherry Velasquez DO Finalized Date/Time: 03/09/24 11:14:43 Pt. Name: TAMY SAL/Sex: 1970 Female Med Rec #: [id number] Physician: Sherry Velasquez DO Financial #: [id number] Pt. Type: A Room/Bed: Admit/Disch: 03/09/24 09:22:26 [...] Signatures Signed By: Va Murrieta RN 03/09/24 11:14[facility] HospitalOperative Report on [id number] ReportOperative Report Indication for Surgery Patient is a 53-year-old female with history of laparoscopic-assisted vaginal hysterectomy with bilateral salpingectomy reports of [...] (bowel, bladder, urethra, etc.) discussed. Patient voiced understandingand informed consent was signed in the office Preoperative Diagnosis URGE INCONTINENCE, CYSTOCELE Postoperative Diagnosis URGE INCONTINENCE, CYSTOCELE Operation ANTERIOR/POSTERIOR COLPORRHAPHY, ANTERIOR VAGINAL REPAIR, . Surgeon(s) Sherry Velasquez DO (Surgeon - Primary) Corrective Therapist Yenny Francois Anesthesia General Fish Brigido DELGADO (Juice Weigher) Foreign DIXON CRNA, Queen N. (Other) Estimated Blood Loss 25mL Urine Output 350mL of clear yellow urine in the yepez at the end of the procedure Findings [...] draped in a normal sterile fashion after Yepez catheter was inserted and drained to gravity. Attention was brought to the patient's vagina and right angle was inserted to the posterior aspect of vagina to better visualize the vaginal apex. Allis clamps was used to grasp the right than the left corner of the vaginal apex. 1% lidocaine with epinephrine was administered under the anterior vaginal mucosa to aid in Orchard-dissection. A small incision was made in the vaginal mucosa horizontallyand the Metzenbaum scissors were used to dissect [...] reapproximated with a running lock 2-0 Vicryl suturewithout difficulty. Good hemostasis was noted at the end of the procedure. Sponge count correct x 2. Yepez catheter wasremoved without difficulty with clear yellow urine in the yepez bag at the end of the procedure. Patient tolerated the procedure well. Patient was returned to dorsal supine position and awakened fromanesthesia without difficulty. Patient was transferred to a stretcher and transported to the recovery room in a stable condition.[facility] Memorial HospitalComment on above:Result Comment: Electronically Signed By: Sherry Velasquez DO\.br\Date and Time Signed: 03/09/24 12:10 ESTOutpatient Surgery Discharge Instructionon [id number] Surgery Discharge InstructionOutpatient Surgery Discharge Instruction [place] [id number] Patient Discharge Instructions PERSON INFORMATION Name: TAMY SAL Date of : 1970 Current Date: 03/09/2024 12:04:45 PHYSICIANS Admitting Physician: Sherry Velasquez DO Discharge Diagnosis: Cystocele, midline; History of hysterectomy for benign disease; Urge incontinence SALTAMY has been given the following list of [...] THE NEAREST EMERGENCY ROOM OR CALL 911 DASHA Moon JOY, have received the attached patient education materials/instructions and have verbalized understanding: May we do a follow up call? Yes No I was present when discharge instructions were given Patient Signature Date Clinican/Nurse Signature Date Follow up: With: Address: When: Sherry Velasquez [facility] Ashok Quintanilla, [address] [address] Business (1) Pharmacy Information: You may receive a survey from Bibiana Clemons asking you to rate your care experience. Your feedback is important and will help us understand what we do well and how we can improve the quality of care we provide to you, your loved ones and our community. It???s an honor to serve you. Thank you for choosing [facility] HERE ARE THE MEDICATION CHANGES THAT OCCURRED DURING YOUR HOSPITAL STAY New Medications [id number], [address], [place] [phone], [phone] acetaminophen (acetaminophen 500 mg Tab) 2 Tablets [...] these instructions at home: Medicines ??? Take wnig-pur-zuwamsb and prescription medicines only as told by your health care provider. ??? Ask your health care provider if the medicine prescribed to you: ? Requires you to avoid driving or using machinery. ? Can cause constipation. You may need to take these actions to prevent or treat constipation: ? Drink enough fluid to keep your urine pale yellow. ? Take drla-kgr-miziscr or prescription medicines. ? Eat foods that [...] Image. Unable to displ (more content not included)...NormalFishMt. Washington Pediatric HospitalURINALYSISOrdered By: SYSTEM SYSTEM on [id number] Ql (U)NegativeNormalNegativemg/dLWEATHERFORD REGIONAL [facility] [place] UA Auto SSClarity (U)Clear (03/09/24 10:58 AM)NormalClearFMCBRIDE ORTHOPEDIC [facility]PITAL [facility] [place] UA Auto SSColor (U)Colorless 1 *ABN* (03/09/24 10:58 AM)Invalid Interpretation CodeYellowWEATHERFORD REGIONAL HOSPITAL – [place] UA Auto SSComment on above:Interpretive Data: Microscopic readings are only performed on those samples that meet specific criteria set forth by [facility].Glucose Ql (U)NegativeNormalNegativemg/dLWEATHERFORD REGIONAL HOSPITAL [facility] [place] UA Auto SSHemoglobin Auto test strip (U) [Mass/Vol]NegativeNormalNegativemg/dLWEATHERFORD REGIONAL HOSPITAL [facility] [place] UA Auto SSKetones Auto test strip Ql (U)NegativeNormalNegativemg/dLFT UA Auto SSLeukocyte esterase Auto test strip Ql (U)NegativeNormalNegativeLeu/uLFT UA Auto SS Nitrite Auto test strip Ql (U)NegativeNormalNegativemg/dLWEATHERFORD REGIONAL HOSP[facility] [place] UA Auto SSpH (U) 6.5 *NA* (03/09/24 10:58 AM)Invalid Interpretation Code5.0 - 9.0FT UA Auto SSProtein Ql (U)NegativeNormalNegativemg/dLFT UA Auto SSSpecific gravity (U) [Rel density] 1.010 *NA* (03/09/24 10:58 AM)Invalid Interpretation Code1.005 - 1.030FT UA Auto SS Urobilinogen (U) [Mass/Vol]NegativeNormalNegativemg/dLWEATHERFORD REGIONAL HOSP[facility] [place] UA Auto SSURINALYSIS Ordered By: Va Murrieta on [id number] Spec DescFoley (03/09/24 10:58 AM)NormalWEATHERFORD REGIONAL HOSPITAL [facility] [place] UA Auto SSURINALYSIS WITH MICROon 03-09-2024 BILIRUBIN:PRTHR:PT:URINE:ORD:TEST STRIP.AUTOMATEDNegativeNegative mg/dLThe [facility] CLARITY:TYPE:PT:URINE:NOM:ClearClearThe [facility] CLASS:TYPE:PT:URINE COLLECTION METHOD:NOM:*FoleyThe Rehabilitation Institute of St. [facility] COLOR:TYPE:PT:URINE:NOM:AUTOColorlessAbnormalYellowMissouri Rehabilitation CenterComment on above:Microscopic readings are only performed on those samples that meet specific criteria set forth by [facility] PH:LSCNC:PT:URINE:QN:TEST STRIP6.55.0 - 9.0[facility] SPECIFIC GRAVITY:RDEN:PT:URINE:QN:TEST STRIP1.0101.005 - 1.030[facility] GLUCOSE:PRTHR:PT:URINE:ORD:TEST STRIPNegativeNegative mg/dLNONH Healthcare HEMOGLOBIN:MCNC:PT:URINE:SEMIQN:TEST STRIP.AUTOMATEDNegativeNegative mg/dLSTEWARD HEALTH CARE SYSTEM HealthcareInterpretation and review of laboratory resultsBeebe Healthcare KETONES:PRTHR:PT:URINE:ORD:TEST STRIP.AUTOMATEDNegativeNegative mg/dLMissouri Rehabilitation CenterLEUKOCYTE ESTERASE:PRTHR:PT:URINE:ORD:TEST STRIP.AUTOMATEDNegative Negative CD:[id number] Rehabilitation CenterNITRITE:PRTHR:PT:URINE:ORD:TEST STRIP.AUTOMATEDNegativeNegative mg/dLSTEWARD HEALTH CARE SYSTEM Healthcare PROTEIN:PRTHR:PT:URINE:ORD:TEST STRIPNegativeNegative mg/dLSTEWARD HEALTH CARE SYSTEM Healthcare UROBILINOGEN:MCNC:PT:URINE:SEMIQN:TEST STRIPNegativeNegative mg/dLSTEWARD HEALTH CARE SYSTEM HealthcareOriginal Ordering Provider: DO Sherry RileyOMS HealthcareUrinalysis with Microon [id number] Ql (U)NegativeNormal NegativeWvumedicine Harrison Community HospitalComment on above:Performed By: #### [id number] #### [facility] [address], [place] [address]Vriufhz (U)ClearNormalClearWvumedicine Harrison Community HospitalComment on above:Performed By: #### [id number] #### [facility] [address], [place] [address]Fbqqy (U)ColorlessAbnormalYellowWvumedicine Harrison Community Hospital Comment on above:Result Comment: Microscopic readings are only performed on those samples that meet specific criteria set forth by [facility].Performed By: #### [id number] #### [facility] [address], [place] [address]Deokstl Ql (U)NegativeNormalNegCleveland Clinic Foundation Comment on above:Performed By: #### [id number] #### [facility] [address], [place] [address]Klvwkymfri Auto test strip (U) [Mass/Vol]NegativeNormalNegative [facility] HospitalComment on above:Performed By: #### [id number] #### [facility] [address], [place] [address]Ekajnwy Auto test strip Ql (U)NegativeNormalNegativeWvumedicine Harrison Community HospitalComment on above:Performed By: #### [id number] #### [facility] [address], [place] [address]Otbnhjogf esterase Auto test strip Ql (U)NegativermalNegTrumbull Memorial HospitalComment on above:Performed By: #### [id number] #### [facility] [address], [place] [address]Wlqejfs Auto test strip Ql (U)NegativeNormalNegativeWvumedicine Harrison Community HospitalComment on above:Performed By: #### [id number] #### [facility] [address], [place] [address]yI (U)6.5 [pH]Invalid Interpretation Code5.0-9.0[facility] HospitalComment on above:Performed By: #### [id number] #### [facility] [address], [place] [address]Tsjysiq Ql (U)NegativeNormalNegCleveland Clinic Foundation Comment on above:Performed By: #### [id number] #### [facility] [address], [place] [address]Iknsspqk gravity (U) [Rel density]1.010Invalid Interpretation Code1.005-1.030[facility] HospitalComment on above:Performed By: #### [id number] #### [facility] [address], [place] [address]Gavgwbtogjdf (U) [Mass/Vol]NegativeNormalNegativeWvumedicine Harrison Community HospitalComment on above:Performed By: #### [id number] #### [facility] [address], [place] [address]Fluh of Urine collection methodFoUniversity Hospitals Beachwood Medical CenterComment on above:Performed By: #### [id number] #### [facility] [address] [place] [address]NNUll 69-18-9740Bjwmn gap [Moles/Vol]10 mmol/LNormal6-16[facility] HospitalComment on above:Performed By: #### [id number] #### [facility] [address] [place] [address]Hjpqshy [Mass/Vol]9.3 mg/dLNormal8.9-11.1FOhioHealth Van Wert HospitalComment on above:Performed By: #### [id number] #### [facility] [address], [place] [address]Qmccepft [Moles/Vol]105 mmol/IKnfjso650-952KykatmWvumedicine Harrison Community HospitalComment on above:Performed By: #### [id number] #### [facility] [address], [place] [address]FI1 [Moles/Vol]29 mmol/TKbjgtr26-07LawuqsWvumedicine Harrison Community Hospital Comment on above:Performed By: #### [id number] #### [facility] [address], [place] [address]Golkqyofpa [Mass/Vol]0.8 mg/dLNormal0.5-1.3FOhioHealth Van Wert HospitalComment on above:Performed By: #### [id number] #### [facility] [address] [place] [address]Bqexsuf [Mass/Vol]109 mg/uXJwtftm16-418WdkmdvWvumedicine Harrison Community HospitalComment on above:Performed By: #### [id number] #### [facility] [address] [place] [address]Yqkhnsuyz [Moles/Vol]4.9 mmol/LNormal3.5-5.3FOhioHealth Van Wert HospitalComment on above:Performed By: #### [id number] #### [facility] [address] [place] [address]Mqyozb [Moles/Vol]139 mmol/QDosbmk735-301WjguptWvumedicine Harrison Community HospitalComment on above:Performed By: #### [id number] #### [facility] [address] [place] [address]Zbyk nitrogen [Mass/Vol]14 mg/dLNormal5-21[facility] Community HospitalComment on above:Performed By: #### [id number] #### [facility] [address] [place] [address]Xqff nitrogen/Creatinine [Mass ratio]18 No KneyjCqqgxj33-73 [facility] HospitalComment on above:Performed By: #### [id number] #### [facility] [address] [place] [address]KKA w/ Auto Diffon 22-41-0967Ydrwcbliv/100 WBC (Bld)0.6 %Normal 0.0-2.0[facility] Community HospitalComment on above:Performed By: #### [id number] #### [facility] [address] [place] [address]Xcxxlwlup/Leukocytes Auto (Bld) [Pure # fraction]0.1 E9/LNormal 0.0-0.2FOhioHealth Van Wert HospitalComment on above:Performed By: #### [id number] #### [facility] [address] [place] [address], [place] [address]Rhiwykfjgan (Bld) [#/Vol]0.4 E9/LNormal0.0-0.5FOhioHealth Van Wert HospitalComment on above:Performed By: #### [id number] #### [facility] [address] [place] [address] 68331Mgpjuwhxdyj/100 WBC (Bld)4.3 %Normal0.0-8.0[facility] HospitalComment on above:Performed By: #### [id number] #### [facility] [address] [place] [address] 14685Kiuxzkqkepu distribution width (RBC) [Ratio]12.7 %Normal 10.9-14.2FOhioHealth Van Wert HospitalComment on above:Performed By: #### [id number] #### [facility] [address] [place] [address] 80393Kcfjgzrkwa (Bld) [Volume fraction]37.6 %Llrerq60.0-46.0[facility] HospitalComment on above:Performed By: #### [id number] #### [facility] [address] [place] [address] 45242Xwxfnmkcdp (Bld) [Mass/Vol]12.7 g/zAXvejyg00.0-16.0[facility] HospitalComment on above:Performed By: #### [id number] #### [facility] [address] [place] [address] 01747Ddfsmoikgna (Bld) [#/Vol]3.1 E9/LNormal1.0-4.0[facility] HospitalComment on above:Performed By: #### [id number] #### [facility] [address] [place] [address] 24812Tafdqixbnkr/100 WBC (Bld)34.3 %Mlbizr41.0-50.0[facility] HospitalComment on above:Performed By: #### [id number] #### [facility] [address] [place] [address] 76883SGA (RBC) [Entitic mass]30.8 zpZjayjd55.0-34.0[facility] HospitalComment on above:Performed By: #### [id number] #### [facility] [address] [place] [address] 91092UGNJ (RBC) [Mass/Vol]33.8 g/uTQqhubk00.4-36.0[facility] HospitalComment on above:Performed By: #### [id number] #### [facility] [address] [place] [address] 13791ZCJ (RBC) [Entitic vol]90.9 jAJcojew11.0-100.0[facility] HospitalComment on above:Performed By: #### [id number] #### [facility] [address] [place] [address] 97989Yyumbdpad (Bld) [#/Vol]0.5 E9/LNormal0.2-1.0[facility] HospitalComment on above:Performed By: #### [id number] #### [facility] [address] [place] [address] 34128Mohixosykbv (Bld) [#/Vol]4.9 E9/LNormal2.0-7.5FOhioHealth Van Wert HospitalComment on above:Performed By: #### [id number] #### [facility] [address] [place] [address] 82477Mtwvfqpjrxd/100 WBC (Bld)54.8 %Wpvwnr72.0-75.0[facility] HospitalComment on above:Performed By: #### [id number] #### [facility] [address] [place] [address] 23253Uhqlgano124.0 E9/UBnlvsy121.0-500.0[facility] Comment on above:Performed By: #### [id number] #### [facility] [address] [place] [address] 49374Oovmjqpo mean volume (Bld) [Entitic vol]7.3 fLNormal6.4-10.8 [facility] HospitalComment on above:Performed By: #### [id number] #### [facility] [address] [place], [place] [address]GPH (Bld) [#/Vol]4.1 E12/LLow4.3-5.9[facility] Comment on above:Performed By: #### [id number] #### [facility] [address] [place], [place] [address]BXA corrected for nucl RBC Auto (Bld) [#/Vol]8.9 E9/LNormal 4.0-11.0[facility] HospitalComment on above:Performed By: #### [id number] #### [facility] [address] [place], [place] [address]FVOPUHGAQVjpgetu By: SYSTEM SYSTEM on 74-59-2234Ikinn gap [Moles/Vol]10 mmol/LNormal6 - 16 mEq/LRemisol ChemCalcium [Mass/Vol]9.3 mg/dL Normal8.9 - 11.1 mg/dLRemisol ChemChloride [Moles/Vol]105 mmol/KNxmdpy811 - 111 mmol/LRemisol ChemCO2 [Moles/Vol]29 mmol/HFlqlkv87 - 31 mmol/LRemisol Chem Creatinine [Mass/Vol]0.8 mg/dLNormal0.5 - 1.3 mg/dLRemisol GrzypINS67 mL/min/1.73 m3Wiokbh>=59mL/min/1.73 c6Linswty ChemGlucose [Mass/Vol]109 mg/dL Dagazz58 - 199 mg/dLRemisol ChemPotassium [Moles/Vol]4.9 mmol/LNormal3.5 - 5.3 mmol/LRemisol ChemSodium [Moles/Vol]139 mmol/LNvcvvw094 - 145 mmol/LRemisol Chem Urea nitrogen [Mass/Vol]14 mg/dLNormal5 - 21 mg/dLRemisol ChemUrea nitrogen/Creatinine [Mass ratio]18 mg/vfJfgmpd96 - 20Remisol ChemHEMATOLOGY Ordered By: SYSTEM SYSTEM on 60-59-8164Aurwkmcni/100 WBC (Bld)0.6 %Normal0.0 - 2.0 %Remisol HemeBasophils/Leukocytes Auto (Bld) [Pure # fraction]0.1 E9/LNormal 0.0 - 0.2 E9/LRemisol HemeEosinophils (Bld) [#/Vol]0.4 E9/LNormal0.0 - 0.5 E9/L Remisol HemeEosinophils/100 WBC (Bld)4.3 %Normal0.0 - 8.0 %Remisol Heme Erythrocyte distribution width (RBC) [Ratio]12.7 %Dtfwgc42.9 - 14.2 %Remisol HemeHematocrit (Bld) [Volume fraction]37.6 %Neufid91.0 - 46.0 %Remisol Heme Hemoglobin (Bld) [Mass/Vol]12.7 g/hIYqzkwl32.0 - 16.0 gm/dLRemisol Heme Lymphocytes (Bld) [#/Vol]3.1 E9/LNormal1.0 - 4.0 E9/LRemisol HemeLymphocytes/100 WBC (Bld)34.3 %Wqtoqe92.0 - 50.0 %Remisol HemeMCH (RBC) [Entitic mass]30.8 pg Qkgoia18.0 - 34.0 pgRemisol HemeMCHC (RBC) [Mass/Vol]33.8 g/cWJrbppd90.4 - 36.0 gm/dLRemisol HemeMCV (RBC) [Entitic vol]90.9 eBNehfjl77.0 - 100.0 fLRemisol Heme Monocytes (Bld) [#/Vol]0.5 E9/LNormal0.2 - 1.0 E9/LRemisol HemeMonocytes/100 WBC (Bld)6.0 %Normal4.0 - 14.0 %Remisol HemeNeutrophils (Bld) [#/Vol]4.9 E9/LNormal 2.0 - 7.5 E9/LRemisol HemeNeutrophils/100 WBC (Bld)54.8 %Ixxwgk94.0 - 75.0 % Remisol LabtHocmsqxv702.0 E9/PSehkxs939.0 - 500.0 E9/LRemisol HemePlatelet mean volume (Bld) [Entitic vol]7.3 fLNormal6.4 - 10.8 fLRemisol HemeRBC (Bld) [#/Vol] 4.1 E12/LLow4.3 - 5.9 E12/LRemisol HemeWBC corrected for nucl RBC Auto (Bld) [#/Vol]8.9 E9/LNormal4.0 - 11.0 E9/LRemisol HemeXR Chest 2 Viewson 74-85-0424OD Chest 2 ViewsExam Date/Time: 02/29/2024 09:00 EST Reason for Exam: [...] Romel Bowman MD Transcribed by: TO Technologist: ANTHONY Technical Comments Radiation Dose: Ka,r in mGy = na DAP = naNormalWvumedicine Harrison Community HospitaleGFRon 08-17-8263nZAK71 mL/min/1.73 m2 Normal>=59[facility] HospitalComment on above:Performed By: #### [id number] #### [facility] [address] [place] [address] 32206Zmkvcqsw [Mass/Vol]on 80-21-2759HTDLEWJK5.8 ug/dLNormal [facility] HospitalComment on above:Result Comment: Due to the diurnal variation of cortisol levels in normal subjects, all cortisol measurements should be referenced to the time of day of sample collection. AM Cortisol Age>=6 6.7-22.4 ug/dL PM Cortisol Age>=6 <10 ug/dL Performed By: #### 2143-6 #### [facility] ([id number]) [address], [address] [place], [place] [address]QQHO-S [Mass/Vol]on 24-20-2579PFBP S34 ug/dLNormal8-188ProBaylor Scott And White The Heart Hospital – PlanoComment on above:Performed By: #### 2191-5 #### [facility] ([id number]) [address], [address] [place], [place] [address]M9 [Mass/Vol]on 48-40-8475Mgwjtnh, S248 pg/mLNormalProBaylor Scott And White The Heart Hospital – PlanoComment on above:Result Comment: NOTE REFERENCE VALUE Premenopausal :17-200 Postmenopausal : 7-40 ADDITIONAL INFORMATION This test was developed and its performance characteristics determined by [facility] in a manner consistent with CLIA requirements. This test has not been cleared or approved by the U.S. Food and Drug Administration. Test Performed by: [facility] [place] [address] Customer Service Sales Consultant: Zak Cortez Ph.D.; CLIA# [id number] By: #### 2243- 4, 34009-9, 2839-9, TSHR #### [facility] ([id number]) [address] [facility] [address], [address] [place] [address] #### 2258-2, 60797-9, GO #### [facility] ([id number]) [address] [place] [address] 590[address]X6 [Mass/Vol]on 27-71-7526UHAJBRKBU97.7 pg/mLNormalProBaylor Scott And White The Heart Hospital – PlanoComment on above:Result Comment: NON- FEMALES Mid follicular: 25-115 pg/mL [...] impact on estradiol recovery when using this assay.Performed By: #### 2243-4, 23529-8, 2839-9, TSHR #### [facility] ([id number]) [address] [facility] [address], [address] [place] [address] #### 2258-2, 58429-9, GO #### [facility] ([id number]) [address] [place] [address], [place], [place] [address]Eynuzrwgqxd Qnon 57-75-8016SULWODJU STIM ZNIROSI77.3 mIU/mL NormalProMedica California Hospital Medical CenterComment on above:Result Comment: NORMAL FEMALE Luteal 1.8-5.1 mIU/mL Follicular 3.8-8.8 mIU/mL Mid Cycle 4.5-22.5 mIU/mL Post Avis 16.7-113.6 mIU/mL Performed By: #### 2243-4, 11782-9, 2839-9, TSHR #### [facility] ([id number]) [address], [address] [place] [address] #### 2258-2, 79884-8, GO #### [facility] ([id number]) [address] [facility] [address], FIRST FLOOR [place], [place] [address]CIAA GENERIC ORDERon 53-84-6269RHAY OAMQSF615, SST SERUMNormal [facility] on above:Performed By: #### 2243-4, 71248-9, 2839-9, TSHR #### [facility] ([id number]) [address] [facility], [address] [place] [address] #### 2258-2, 46166-3, GO #### [facility] ([id number]) [address] [facility] [address], [facility] [place], [place] [address]ZGIW RESULTSEE COMMENTS 01/12/2024 10:26 PMNormalProMedica California Hospital Medical CenterCommunson healthcare [facility] on above:Result Comment: NOTE Test Result Flag Unit RefValue CALCITRIOL 1,25 diOH VitD Vitamin D,1,25 (OH) 2, Total 42 pg/mL 18-72 Reference Ranges for Vitamin D, 1,25 (OH)2, Total pg/mL < 1 Year Not established 1-9 Years 31-87 10-13 Years 30-83 14-17 Years 19-83 > or = 18 [...] analytical performance characteristics have been determined by [employer]. It has not been cleared or approved by FDA. This assay has been validated pursuant to the CLIA regulations and is used for clinical purposes. For additional information, please refer to http://education.[employer].PPT Reasearch/faq/WCB543 (This link is being provided for informational/educational purposes only.) Test Performed by: [employer]/[place] [address] [place] [id number] By: #### 2243-4, 66404-0, 2839-9, TSHR #### [facility] ([id number]) [address] [place] [address], [address] [place] [address] #### 2258-2, 08094-6, GO #### [facility] ([id number]) [address] [place] [address]68[address]Esbjtdmiptha [Mass/Vol]on 39-37-1421NNXXZDFPHJRM4.2 ng/mLNormal [facility] HospitalComment on above:Result Comment: FEMALES: 1st Tri: 4.7-50.7 ng/ml 2nd Tri: 19.4-45.3 ng/ml MENSTRUATING FEMALES: Follicular: 0.3-1.5 ng/ml Mid Luteal: 5.2-18.6 ng/ml Post Avis: <0.1-0.8 ng/ml Performed By: #### 2243-4, 35778-6, 2839-9, TSHR #### [facility] ([id number]) [address] [place] [address], [address] [place] [address] #### 2258-2, 56843-9, GO #### [facility] ([id number]) [address] [place] [address] 18[address]VAY WITH REFLEXon 05-29-0046RRI2.76 uIU/mLNormal0.49-4.67 [facility] HospitalComment on above:Performed By: #### 2243-4, 69000-7, 2839-9, TSHR #### [facility] ([id number]) [address], [address] [place] [address] #### 2258-2, 93249-3, GO #### [facility] ([id number]) [address] [place] [address]16[address]Pkstcyfcnlrs free and total panel [Mass/Vol]on 01-06-2024 Testosterone [Mass/Vol]8.5 ng/dLNormal8-60ProBaylor Scott And White The Heart Hospital – PlanoComment on above:Result Comment: NOTE ADDITIONAL INFORMATION Testing performed by Liquid Chromatography-Tandem Mass Spectrometry (LC-MS/MS). This test was developed and its performance characteristics determined by [facility] in a manner consistent with CLIA requirements. This test has not been cleared or approved by the U.S. Food and Drug Administration. Test Performed by: [facility] [address] [place] [address] Customer Service Sales Consultant: Zak Cortez Ph.D.; CLIA# [id number] By: #### 2243- 4, 57487-9, 2839-9, TSHR #### [facility] ([id number]) [address], [address] [place] [address] #### 2258-2, 39593-4, GO #### [facility] ([id number]) [address] [place] [address] 90738BZVDQFKYMXDC FREE0.22 ng/dLNormal<0.13-0.92ProSaint Camillus Medical Center on above:Result Comment: NOTE ADDITIONAL INFORMATION This test was developed and its performance characteristics determined by [facility] in a manner consistent with CLIA requirements. This test has not been cleared or approved by the U.S. Food and Drug Administration.Performed By: #### 2243-4, 67053-8, 2839- 9, TSHR #### [facility] ([id number]) [address], [address] [place] [address] #### 2258-2, 95120-3, GO #### [facility] ([id number]) [address] [place] [address], FIRST FLOOR [place], [place] [address]Vewodsrsabv distribution width Auto (RBC) [Ratio]on 10-09-2023 Erythrocyte distribution width (RBC) [Ratio]13.4 %11.0-15.0[facility] SouthEstimated glomerular filtration rate (GFR) non- Americanon 39-36-8084LZC/1.73 sq M.predicted among non-blacks MDRD (S/P/Bld) [Vol rate/Area]58 mL/min/{1.73_m2}Low>=60[facility] Hospital SouthHematocrit Auto (Bld) [Volume fraction]on 89-38-2020Tqsgnlcgwj (Bld) [Volume fraction]42.4 %36.0-48.0[facility] Hospital SouthHemoglobin [Mass/volume] in Bloodon 74-42-6605Yuoorcmcbc (Bld) [Mass/Vol]13.7 g/dL12.0-16.0[facility] SouthLaboratory - Chemistry and Chemistry - challengeon 10-09-2023 Albumin [Mass/Vol]3.2 g/dLLow3.4-5.0[facility] SouthCalcium [Mass/Vol]8.8 mg/dL8.5-10.1FMetroHealth Parma Medical CenterChloride [Moles/Vol] 101 mmol/Y20-892UuustkmvfPremier Health Miami Valley Hospital SouthCO2 [Moles/Vol]26.7 mmol/L 21.0-32.0[facility] SouthCreatinine [Mass/Vol]1.01 mg/dL 0.55-1.02Prem[facility] SouthGFR/1.73 sq M.predicted MDRD (S/P/Bld) [Vol rate/Area]mL/min/{1.73_m2}>=60[facility] SouthGlucose [Mass/Vol]132 mg/nWVqzn39-885XrfbcteucPremier Health Miami Valley Hospital SouthMagnesium [Mass/Vol]2.0 mg/dL1.8-2.4FMetroHealth Parma Medical CenterPotassium [Moles/Vol] 4.0 mmol/L3.5-5.1FMercy Health Kings Mills Hospitalodium [Moles/Vol]137 mmol/L 136-145Prem[facility] Hospital SouthUrea nitrogen [Mass/Vol]12.0 mg/dL 7.0-18.0[facility] SouthUrea nitrogen/Creatinine [Mass ratio] 11.9 mg/mgPremier Health Miami Valley Hospital SouthLeukocytes [#/volume] corrected for nucleated erythrocytes in Blood by Automated counon 26-74-4798ONF corrected for nucl RBC Auto (Bld) [#/Vol]5.1 10 3/uL4.0-11.0[facility] MCH Auto (RBC) [Entitic mass]on 95-32-2790NOP (RBC) [Entitic mass]31.2 pg 26.7-34.0[facility] Hospital SouthMCHC Auto (RBC) [Mass/Vol]on 26-75-2456UKNQ (RBC) [Mass/Vol]32.3 g/dL29.9-35.2FMetroHealth Parma Medical CenterMCV Auto (RBC) [Entitic vol]on 55-64-1427YCJ (RBC) [Entitic vol]96.6 fL 81.0-99.0[facility] SouthNo Panel Informationon 10-09-2023 Phosphorus Level2.9 mg/dL2.6-4.7FMetroHealth Parma Medical CenterPlatelet mean volume Auto (Bld) [Entitic vol]on 88-18-3486Hmozfhcr mean volume (Bld) [Entitic vol]9.2 fLLow9.5-13.5FMetroHealth Parma Medical CenterPlatelets Auto (Bld) [#/Vol]on 28-45-0132Ejbnlmmmv (Bld) [#/Vol]250 10 3/bV795-798MtqnhfgogPremier Health Miami Valley Hospital SouthRBC Auto (Bld) [#/Vol]on 63-44-9782GSA (Bld) [#/Vol]4.39 10 6/uL 4.20-5.40Cleveland Clinicerum or plasma anion gap determinationon 29-15-5542Gbube gap [Moles/Vol]13.3 mmol/LFMetroHealth Parma Medical CenterHemogram CBC Without Diffon 19-89-3419Velplknerhh distribution width (RBC) [Ratio]13.1 %[employer] Other Hematocrit (Bld) [Volume fraction]39.6 %[employer] Other Hemoglobin (Bld) [Mass/Vol]13.5 g/dLBanks [employer] Other MCH (RBC) [Entitic mass]31.4 pgPowermat Technologies Other MCH (RBC) [Entitic mass]34.1 [employer] Other MCV (RBC) [Entitic vol]92 [facility] EastPowermat Technologies Other Platelet mean volume (Bld) [Entitic vol]7.4 OKAbakus Other Platelets (Bld) [#/Vol]324 10*3/[employer] Other RBC (Bld) [#/Vol]4.30 10*6/[employer] Other WBC (Bld) [#/Vol]7.9 10*3/[employer] Other Hemogram CBC Without DiffAbakus Other Iron and TIBC Profileon 92-50-0215Evit [Mass/Vol]61 ug/dLAbakus Other Iron and TIBC Zoyreai298GqkboPowermat Technologies Other Iron and TIBC Glcmwzu27UouxnPowermat Technologies Other Magnesiumon 30-84-6492Yzenwxkfm2,2Ncedar county memorial hospital [employer] Other Protein Creat Ratio Ur Randomon 59-85-9042Kqkbyqc Test strip detection limit <= 20 mg/L (U) [Mass/Vol]80Nosaint luke's [facility] [employer] Other Protein Creat Ratio Ur Fqtgts689.82[employer] Other Protein Creat Ratio Ur Random0.08[facility] Other Ferritinon 96-26-8523Rohqvcav [Mass/Vol]26 ng/[facility] [employer] Other Renal Function Panelon 01-50-3095Ghxebgp [Mass/Vol]4.0 g/dLBanks [employer] Other Calcium [Mass/Vol]8.9 mg/dLBanks [employer] Other Chloride [Moles/Vol]108 mmol/[facility] [employer] Other CO2 [Moles/Vol]26 mmol/scenios Other Creatinine [Mass/Vol]0.93 mg/dLBanks [employer] Other Glucose [Mass/Vol]115 mg/dLBanks [employer] Other Potassium [Moles/Vol]4.2 mmol/[facility] [employer] Other Sodium [Moles/Vol]143 mmol/scenios Other Urea nitrogen [Mass/Vol]11 mg/dLBanks [employer] Other Renal Function PanelBanks [employer] Other Renal Function Odjhi15Phbmu [employer] Other CT ABD/PELV W CONon 52-01-3829IO ABD/PELV W CON EXAMINATION: CT ABD/PELV W [...] adenitis or mesenteritis Electronically authenticated by: ANNALISA STEVENS Date: 2022-03-24 08:27NormPremier Health Atrium Medical CenterAMYLASEon 47-05-7266Sofcdok [Catalytic activity/Vol]48 U/L Qdalfb23-082Tzj White HospitalComment on above:Performed By: #### LIPA, BEBA, CMP #### [facility] [address] [place] [address] Dr. Cecilio Rinaldi AUTO DIFFon 39-50-0853XVSB #0.0 103/ulNormal0.0-0.1The White HospitalComment on above:Performed By: #### CBC #### [facility] [address] [place] [address] Dr. Cecilio GuerreroBasophils/100 WBC (Bld)0.5 %Normal0.2-2.0[facility] Comment on above:Performed By: #### CBC #### [facility] [address] [address] [address] Cecilio Saavedra #0.3 103/ulNormal0.0-0.7The White HospitalComment on above: Performed By: #### CBC #### [facility] [address] [place] [address] Dr. Cecilio Bashirosinophils/100 WBC (Bld)2.9 %Normal0.9-7.0[facility] Comment on above:Performed By: #### CBC #### [facility] [address] [place] [address] Dr. Cecilio Bsahirrythrocyte distribution width (RBC) [Ratio]12.0 %Tckfqm07.0-15.0 The [facility] Medical Centerment on above:Performed By: #### CBC #### [facility] [address] [place] [address] Dr. Cecilio GuerreroHematocrit (Bld) [Volume fraction]45.8 %Imrolt23.0-48.0The White HospitalComment on above:Performed By: #### CBC #### [facility] [address] [place] [address] Dr. Cecilio GuerreroHemoglobin (Bld) [Mass/Vol]14.3 g/tEEnruwd25.0-16.0The [facility] Medical Centerment on above:Performed By: #### CBC #### [facility] [address] [place] [address] Dr. Cecilio Grewal #0.03 10e3/ulNormal0.00-0.03The [facility] Medical Centerment on above:Performed By: #### CBC #### [facility] [address] [place] [address] Dr. Cecilio Grewal %0.3 %Normal0.0-0.5The White HospitalComment on above: Performed By: #### CBC #### [facility] [address] [place] [address] Dr. Cecilio Marsh #3.4 103/ulNormal1.2-3.8The White HospitalComment on above:Performed By: #### CBC #### [facility] [address] [place] [address] Dr. Cecilio Urenamphocytes/100 WBC (Bld)37.9 %Idcbsk45.5-60.0The White HospitalComment on above:Performed By: #### CBC #### [facility] [address] [place] [address] Dr. Cecilio RasconUAL DIFF REQNONormalThe White HospitalComment on above: Performed By: #### CBC #### [facility] [address] [place] [address] Dr. Cecilio Trinidad (RBC) [Entitic mass]30.1 dnDdwhwp76.7-34.0The White HospitalComment on above:Performed By: #### CBC #### [facility] [address] [place] [address] Dr. Cecilio Trinidad (RBC) [Mass/Vol]31.2 g/fJCihcik05.9-35.2The White HospitalComment on above:Performed By: #### CBC #### [facility] [address] [place] [address] Dr. Cecilio Trinidad (RBC) [Entitic vol]96.4 pZLlppcb88.0-99.0The White HospitalComment on above:Performed By: #### CBC #### [facility] [address] [place] [address] Dr. Cecilio Marques #0.9 103/ulCritically high0.3-0.8ThOur Lady of Mercy Hospital Comment on above:Performed By: #### CBC #### [facility] [address] [place] [address] Dr. Cecilio Sharmaocytes/100 WBC (Bld)10.0 %Normal1.7-12.0[facility] Comment on above:Performed By: #### CBC #### [facility] [address] [place] [address] Dr. Cecilio Gonzalez #4.3 103/ulNormal1.4-6.5The [facility] Medical Centerment on above:Performed By: #### CBC #### [facility] [address] [address] [address] Cecilio Kangutrophils/100 WBC (Bld)48.4 %Btuyqz67.0-75.0The [facility] on above:Performed By: #### CBC #### [facility] [address] [place] [address] Dr. Cecilio GuerreroPlatelet mean volume (Bld) [Entitic vol]9.2 fLCritically low 9.5-13.5The White HospitalComment on above:Performed By: #### CBC #### [facility] [address] [place] [address] Dr. Cecilio GuerreroPLT319 103/swXcazvg629-232Fbj [facility] on above: Performed By: #### CBC #### [facility] [address] [place] [address] Dr. Cecilio GuerreroRBC4.75 106/ulNormal4.20-5.40The [facility] HospitalCommunson healthcare [facility] on above:Performed By: #### CBC #### [facility] [address] [place] [address] Dr. Cecilio GuerreroWBC8.9 103/ulNormal4.0-11.0The [facility] on above: Performed By: #### CBC #### [facility] [address] [place] [address] Dr. Cecilio GuerreroLIPASEon 25-30-1060Wmsbat [Catalytic activity/Vol]379.0 U/LNormal 73.0-393.0[facility] HospitalComment on above:Performed By: #### LIPBEBA Mcclelland, CMP #### [facility] [address] [place] [address] Dr. Cecilio GuerreroPROPerry 14(COMP METB)on 39-34-7952Zvjrdyx [Mass/Vol]3.3 g/dL Critically low3.4-5.0The [facility] HospitalComment on above:Performed By: #### LIPBEBA Mcclelland, CMP #### [facility] [address] [place] [address] Dr. Cecilio GuerreroAlbumin/Globulin [Mass ratio]0.8 {ratio}NormalThe White HospitalComment on above:Performed By: #### BEBA JAMES, CMP #### [facility] [address] [place] [address] Dr. Cecilio NixonP [Catalytic activity/Vol]85 U/IOtxoak87-216Def White HospitalComment on above:Performed By: #### JACOB BEBA, CMP #### [facility] [address] [place] [address] Dr. Cecilio NixonT [Catalytic activity/Vol]103 U/LCritically qcon81-09Dfs White HospitalComment on above:Performed By: #### BEBA JAMES, CMP #### [facility] [address] [place] [address] Dr. Cecilio Brunneron gap [Moles/Vol]10.8 mmol/LNormalThe [facility] Comment on above:Performed By: #### JACOB BEBA, CMP #### [facility] [address] [place] [address] Dr. Cecilio GuerreroAST [Catalytic activity/Vol]30 U/LCjpdtw43-29Bak White HospitalComment on above:Performed By: #### JACOB BEBA, CMP #### [facility] [address] [place] [address] Dr. Cecilio GuerreroBilirubin [Mass/Vol]0.6 mg/dLNormal0.2-1.0[facility] Comment on above:Performed By: #### LIPKrystin BEBA, CMP #### [facility] [address] [place] [address] Dr. Cecilio GuerreroCalcium [Mass/Vol]9.5 mg/dLNormal8.5-10.1[facility] Comment on above:Performed By: #### LIPKrystin BEBA, CMP #### [facility] [address] [place] [address] Dr. Cecilio GuerreroChloride [Moles/Vol]104 mmol/FWhgqdw25-676[facility] Comment on above:Performed By: #### LIPBEBA Mcclelland, CMP #### [facility] [address] [place] [address] Dr. Cecilio GuerreroCO2 [Moles/Vol]30.5 mmol/MShuoqb71.0-32.0[facility] Comment on above:Performed By: #### LIPKrystin, BEBA, CMP #### [facility] [address] [place] [address] Dr. Cecilio GuerreroCreatinine [Mass/Vol]0.99 mg/dLNormal0.55-1.02The White HospitalComment on above:Performed By: #### LIPA, BEBA, CMP #### [facility] [address] [place] [address] Dr. Cecilio Bonilla-AF SYRIAN>60Normal>=60The White HospitalComment on above:Performed By: #### LIPKrystin BEBA, CMP #### [facility] [address] [place] [address] Dr. Cecilio BashirGFR-NON AF WWEPWXGD80 mL/min/1.45u0Xzzurtchdd low>=60The White HospitalComment on above:Performed By: #### BEBA JAMES, CMP #### [facility] [address] [place] [address] Dr. Cecilio GuerreroGlobulin (S) [Mass/Vol]4.0 g/dLNormalThe White HospitalComment on above:Performed By: #### BEBA JAMES, CMP #### [facility] [address] [place] [address] Dr. Cecilio GuerreroGlucose [Mass/Vol]130 mg/dLCritically ttkn15-788Cao White HospitalComment on above:Performed By: #### LIPKrystin, BEBA, CMP #### [facility] [address] [place] [address] Dr. Cecilio GuerreroPotassium [Moles/Vol]4.3 mmol/LNormal3.5-5.1[facility] Comment on above:Performed By: #### LIPA BEBA, CMP #### [facility] [address] [place] [address] Dr. Cecilio GuerreroProtein [Mass/Vol]7.3 g/dLNormal6.4-8.2[facility] Comment on above:Performed By: #### BEBA JAMES, CMP #### [facility] [address] [place], [place] [address] Dr. Cecilio GuerreroSodium [Moles/Vol]141 mmol/KPqxoat907-158Wkl [facility] Comment on above:Performed By: #### BEBA JAMES, CMP #### [facility] [address] [place] [address] [address] Cecilio GuerreroUrea nitrogen [Mass/Vol]12.0 mg/dLNormal7.0-18.0The White HospitalComment on above:Performed By: #### BEBA JAMES, CMP #### [facility] [address] [address] [address] Cecilio Machado nitrogen/Creatinine [Mass ratio]12.1 mg/mgNormPremier Health Atrium Medical CenterComment on above:Performed By: #### BEBA JAMES, CMP #### [facility] [address] [place], [place] [address] Dr. Cecilio Allison SINGLE QUAD RT UPPERon [id number] SINGLE QUAD RT UPPEREXAM: US SINGLE QUAD RT UPPER HISTORY: . [...] Electronically authenticated by: ANNALISA DE Date: 2022-03-13 12:13[facility] STRESS/REST MULTIon [id number] STRESS/REST MULTIPatient: TAMY SAL Exam Date: 11/03/2021 : 1970 Gender:F Ordering : DR ERIC HALL . Admission #: [id number] Family : Order #: [id number] CLICK HERE TO VIEW EXAM RADIOLOGY REPORT [...] 2. Normal exercise test Dictated by: Annalisa Stevens MD on 11/04/2021 at 07:31 Approved by: Annalisa Stevens MD on 11/04/2021 at 07:34[facility] Antithyroglobulin Abon 05-75-9297Lgygswopttefvnxqw Ab<1.9Ntheft5.0-0.9[facility] SouthComment on above:Result Comment: Thyroglobulin Antibody measured by [employer] Performed at: - [facility] [address] [id number] Customer Service Sales Consultant: Fabrizio Herrera PhD, Phone: [phone] By: #### CHROMATIN, TPO, THYGLOB AB #### [facility] , #### ADDONUAPLUS #### [place] [address] USAChromatin Antibodyon 86-76-7206Pdpvukzar Antibody<0.2 Normal0.0-0.9[facility] Hospital SouthComment on above:Result Comment: Performed at: [facility] [id number] Customer Service Sales Consultant: Fabrizio Herrera PhD, Phone: [phone] PERFORMED BY: [place] [address] PATHOLOGIST CABLE SYSTEMS INSTALLER PAULA WILL M.D.Performed By: #### CHROMATIN, TPO, THYGLOB AB #### [facility] , #### ADDONUAPLUS #### [place] [address] USADipstick and Microscopicon 28-53-4420Qhmgaqutit (U)Clear NormalCleDayton VA Medical CenterComment on above:Order Comment: Name Collection Type:: Clean-Voided MidstreamPerformed By: #### CHROMATIN, TPO, THYGLOB AB #### [facility] , #### ADDONUAPLUS #### [place] [address] USABacteria,UrineNone SeenNormalNone SeenPremier Health Miami Valley Hospital SouthComment on above:Order Comment: Name Collection Type:: Clean- Voided MidstreamPerformed By: #### CHROMATIN, TPO, THYGLOB AB #### [facility] , #### ADDONUAPLUS #### [place] [address] USABilirubin,UrineNegativeNormalNegativePremier Health Miami Valley Hospital SouthComment on above:Order Comment: Name Collection Type:: Clean- Voided MidstreamPerformed By: #### CHROMATIN, TPO, THYGLOB AB #### [facility] , #### ADDONUAPLUS #### [place] [address] USAColor (U)YellowNormalYellowPremier Health Miami Valley Hospital SouthComment on above:Order Comment: Name Collection Type:: Clean-Voided MidstreamPerformed By: #### CHROMATIN, TPO, THYGLOB AB #### [facility] , #### ADDONUAPLUS #### [place] [address] USAGlucose Ql (U)NormalNormalNormalPremier Health Miami [facility] Hospital SouthComment on above:Order Comment: Name Collection Type:: Clean-Voided MidstreamPerformed By: #### CHROMATIN, TPO, THYGLOB AB #### [facility] , #### ADDONUAPLUS #### [place] [address] USAHyaline Casts,Gyfvv9-7Rrqcdz6-0RdufaluhlPremier Health Miami Valley Hospital SouthComment on above:Order Comment: Name Collection Type:: Clean-Voided MidstreamResult Comment: PERFORMED BY: [place] [address] PATHOLOGIST CABLE SYSTEMS INSTALLER PAULA WILL M.D.Performed By: #### CHROMATIN, TPO, THYGLOB AB #### [facility] , #### ADDONUAPLUS #### [place] [address] USAKetones Ql (U)TraceHighNegativePremier Health Miami Valley Hospital SouthComment on above:Order Comment: Name Collection Type:: Clean-Voided MidstreamPerformed By: #### CHROMATIN, TPO, THYGLOB AB #### [facility] , #### ADDONUAPLUS #### [facility] [address] [place] [address] USALeukocyte esterase Test strip Ql (U)NegativeNormalNegative [facility] SouthComment on above:Order Comment: Name Collection Type:: Clean-Voided MidstreamPerformed By: #### CHROMATIN, TPO, THYGLOB AB #### [facility] , #### ADDONUAPLUS #### [place] [address] USANitrite,UrineNegativeNormalNegativePremier Health Miami Valley Hospital SouthComment on above:Order Comment: Name Collection Type:: Clean- Voided MidstreamPerformed By: #### CHROMATIN, TPO, THYGLOB AB #### [facility] , #### ADDONUAPLUS #### [place] [address] USAOccult Blood,UrineNegativeNormalNegSelect Medical Specialty Hospital - AkronCommunson healthcare [facility] on above:Order Comment: Name Collection Type:: Clean- Voided MidstreamPerformed By: #### CHROMATIN, TPO, THYGLOB AB #### [facility] , #### ADDONUAPLUS #### [place] [address] USApH (U)6.5 [pH]Normal5.0-9.0[facility] SouthComment on above:Order Comment: Name Collection Type:: Clean-Voided MidstreamPerformed By: #### CHROMATIN, TPO, THYGLOB AB #### [facility] , #### ADDONUAPLUS #### [place] [address] USAProtein,UrineNegativeNormalNegSelect Medical Specialty Hospital - AkronCommunson healthcare [facility] on above:Order Comment: Name Collection Type:: Clean- Voided MidstreamPerformed By: #### CHROMATIN, TPO, THYGLOB AB #### [facility] , #### ADDONUAPLUS #### [place] [address] USARBC LM.HPF (Urine sed) [#/Area]0 /[HPF]Normal0-4FMetroHealth Parma Medical CenterCommunson healthcare [facility] on above:Order Comment: Name Collection Type:: Clean-Voided MidstreamPerformed By: #### CHROMATIN, TPO, THYGLOB AB #### [facility] , #### ADDONUAPLUS #### [place] [address] USASpecificy Mayetta,Urine1.543Lccsgj4.001-1.030[facility] Hospital SouthComment on above:Order Comment: Name Collection Type:: Clean-Voided MidstreamPerformed By: #### CHROMATIN, TPO, THYGLOB AB #### [facility] , #### ADDONUAPLUS #### [place] [address] USASquamous Epithelial Cell,Bpaom8-5Guceol4-2EkyeamffyMetroHealth Parma Medical CenterComment on above:Order Comment: Name Collection Type:: Clean-Voided MidstreamPerformed By: #### CHROMATIN, TPO, THYGLOB AB #### [facility] , #### ADDONUAPLUS #### [place] [address] USAUrobilinogen,UrineNormalNormalNormalPremier Health Miami [facility] Hospital SouthComment on above:Order Comment: Name Collection Type:: Clean- Voided MidstreamPerformed By: #### CHROMATIN, TPO, THYGLOB AB #### [facility] , #### ADDONUAPLUS #### [place] [address] USAWBC LM.HPF (Urine sed) [#/Area]0 /[HPF]Normal0-4FMetroHealth Parma Medical CenterComment on above:Order Comment: Name Collection Type:: Clean-Voided MidstreamPerformed By: #### CHROMATIN, TPO, THYGLOB AB #### [facility] , #### ADDONUAPLUS #### [place] [address] USAThyroid Peroxidase Antibodieson 90-01-9996Bojgitn Peroxidase Antibodies<6Igymwr9-33PzpnddasgPremier Health Miami Valley Hospital SouthComment on above:Result Comment: Performed at: - [facility] [id number] Customer Service Sales Consultant: Fabrizio Herrera PhD, Phone: [phone] By: #### CHROMATIN, TPO, THYGLOB AB #### [facility] , #### ADDONUAPLUS #### [facility] [address] [place] [address] USAANA Antinuclear Antibodieson 91-38-5457Asmnptzqzjg Abs, IFAPositiveCritically abnormal.[facility] SouthCommunson healthcare [facility] on above:Result Comment: Negative <1:80 Borderline 1:80 Positive >1:80Performed By: #### CHROMATIN, TPO, THYGLOB AB #### [facility] , #### ADDONUAPLUS #### [facility] [address] [place] [address] USAHomogeneous Pattern1:160High.[facility] SouthCommunson healthcare [facility] on above:Result Comment: ICAP nomenclature: AC-1Performed By: #### CHROMATIN, TPO, THYGLOB AB #### [facility] , #### ADDONUAPLUS #### [facility] [address] [place] [address] USANote 1Normal.[facility] SouthCommunson healthcare [facility] on above:Result Comment: For more information about Hep-2 cell [...] titers Nucleosomes, Histones Drug-induced SLE Speckled Sm, ENGRAVER JEWELRY, SCL-70, SLE,MCTD,PSS (diffuse form), SS-A/SS-B Sjogrens Nucleolar SCL-70, PM-1/SCL High titers Scleroderma, PM/DM Centromere Centromere PSS (limited form) w/Crest syndrome variable Nuclear Dot Sp100,u49-kkcasw Primary Biliary Cirrhosis Nuclear GP210, Primary Biliary Cirrhosis Membrane souleymane A,B,C Performed at: - [facility], [place], [place] [id number] Customer Service Sales Consultant: Fabrizio Herrera PhD, Phone: [phone] By: #### CHROMATIN, TPO, THYGLOB AB #### [facility] , #### ADDONUAPLUS #### [address] [address] USAC-Reactive Proteinon 50-77-2570W-Reactive Protein0.7 mg/dL Normal0.0-1.0[facility] Hospital SouthComment on above:Performed By: #### RPR W RFX, SADE,URINE, SPE, UPE RAND, SADE SERUM, SHIV #### [facility] , #### CMP, TSH3, CRP, T4F, CK, ADDONUAPLUS #### [facility] [address] [place] [address] USAComplement C3on 51-04-4906Gorfbwista C3147 mg/dLNormal 82-167[facility] Hospital SouthComment on above:Result Comment: Performed at: [facility] [id number] Customer Service Sales Consultant: Fabrizio Herrera PhD, Phone: [phone] By: #### CHROMATIN, TPO, THYGLOB AB #### [facility] , #### ADDONUAPLUS #### [facility] [address] [place] [address] USAComplement C4on 21-10-6018Ajbyhjklrc C425 mg/yPYvoxap52-27 [facility] SouthComment on above:Performed By: #### CHROMATIN, TPO, THYGLOB AB #### [facility] , #### ADDONUAPLUS #### [facility] [address] [place] [address] USAComplement Total (CH50)on 92-75-9707Zowbosmrot Total (CH50)>60Normal>41[facility] Hospital SouthComment on above:Result Comment: Age Male Female 1 - 30 [...] determine out of range values. Performed at: [facility] [address] [id number] Customer Service Sales Consultant: Fabrizio Herrera PhD, Phone: [phone] PERFORMED BY: [place] [address] PATHOLOGIST CABLE SYSTEMS INSTALLER PAULA WILL M.D.Performed By: #### CHROMATIN, TPO, THYGLOB AB #### [facility] , #### ADDONUAPLUS #### [place] [address] USAComplete Blood Count Auto Diffon 71-50-0684Qikopldjl (Bld) [#/Vol]0.1 10*3/uLNormal0.0-0.2FMetroHealth Parma Medical CenterComment on above:Performed By: #### CHROMATIN, TPO, THYGLOB AB #### [facility] , #### ADDONUAPLUS #### [place] [address] USABasophils/100 WBC (Bld)1.1 %Normal.[facility] SouthComment on above:Performed By: #### CHROMATIN, TPO, THYGLOB AB #### [facility] , #### ADDONUAPLUS #### [place] [address] USAEosinophils (Bld) [#/Vol]0.3 10*3/uLNormal0.0-0.45 [facility] SouthComment on above:Performed By: #### CHROMATIN, TPO, THYGLOB AB #### [facility] , #### ADDONUAPLUS #### [place] [address] USAEosinophils/100 WBC (Bld)3.7 %Normal.[facility] SouthComment on above:Performed By: #### CHROMATIN, TPO, THYGLOB AB #### [facility] , #### ADDONUAPLUS #### [place] [address] USAErythrocyte distribution width (RBC) [Ratio]12.5 %Normal 11.9-15.3FMetroHealth Parma Medical CenterComment on above:Performed By: #### CHROMATIN, TPO, THYGLOB AB #### [facility] , #### ADDONUAPLUS #### [place] [address] USAHematocrit (Bld) [Volume fraction]40.3 %Lubpsr98.0-46.4 [facility] SouthComment on above:Performed By: #### CHROMATIN, TPO, THYGLOB AB #### [facility] , #### ADDONUAPLUS #### [place] [address] USAHemoglobin (Bld) [Mass/Vol]13.5 g/oFHdmbic90.8-15.4 [facility] SouthComment on above:Performed By: #### CHROMATIN, TPO, THYGLOB AB #### [facility] , #### ADDONUAPLUS #### [place] [address] USALymphocytes (Bld) [#/Vol]2.4 10*3/uLNormal1.00-4.8 [facility] SouthComment on above:Performed By: #### CHROMATIN, TPO, THYGLOB AB #### [facility] , #### ADDONUAPLUS #### [facility] [address] [place] [address] USALymphocytes/100 WBC (Bld)33.7 %Normal.[facility] SouthComment on above:Performed By: #### CHROMATIN, TPO, THYGLOB AB #### [facility] , #### ADDONUAPLUS #### [facility] [address] [place] [address] USAMCH (RBC) [Entitic mass]31.3 fgRvzyml56.7-34.3FMetroHealth Parma Medical CenterComment on above:Performed By: #### CHROMATIN, TPO, THYGLOB AB #### [facility] , #### ADD[address]LUS #### [place] [address] USAMCV (RBC) [Entitic vol]93.6 jWRbtlhy32-776DypgwlwhyPremier Health Miami [facility] Hospital SouthComment on above:Performed By: #### CHROMATIN, TPO, THYGLOB AB #### [facility] , #### ADDONUAPLUS #### [place] [address] USAMean Corpuscular HGB Conc33.5 g/kQUlmcpr87.0-35.0[facility] SouthComment on above:Performed By: #### CHROMATIN, TPO, THYGLOB AB #### [facility] , #### ADDONUAPLUS #### [place] [address] USAMonocytes (Bld) [#/Vol]0.5 10*3/uLNormal0.0-0.8[facility] SouthComment on above:Performed By: #### CHROMATIN, TPO, THYGLOB AB #### [facility] , #### ADDONUAPLUS #### [place] [address] USAMonocytes/100 WBC (Bld)7.1 %Normal.[facility] SouthComment on above:Performed By: #### CHROMATIN, TPO, THYGLOB AB #### [facility] , #### ADDONUAPLUS #### [place] [address] USANeutrophils (Bld) [#/Vol]3.9 10*3/uLNormal1.8-7.7FMetroHealth Parma Medical CenterComment on above:Performed By: #### CHROMATIN, TPO, THYGLOB AB #### [facility] , #### ADDONUAPLUS #### [place] [address] USANeutrophils/100 WBC (Bld)54.4 %Normal.[facility] SouthComment on above:Performed By: #### CHROMATIN, TPO, THYGLOB AB #### [facility] , #### ADDONUAPLUS #### [place] [address] USANucleated RBC/100 WBC (Bld) [Ratio]0.1 %Normal0-0.5 [facility] SouthComment on above:Performed By: #### CHROMATIN, TPO, THYGLOB AB #### [facility] , #### ADDONUAPLUS #### [place] [address] USAPlatelet mean volume (Bld) [Entitic vol]7.3 fLNormal 6.3-10.7FMetroHealth Parma Medical CenterComment on above:Performed By: #### CHROMATIN, TPO, THYGLOB AB #### [facility] , #### ADDONUAPLUS #### [place] [address] USAPlatelets (Bld) [#/Vol]397 10*3/iGJulduk122-219DvvxxflusPremier Health Miami [facility] Hospital SouthComment on above:Performed By: #### CHROMATIN, TPO, THYGLOB AB #### [facility] , #### ADDONUAPLUS #### [place] [address] USARBC (Bld) [#/Vol]4.31 10*6/uLNormal3.60-5.00[facility] SouthComment on above:Performed By: #### CHROMATIN, TPO, THYGLOB AB #### [facility] , #### ADDONUAPLUS #### [place] [address] USAWBC (Bld) [#/Vol]7.1 10*3/uLNormal4.5-11.0[facility] SouthComment on above:Performed By: #### CHROMATIN, TPO, THYGLOB AB #### [facility] , #### ADDONUAPLUS #### [place] [address] USAComprehensive Metabolic Panelon 36-97-5421Fwrahrn [Mass/Vol]3.7 g/dLNormal3.2-5.5FMetroHealth Parma Medical CenterComment on above:Performed By: #### RPR W RFX, SADE,URINE, SPE, UPE RAND, SADE SERUM, SHIV #### [facility] , #### CMP, TSH3, CRP, T4F, CK, ADDONUAPLUS #### [place] [address] USAAlbumin/Globulin [Mass ratio]1.1 {ratio}Wood County HospitalComment on above:Performed By: #### RPR W RFX, SADE,URINE, SPE, UPE RAND, SADE SERUM, SHIV #### [facility] , #### CMP, TSH3, CRP, T4F, CK, ADDONUAPLUS #### [facility] [address] [place] [address] USAALP [Catalytic activity/Vol]73 U/TUhvveg67-17OsagckxjsPremier Health Miami [facility] Hospital SouthComment on above:Performed By: #### RPR W RFX, SADE,URINE, SPE, UPE RAND, SADE SERUM, SHIV #### [facility] , #### CMP, TSH3, CRP, T4F, CK, ADDONUAPLUS #### [facility] [address] [place] [address] USAALT [Catalytic activity/Vol]38 U/HKvhhgf97-14ApjkyckyePremier Health Miami [facility] Hospital SouthComment on above:Performed By: #### RPR W RFX, SADE,URINE, SPE, UPE RAND, SADE SERUM, SHIV #### [facility] , #### CMP, TSH3, CRP, T4F, CK, ADDONUAPLUS #### [facility] [address] [place] [address] USAAST [Catalytic activity/Vol]26 U/IOvyxxk74-32OogprrbshPremier Health Miami [facility] Hospital SouthComment on above:Performed By: #### RPR W RFX, SADE,URINE, SPE, UPE RAND, SADE SERUM, SHIV #### [facility] , #### CMP, TSH3, CRP, T4F, CK, ADDONUAPLUS #### [place] [address] USABilirubin [Mass/Vol]0.5 mg/dLNormal0.3-1.2FMetroHealth Parma Medical CenterComment on above:Performed By: #### RPR W RFX, SADE,URINE, SPE, UPE RAND, SADE SERUM, SHIV #### [facility] , #### CMP, TSH3, CRP, T4F, CK, ADDONUAPLUS #### [place] [address] USACalcium [Mass/Vol]10.1 mg/dLNormal8.2-10.2FMetroHealth Parma Medical CenterComment on above:Performed By: #### RPR W RFX, SADE,URINE, SPE, UPE RAND, SADE SERUM, SHIV #### [facility] , #### CMP, TSH3, CRP, T4F, CK, ADDONUAPLUS #### [facility] [address] [place] [address] USAChloride [Moles/Vol]101 mmol/CFmnqrz58-197SzjbfgkfxPremier Health Miami [facility] Hospital SouthComment on above:Performed By: #### RPR W RFX, SADE,URINE, SPE, UPE RAND, SADE SERUM, SHIV #### [facility] , #### CMP, TSH3, CRP, T4F, CK, ADDONUAPLUS #### [facility] [address] [place] [address] USACO2 [Moles/Vol]29.4 mmol/JPjgaza35.0-30.0[facility] SouthComment on above:Performed By: #### RPR W RFX, SADE,URINE, SPE, UPE RAND, SADE SERUM, SHIV #### [facility] , #### CMP, TSH3, CRP, T4F, CK, ADDONUAPLUS #### [place] [address] USACreatinine [Mass/Vol]0.99 mg/dLNormal0.44-1.03[facility] SouthComment on above:Performed By: #### RPR W RFX, SADE,URINE, SPE, UPE RAND, SADE SERUM, SHIV #### [facility] , #### CMP, TSH3, CRP, T4F, CK, ADDONUAPLUS #### [place] [address] USAEstimated GFR ( Patricia> 60NoKettering Health DaytonComment on above:Result Comment: GFR estimated reference range: According to KDOQI guidelines, <60 ml/min/1.73m2 is sufficient to diagnose a patient with chronic kidney disease.Performed By: #### RPR W RFX, SADE,URINE, SPE, UPE RAND, SADE SERUM, SHIV #### [facility] , #### CMP, TSH3, CRP, T4F, CK, ADDONUAPLUS #### [facility] [address] [place] [address] USAEstimated GFR (Non- Ns22FvwiodBayymvtjtKettering Health DaytonComment on above:Performed By: #### RPR W RFX, SADE,URINE, SPE, UPE RAND, SADE SERUM, SHIV #### [facility] , #### CMP, TSH3, CRP, T4F, CK, ADDONUAPLUS #### [place] [address] USAGlobulin (S) [Mass/Vol]3.3 g/dLNoKettering Health DaytonComment on above:Performed By: #### RPR W RFX, SADE,URINE, SPE, UPE RAND, SADE SERUM, SHIV #### [facility] , #### CMP, TSH3, CRP, T4F, CK, ADDONUAPLUS #### [facility] [address] [place] [address] USAGlucose [Mass/Vol]111 mg/wBGped05-801SmjwjhnusPremier Health Miami Valley Hospital SouthComment on above:Result Comment: Random Glucose Reference Range is dependent on time and content of last meal. Glucose of more than 200 mg/dL in a nonstressed, ambulatory subject supports the diagnosis of Diabetes Mellitus. ADA recommended reference rangePerformed By: #### RPR W RFX, SADE,URINE, SPE, UPE RAND, SADE SERUM, SHIV #### [facility] , #### CMP, TSH3, CRP, T4F, CK, ADDONUAPLUS #### [place] [address] USAPotassium [Moles/Vol]4.7 mmol/LNormal3.5-5.1FMetroHealth Parma Medical CenterComment on above:Performed By: #### RPR W RFX, SADE,URINE, SPE, UPE RAND, SADE SERUM, SHIV #### [facility] , #### CMP, TSH3, CRP, T4F, CK, ADDONUAPLUS #### [place] [address] USAProtein [Mass/Vol]7.0 g/dLNormal6.1-7.9[facility] SouthComment on above:Performed By: #### RPR W RFX, SADE,URINE, SPE, UPE RAND, SADE SERUM, SHIV #### [facility] , #### CMP, TSH3, CRP, T4F, CK, ADDONUAPLUS #### [place] [address] USASodium [Moles/Vol]140 mmol/QIgkziz437-829FwubjdpjqPremier Health Miami [facility] Hospital SouthComment on above:Performed By: #### RPR W RFX, SADE,URINE, SPE, UPE RAND, SADE SERUM, SHIV #### [facility] , #### CMP, TSH3, CRP, T4F, CK, ADDONUAPLUS #### [facility] [address] [place] [address] USAUrea nitrogen [Mass/Vol]10 mg/dLNormal9-23[facility] SouthComment on above:Performed By: #### RPR W RFX, SADE,URINE, SPE, UPE RAND, SADE SERUM, SHIV #### [facility] , #### CMP, TSH3, CRP, T4F, CK, ADDONUAPLUS #### [facility] [address] [place] [address] USACreatine Kinaseon 80-24-4550GY [Catalytic activity/Vol]47 U/QGotgcd67-898TnrklaknpPremier Health Miami Valley Hospital SouthComment on above:Result Comment: PERFORMED BY: [place] [address] PATHOLOGIST CABLE SYSTEMS INSTALLER PAULA WILL M.D.Performed By: #### RPR W RFX, SADE,URINE, SPE, UPE RAND, SADE SERUM, SHIV #### [facility] , #### CMP, TSH3, CRP, T4F, CK, ADDONUAPLUS #### [facility] [address] [place] [address] USADipstick and Microscopicon 65-17-8877Einrsrfeab (U)Cloudy Critically abnormalCleDayton VA Medical CenterComment on above:Order Comment: Name Collection Type:: Clean-Voided MidstreamPerformed By: #### RPR W RFX, SADE,URINE, SPE, UPE RAND, SADE SERUM, SHIV #### [facility] , #### CMP, TSH3, CRP, T4F, CK, ADDONUAPLUS #### [place] [address] USABacteria,UrineNone SeenNormalNone SeenPremier Health Miami Valley Hospital SouthComment on above:Order Comment: Name Collection Type:: Clean- Voided MidstreamPerformed By: #### RPR W RFX, SADE,URINE, SPE, UPE RAND, SADE SERUM, SHIV #### [facility] , #### CMP, TSH3, CRP, T4F, CK, ADDONUAPLUS #### [place] [address] USABilirubin,UrineNegativeNormalNegativePremier Health Miami Valley Hospital SouthCommunson healthcare [facility] on above:Order Comment: Name Collection Type:: Clean- Voided MidstreamPerformed By: #### RPR W RFX, SADE,URINE, SPE, UPE RAND, SAED SERUM, SHIV #### [facility] , #### CMP, TSH3, CRP, T4F, CK, ADDONUAPLUS #### [place] [address] USAColor (U)Dark YellowCritically abnormalYelMercer County Community HospitalComment on above:Order Comment: Name Collection Type:: Clean-Voided MidstreamPerformed By: #### RPR W RFX, SADE,URINE, SPE, UPE RAND, SADE SERUM, SHIV #### [facility] , #### CMP, TSH3, CRP, T4F, CK, ADDONUAPLUS #### [place] [address] USAGlucose Ql (U)NormalNormalNormalPremier Health Miami Valley Hospital SouthComment on above:Order Comment: Name Collection Type:: Clean-Voided MidstreamPerformed By: #### RPR W RFX, SADE,URINE, SPE, UPE RAND, SADE SERUM, SHIV #### [facility] , #### CMP, TSH3, CRP, T4F, CK, ADDONUAPLUS #### [place] [address] USAHyaline Casts,Hofbz3-0Dklcpu1-8QujvmechnPremier Health Miami Valley Hospital SouthComment on above:Order Comment: Name Collection Type:: Clean-Voided MidstreamResult Comment: PERFORMED BY: [place] [address] PATHOLOGIST CABLE SYSTEMS INSTALLER PAULA WILL M.D.Performed By: #### RPR W RFX, SADE,URINE, SPE, UPE RAND, SADE SERUM, SHIV #### [facility] , #### CMP, TSH3, CRP, T4F, CK, ADDONUAPLUS #### [place] [address] USAKetones Ql (U)TraceHighNegSelect Medical Specialty Hospital - AkronCommunson healthcare [facility] on above:Order Comment: Name Collection Type:: Clean-Voided MidstreamPerformed By: #### RPR W RFX, SADE,URINE, SPE, UPE RAND, SADE SERUM, SHIV #### [facility] , #### CMP, TSH3, CRP, T4F, CK, ADDONUAPLUS #### [place] [address] USALeukocyte esterase Test strip Ql (U)1+HighNegative [facility] SouthCommunson healthcare [facility] on above:Order Comment: Name Collection Type:: Clean-Voided MidstreamPerformed By: #### RPR W RFX, SADE,URINE, SPE, UPE RAND, SADE SERUM, SHIV #### [facility] , #### CMP, TSH3, CRP, T4F, CK, ADDONUAPLUS #### [facility] [address] [place] [address] USANitrite,UrineNegativeNormalNegSelect Medical Specialty Hospital - AkronComment on above:Order Comment: Name Collection Type:: Clean- Voided MidstreamPerformed By: #### RPR W RFX, SADE,URINE, SPE, UPE RAND, SADE SERUM, SHIV #### [facility] , #### CMP, TSH3, CRP, T4F, CK, ADDONUAPLUS #### [place] [address] USAOccult Blood,UrineNegativeNormalNegativePremier Health Miami Valley Hospital SouthComment on above:Order Comment: Name Collection Type:: Clean- Voided MidstreamPerformed By: #### RPR W RFX, SADE,URINE, SPE, UPE RAND, SADE SERUM, SHIV #### [facility] , #### CMP, TSH3, CRP, T4F, CK, ADDONUAPLUS #### [place] [address] USApH (U)8.5 [pH]Normal5.0-9.0Prem[facility] Hospital SouthComment on above:Order Comment: Name Collection Type:: Clean-Voided MidstreamPerformed By: #### RPR W RFX, SADE,URINE, SPE, UPE RAND, SADE SERUM, SHIV #### [facility] , #### CMP, TSH3, CRP, T4F, CK, ADDONUAPLUS #### [place] [address] USAProtein,UrineTraceHighNegativePremier Health Miami Valley Hospital SouthComment on above:Order Comment: Name Collection Type:: Clean-Voided MidstreamPerformed By: #### RPR W RFX, SADE,URINE, SPE, UPE RAND, SADE SERUM, SHIV #### [facility] , #### CMP, TSH3, CRP, T4F, CK, ADDONUAPLUS #### [place] [address] USARBC,Omcgf7-8Foddjo4-8EizdrwdlzMetroHealth Par[facility] Center Comment on above:Order Comment: Name Collection Type:: Clean-Voided Midstream Performed By: #### RPR W RFX, SADE,URINE, SPE, UPE RAND, SADE SERUM, SHIV #### [facility] , #### CMP, TSH3, CRP, T4F, CK, ADDONUAPLUS #### [place] [address] USASpecificy Mayetta,Urine1.900Yostyn6.001-1.030Prem[facility] Hospital SouthComment on above:Order Comment: Name Collection Type:: Clean-Voided MidstreamPerformed By: #### RPR W RFX, SADE,URINE, SPE, UPE RAND, SADE SERUM, SHIV #### [facility] , #### CMP, TSH3, CRP, T4F, CK, ADDONUAPLUS #### [place] [address] USASquamous Epithelial Cell,Dkghl0-6Nsflwh8-0FdcswoxraMetroHealth Parma Medical CenterComment on above:Order Comment: Name Collection Type:: Clean-Voided MidstreamPerformed By: #### RPR W RFX, SADE,URINE, SPE, UPE RAND, SADE SERUM, SHIV #### [facility] , #### CMP, TSH3, CRP, T4F, CK, ADDONUAPLUS #### [place] [address] USAUrobilinogen,UrineNormalNormalNormalPremier Health Miami Valley Hospital SouthComment on above:Order Comment: Name Collection Type:: Clean- Voided MidstreamPerformed By: #### RPR W RFX, SADE,URINE, SPE, UPE RAND, SADE SERUM, SHIV #### [facility] , #### CMP, TSH3, CRP, T4F, CK, ADDONUAPLUS #### [place] [address] USAWBC,Xvdxs0-2Vvkmxr3-8JocvvipvjMetroHealth Parma Medical Center Comment on above:Order Comment: Name Collection Type:: Clean-Voided Midstream Performed By: #### RPR W RFX, SADE,URINE, SPE, UPE RAND, SADE SERUM, SHIV #### [facility] , #### CMP, TSH3, CRP, T4F, CK, ADDONUAPLUS #### [place] [address] USAErythrocyte Sedimentation Rateon 29-60-9619ZNV (Bld) [Velocity]27 mm/hNormal0-29Prem[facility] Hospital SouthComment on above: Result Comment: PERFORMED BY: [place] [address] PATHOLOGIST CABLE SYSTEMS INSTALLER PAULA WILL M.D.Performed By: #### CHROMATIN, TPO, THYGLOB AB #### [facility] , #### ADDONUAPLUS #### [place] [address] USAFree T4 (Free Thyroxine)on 29-70-9670Fesh T4 [Mass/Vol] 0.95 ng/dLNormal0.61-1.12Prem[facility] SouthComment on above: Performed By: #### RPR W RFX, SADE,URINE, SPE, UPE RAND, SADE SERUM, SHIV #### [facility] , #### CMP, TSH3, CRP, T4F, CK, ADDONUAPLUS #### [place] [address] USAImmunofixation, (SDAE), Urineon 43-73-0955Dbgvkdwftlxvuj, (SADE), UrineNormal.Prem[facility] Hospital SouthComment on above:Result Comment: No monoclonality detected. Performed at: - [facility] [id number] Customer Service Sales Consultant: Fabrizio Herrera PhD, Phone: [phone] By: #### CHROMATIN, TPO, THYGLOB AB #### [facility] , #### ADDONUAPLUS #### [facility] [address] [place] [address] USAImmunofixation,Serumon 01-84-9107Rfhzodkozubwgs, Serum Normal.[facility] Hospital SouthComment on above:Result Comment: No monoclonality detected.Performed By: #### CHROMATIN, TPO, THYGLOB AB #### [facility] , #### ADDONUAPLUS #### [facility] [address] [place] [address] USAImmunoglobulin A, Gbmgy862 mg/nBEndo31-939ChirtqqfxPremier Health Miami Valley Hospital SouthComment on above:Performed By: #### CHROMATIN, TPO, THYGLOB AB #### [facility] , #### ADDONUAPLUS #### [facility] [address] [place] [address] USAImmunoglobulin G1486 mg/nLLhrhox647-0454VpbghvebmPremier Health Miami Valley Hospital SouthComment on above:Performed By: #### CHROMATIN, TPO, THYGLOB AB #### [facility] , #### ADDONUAPLUS #### [place] [address] USAImmunoglobulin M, Serum66 mg/wWQbknyq76-241HxvvvdmrsPremier Health Miami Valley Hospital SouthComment on above:Result Comment: Performed at: [facility] [address] [place] [id number] Customer Service Sales Consultant: Fabrizio Herrera PhD, Phone: [phone] By: #### CHROMATIN, TPO, THYGLOB AB #### [facility] , #### ADDONUAPLUS #### [place] [address] USALupus Anticoagulant Compon 84-56-6758Rgjxei Prothrombin Time (dPt)37.1Ucokpg9.0-47.6FMetroHealth Parma Medical CenterComment on above: Performed By: #### CHROMATIN, TPO, THYGLOB AB #### [facility] , #### ADDONUAPLUS #### [facility] [address] [place] [address] USAdPT Confirm Ratio1.10Pqntnf8.00-1.34[facility] Hospital SouthComment on above:Performed By: #### CHROMATIN, TPO, THYGLOB AB #### [facility] , #### ADDONUAPLUS #### [place] [address] USADRVVT Lupus35.6Ljhxlx0.0-47.0[facility] Hospital SouthComment on above:Performed By: #### CHROMATIN, TPO, THYGLOB AB #### [facility] , #### ADDONUAPLUS #### [place] [address] USAInterpretationComment:Normal.[facility] Hospital SouthComment on above:Result Comment: No lupus anticoagulant was detected. Performed at: - [facility] [address] [id number] Customer Service Sales Consultant: Rainer Bennett MD, Phone: [phone] PERFORMED BY: [place] [address] PATHOLOGIST CABLE SYSTEMS INSTALLER PAULA WILL M.D.Performed By: #### CHROMATIN, TPO, THYGLOB AB #### [facility] , #### ADDONUAPLUS #### [place] [address] USAPTT-LA29.3Oqmgyg8.0-51.9[facility] Comment on above:Performed By: #### CHROMATIN, TPO, THYGLOB AB #### [facility] , #### ADDONUAPLUS #### [place] [address] USAThrombin Time17.1Oobllc0.0-23.0[facility] Hospital SouthComment on above:Performed By: #### CHROMATIN, TPO, THYGLOB AB #### [facility] , #### ADDONUAPLUS #### [place] [address] USAPartial Thromboplastin Timeon 32-65-3697aCJV Coag (Bld) [Time]33.6 iOajgye23.1-36.5FMetroHealth Parma Medical CenterComment on above: Order Comment: List the anticoagulant: NONEResult Comment: PERFORMED BY: [address] [address] PATHOLOGIST CABLE SYSTEMS INSTALLER PAULA WILL M.D.Performed By: #### CHROMATIN, TPO, THYGLOB AB #### [facility] , #### ADDONUAPLUS #### [place] [address] USAProtein Electro, Random Urineon 00-79-6883Fquiblm, Urine 30.6 %Normal.[facility] SouthComment on above:Performed By: #### CHROMATIN, TPO, THYGLOB AB #### [facility] , #### ADDONUAPLUS #### [place] [address] MKUObcvt-1-Uqhctrqr, Urine7.3 %Normal.[facility] SouthComment on above:Performed By: #### CHROMATIN, TPO, THYGLOB AB #### [facility] , #### ADDONUAPLUS #### [place] [address] MRMSoyqt-5-Hhfvgjxs, Urine25.1 %Normal.[facility] SouthComment on above:Performed By: #### CHROMATIN, TPO, THYGLOB AB #### [facility] , #### ADDONUAPLUS #### [place] [address] USABeta Globulin, Urine29.0 %Normal.[facility] Hospital SouthComment on above:Performed By: #### CHROMATIN, TPO, THYGLOB AB #### [facility] , #### ADDONUAPLUS #### [place] [address] USAGamma Globulin, Urine8.0 %Normal.[facility] Hospital SouthComment on above:Performed By: #### CHROMATIN, TPO, THYGLOB AB #### [facility] , #### ADDONUAPLUS #### [place] [address] USAM-Ahsan %Not ObservedNormalNot ObservedFirelands Regional Medical CenterComment on above:Performed By: #### CHROMATIN, TPO, THYGLOB AB #### [facility] , #### ADDONUAPLUS #### [facility] [address] [place] [address] USAPlease Note:Normal.[facility] Comment on above:Result Comment: Protein electrophoresis scan will follow via computer, mail, or information technology data analyst delivery. Protein electrophoresis scan will follow via computer, mail, or information technology data analyst delivery. Performed at: [address] [id number] Customer Service Sales Consultant: Fabrizio Herrera PhD, Phone: TAKO --- 05/29/21 1308 --- Please Note: previously reported as: Protein electrophoresis scan will follow via computer, mail, or information technology data analyst delivery. Protein electrophoresis scan will follow via computer, mail, or information technology data analyst delivery. Performed at: [address] [id number] Customer Service Sales Consultant: Fabrizio Herrera PhD, Phone: TAKO --- 06/04/21 1109 --- Please Note: previously reported as: Protein electrophoresis scan will follow via computer, mail, or information technology data analyst delivery. Protein electrophoresis scan will follow via computer, mail, or information technology data analyst delivery. Performed at: [address] [id number] Customer Service Sales Consultant: Fabrizio Herrera PhD, Phone: TAKO --- 05/29/21 1308 --- Please Note: previously reported as: Protein electrophoresis scan will follow via computer, mail, or information technology data analyst delivery. PERFORMED BY: [place] [address] PATHOLOGIST CABLE SYSTEMS INSTALLER PAULA WILL M.D.Performed By: #### CHROMATIN, TPO, THYGLOB AB #### [facility] , #### ADDONUAPLUS #### [facility] [address] [place] [address] USAProtein (U) [Mass/Vol]18.9 mg/dLNormalNot Estab.[facility] Hospital SouthComment on above:Performed By: #### CHROMATIN, TPO, THYGLOB AB #### [facility] , #### ADDONUAPLUS #### [place] [address] USAProtein Electrophoresis, Serumon 46-42-0666Vieimyr [Mass/Vol]3.6 g/dLNormal2.9-4.4FMetroHealth Parma Medical CenterComment on above:Performed By: #### CHROMATIN, TPO, THYGLOB AB #### [facility] , #### ADDONUAPLUS #### [place] [address] USAAlbumin/Globulin [Mass ratio]1.0 {ratio}Normal0.7-1.7 [facility] Hospital SouthComment on above:Performed By: #### CHROMATIN, TPO, THYGLOB AB #### [facility] , #### ADDONUAPLUS #### [place] [address] OUCNvgva-7-Lkqdflix7.2 g/dLNormal0.0-0.4FMetroHealth Parma Medical CenterComment on above:Performed By: #### CHROMATIN, TPO, THYGLOB AB #### [facility] , #### ADDONUAPLUS #### [place] [address] YJQUjdzf-7-Vboiistc8.8 g/dLNormal0.4-1.0[facility] Hospital SouthComment on above:Performed By: #### CHROMATIN, TPO, THYGLOB AB #### [facility] , #### ADDONUAPLUS #### [facility] [address] [place] [address] USABeta Globulin1.4 g/dLHigh0.7-1.3FMetroHealth Parma Medical CenterComment on above:Performed By: #### CHROMATIN, TPO, THYGLOB AB #### [facility] , #### ADDONUAPLUS #### [place] [address] USAGamma Globulin1.3 g/dLNormal0.4-1.8[facility] SouthComment on above:Performed By: #### CHROMATIN, TPO, THYGLOB AB #### [facility] , #### ADDONUAPLUS #### [place] [address] USAGlobulin (S) [Mass/Vol]3.7 g/dLNormal2.2-3.9[facility] SouthComment on above:Performed By: #### CHROMATIN, TPO, THYGLOB AB #### [facility] , #### ADDONUAPLUS #### [place] [address] USAM-SpikeNot ObservedNormalNot ObservedPremier Health Miami Valley Hospital SouthComment on above:Performed By: #### CHROMATIN, TPO, THYGLOB AB #### [facility] , #### ADDONUAPLUS #### [place] [address] USAProtein [Mass/Vol]7.3 g/dLNormal6.0-8.5FMetroHealth Parma Medical CenterComment on above:Performed By: #### CHROMATIN, TPO, THYGLOB AB #### [facility] , #### ADDONUAPLUS #### [place] [address] USASPE-NoteNormal.[facility] SouthComment on above:Result Comment: Protein electrophoresis scan will follow via computer, mail, or information technology data analyst delivery.Performed By: #### CHROMATIN, TPO, THYGLOB AB #### [facility] , #### ADDONUAPLUS #### [place] [address] USAProthrombin Time INRon 91-06-1079XQZ Coag (PPP) [Relative time]1.1 {INR}NormalPremier Health Miami Valley Hospital SouthComment on above:Order Comment: List the anticoagulant: NONEResult Comment: INR Therapeutic Range A) Pre- and [...] patients with mechanical heart valves: 3 - 4.5Performed By: #### CHROMATIN, TPO, THYGLOB AB #### [facility] , #### ADDONUAPLUS #### [facility] [address] [place] [address] USAPT Coag (PPP) [Time]11.8 sNormal9.0-12.9[facility] Hospital SouthComment on above:Order Comment: List the anticoagulant: NONE Performed By: #### CHROMATIN, TPO, THYGLOB AB #### [facility] , #### ADDONUAPLUS #### [place] [address] USARPR w/rfx to Quant TP Abson 07-10-8402TIV, Rfx Quant RPR Non-ReactiveNormalNon ReactivePremier Health Miami Valley Hospital SouthComment on above: Result Comment: Performed at: - [facility] [address] [id number] Customer Service Sales Consultant: Fabrizio Herrera PhD, Phone: [phone] PERFORMED BY: [place] [address] PATHOLOGIST CABLE SYSTEMS INSTALLER PAULA WILL M.D.Performed By: #### CHROMATIN, TPO, THYGLOB AB #### [facility] , #### ADDONUAPLUS #### [facility] [address] [place] [address] USAThyroid Stimulating Hormoneon 79-50-0685CSE Qn1.14 m[IU]/L Normal0.45-5.33[facility] SouthComment on above:Result Comment: PERFORMED BY: [address] [address] PATHOLOGIST CABLE SYSTEMS INSTALLER PAULA WILL M.D.Performed By: #### RPR W RFX, SADE,URINE, SPE, UPE RAND, SADE SERUM, SHIV #### [facility] , #### CMP, TSH3, CRP, T4F, CK, ADDONUAPLUS #### [facility] [address] [id number] USAConsent Formson 52-70-9366Kqmkloi Forms [id number]#1.00[facility] Provider Orderson 65-17-1631Bwgcmirm Orders [id number]#1.00[facility] Coding Summaryon 13-50-1555Ziwzcm SummaryCODING DATE: 11/28/2018 FINAL [facility] STATUS: Home PAYOR: Commercial Insurance [employer] DESCRIPTION [...] By: Lorrie Bunn Date Saved: 11/28/2018 12:31 [facility] HospitalUS Gallbladderon 76-08-8143TY GallbladderULTRASOUND RIGHT UPPER QUADRANT HISTORY: Right upper quadrant [...] Alan Da Silva 11/26/18 12:51 p Technologist: [facility] Standardon 51-07-9874uBAJ Non AA>60 [facility] HospitalComment on above:Performed By: #### [id number], [id number] #### [facility] (DEFAULT) [address] [place] [address]wPQS AA>60[facility] HospitalComment on above:Result Comment: Chronic Kidney disease could be indicated at eGFRs of less than 60 ml/min/1.73m2. Kidney Failure is indicated at less than 15 ml/min/1.73m2 Performed By: #### [id number], [id number] #### [facility] (DEFAULT) [address] [place] [address]Ifijher [Mass/Vol]3.8 g/dLNormal3.5-5.0[facility] Comment on above:Performed By: #### [id number], [id number] #### [facility] (DEFAULT) [address] [place] [address]Aizrkmg/Globulin [Mass ratio]1.1 {ratio}Low1.4-2.6Mprotestant deaconess hospital HospitalComment on above:Performed By: #### [id number], [id number] #### [facility] (DEFAULT) [address] [place] [address]Mkm Phos60 IU/DBxkioh14-16Exlgugcw HospitalComment on above:Performed By: #### [id number], [id number] #### [facility] (DEFAULT) [address] [place] [address] 224[address]LFG/SGPT36.0 IU/BGlpilh31.0-54.0[facility] HospitalComment on above:Performed By: #### [id number], [id number] #### [facility] (DEFAULT) [address] [place] [address]Mupnc gap [Moles/Vol]16.0 mmol/LNormal5.0-19.0[facility] HospitalComment on above:Performed By: #### [id number], [id number] #### [facility] (DEFAULT) [address] [place] [address] 538[address]EFJ/SGOT27 IU/DIoxgby92-72Llwiwghy HospitalComment on above:Performed By: #### [id number], [id number] #### [facility] (DEFAULT) [address] [place] [address]Arbe Total0.6 mg/dLNormal0.3-1.2Mprotestant deaconess hospital HospitalComment on above:Performed By: #### [id number], [id number] #### [facility] (DEFAULT) [address] [place] [address] 888[address]Wtjscdr [Mass/Vol]9.1 mg/dLNormal8.9-10.3Mprotestant deaconess hospital Hospital Comment on above:Performed By: #### [id number], [id number] #### [facility] (DEFAULT) [address] [place] [address] 457[address]Mcpioxte [Moles/Vol]98 mmol/HDxy192-324Rgcgqhzy Hospital Comment on above:Performed By: #### [id number], [id number] #### [facility] (DEFAULT) [address] [place] [address]LE5 [Moles/Vol]31 mmol/QHejuon70-58Wrsgvkqu Hospital Comment on above:Performed By: #### 2145714, [id number] #### [facility] (DEFAULT) [address] [place] [address]Jbavxudenp [Mass/Vol]0.90 mg/dLNormal0.60-1.30[facility] HospitalComment on above:Performed By: #### [id number], [id number] #### [facility] (DEFAULT) [address] [place] [address] 77[address]Sxusajgd (S) [Mass/Vol]3.6 g/dLNormal1.5-4.3Mprotestant deaconess hospital HospitalComment on above:Performed By: #### [id number], [id number] #### [facility] (DEFAULT) [address] [place] [address] 31422Xtkaiqb [Mass/Vol]111.0 mg/rVLrrhev27.0-118.0[facility] HospitalComment on above:Performed By: #### [id number], [id number] #### [facility] (DEFAULT) [address] [place] [address]Pgicouqshg [Osmolality]284 mOsm/LMprotestant deaconess hospital HospitalComment on above:Performed By: #### [id number], [id number] #### [facility] (DEFAULT) [address] [place] [address]Wskmiyptl [Moles/Vol]3.5 mmol/LLow3.6-5.1Mprotestant deaconess hospital Hospital Comment on above:Performed By: #### [id number], [id number] #### [facility] (DEFAULT) [address] [place] [address]Fluomhe [Mass/Vol]7.4 g/dLNormal6.5-8.1MAultman Orrville Hospital Comment on above:Performed By: #### [id number], [id number] #### [facility] (DEFAULT) [address] [place] [address] 58[address]Ewtjlr [Moles/Vol]141.0 mmol/URwupyc702.0-144.0[facility] HospitalComment on above:Performed By: #### [id number], [id number] #### [facility] (DEFAULT) [address] [place] [address] 74[address]Bccj nitrogen [Mass/Vol]18 mg/dLNormal8-26[facility] HospitalComment on above:Performed By: #### [id number], [id number] #### [facility] (DEFAULT) [address] [place] [address]11[address]Yccv nitrogen/Creatinine [Mass ratio]20.0 mg/mgHigh 4.6-16.2Mprotestant deaconess hospital HospitalComment on above:Performed By: #### [id number], [id number] #### [facility] (DEFAULT) [address] [place] [address] 153[address]TUCox 79-54-2786Zvana glutamyl transferase [Catalytic activity/Vol]27.0 U/LNormal7.0-50.0[facility] HospitalComment on above:Performed By: #### 1142949, 9297169, 3188386, [id number], [id number], 9815174, [id number] #### [facility] (DEFAULT) [address] [place] [address]Vffl Levelon 70-95-9367Fsku [Mass/Vol]68.0 ug/dLNormal 28.0-170.0[facility] HospitalComment on above:Performed By: #### [id number], [id number] #### [facility] (DEFAULT) [address] [place] [address] 99[address]ZZHkn 85-66-4372LIK264.0 IU/BCcbxkc92.0-192.0[facility] HospitalComment on above:Performed By: #### 9018227, 6625208, 8257831, [id number], 3608830, 3028641, [id number] #### [facility] (DEFAULT) [address] [place] [address]Pltwu Panel Standardon 86-82-9297Ryyqmvaoegl [Mass/Vol] 136.0 mg/oHYlnznv83.0-200.0[facility] HospitalComment on above:Result Comment: Desirable - Less than 200 mg/dL Borderline high risk - 200-239 mg/dL High risk - 240 mg/dL and over.Performed By: #### [id number], [id number] #### [facility] (DEFAULT) [address] [place] [address]32[address]Awxkqsasdrm in HDL [Mass/Vol]32 mg/mSPvr73-12Dxthmsgw HospitalComment on above:Result Comment: High risk - <40 mg/dL.Performed By: #### [id number], [id number] #### [facility] (DEFAULT) [address] [place] [address] 14871Bxmcwjrgbdb in LDL [Mass/Vol]68 mg/dLNormal1-100[facility] HospitalComment on above:Result Comment: Optimal - Less than 100 mg/dL Borderline high risk - 130-159 mg/dL High risk - 160-189 mg/dL.Performed By: #### [id number], [id number] #### [facility] (DEFAULT) [address] [place] [address]Yimrdmngtxm.total/Cholesterol in HDL [Mass ratio]4.3 {ratio}Normal0.0-4.5[facility] HospitalComment on above:Performed By: #### [id number], [id number] #### [facility] (DEFAULT) [address] [place] [address]46[address]Vdkhnaegwnfp [Mass/Vol]179.0 mg/dLHigh0.0-150.0[facility] HospitalComment on above:Performed By: #### [id number], [id number] #### [facility] (DEFAULT) [address] [place] [address] 246[address]IAPS.36 mg/dLNormal5-40[facility] HospitalComment on above: Performed By: #### [id number], [id number] #### [facility] (DEFAULT) [address] [place] [address] 132[address]Nnansd 00-51-6525Nubrsmlsc [Mass/Vol]2.7 mg/dLNormal 2.5-4.6Magrohio [facility] surgical [facility] HospitalComment on above:Performed By: #### 6751434, [id number] #### [facility] (DEFAULT) [address] [place] [address]56[address]Qngb Acidon 19-63-6634Lquuu [Mass/Vol]5.5 mg/dLNormal 2.6-8.0[facility] HospitalComment on above:Performed By: #### [id number], [id number] #### [facility] (DEFAULT) [address] [place] [address] 35675Xnxmbr Summaryon 22-26-1356Kzltks SummaryCODING DATE: 06/23/2018 FINAL [facility] STATUS: Home PAYOR: Commercial Insurance ADMIT DX: [...] By: Purnima Felix Date Saved: 06/23/2018 12:21 pmNormalMercy Health Kings Mills HospitalProvider Orderson [id number] [id number]#1.00OTGTIFF NormalMercy Health Kings Mills HospitalRenal Function Panel Standardon 47-46-9966kRPA Non AA>60 [facility] HospitalComment on above:Performed By: #### [id number] #### [facility] (DEFAULT) [address] [place] [address] 73280hVVS AA>60[facility] HospitalComment on above:Result Comment: Chronic Kidney disease could be indicated at eGFRs of less than 60 ml/min/1.73m2. Kidney Failure is indicated at less than 15 ml/min/1.73m2 Performed By: #### [id number] #### [facility] (DEFAULT) [address] [place] [address] 93039Vqkyjra [Mass/Vol]3.7 g/dLNormal3.5-5.0[facility] Comment on above:Performed By: #### [id number] #### [facility] (DEFAULT) [address] [place] [address] 05364Ygtmc gap [Moles/Vol]12.0 mmol/LNormal5.0-19.0[facility] HospitalComment on above:Performed By: #### [id number] #### [facility] (DEFAULT) [address] [place] [address] 04607Fhzqkfk [Mass/Vol]8.9 mg/dLNormal8.9-10.3MAult[facility] Comment on above:Performed By: #### [id number] #### [facility] (DEFAULT) [address] [place] [address] 06748Zjmfusml [Moles/Vol]100 mmol/TOqj971-711Xbycrawl Hospital Comment on above:Performed By: #### [id number] #### [facility] (DEFAULT) [address] [place] [address] 10319DF7 [Moles/Vol]30 mmol/FZrroim91-37Wsiajawy [facility] Comment on above:Performed By: #### [id number] #### [facility] (DEFAULT) [address] [place] [address] 32854Notkwsjlzx [Mass/Vol]0.92 mg/dLNormal0.60-1.30[facility] HospitalComment on above:Performed By: #### [id number] #### [facility] (DEFAULT) [address] [place] [address] 48653Bcoakdu [Mass/Vol]115.0 mg/gJExfmsp55.0-118.0[facility] HospitalComment on above:Performed By: #### [id number] #### [facility] (DEFAULT) [address] [place] [address] 88529Sijuyenypn [Osmolality]277 mOsm/LMpro[facility] HospitalComment on above:Performed By: #### [id number] #### [facility] (DEFAULT) [address] [place] [address] 24159Fckzbdtzi [Mass/Vol]3.8 mg/dLNormal2.5-4.6Mprotestant deaconess hospital HospitalComment on above:Performed By: #### [id number] #### [facility] (DEFAULT) [address] [place] [address] 30999Dzkprcirt [Moles/Vol]3.7 mmol/LNormal3.6-5.1Mprotestant deaconess hospital HospitalComment on above:Performed By: #### [id number] #### [facility] (DEFAULT) [address] [place] [address] 55542Mtuyvi [Moles/Vol]138.0 mmol/OEuighi551.0-144.0[facility] HospitalComment on above:Performed By: #### [id number] #### [facility] (DEFAULT) [address] [place] [address] 59003Mqdw nitrogen [Mass/Vol]14 mg/dLNormal8-26[facility] HospitalComment on above:Performed By: #### [id number] #### [facility] (DEFAULT) [address] [place] [address] 03464Hbig nitrogen/Creatinine [Mass ratio]15.0 mg/mgNormal 4.6-16.2MAultman Orrville HospitalComment on above:Performed By: #### [id number] #### [facility] (DEFAULT) [address] [place] [address] 63672Dvniul Summaryon 03-44-6212Zblice SummaryCODING DATE: 06/15/2018 FINAL [facility] STATUS: Home PAYOR: Commercial Insurance ADMIT DX: [...] By: Purnima Felix Date Saved: 06/15/2018 02:13 pmNKnox Community HospitalProvider Orderson 69-05-7696Edegybxk [id number]#1.00OTGTIFF [facility] CampusExtra [place] 73-64-2584Wlaq [facility] Comment on above:Performed By: #### [id number] #### [facility] (DEFAULT) [address] [place] [address] 77427Djsjjnnfojc 20-42-5909Gpejdefhl [Mass/Vol]2.06 mg/dLNormal 1.80-2.50[facility] HospitalComment on above:Result Comment: The reference range for magnesium has changed from 0.40-2.10 mg/dl to 1.80-2.50 mg/dl as of 06/03/15. Performed By: #### [id number], [id number] #### [facility] (DEFAULT) [address] [place] [address] 79706Yjmog Function Panel Standardon 65-68-7075pKFJ Non AA>60 [facility] HospitalComment on above:Performed By: #### [id number], [id number] #### [facility] (DEFAULT) [address] [place] [address] 16212sITM AA>60[facility] HospitalComment on above:Result Comment: Chronic Kidney disease could be indicated at eGFRs of less than 60 ml/min/1.73m2. Kidney Failure is indicated at less than 15 ml/min/1.73m2 Performed By: #### [id number], [id number] #### [facility] (DEFAULT) [address] [place] [address] 71287Cffkozh [Mass/Vol]3.5 g/dLNormal3.5-5.0[facility] Comment on above:Performed By: #### [id number], [id number] #### [facility] (DEFAULT) [address] [place] [address] 84937Lamtz gap [Moles/Vol]14.0 mmol/LNormal5.0-19.0[facility] HospitalComment on above:Performed By: #### [id number], [id number] #### [facility] (DEFAULT) [address] [place] [address] 67030Ljvbovz [Mass/Vol]8.7 mg/dLLow8.9-10.3MAultman [facility]rville Hospital Comment on above:Performed By: #### [id number], [id number] #### [facility] (DEFAULT) [address] [place] [address] 39420Qeuqyhxl [Moles/Vol]97 mmol/AEqy942-600Pbsnxjpj Hospital Comment on above:Performed By: #### [id number], [id number] #### [facility] (DEFAULT) [address] [place] [address] 39742PF3 [Moles/Vol]31 mmol/MWrotcs58-16Ekphtxfm Hospital Comment on above:Performed By: #### [id number], [id number] #### [facility] (DEFAULT) [address] [place] [address] 27408Gpgeoulamj [Mass/Vol]0.92 mg/dLNormal0.60-1.30[facility] HospitalComment on above:Performed By: #### [id number], [id number] #### [facility] (DEFAULT) [address] [place] [address] 28526Bopizwv [Mass/Vol]121.0 mg/sQMmie02.0-118.0[facility] HospitalComment on above:Performed By: #### [id number], [id number] #### [facility] (DEFAULT) [address] [place] [address] 51984Cwvmpxuinj [Osmolality]280 mOsm/LMagrohio valley surgical hospital HospitalComment on above:Performed By: #### [id number], [id number] #### [facility] (DEFAULT) [address] [place] [address] 06659Zvslvpndx [Mass/Vol]2.8 mg/dLNormal2.5-4.6Magrohio [facility] hospital HospitalComment on above:Performed By: #### [id number], [id number] #### [facility] (DEFAULT) [address] [place] [address] 02700Rahqyxiro [Moles/Vol]3.0 mmol/LLow3.6-5.1Mpro[facility]acon[facility] hospital Hospital Comment on above:Performed By: #### [id number], [id number] #### [facility] (DEFAULT) [address] [place] [address] 52428Hgcspk [Moles/Vol]139.0 mmol/OGdqpoq358.0-144.0[facility] HospitalComment on above:Performed By: #### [id number], [id number] #### [facility] (DEFAULT) [address] [place] [address] 92905Xnub nitrogen [Mass/Vol]17 mg/dLNormal8-26[facility] HospitalComment on above:Performed By: #### [id number], [id number] #### [facility] (DEFAULT) [address] [place] [address] 48433Mjhr nitrogen/Creatinine [Mass ratio]18.0 mg/mgHigh 4.6-16.2Mpro[facility] deaconess hospital HospitalComment on above:Performed By: #### [id number], [id number] #### [facility] (DEFAULT) [address] [place] [address] 52679 Vital Signs Date TimeVital SignValuePerforming XdmjiacqbWrsntgcz75-32-2055 09:36-0500Body qagvyl502.18 cmEric Hall MD Work Phone: [phone]11-06-2025 09:36-0500 Body mass index (BMI) [Ratio]25.5 kg/y7KohmnxpEric Hall MD Work Phone: [phone] [place], [place] 6413611-06-2025 09:36-0500 Body hxlrto09.04 kgEric Hall MD Work Phone: [phone] [place], [place] 6413611-06-2025 09:36-0500 Diastolic blood swlzaxpm68 mm[Hg]Eric Hall MD Work Phone: [phone] [place], [place] 6413611-06-2025 09:36-0500 Heart rate64 /Swapna Hall MD Work Phone: [phone] [place], [place] 6413611-06-2025 09:36-0500 Respiratory rate16 /Swapna Hall MD Work Phone: [phone] [place], [place] 6413611-06-2025 09:36-0500 SaO2% (BldA) [Mass fraction]98 %Eric Hall MD Work Phone: [phone] [place], [place] 6413611-06-2025 09:36-0500 Systolic blood sfttlgix394 mm[Hg]Eric Hall MD Work Phone: [phone] [place], [place] 6413608-27-2025 01:00-0400 Body mulzub099.18 cmMarie [employer] Work Phone: [phone] 01:00-0400Body mass index (BMI) [Ratio]25.6 kg/y5Qdrmy [employer] Work Phone: [phone] 01:00-0400Body surface area Derived from formula1.87 a5Baujp [employer] Work Phone: [phone] 01:00-0400Body gstixn52.03 kgMarie [employer] Work Phone: [phone] 01:00-0400Diastolic blood shjxrjia92 mm[Hg] Marie [employer] Work Phone: [phone] 01:00-0400Heart rate81 /minMarie [employer] Work Phone: [phone] 01:00-8940RzC3% (BldA) [Mass fraction]96 % Marie [employer] Work Phone: [phone] 01:00-0400Systolic blood aejpreca494 mm[Hg] Marie [employer] Work Phone: [phone] 08:16-0400Body mass index (BMI) [Ratio]24.23 kg/m2Sherry NatlyndseyeFansra [employer] Work Phone: [employer] EnergyJweaaotdzu20-87-3279 08:16-0400Body aauing12.22 kgBekaa Nataprnicolera [employer] Work Phone: [employer] EnergyNgwsvoujot39-82-1596 08:16-0400Diastolic blood mxyfnmbc97 mm[Hg]Sherry Nataprawira DO Work Phone: [employer] EnergyNzsgedstwh82-88-8664 08:16-0400Systolic blood xgfwbwuq171 mm[Hg]Sherry Nataprawira DO Work Phone: [facility]alateSaint [facility] Science CenterPeltnqyydt70-36-9895 08:02-0500Blood Pressure LocationMichael NILL [phone]-OkdruTrihealth [facility] [place] 04-14-2024 08:02-0500Diastolic blood mfdgmykz93 mm[Hg]Luis Antonio ROGERS [phone]-PxgpeTrihealth [facility] [place] 04-14-2024 08:02-0500Heart rate62 /minMichael NILL [phone]-WezmgTrihealth [facility] [place] 04-14-2024 08:02-0500Respiratory rate16 /minMichael NILL [phone]-LxuwtPromedica [facility] [place] 04-14-2024 08:02-0500Systolic blood opqyxphq281 mm[Hg]Luis Antonio NILL [phone]-ZqanjPromedica Memorial Hospital [facility] [place] 04-13-2024 11:13-0500Body qfovcb872.18 cmPrem[facility] 04-13-2024 11:13-0500Body mass index (BMI) [Ratio]25.2 kg/f3TutsykcjdPremier Health [facility]02-27-2025 11:13-0500Body ylexqx76.25 kgPrem[facility] Health [facility]02-27-2025 11:13-0500Diastolic blood qoeztbzr23 mm[Hg][facility]02-27-2025 11:13-0500Heart rate80 /[facility]02-27-2025 11:13-0500Respiratory rate16 /[facility]02-27-2025 11:13-8969TgC6% (BldA) [Mass fraction]98 %[facility]02-27-2025 11:13-0500Systolic blood earwiqia661 mm[Hg][facility]02-13-2025 08:13-0500Body mass index (BMI) [Ratio]24.6 kg/m2Mona Nataprawira DO Work Phone: PixalateSaint [facility] Health Science CenterYpvekudmop13-09-7553 08:13-0500Body .3 kg Sherry Nataprawira DO Work Phone: [facility] CenterMgbiojzlor13-98-9904 08:13-0500Diastolic blood vxygixbr61 mm[Hg]Sherry Nataprawira DO Work Phone: [facility] CenterTtxivnzzhj37-32-1133 08:13-0500Systolic blood jttsamxb856 mm[Hg]Sherry Nataprawira DO Work Phone: [facility] CenterPmujrogtzg99-02-4001 13:29-0500Heart rate61 /min Sherry Nataprawira [address] [place], [place] 6403701-23-2025 13:29-3151PxS7% (BldA) [Mass fraction]100 %Sherry Nataprawira [address] [place], [place] 6403701-23-2025 13:29-0500 Diastolic blood cgfflqaa08 mm[Hg]Sherry Nataprawira [address] [place], [place] 6403701-23-2025 13:29-0500Mean blood nirlxbpn17 mm[Hg]Sherry Nataprawira [address] [place], [place] 6403701-23-2025 13:29-0500 Systolic blood iyisdsve931 mm[Hg]Sherry Nataprawira [address] [place], [place] 6403701-23-2025 12:29-0500Heart rate70 /minMona Nataprawira [address] [place], [place] 6403701-23-2025 12:29-7960ZfL3% (BldA) [Mass fraction]100 %Sherry Nataprawira [address] [place], [place] 6403701-23-2025 12:28-0500Blood Pressure LocationMona Nataprawira [address] [place], [place] 6403701-23-2025 12:28-0500 Diastolic blood juackamw85 mm[Hg]Sherry Nataprawira [address] [place], [place] 6403701-23-2025 12:28-0500Mean blood lyoskmch88 mm[Hg]Sherry Nataprawira [address] [place], [place] 6403701-23-2025 12:28-0500 Systolic blood jylyeopb767 mm[Hg]Sherry Nataprawira [address] [place], [place] 6403701-23-2025 12:28-0500 Respiratory rate18 /minMona Nataprawira [address] [place], [place] 6403701-23-2025 12:28-0255RjD2% (BldA) [Mass fraction]98 %Sherry Nataprawira [address] [place], [place] 6403701-23-2025 12:20-0500Blood Pressure LocationMona Nataprawira [address] [place], [place] 6403701-23-2025 12:20-0500Body .34 [degF]Sherry Nataprawira [address] [place], [place] 6403701-23-2025 12:20-0500 Diastolic blood cgypavkg14 mm[Hg]Sherry Nataprawira [address] [place], [place] 6403701-23-2025 12:20-0500Heart rate77 /minMona Nataprawira [address] [place], [place] 6403701-23-2025 12:20-0500Mean blood mywvfftq10 mm[Hg]Sherry Nataprawira [address] [place], [place] 6403701-23-2025 12:20-0500 Respiratory rate17 /minMona Nataprawira [address] [place], [place] 6403701-23-2025 12:20-0500 Systolic blood xlqsywds868 mm[Hg]Sherry Nataprawira [address] [place], [place] 6403701-23-2025 12:10-0500Blood Pressure LocationMona Nataprawira [address] [place], [place] 6403701-23-2025 12:10-0500Mean blood mm[Hg]Sherry Nataprawira [address] [place], [place] 6403701-23-2025 12:10-0500 Respiratory rate17 /minMona Nataprawira [facility]01-23-2025 12:05-0500Mean blood rswefseq79 mm[Hg]Sherry Nataprawira [address] [place], [place] 6403701-23-2025 12:05-0500 Respiratory rate15 /minMona Nataprawira [address] [place], [place] 6403701-23-2025 11:55-0500Body fljyfvptvza99.16 [degF]Sherry Nataprawira [address] [place], [place] 6403701-23-2025 11:55-6878USS6 100 1Mona Nataprawira [address] [place], [place] 6403701-23-2025 11:55-0500 Respiratory rate2 /minMona Nataprawira [address] [place], [place] 6403701-23-2025 11:50-7943XYC1 100 1Mona Nataprawira [address] [place], [place] 6403701-23-2025 11:50-0500 Respiratory rate17 /minMona Nataprawira [address] [place], [place] 6403701-23-2025 11:45-6542DMF8 100 1Mona Nataprawira [address] [place], [place] 6403701-23-2025 09:45-0500Mean blood hikanhcp32 mm[Hg]Sherry Nataprawira [address] [place], [place] 6403701-23-2025 09:45-0500Heart rate60 /minMona Nataprawira [address] [place], [place] 6403701-23-2025 09:43-0500Body guildnokaao15.88 [degF]Sherry Nataprawira [address] [place], [place] 6403701-14-2025 09:12-0500Body mass index (BMI) [Ratio]25.15 kg/m2Mona Nataprawira DO Work Phone: [facility] CenterVllpdgqeqa08-41-6417 09:12-0500Body fapvag73.94 kgMona Nataprawira DO Work Phone: [phone]-[facility] CenterKkraxmqmwx20-83-9083 09:12-0500Diastolic blood jisveqos64 mm[Hg]Sherry Nataprawira DO Work Phone: [phone] CenterWakqqzdwbs58-39-1499 09:12-0500Systolic blood tfoajtrb476 mm[Hg]Sherry Nataprawira DO Work Phone: [phone] CenterGspnvxopmd35-83-8738 08:38-0500Diastolic blood csksoufi21 mm[Hg]Sherry Nataprawira [address] [place], [place] 6403701-14-2025 08:38-0500Heart rate64 /minMona Nataprawira [address] [place], [place] 6403701-14-2025 08:38-0500Mean blood orecbvuz48 mm[Hg]Sherry Nataprawira [address] [place], [place] 6403701-14-2025 08:38-0500 Systolic blood mm[Hg]Sherry Nataprawira [address] [place], [place] 6403701-14-2025 08:38-0500Heart rate66 /minMona Nataprawira [address] [place], [place] 6403701-14-2025 08:38-2585OdL4% (BldA) [Mass fraction]100 %Sherry Nataprawira [address] [place], [place] 6403701-14-2025 08:37-0500Body oqnofetfuzz61.24 [degF]Sherry Nataprawira [address] [place], [place] 6403701-14-2025 08:37-0500Blood Pressure LocationMona Nataprawira [address] [place], [place] 6403701-14-2025 08:37-0500 Diastolic blood cirvediu13 mm[Hg]Sherry Nataprawira [facility]01-14-2025 08:37-0500Mean blood gakptkfe39 mm[Hg]Sherry Nataprawira [facility]01-14-2025 08:37-0500 Systolic blood cknlbtuf853 mm[Hg]Sherry Uriasaprawira [facility]01-14-2025 08:37-0500 Respiratory rate16 /minSherry eDra [facility]11-13-2024 08:29-0500Body mass index (BMI) [Ratio]25.31 kg/m2Sherry Dera DO Work Phone: [facility] CenterFkenmhdigl30-27-4955 08:29-0500Body bcugih55.39 kgSherry Dera DO Work Phone: [facility] CenterPldeewimki60-41-6661 08:29-0500Diastolic blood awlxwiiv70 mm[Hg]Sherry Dera DO Work Phone: [facility] CenterInvuftcuwy20-79-5483 08:29-0500Systolic blood yexuacec357 mm[Hg]Sherry Dera DO Work Phone: [facility] CenterPmitrhauol26-48-8501 09:13-0400Body qhgwpy037.64 cmPrem[facility]08-28-2024 09:13-0400Body mass index (BMI) [Ratio]25.9 kg/m0KdjwhpliuPremier Health [facility]08-28-2024 09:13-0400Body uqgcgdujsns49.8 [degF][facility]08-28-2024 09:13-0400Body kdyncp78.74 kgPrem[facility] Health [facility]08-28-2024 09:13-0400Diastolic blood xogzoqzs01 mm[Hg][facility]08-28-2024 09:13-0400 Heart rate76 /[facility]08-28-2024 09:13-0400 Respiratory rate16 /[facility]08-28-2024 09:13-0400 SaO2% (BldA) [Mass fraction]98 %[facility]08-28-2024 09:13-0400Systolic blood eavhoiqh783 mm[Hg][facility] 04-01-2023 09:14-0500Body vayrqf937.64 cmPrem[facility] Health [facility] 04-01-2023 09:14-0500Body mass index (BMI) [Ratio]27.2 kg/g6FgemxdpdcPrem[facility] Health [facility]02-15-2024 09:14-0500Body lzlpgdgbuvj67.5 [degF][facility]02-15-2024 09:14-0500Body lqcavf74.65 kgPrem[facility] Health [facility]02-15-2024 09:14-0500Diastolic blood etxemjxn20 mm[Hg][facility]02-15-2024 09:14-0500Heart rate74 /[facility]02-15-2024 09:14-0500Respiratory rate16 /[facility]02-15-2024 09:14-8632QrM5% (BldA) [Mass fraction]93 %[facility]02-15-2024 09:14-0500Systolic blood xighdpsi914 mm[Hg] [facility]03-16-2023 10:00-0400Body sfumso597.64 cmAbdul Mat Other noSpinelab [employer] Other 03-16-2023 10:00-0400Body mass index (BMI) [Ratio] 27.15 kg/a3Yxwye Mat Other [employer] Other 03-16-2023 10:00-0400Body tnqqfmoiqar35.7 [degF]Ledy Mat Other [employer] Other 03-16-2023 10:00-0400Body vtwemm40.3 kgAbdul Mat Other [employer] Other 03-16-2023 10:00-0400Diastolic blood shfzrwaa55 mm[Hg] Ledy Mat Other [employer] Other 03-16-2023 10:00-0400Respiratory rate18 /minAbdul Mat Other [employer] Other 146596-17-3562 10:00-9809HqW2% (BldA) [Mass fraction]99 % Ledy Mat Other [employer] Other [id number] 10:00-0400Systolic blood mm[Hg] Ledy Mat Other [employer] Other 03-03-2022 10:00-0500Body heightAbdul Mat Other [employer] Other 03-03-2022 10:00-0500Body mass index (BMI) [Ratio] 27.11 kg/o6Thfxf Mat Other [employer] Other 03-03-2022 10:00-0500Body .2 kgAbdul Mat Other [employer] Other 03-03-2022 10:00-0500Diastolic blood gxzcupud79 mm[Hg] Ledy Mat Other [employer] Other 03-03-2022 10:00-0500Respiratory rate18 /minAbdul Mat Other [employer] Other 03-03-2022 10:00-0880FhT8% (BldA) [Mass fraction]97 % Ledy Swartz Other [facility] [employer] Other 03-03-2022 10:00-0500Systolic blood atjwsafv181 mm[Hg] Ledy Mat Other [facility] [employer] Other Encounters Encounter DateEncounter TypeCare ProviderFacilityStart: 12-21-2024 End: 60-48-4854jldkjzjsnaAaftspi M Hoy MD Work Phone: [phone]-TgdlbawwxCrittenton Behavioral Health SandStart: 12-21-2024 End: 56-89-5693Hpcqpad encounter procedureLedy Swartz MD-[facility] Work Phone: Start: 57-59-5337Ysyoq health examinationEvergreen Medical Center 800APP IN - v2 [facility]ingsAt[facility] Start: 41-52-6750Jguap 800APP IN - v2 [facility]ingsAtascadero State Hospital Start: 10-14-2024 End: 18-43-6387YbysspTrokHemanth Velasquez DO Work Phone: [facility] OBGYNComment on above:Urge incontinence Start: 54-61-6775Ktvow health examinationEvergreen Medical Center 800APP IN - v2 RatingsAtascadero State Hospital Start: 97-15-1145Wgzjhwfe preventive med est patient 40-64yrsHale 800APP IN v2 RatingsAtascadero State Hospital Start: 09-18-2024 End: 10-17-1456Woytkii encounter statusMona J Nataprawira DO Work Phone: [facility] HealthcareStart: 09-18-2024 End: 90-01-5703Loozqnjd preventive med est patient 40-64yrsMsacha Uriasaprhenrietta DO Work Phone: [facility]OVeter[facility] OBGYNComment on above:Encounter for gynecological examination without abnormal finding (Primary Dx); Postmenopausal HRT (hormone replacement therapy); Urinary frequency; Screening breast examination; Hx of hysterectomy for benign disease; Low back pain, unspecified back pain laterality, unspecified chronicity, unspecified whether sciatica present; Hot flashesStart: 09-18-2024 End: 12-53-3131wlahpmnwexZEAV J NATAPRAWIRANot AvailableStart: 05-01-2024 End: 53-51-4970ehtvmtdbpmASMB J NATAPRAWIRANot AvailableStart: 04-28-2024 End: 00-82-9105obtaiqgoyuCXHXS QADIRProMedica Attalla HospitalStart: 04-21-2024 End: 24-32-0111tvlwnijvnmXbbclde R NILLFacility:FTMCStart: 04-14-2024 End: 11-48-6052kdpqlxllmlHbafayi R NILLFacility: kStart: 04-14-2024 End: 52-53-7307Bueqbvv encounter procedureMichael R NILL 226-2062Bbtyha-RziegTrihealth [facility] [place] Start: 04-13-2024 End: 81-86-9407kjnukuycwmHfywrqathKettering Health Hamilton Work Phone: Start: 04-13-2024 End: 67-58-3921Cvczocl encounter procedureRandolph Health Phys[facility] Neph[facility] Fan Work Phone: Start: 37-28-5565gqefklwrdeNevymco NILLFacility: [place]walkStart: 14-25-3469vxxmdcasyvTdmhlfu NILLFacility: [place]vueStart: 78-81-3604Hkv-patient / Non-visitRandolph Health Phys[facility] Work Phone: Start: 03-30-2024 End: 58-41-8265Bklmmz follow up visit related to original Kristel Velasquez DO Work Phone: noms NB OBComment on above:Follow-up examination after gynecological surgery (Primary Dx); Cystocele, midlineStart: 03-30-2024 End: 35-98-8026dyxhrlgfwwFJTUPollo MEYERSot AvailableStart: 03-28-2024 End: 77-90-4765Phbjqoljo department patient visitDOMYKELPATRICK [facility] CENTERMarylouOrchard Hospitaltart: 03-09-2024 End: 92-45-5252Icjbwsfqm Result EncounterSherry Velasquez DO Work Phone: noms External Department UnsolicitedStart: 03-09-2024 End: 26-10-9117Fzylpqkwm Result EncounterSherry Velasquez DO Work Phone: noms External Department UnsolicitedStart: 03-09-2024 End: 28-55-2721Apflwdrzh to same day surgery Asiya Velasquez [facility] Start: 03-09-2024 End: 52-14-0135isbsmajbocAbauKimberlee VelasquezFacility:FTMCStart: 02-29-2024 End: 44-88-2984Uuyiqnvzj to same day surgery Asiya Velasquez DO Work Phone: noms HealthcareStart: 02-29-2024 End: 67-03-2487Iohrku outpatient visit 25 minutesSherry Velasquez DO Work Phone: noms NB OBComment on above:Preoperative exam for gynecologic surgery (Primary Dx); Cystocele, midline; Urge incontinence; Postmenopausal HRT (hormone replacement therapy); Follow-up encounter involving medicationStart: 02-29-2024 End: 18-74-8707fdtukslnfaAVJose Alfredo VelasquezFacility:FTMCStart: 02-29-2024 End: 43-89-1988Mgzugxi encounter Jocelyne Velasquez [facility] Start: 01-23-2024 End: 12-94-5075KsfwrfTzxbHemanth Velasquez DO Work Phone: noms NB OBComment on above:Urge incontinenceStart: 01-06-2024 End: 21-96-6152ncgzawoipkMXEF RJAPRNICOLERAProMedica Atascadero State Hospitaltart: 12-29-2023 End: 26-20-8623Tsdiswj encounter statusSherry Rehan Ron DO Work Phone: noms HealthcareStart: 12-29-2023 End: 94-48-5122Xoxsbsfh preventive med est patient 40-64yrsMona Rehan Velasquez DO Work Phone: noms NB OBComment on above:Encounter for gynecological examination without abnormal finding (Primary Dx); Other screening mammogram; Cystocele, midline; Postmenopausal HRT (hormone replacement therapy); Hot flashes; Mood swings; Urge incontinence; Hx of hysterectomy for benign diseaseStart: 12-29-2023 End: 43-65-8687vrgifmkxskGMHUPollo MEYERSot AvailableStart: 10-13-2023 End: 45-24-6859gvgskbffzzDyzwwqmfdOhioHealth Grant Medical Center Work Phone: Start: 10-13-2023 End: 67-75-5312Fysfuwk encounter procedureFormerly [facility] Centeraure[facility] [place] Work Phone: Start: 41-73-0460Qfd-patient / Non-visitChristy [facility] Work Phone: Start: 04-01-2023 End: 11-80-9616bzfodmflnlVwsfnxldjOhioHealth Grant Medical Center Work Phone: Start: 04-01-2023 End: 03-56-0857Bkcakzg encounter procedureChristys Physician Group-[facility] Fan Work Phone: Start: 04-30-2022 End: 49-70-0719peoirceaslRaimo Mat Other nort [employer] Other Start: 97-37-9025Dmszpb outpatient visit 15 minutes Ledy QadirFPG Nephrology ClydeStart: 04-20-2022 End: 56-89-6391agqddkvqsyIbagi Mat Other nort [employer] Other Start: 22-67-1673Wsmbhcwza encounterAbdul QadirFPG NephrologyStart: 03-24-2022 End: 11-11-5788sobjgnrvjzIJ ERIC HOYFacility:Y7Jnjjo: 03-19-2022 End: 00-15-9037yxvjoffxenSH ERIC HOYFacility:F5Lgeua: 03-13-2022 End: 02-50-9891nkgyklvemwPI ERIC HOYFacility:K0Bavgd: 11-03-2021 End: 86-10-9267gngjejgjpdXI ERIC HOYFacility:Y5Hetnb: 04-17-2021 End: 97-41-0890mijgtnfwocZxyyb Mat Other nort [employer] Other Start: 94-83-5029Xzjtxl outpatient visit 15 minutes Ledy QadirFPG Nephrology ClydeStart: 33-12-7213Dtrfjvusk encounterAbdul Mat [facility] Procedures DateProcedureProcedure DetailPerforming ClinicianStart: 33-78-4100Yndzw dip stick/tablet rgnt non-auto w/o micrscpMona Rehan Nataprawira DO Work Phone: start: 68-35-3274BfzsjcuuxdiGcyy Nataprawira DO Work Phone: start: 31-27-1782VRKVGRNCDT WITH MICROMona Rehan Nataprawira DO Work Phone: start: 94-75-2088Qpmjxbvo colporrhaphyMona Nataprawira start: 92-14-5419DgtkohzyxyuJgnh Nataprnicolera DO Work Phone: start: 16-25-7841BzexzszrxstDqxsnfe NILL Start: 78-93-5902UXQRG HYSTERECTOMYHaley Still Abdominal hysterectomyMichael NILL AppendectomyMona Natleeanna cystopexyMichael NILL Excision of cystMichael NILL Partial hysterectomyMona Ron Plan of Treatment DateCare ActivityDetailAuthorStart: 10-01-2025 End: 68-86-7521Fjpnjus encounter dlafflkfb85/17/2026 8:30 AM EDT Office Visit [facility]Y [facility] [address] [place] [address] [address] Sherry Velasquez DO [address] [address] [facility]Y [facility] Start: 15-14-9137Puzmvoxwm for malignant neoplasm of breastMammogramNONH HealthcareStart: 01-01-2025 End: 88-66-4117Jucksyy encounter procedureNOMS NB OBStart: 12-11-2024 End: 39-55-2229DjNooape; Lab DrawInPerson; Lab DrawSchedule C Systems Start: 27-78-3714FxCqjymv; Lab DrawInPerson; Lab DrawSchedule C Systems Start: 80-24-2843Dpeihmg and creatinine panel - Urine [facility] ([place])Start: 87-17-0550Wnobjcwcf vaccinationInfluenza Vaccine (#1) NOMS HealthcareStart: 03-10-3959HmSusphx; Emp Physical OtherInPerson; Emp Physical OtherIN - [facility] Start: 97-28-7003LFB panel - Blood by Automated count [facility] ([place])Start: 51-96-5581Mwoowjnf [Mass/volume] in Serum or Plasma [facility] ([place])Start: 03-05-8812Smoa and Iron binding capacity panel - Serum or PlasmaLabcorp ([place])Start: 48-99-6941Favat 1996 panel - Serum or PlasmaLabcorp ([place])Start: 82-21-5828Tkyzpqdqq [Mass/volume] in Serum or PlasmaLabcorp ([place])Start: 98-95-5129Iztgb function 2000 panel - Serum or PlasmaLabcorp ([place])Start: 70-86-6754Pawhe [Mass/volume] in Serum or PlasmaLabcorp ([place])Start: 58-18-5351Lzkkeenjan macro (dipstick) panel - UrineLabcorp ([place])Start: 09-18-2024 End: 38-48-3070Dnegsff encounter ynlgozngl65/04/2025 8:30 AM EDT Office Visit [facility] [address] [place] [address] [address] Sherry Velasquez, DO [address] [address] [facility]OMS COMFORT OBStart: 05-01-2024 End: 66-68-0355Cbpnzvcabbcl / ancillary services fevcnbrdta36/17/2025 12:00 PM EDT [facility]illary [facility] [address] [place] [id number] [facility] IMAGINGStart: 04-29-2024 End: 03-23-8931QUB Breast - bilateral screeningBilateral screening mammogram with tomosynthesis Imaging Routine Other screening mammogram Expected: 04/29/2024, Expires: 02/26/2025[facility] Work Phone: comment on above:Expected: 04/29/2024, Expires: 02/26/2025Start: 37-15-4636Eykpwnqfh for malignant neoplasm of breastMammogram NOMS HealthcareStart: 03-30-2024 End: 11-95-6084Sphomlw encounter lfbdwsjaf12/13/2025 8:30 AM EST Office Visit [facility] [address] [address] Sherry Velasquez DO [address] [address] NOMDanie MOYER OBStart: 03-09-2024 End: 74-79-9195Tsbyypw encounter indoqcvtz98/23/2025 10:30 AM EST Procedure Visit [facility] [address] [address] Sherry Velasquez DO [address] [address] GERRY MOYER OBStart: 02-29-2024 End: 38-65-0792Ggebldk encounter /14/2025 9:30 AM EST Office Visit [facility] [address] [address] Sherry Velasquez DO [address] [address] NOMDanie MOYER OBStart: 04-06-9954Rukyfhfjk vaccinationInfluenza Vaccine (#1)NOMS HealthcareStart: 45-47-9525Ahjjqybii for malignant neoplasm of colonNOMS HealthcareStart: 24-52-7724Mikkpjzwr for malignant neoplasm of cervixNOMS HealthcareStart: 84-96-0289Zlhhrwcll for malignant neoplasm of cervixPap SmearNOMS Healthcare Start: 51-02-5463Qlvbpcyfp for malignant neoplasm of colonNOSaint [facility] AppendectomyappendectomyAR e-SENS Patient EducationSchedule C Systems Renal function 1999 panel - Serum or [facility] FoundationRenal function 1999 panel - Serum or [facility] FoundationRenal function 1999 panel - Serum or [facility] FoundationRenal function 1999 panel - Serum or [facility] Immunizations Immunization DateImmunizationNotesCare WnexdrdfSxrcumvd16-75-2358IVII-TMC-7 (COVID-19) vaccine, mRNA, spike protein, LNP, preservative free, 100 mcg/0.5mL doseGuocool.com [place] AdRocket [id number]-JMY-3 (COVID-19) vaccine, mRNA, spike protein, LNP, preservative free, 100 mcg/0.5mL doseGuocool.com [place] AdRocket [id number] virus vaccine, unspecified formulationMona Nataprawira DO Work Phone: [facility] CenterPpjuedvcue88-13-5516junwvtigx, seasonal, injectableHaley 800APP Alleantia NEGATED: Highlighted row has not occurred!05-28-2015 influenza, seasonal, injectableAbdul Mat Other [employer] Other NEGATED: Highlighted row has not occurred!05-28-2015 pneumococcal polysaccharide vaccine, 23 valentAbdul Mat Other [employer] Other Payers DatePayer CategoryPayerPolicy [id number] Health InsuranceFRONTPATH [id number] 2.160.1.804445.3.57[id number] 2.0.1.585074.3.57[id number] 2.0.1.150310.3.57[id number] 2.0.1.793655.3.57[id number] 2.840.1.503409.3.57[id number] 2.160.1.039137.3.57[id number] 2.16840.1.206659.3.57[id number] 2.160.1.728152.3.57[id number] 2.16840.1.930116.3.57[id number] 2.16840.1.178675.3.57[id number] 2.840.1.751731.3.57[id number] 2.16.840.1.977549.3.57[id number] 2.16.840.1.042936.3.57[id number] 2.840.1.649753.3.57[id number] 2.0.1.636643.3.57[id number] 2.840.1.099173.3.57[id number] 2.0.1.753797.3.57[id number] 2.0.1.167598.3.579.[id number] 2.0.1.637379.19 Self-paySelf [id number]-[id number]-[id number]-[id number] Social History DateTypeDetailFacilityUnknown if ever smokedNosaint luke[facility] [employer] Other Start: 12-29-2023 End: 90-09-1211Ijz Assigned At [facility] CenterStart: 04-01-2023 End: 44-61-6955Jilgqlp smoking status NHISNever smoked tobacco (finding) [facility] CenterStart: 92-75-4161Pss Assigned At [facility] CenterStart: 29-14-1822Suzuckq use and exposure Smokeless tobacco non-userNONH HealthcareStart: 12-29-2023 End: 98-31-5165Mkfjxfwfr beverage intakeCurrent drinker of alcohol (finding)[facility] HealthcareStart: 12-29-2023 End: 27-68-8302Zyfkrtn of Social functionNOMS HealthcareStart: 07-31-2127Llxwcr identityIdentifies as female gender (finding)NOMS HealthcareStart: 11-16-2022 Sexual orientationHeterosexual (finding)NOMS HealthcareTobacco smoking statusNo Smoking Status EnteredHol[facility] [place] How often to you have a drink containing alcohol?Never NOMS HealthcareHow many standard drinks containing alcohol do you have on a typical day?1 or 2NOMS HealthcareStart: 45-53-4032KvaLvovnl (finding)[facility] SouthTobacco smoking statusNeDayton [facility] Center [facility] Assigned At [facility] Medical Equipment Procedure CodeEquipment CodeEquipment Original TextEquipment IdentifierDates ProcedureImplant ([id number]) Functional Status JzltKrbwditwloQzslzlWkoggfbv53-81-0166Ydysjrbzop StatusN/AFisherMercy Health [facility] Surgery Jxbozoe82-46-9510Nrvtfiyair StatusNoHolzer Medical Center – [place] Clinical Notes 08-15-2014 to 10-11-2024 Note Date & RzufQttfTpvmjyuf96-71-6847 Evaluation note* Encounter Date Assessment Date Assessment LastModified by Organization Details LastModified Time 10/11/2024 10/11/2024 Immunizations re viewed and UTD Recommended: Dental cleanings 2x/yr Annual eye exams Annual flu vaccine Tdap every 10 years Shingles vaccine at age 50. Pneumonia vaccine at age 50 RSV vaccine at age 60 (50-59 with risk factors) Cervical cancer screening (Pap smear +/- HPV) every 3-5 years start at 21 years of age. Breast Cancer Screening (Mammogram) every 1-2 years starting at the age of 40. Colon Cancer Screening (Colonoscopy, Cologuard, or Colofit are options) starting at age 45 (or sooner if indicated). Osteoporosis screening (Bone density studies) starting at 65 (or sooner if indicated). Annual Lung cancer screening (LDCT) for smokers at age 50-80 with 20pkyr history of smoking who continue to smoke or quite within past 15 years Reviewed age appropriate wellness including getting 7-8 hours of sleep at night, diet, activity (150 minutes of aerobic exercise + strength training), water intake, sun protection (limiting exposure,sunscreen, protective clothing/hats), and accident prevention (i.e. gun safety, wearing seatbelt, wearing helmets w/ bikes).ximpar24Ltp pjpbplsxi51/27/2025 13:48:08 IN e-SENS 08-04-2025 History of Present illness Narrative* Sherry Velasquez DO - 09/18/2024 8:30 AM EDT Images from the original note were not included. Sherry Velasquez DO Obstetrics and Gynecology Name: Tamy Sal Date/Time of Service:09/18/2024 8:51 AM :1970 Age: 54 y.o. Subjective Tamy Sal is a 54 y.o. female who is here for a routine exam. Gynecologic Exam (Patient here for yearly. Patient reports urinary frequency and lower back pian, requesting urine dip for potential UTI. Completed mammogram on 05/01/24 BIRADS 2. Colonoscopy 2019. Patient currently uses the Estradiol 0.5 MG tablet-does not need a refill. ) Control Contraception: status post hysterectomy. LMP: No LMP recorded. Patient is postmenopausal. Last Mammogram Results for orders placed in visit on 05/01/24 Bilateral screening mammogram with tomosynthesis Narrative Examination: BI MAMMOGRAM SCREENING TOMOSYNTHESIS BILATERAL Clinical History: screening Technique: Screening digital mammography study of both breasts was performed with 2-D and 3-D tomosynthesis imaging. Study was compared to the prior exam dated 04/29/2023. Findings: There is no evidence of interval dominant spiculated mass, grouped microcalcifications, or skin thickening which would be suggestive of malignancy. Scattered benign calcifications are noted bilaterally. A few small benign- appearing asymmetric densities bilaterally similar to the prior study. Impression Impression: No specific evidence of malignancy seen in either breast. BIRADS 2 - Benign Findings DENSITY: There are scattered areas of fibroglandular density. FOLLOW-UP: Routine Screening Mammogram ELECTRONICALLY SIGNED BY: Andrey Renee M.D. Current Outpatient Medications on File Prior to Visit Medication Sig Dispense Refill meloxicam (Mobic) 15 MG tablet TAKE 1 TABLET BY MOUTH EVERY DAY FOR 30 DAYS acetaminophen (Tylenol 8 Hour) 650 MG ER [...] NOT CRUSH, CHEW, OR SPLIT. 90 tablet 1 pantoprazole (ProtoNix) 40 MG EC tablet Take 40 mg by mouth in the morning and 40 mg before bedtime. tiZANidine (Zanaflex) 4 MG tablet TAKE 2 TABLETS BY MOUTH ONCE DAILY AT BEDTIME triamcinolone (Kenalog) 0.1 % cream APPLY TO AFFECTED AREA EXTERNALLY TWICE DAILY FOR 30 DAYS No current facility-administered medications on file prior to visit. Past Medical History: Diagnosis Date Low serum potassium level Menopause ovarian failure 2023 Migraines [facility] Past Surgical History: Procedure Laterality Date ANTERIOR VAGINAL REPAIR 03/09/2024 APPENDECTOMY COLONOSCOPY 2019 COLPORRHAPHY 03/09/2024 DILATION AND CURETTAGE OF UTERUS HYSTERECTOMY 2015 LAVH/BSO POSTERIOR REPAIR 03/09/2024 VAGINAL DELIVERY x4 [...] History Para Term AB Living 5 4 1 4 SAB IAB Ectopic Multiple Live Births 1 # Outcome Date GA Lbr Berto/2nd Weight Sex Type Anes PTL Lv 5 SAB 4 Para 3 Para 2 Para 1 Para No Known Allergies Review of Systems Constitutional: Negative. Respiratory: Negative. Cardiovascular: Negative. Gastrointestinal: Negative. Musculoskeletal: Negative. Skin: Negative. Neurological: Negative. Endocrine: Negative. Objective BP 118/74 Wt 157 lb BMI 24.23 kg/m Body mass index is 24.23 kg/m . Physical Exam Genitourinary: Urethral meatus normal. No lesions in the vagina. Right Labia: No lesions. Left Labia: No lesions. Vaginal cuff intact. No vaginal discharge. No vaginal prolapse present. Moderate vaginal atrophy present. Right Adnexa: not tender and no mass present. Left Adnexa: not tender and no mass present. Cervix is absent. Uterus is absent. Urethral hypermobility present. No urethral stress urinary incontinence with cough [...] with any changes to her gynecological condition. Recommended patient to take fiber supplements or probiotic to regulate her bowel movements 2. Postmenopausal HRT (hormone replacement therapy) Continue current HRT, patient to contact the office with concerns/questions 3. Urinary frequency No signs of urinary tract infection. Patient to increase fluid intake - Urine dip 4. Screening breast examination Mammogram up to date 5. Hx of hysterectomy for benign disease 6. Low back pain, unspecified back pain laterality, unspecified chronicity, unspecified whether sciatica present - Urine dip 7. Hot flashes Much improved with current HRT ICD-10-CM 1. Encounter for gynecological examination without abnormal finding Z01.419 2. Postmenopausal HRT (hormone replacement therapy) Z79.890 3. Urinary frequency R35.0 Urine dip 4. Screening breast examination Z12.39 5. Hx of hysterectomy for benign disease Z90.710 6. Low back pain, unspecified back pain laterality, unspecified chronicity, unspecified whether sciatica present M54.50 Urine dip 7. Hot flashes R23.2 Follow up in about 1 year (around 09/18/2025) for Yearly. Sherry Velasquez DO 09/18/2024 8:51 AM documented in this encounterMissouri Rehabilitation CenterRhiwggvklm12-14-1133 NoteProgress Note-Physician Patient: TAMY SAL Age: 54 years Sex: Female : 1970 Associated Diagnoses: None Author: Fan Ornelas Jr., DO Preoperative Information Anesthesia history: Patient history: No prior anesthetic problems. Informed consent: Signed by patient. Re-evaluation prior to induction: Initial evaluation reviewed: No significant change. Review of Systems Respiratory: Negative except as documented in history of present illness. Cardiovascular: Negative except as documented in history of present illness. Health Status Allergies: Allergic Reactions (Selected) No Known Allergies, Allergies (1) Active Severity Reaction No Known Allergies None Documented Current medications: (Selected) Documented Medications Documented Pantoprazole [address] Tab: 40 mg = 1 tab(s), Oral, BID Potassium Chloride (Eqv-K-Tab) 20 mEq oral tablet, extended release: 40 mEq = 2 tab(s), Oral, BID amiloride 5 mg oral tablet: 5 mg [...] release 40 mEq = 2 tab(s), Oral, BID , No qualifying data available Problem list: All Problems Abnormal kidney function / SNOMED CT 44073166 / Confirmed Arthritis / SNOMED CT 1779402 / Confirmed BMI 25.0-25.9,adult / SNOMED CT 7737353151 / Confirmed Gastroesophageal reflux disease / SNOMED CT 478402173 / Confirmed Iron deficiency / SNOMED CT 24666545 / Confirmed Menopause / SNOMED CT 942106373 / Confirmed Occult blood positive stool / SNOMED CT 0610677428 / Confirmed Overweight / SNOMED CT 887034139 / Confirmed Positive fecal occult blood test / SNOMED CT 4957383976 / Confirmed Raynaud disease / SNOMED CT 554054135 / Confirmed Raynaud's disease / SNOMED CT 184652528 / Confirmed Steatosis of liver / SNOMED CT 973623072 / Confirmed Resolved: Cyst of kidney / SNOMED CT 1915063562 Histories Past Medical History: Resolved Cyst of kidney (4274387734): Onset on 04/17/2021 at 51 years. Resolved on 04/07/2024 at 54 years. Procedure history: Colonoscopy (725743795) on 04/21/2024 at 54 Years. Anterior repair of vagina (88661526) on 03/09/2024 at 53 Years. Colonoscopy (756012105) on 02/02/2018 at 47 Years. Appendectomy (909237139). Endometrial ablation (480450667). Suspension of bladder (5673643). Excision of cyst (8496855965). Abdominal hysterectomy (579373583). Social History Social & Psychosocial Habits Alcohol 04/14/2024 Type: Liquor Frequency: 1-2 times per week Use: Current Substance Abuse 04/14/2024 Risk Assessment: Denies Substance Abuse Tobacco 04/14/2024 Risk Assessment: Denies Tobacco Use 04/14/2024 Tobacco Use: Never (less than 100 in l Smokeless tobacco use: Never . Physical Examination VS/Measurements Airway: Mallampati classification: II (soft palate, fauces, uvula visible). Respiratory: Lungs are clear to auscultation, Respirations are non-labored. Cardiovascular: Regular rhythm. Plan [place] [employer] Anesthesiologists (ASA) physical status classification: Class II. Anesthetic Preoperative Plan: Anesthesia General, and -TIVA.[facility] HospitalComment on above:Result Comment: Electronically Signed By: Fan Ornelas Jr., DO\.br\Date and Time Signed: 04/27/24 06:58 [id number] NoteProgress Note-Physician Patient: TAMY SAL Age: 54 years Sex: Female : 1970 Associated Diagnoses: None Author: Fan Ornelas Jr., DO Postoperative Information Postoperative disposition: Postoperative disposition: Home. Optimetrix number: Optimetrix number [id number]. Anesthetic utilized: General. Physical Examination Vital Signs 04/21/2024 11:20 EST Heart Rate Monitored 57 bpm LOW Respiratory Rate Monitored 13 br/min Systolic Blood Pressure 106 mmHg Diastolic Blood Pressure 94 mmHg HI Blood Pressure Location Right arm Mean Arterial Pressure, Cuff 98 mmHg SpO2 100 % 04/21/2024 11:05 EST Heart Rate Monitored 58 bpm LOW Respiratory Rate Monitored 20 br/min Systolic Blood Pressure 104 mmHg Diastolic Blood Pressure 66 mmHg Blood Pressure Location Right arm Mean Arterial Pressure, Cuff 79 mmHg SpO2 98 % 04/21/2024 11:00 EST Heart Rate Monitored 66 bpm Respiratory Rate Monitored 10 br/min Systolic Blood Pressure 91 mmHg Diastolic Blood Pressure 67 mmHg Blood Pressure Location Right arm Mean Arterial Pressure, Cuff 75 mmHg SpO2 99 % 04/21/2024 10:55 EST Heart Rate Monitored 73 bpm Respiratory Rate Monitored 17 br/min Systolic Blood Pressure 98 mmHg Diastolic Blood Pressure 63 mmHg Blood Pressure Location Right arm Mean Arterial Pressure, Cuff 75 mmHg SpO2 98 % 04/21/2024 10:50 EST Heart Rate Monitored 65 bpm Respiratory Rate Monitored 11 br/min Systolic Blood Pressure 79 mmHg LOW Diastolic Blood Pressure 50 mmHg LOW Blood Pressure Location Right arm Mean Arterial Pressure, Cuff 60 mmHg SpO2 100 % 04/21/2024 10:47 EST Heart Rate Monitored 71 bpm Respiratory Rate Monitored 13 br/min Systolic Blood Pressure 79 mmHg LOW Diastolic Blood Pressure 47 mmHg LOW Blood Pressure Location Right arm Mean Arterial Pressure, Cuff 58 mmHg SpO2 100 % 04/21/2024 10:45 EST Temperature Temporal Artery 36.1 DegC LOW Heart Rate Monitored 71 bpm Respiratory Rate 12 br/min LOW Systolic Blood Pressure 72 mmHg LOW Diastolic Blood Pressure 38 mmHg LOW Blood Pressure Location Right arm Mean Arterial Pressure, Cuff 49 mmHg SpO2 99 % Pain Assessment: Controlled. General: Awake, Alert, Appropriate. Respiratory: Adequate air exchange, Non-labored. Cardiovascular: Stable, Normal peripheral perfusion. Neurological: Neurologic exam at baseline. No changes.. Assessment Anesthetic outcome No anesthetic complications noted. No nausea/vomiting. Review / Management Condition: Stable. Plan Transfer/Discharge: Transfer/Discharge Discharge when meets criteria ( From PACU to Ambulatory Surgery Unit, and To home ).[facility] HospitalComment on above:Result Comment: Electronically Signed By: Fan Ornelas Jr., DO\.br\Date and Time Signed: 04/21/24 12:25 [id number] NoteColonoscopy Procedure Report Patient: TAMY SAL Age: 54 years Sex: Female : 1970 Associated Diagnoses: None Author: Luis Antonio ROGERS MD Pre-Procedure Procedure Date 04/21/2024 11:10:00 . Procedure Type: Colonoscopy. Procedure provider Luis Antonio Rogers MD. Referred by Eric Hall MD. Current history and physical Documented on chart. Colorectal neoplasm risk assessment Average risk. Informed Consent After discussing the rationale, risks and benefits, and alternatives to this procedure, the patient provided signed consent for the procedure. Pre-procedure diagnosis: Age 50 years or over. ASA Classification: Class II. . Monitoring: See anesthesia record. . Procedure The procedure was performed in the hospital. See anesthesia record for sedation given during procedure. Rectal exam was performed and was normal. The patient was positioned starting in the left lateral decubitus position. Endoscope type used was a pediatric-size. The endoscope was lubricated then introduced through the anus. The scope was advanced to the cecum verified by photographing the appendiceal orifice, verified by photographing the ileocecal valve. No difficulties encountered during theprocedure. The bowel preparation quality was good and was adequate (see polyps greater than or equal to 6 millimeters). The patient tolerated the procedure well. Findings The bowel was normal throughout the extent examined. Images Procedure images: anal canal [id number] ileocecal valve appendiceal orifice . Post-Procedure Complications: none. Estimated blood loss: none. Specimens: none. Devices/ implants: none left in place. Impression and Plan Diagnosis: Encounter for screening colonoscopy for kdj-iuht-wswf patient (ICD10- CM Z12.11, Discharge, Medical). Course: Progressing as expected. Recommendations: Repeat colonoscopy:: In 10 years. Follow-up:: if problems/questions. Diet:: Regular diet. Medication resumption:: Continue current medications. Return to activities:: After 24 hours. Education and Follow-up: Counseled: Family.[facility] HospitalComment on above:Other Comment: Missing Attachment - attachment storage system not supported [id number] Can be viewed in source system Missing Attachment - attachment storage system not supported [id number] Can be viewed in source systemMissing Attachment - attachment storage system not supported [id number] Can be viewed in source systemMissing Attachment - attachment storage system not supported [id number] Can be viewed in source [id number] NotePatient Education - Text Colonoscopy Care After Surgery Please read the instructions outlined below and refer to this sheet in the next few weeks. These discharge instructions provide you with general information on caring for yourself [facility] Your doctor may also give you specific instructions. While your treatment has been planned according to the most current medical practices available, unavoidable complications occasionally occur. If you have any problems or questions after discharge, please call your doctor. ACTIVITY You may resume your regular activity, but move at a slower pace for the next 24 hours. Take frequent rest periods for the next 24 hours. Walking will help get rid of the air and reduce the bloated feeling in your abdomen (belly). No driving for 24 hours (because of the anesthesia (medicine) used during the test). You may shower. Do not sign any important legal documents or operate any machinery for 24 hours (because of the anesthesia used during the test). NUTRITION Drink plenty of fluids. You may resume your normal diet as instructed by your doctor. Begin with a light meal and progress to your normal diet. Heavy or fried foods are harder to digestand may make you feel nauseated (sick to your stomach). Avoid alcoholic beverages for 24 hours or as instructed. MEDICATIONS You may resume your normal medications unless your doctor tells you otherwise. WHAT YOU CAN EXPECT TODAY Some feelings of bloating in the abdomen. Passage of more gas than usual. Spotting of blood in your stool or on the toilet paper. IF YOU HAD POLYPS REMOVED DURING THE COLONOSCOPY: No aspirin products for 7 days or as instructed. No alcohol for 7 days or as instructed. Eat a soft diet for the next 24 hours. FOLLOW-UP Your doctor will discuss the results of your test with you. SEEK IMMEDIATE MEDICAL ATTENTION IF: There is more than a spotting of blood in your stool. There is abdominal distention (your abdomen is swollen). There is vomiting. You have a temperature over 101.5 F. There is abdominal pain or discomfort that is severe or gets worse throughout the day.[facility]03-07-[facility] NoteHistory and Physical Patient: TAMY SAL Age: 54 years Sex: Female : 1970 Associated Diagnoses: None Author: Luis Antonio ROGERS MD Subjective no changes to H & P.[facility] HospitalComment on above:Result Comment: Electronically Signed By: Luis Antonio ROGERS MD\.br\Date and Time Signed: 04/21/24 10:22 [id number] NoteGeneral Surgery Office/Clinic Note Chief Complaint consultation for positive occult stool HPI Staff 54 year old female presents on consultation from Dr. Hall for positive occult stool. Denies abdominal or rectal pain. No rectal bleeding or change in bowel habits. Denies nausea or vomiting. No unexplained weight loss. Last colonoscopy completed 01/2018- normal. No known family history of colon cancer. History of Present Illness 54 yo female with h/o GERD, Raynaud's disease, referred for positive fecal occult blood test; patient reports some intermittent constipation, occasional blood with wiping, no pain, no gross blood in stools, no abd complaints; last colonoscopy 01/2018 for rectal bleeding, wnl; abd operations significant for appendectomy and hysterectomy; no asa or NSAID use; no tobacco use; no fmhx of GI malignancy or IBD. Review of Systems PHQ Score Initial Depression Screen Score: 0 SCORE ROS - Provider Constitutional: no fever, no sweats, no weight loss. Eyes: yes glasses, no blurred vision, no visual loss. ENMT: no dentures, no hoarseness, no swallowing difficulties, no hearing loss, no ear infection(s),no nose bleeds. Cardiovascular: normal blood pressure, no chest pain, regular heartbeat, no heart murmur. Respiratory: no shortness of breath, no cough, no asthma, no wheezing. Gastrointestinal: no nausea, no vomiting, no diarrhea, no constipation, no blood in stool, no change in bowel habits, no abdominal pain, no hepatitis. Genitourinary: no kidney stones, no urine infection, no dysuria. Musculoskeletal: no pain, no weakness. Skin: no changing moles, no rash, no skin lumps. Neurologic: no seizures, no epilepsy, no headache. Psychiatric: no emotional or psychiatric problem. Heme/Lymph: no bleeding problems, no anemia, no blood clots, no transfusions. Allergy/Immunologic: no swollen lymph nodes/glands, no IV drug abuse. Other: Additional ROS info: Except as noted in the above Review of Systems and in the History of Present Illness, all other systems have been reviewed and are negative or noncontributory. Physical Exam Vitals & Measurements HR: 62(Peripheral) RR: 16 BP: 106/69 HT: 67 in HT: 170 cm WT: 73 kg WT: 160.937 lb BMI: 25.26 HEENT: normal conjunctiva, sclera clear, no scleral icterus, EOM intact, PERRLA, oral mucosa moist without lesions. Neck: trachea midline, no mass, symmetric, no thyromegaly or nodules, no adenopathy Respiratory: lungs CTA, respirations non labored. Cardiovascular: regular rate and rhythm, no murmur, no pedal edema or varicosities. Gastrointestinal: soft, non distended, mild tenderness, diffuse no masses, no palpable hernias, diastasis recti no, no hepatosplenomegaly; normal bs Lymphatic: no cervical adenopathy, no supraclavicular adenopathy. Musculoskeletal: normal gait, digits and nails without infection, nodes, cyanosis, clubbing. Skin: no rashes, no lesions, no ulcers, no subcutaneous nodules, induration. Psychiatric/Neuro: oriented to time, place, person, judgement normal, affect appropriate for age, insight intact, no focal deficits. Tests: labs reviewed, review of old records completed , Discussed surgical options, risks, and possible complications with patient. Assessment/Plan 1. Positive fecal occult blood test (R19.5: Other fecal abnormalities) plan colonoscopy under anesthesia, informed consent obtained. Follow-up No qualifying data available Problem List/Past Medical History Ongoing BMI 25.0-25.9,adult Gastroesophageal reflux disease Iron deficiency Occult blood positive stool Overweight Positive fecal occult blood test Raynaud's disease Steatosis of liver Historical Cyst of kidney Procedure/Surgical History Anterior repair of vagina (03/09/2024), Colonoscopy (02/02/2018), Abdominal hysterectomy, Appendectomy, Endometrial ablation, Excision of cyst, Suspension of bladder. Medications amiloride 5 mg oral tablet, 5 mg= 1 tab(s), Oral, Daily estradiol 0.5 mg Tab, 0.5 mg= 1 tab(s), Oral, Daily ferrous sulfate 325 mg Tab, 325 mg= 1 tab(s), Oral, BID oxybutynin 5 mg ER Tab, 5 mg= 1 tab(s), Oral, Daily Pantoprazole [address] Tab, 40 mg= 1 tab(s), Oral, BID Potassium Chloride (Eqv-K-Tab) 20 mEq oral tablet, extended release, 40 mEq= 2 tab(s), Oral, BID Allergies No Known Allergies Social History Alcohol Current. Liquor. 1-2 times per week., 04/09/2024 Substance Abuse - Denies Substance Abuse, 02/29/2024 Never., 04/09/2024 Tobacco - Denies Tobacco Use, 02/29/2024 Never (less than 100 in lifetime) Tobacco Use:. Never Smokeless Tobacco Use:., 04/14/2024 Family History Diabetes mellitus type 2: Sister and Brother. Heart disease: Father. Hypertension: Father. Renal cell carcinoma: Brother. Testicular adenoma: Brother.[facility] HospitalComment on above:Result Comment: Electronically Signed By: KEN DELGADO, Luis Antonio Johnson\Date and Time Signed: 04/14/24 08:34 [id number] History of Present illness Narrative* Sherry Van Antonhenrietta, DO - 03/30/2024 8:30 AM EST Images from the original note [...] was discharged home the same day. Pt deniespain at this time denies further bleeding. Pt has follow up with PCP this day for ED follow up Past Medical History: Diagnosis Date Low serum potassium level Menopause ovarian failure 2023 Migraines (CMS/HCC) Miscarriage Past Surgical History: Procedure Laterality Date ANTERIOR VAGINAL REPAIR 03/09/2024 APPENDECTOMY COLONOSCOPY COLPORRHAPHY 03/09/2024 DILATION AND CURETTAGE OF UTERUS HYSTERECTOMY 2015 LAVH/BSO POSTERIOR REPAIR 03/09/2024 VAGINAL DELIVERY x4 [...] activities 2. Cystocele, midline documented in this encounterMissouri [facility] CenterQwuxbtostg10-29-1085 Hospital Discharge instructions Patient Education 03/09/2024 13:20:54 Post Op [...] Follow these instructions at home: Medicines Take qbqr-dxt-qlepirg and prescription medicines only as told by your health care provider. Ask your health care provider if the medicine prescribed to you: ?Requires you to avoid driving or using machinery. ?Can cause constipation. You may need to take these actions to prevent or treat constipation: ?Drink enough fluid to keep your urine pale yellow. ?Take oxpz-zef-xdqradm or prescription medicines. ?Eat foods that are [...] clean and dry. Make sure you clean thearea after every bowel movement and each time [...] the limit that you are told, until yourhealth care provider says that it is safe. [...] provider. Document Revised: 07/30/2020 Document Reviewed: 07/30/2020 [employer] Patient Education 2023 [employer]. Follow Up Care 02/17/2024 11:28:11 With:Sherry Velasquez Address: [address] [address]- Business (1) When: Unknown [facility] 01-23-2025 NoteProgress Note-Physician Patient: TAMY SAL Age: 53 years Sex: Female : 1970 Associated Diagnoses: None Author: Nitish DELGADO, Brigido Goldsmith Postoperative Information Postoperative disposition: Postoperative disposition: To PACU. Optimetrix number: Optimetrix number [id number]. Anesthetic utilized: General. Health Status Allergies: Allergic [...] Discharge when meets criteria ( To home ).[facility] HospitalComment on above:Result Comment: Electronically Signed By: Brigido Talbert MD\.br\Date and Time Signed: 03/09/24 14:18 EST 03-09-2024 Evaluation + Plan noteExtracted from:Title:ANES Post-operative Note---GeneralAuthor:Brigido Talbert MDDate:03/09/24 Plan Transfer/Discharge: Transfer/Discharge Discharge when meets criteria ( To home ). Extracted from:Title:ANES Pre-operative Note uthor:Brigido Talbert MDDate: 03/09/24 Plan [place] [employer] (ASA) physical status classification: Class II. Anesthetic Preoperative Plan: Anesthesia General.[facility] [id number] NotePatient Education - Text Obstetrics and Gynecology [...] these instructions at home: Medicines ??? Take hnbt-wdh-jdjklhy and prescription medicines only as told by your health care provider. ??? Ask your health care provider if the medicine prescribed to you: ? Requires you to avoid driving or using machinery. ? Can cause constipation. You may need to take these actions to prevent or treat constipation: ? Drink enough fluid to keep your urine pale yellow. ? Take jyrs-jgw-iaiqpha or prescription medicines. ? Eat foods that [...] provider. Document Revised: 07/30/2020 Document Reviewed: 07/30/2020 [employer] Patient Education ? 2023 [employer].[facility] 03-09-2024 NotePatient Education - Text Obstetrics [...] these instructions at home: Medicines ??? Take hbfq-zga-imemmzf and prescription medicines only as told by your health care provider. ??? Ask your health care provider if the medicine prescribed to you: ? Requires you to avoid driving or using machinery. ? Can cause constipation. You may need to take these actions to prevent or treat constipation: ? Drink enough fluid to keep your urine pale yellow. ? Take djtf-qwo-ckphsio or prescription medicines. ? Eat foods that [...] provider. Document Revised: 07/30/2020 Document Reviewed: 07/30/2020 [employer] Patient Education ? 2023 [employer].[facility] 03-09-2024 NoteProgress Note-Physician Patient: TAMY SAL JEREMIAH: [id number] Age: 53 years Sex: Female : 1970 Associated Diagnoses: None Author: Nitish DELAGDO, Brigido Goldsmith Preoperative Information Anesthesia Preop Info: [...] mL, IV, 150 mL/hr, Routine, Start date :30:00 EST, 6.7 hour(s), Total volume (mL): 1,000, [...] Problems Abnormal kidney function / SNOMED CT 60092516 / Confirmed Arthritis / SNOMED CT 0231052 / Confirmed Menopause / SNOMED CT 715704459 / Confirmed Raynaud disease / SNOMED CT 051004364 / Confirmed, Active Problems (4) Abnormal kidney function Arthritis Menopause Raynaud disease Histories Past Medical History: No active or resolved past medical history items have been selected or recorded. Family History: No family history items have been selected or recorded. Procedure history: Appendectomy (608029100). Endometrial ablation (876357747). Partial hysterectomy (0280595186). Social History Social & Psychosocial Habits Alcohol [...] available . Plan [employer] (more content not included)...[facility] HospitalComment on above: Result Comment: Electronically Signed By: Nitish DELGADO, Brigido Goldsmith\.br\Date and Time Signed: 03/09/24 10:21 [id number] History of Present illness Narrative* Sherry Velasquez DO - 02/29/2024 9:30 AM EST Images from [...] Cancer Mother Yessenia Sharma Rheum arthritis Father Wes Sharma Diabetes Father Wes Sharma Cancer Brother [place] Sharma Diabetes Brother [place] Sharma Diabetes Sister [...] Follow-up encounter involving medication documented in this encounterMissouri Rehabilitation CenterEyduoxyitx45-91-4829 History of Present illness Narrative* Sherry Velasquez [...] tomosynthesis Narrative THIS EXAM WAS PERFORMED AT [facility] EXAM: MAMM SCREENING BILATERAL W CAD, [...] DO 12/29/2023 9:13 AM documented in this encounterMissouri Rehabilitation CenterOxjyoavvav73-74-7084 Evaluation note* Encounter Date Diagnosis Assessment Notes Treatment Notes Treatment Clinical Notes Apr, Hypokalemia (ICD-10 - E87.6) 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 She has negative w/u for Hyperaldosteronism and [place]. Her potassium is within the normal limit. Continue current dose of the potassium chloride and amiloride. Apr,Metabolic alkalosis (ICD-10 - E87.3)Her bicarbonate is within the acceptable range. No need for any intervention Apr,Renal cyst (ICD-10 - Q61.00)She has likely simple cyst on renal US. No more w/u needed Apr,Iron deficiency (ICD-10 - E61.1)She has iron deficiency but hemoglobin within normal. Continue oral iron. Apr,ERD (gastroesophageal reflux disease) (ICD-10 - K21.9)Continue pantoprazole. Explained to her potential risk of worsening renal function due to its prolonged use. She she understood and verbalized information and would like to continue with close monitoring of renal function. 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 She has negative w/u for Hyperaldosteronism and [place]. Her potassium is within the normal limit. Continue current dose of the potassium chloride and amiloride. Apr,Metabolic alkalosis (ICD-10 - E87.3) Her bicarbonate is within the acceptable range. No need for any intervention Apr,enal cyst (ICD-10 - Q61.00) She has likely simple cyst on renal US. No more w/u needed [employer] Other 12-19-2018 History general Narrative - ReportedNo medical history recorded. Gynecological History Statement/Question Response Date of Last Colonoscopy 02/02/2018 Date of Last Mammogram 05/01/2024 Obstetrics History GPAL:G 5 P 0 0 0 4 Type Value Multiple Births 0 Full Term 0 Induced 0 Spontaneous 0 Premature 0 Living 4 Ectopics 0 Total 5 IN - [facility] 07-01-2015 History general Narrative - Reported* Type Description Date Medical History low potassium Surgical Edaaqxzcvwsmgplhbto97/2014Surgical HistoryappendectomySurgical History Right hand 5 th finger cyst removed04/2017Hospitalization Historysee above Hospitalization History4 child births [facility] [employer] Other [id number] History general Narrative - Reported* Type Description Date Medical History low potassium Medical HistoryMETABOLIC ALKALOSISMedical HistoryHYPOKALEMIA DUE TO LOSS OF POTASSIUMMedical HistoryRENAL CYSTSurgical Srwrhvmycpebfuvmjmr49/2014Surgical HistoryappendectomySurgical HistoryRight hand 5 th finger cyst removed04/2017 Hospitalization Historysee aboveHospitalization History4 child births [facility] [employer] Other Evaluation + Plan note Future Appointments Appointment Date:03/09/2024 10:30:00 AM Scheduled Provider: Location:[facility] Surgical Services Appointment Type:Surgery FT [facility] Evaluation + Plan note Future Appointments Appointment Date:04/21/2024 10:30:00 AM Scheduled Provider: Location:[facility] Surgical Services Appointment Type:Surgery FT [facility] General Surgery [place] Evaluation noteNo [facility] [employer] Other evaluation note* Diagnosis Onset Date Resolution Status GERD (gastroesophageal reflux disease) acuteHypokalemiaacuteIron deficiencyacuteMetabolic alkalosisacuteRenal cystacute [facility] Work Phone: Evaluation note* Diagnosis Onset Date Resolution Status Hypokalemia acuteMetabolic alkalosisacute [facility] Work Phone: Evaluation note* Diagnosis Encounter for gynecological examination without abnormal finding- Primary Other screening mammogram Cystocele, midline Postmenopausal HRT (hormone replacement therapy) Need for prophylactic hormone replacement therapy (postmenopausal) Hot flashes Mood swings Other specified episodic mood disorder Urge incontinence Hx of hysterectomy for benign disease [facility] Diagnosis Urge incontinence [facility]* Diagnosis Preoperative exam for gynecologic surgery- Primary Cystocele, midline Urge incontinence Postmenopausal HRT (hormone replacement therapy) Need for prophylactic hormone replacement therapy (postmenopausal) Follow-up encounter involving medication [facility]* Diagnosis Follow-up examination after gynecological surgery- Primary Cystocele, midline [facility]* Diagnosis Onset Date Resolution Status Admit Date CKD (chronic kidney disease) stage 3, GF R 30-59 ml/min acuteFebruary 2024 11:00amGERD (gastroesophageal reflux disease)acute April 13, 2024 11:00amHypokalemiaacuteFebruary 2024 11:00amIron deficiencyacuteFebruary 2024 11:00amMetabolic alkalosisacuteFebruary 2024 11:00amRenal cystacuteFebruary 2024 11:00am [facility] Work Phone: Evaluation note* Diagnosis Encounter for gynecological examination without abnormal finding- Primary Postmenopausal HRT (hormone replacement therapy) Need for prophylactic hormone replacement therapy (postmenopausal) Urinary frequency Screening breast examination Other screening breast examination Hx of hysterectomy for benign disease Low back pain, unspecified back pain laterality, unspecified chronicity, unspecified whether sciatica present Hot flashes [facility]* Diagnosis Urge incontinence [facility] No assessment recorded. [facility] [employer] Evaluation note* Diagnosis Onset Date Resolution Status Admit Date CKD (chronic kidney disease) stage 3, GF R 30-59 ml/min acuteNov2024 9:22amGERD (gastroesophageal reflux disease)acute December 21, 2024 9:22amHyperglycemiaacuteNovember 2024 9:22amHypokalemia acuteNov2024 9:22amIron deficiencyacuteNov2024 9:22am Metabolic alkalosisacuteNov2024 9:22amRenal cystacuteNovember 2024 9:22am [facility] Work Phone: Hospital course Narrative No data available for this section [facility] Hospital Discharge instructions No data available for this section [facility] Progress note No data available for this section [facility] Reason for referral (narrative)No reason for referral information availableUniversity Hospitals [facility] Work Phone: Summary Purpose Family History Relationship Condition Age at Onset Recorded Date/T taz brother Unknown Malignant neoplasmUnknownfatherHeart diseaseUnknownDiabetes mellitusUnknown family memberDeceasedUnknownsisterDiabetes mellitusUnknown Relationship Description Onset Age of this Age Resolved Age Notes LastModified by Organization Details LastModified Time Father Osteoarthritis diagnosed with Tpaqmfnnfcwzbvml92Ifq nzicnmikt40/27/2025 12:20:29FatherDiabetes mellitusdiagnosed with Diabetesbshankar2.2366Not brkotmmgn49/06/2024 03:53:30 Notes:*Relative: Mother*Prob connor: alive *Relative: Father*Problem: alive *Relative: Unspecified Relation*Problem: lives with spouse and son dad had cancer cells removed , pacemaker mom is getting forgetful Brother in childhood from SIDS *Relative: Unspecified Relation*Problem: 2 brother(s) 1 sisters(s) 4 sons(s) - healthy Advance Directives Advance Directive Response Recorded Date/ [...] F/U Reason for Visit Hypokalemia Metabolic alkalosis Chief Complaint Admit Date RENAL 6 MONTH F/U April 13, 2024 11:00am Reason for Visit Admit Date CKD (chronic kidney disease) stage 3, GF R 30-59 ml/min April 13, 2024 11:00am GERD (gastroesophageal reflux disease) F ebruary 2024 11:00am Hypokalemia April 13, 2024 11:00am Iron deficiency April 13, 2024 11:00am Metabolic alkalosis April 13, 2024 11:00am Renal cyst April 13, 2024 11:00am Chief Complaint Admit Date renal 6 month f/u December 21, 2024 9 :22am Reason for Visit Admit Date CKD (chronic kidney disease) stage 3, GF R 30-59 ml/min December 21, 2024 9:22am GERD (gastroesophageal reflux disease) N ov2024 9:22am Hyperglycemia December 21, 2024 9 :22am Hypokalemia December 21, 2024 9 :22am Iron deficiency December 21, 2024 9 :22am Metabolic alkalosis December 21, 2024 9 :22am Renal cyst December 21, 2024 9 :22am Additional Source Comments INFORMATION SOURCE (unrecogn ized section and content) DATE CREATED AUTHOR 04/14/2019 [facility] DATE CREATED AUTHOR AUTHOR'S ORGANIZ ATION 07/23/2021 [facility] DATE CREATED AUTHOR AUTHOR'S ORGANIZ ATION 04/03/2022 [facility] DATE CREATED AUTHOR AUTHOR'S ORGANIZ ATION 03/03/2024 [facility] DATE CREATED AUTHOR AUTHOR'S ORGANIZ ATION 03/11/2024 [facility] DATE CREATED AUTHOR AUTHOR'S ORGANIZ ATION 04/29/2024 [facility] DATE CREATED AUTHOR AUTHOR'S ORGANIZ ATION 04/30/2024 [facility] DATE CREATED AUTHOR AUTHOR'S ORGANIZ ATION 09/19/2024 [facility] EPIC REASON FOR VISIT (unrecogniz ed section and content) ReasonCommentsGynecologic ExamPatient here for yearly. Patient reports that her bladder is dropping, she states that when she wipes she feels something there . She leaks urine when she cannot make it to the restroom in time and wakes up 1- 2x per night. Does not wear a pad or liner. Mammogram order sent to Elizabeth GARRETT. Colonoscopy 2019. Patient currently uses the Estradiol 0.5 MG tablet-needs refill. Would like to have her hormones checked.ReasonCommentsMed Change RequestReasonCommentsPre-op VisitPatient here for preop appt and follow up on Ditropan-XL for urge incontinence. Patient states thather symptoms are improving and is satisfied with current treatment. Patient states that she is not waking up as much anymore. Patient reports her cystocele has worsened, she can see the bulge now. Voiced interest in proceeding with surgical treatment of anterior vaginal repairReasonCommentsPost-op VisitPatient is here for 3 week post op. [...] was discharged home the same day. Pt deniespain at this time denies further bleeding. Pt has follow up with PCP this day for ED follow upReasonComments Gynecologic ExamPatient here for yearly. Patient reports urinary frequency and lower back pian, requesting urine dip for potential UTI. Completed mammogram on 05/01/24 [facility] 2. Colonoscopy 2019. Patient currently uses the Estradiol 0.5 MG tablet-does not need a refill.ReasonCommentsMed Refill Care Teams (unrecognized sec tion and content) Team Status: Active Member Role Status Juana Hall MD Primary Care Provider Active Team Status: Active Member Role Status Juana Hall MD Primary Care Provider Active Start: October 09, 2023 [place] ProviderActiveStart: October 09, 2023 Team Status: Inactive Member Role Status Juana Hall MD Primary Care Provider Active Start: October 13, 2023 End: October 12Rand[place] ProviderActiveStart: October 13, 2023 End: October 13, 2023 Team Status: Inactive Member Role Status Juana Hall MD Primary Care Provider Active Start: April 01, 2023 End: April 01Randolph [place] ProviderActiveStart: April 01, 2023 End: April 01, 2023Team MemberRelationshipSpecialtyStart DateEnd Eric Stubbs MD [address] [place] [id number] PCP - GeneralFamily Qieguecs89/2/23Team MemberRelationshipSpecialtyStart DateEnd Date Eric Hall MD [address] [place] [facility] [place] [address] [facility] - [facility]/16/22Team MemberRelationshipSpecialtyStart DateEnd Date Eric Hall MD [address] [place] [facility] [place] [address] [facility] - [facility] Lejvrfrd92/2/23Team MemberRelationshipSpecialtyStart DateEnd Date Eric Hall MD [address] [facility] [place] [address] [facility] - [facility] Forzzkjm71/2/23Team MemberRelationshipSpecialtyStart DateEnd Date Eric Hall MD [address] [place] [facility] [place] [address] PCP - [facility] Xkuhggnv15/2/23 Team Status: Active Member Role Status Juana Hall MD Primary Care Provider Active Start: April 01, 2024 Ledyyessica Swartz MDAttending ProviderActiveStart: April 01, 2024 Team Status: Inactive Member Role Status Juana Hall MD Primary Care Provider Active Start: April 13, 2024 End: April 13bdyessica Swartz , MDAttending ProviderActiveStart: April 13, 2024 End: April 13, 2024Team MemberRelationshipSpecialtyStart DateEnd Date Eric Hall MD [address] [facility] [place] [address] PCP - GeneralFamily Medicine09/18/24Team MemberRelationshipSpecialtyStart DateEnd Date Eric Hall MD [address] [place] [address] [facility] - [facility]/18/24 Team Status: Active Member Role/Relationship Status Dates Eric Hall MD Primary Care Provider Active Team Status: Inactive Member Role/Relationship Status Dates Eric Hall MD Primary Care Provider Active Start: December 21, 2024 End: December 21bdyessica Swartz MDAttending ProviderActiveStart: December 21, 2024 End: December 21, 2024 Goals (unrecognized section and content) Goals may [...] BE BASED ON THE PRIMARY CLINICAL RECORDS. [facility] [employer] provides no warranty or guarantee of the accuracy or completeness of information in this document.
[2025-02-14 08:11] VITALS: BP 125/72; PULSE 99; TEMP 36.2; O2SAT 99; BMI 25.6
[2025-02-14 09:51] VITALS: BP 100/67; PULSE 84; TEMP 36.4; O2SAT 97
[2025-02-14 10:06] VITALS: BP 106/79; PULSE 54; O2SAT 99
[2025-02-14 10:21] VITALS: BP 113/80; PULSE 59; O2SAT 100
== END 2025-02-14 10:21 | disposition home or self-care (01) ==
LOC: SURGOUT 07:57
PROVIDERS: PCP Family Medicine; Visit Provider Surgery
PROC: (CPT 731; principal; 2025-02-14 09:20)
DX: K21.9 Gastro-esophageal reflux disease without esophagitis (principal); R10.13 Epigastric pain; K29.50 Unspecified chronic gastritis without bleeding; K44.9 Diaphragmatic hernia without obstruction or gangrene; N18.30 Chronic kidney disease, stage 3 unspecified; I73.00 Raynaud's syndrome without gangrene; Z90.710 Acquired absence of both cervix and uterus; Z90.49 Acquired absence of other specified parts of digestive tract; R14.0 Abdominal distension (gaseous)
CPT/HCPCS: 00731; 43239; 88305; 88342; J2003; J2704